=== PATIENT | female | born 1950 | race Caucasian/White ===

== ENCOUNTER 2018-07-06 11:01 | Inpatient (IN) | payer OTHER, BC ==
[2018-07-06] MEDS ORDERED: SODIUM CHLORIDE 1,000 ML IV ONE (11:15)
[2018-07-06] MEDS ORDERED: SODIUM CHLORIDE 0.9% 500 ML INFUS.BAG IV ONE (11:19)
[2018-07-06] MEDS ORDERED: PANTOPRAZOLE SODIUM 40 MG VIAL IVPUSH ONE (11:19)
[2018-07-06] MEDS ORDERED: ACETAMINOPHEN 1000 MG/100 ML VIAL (NON FORMULARY) IVPB ONE (11:19)
[2018-07-06 11:48] LABS: BASO % 0.2 % (0-2.0); HEMATOCRIT 38.2 % (32.4-45.2); HEMOGLOBIN 13.9 GM/dL (10.7-15.3); MCH 32.4 pg (25.7-33.7); MCHC 36.3 g/dl (32.0-36.0); MEAN CELL VOLUME 89.4 fl (80-96); MEAN PLT VOLUME 7.5 fl (7.5-11.1); NEUT % 80.8 % (42.8-82.8); PLATELET COUNT 199 K/MM3 (134-434); RBC 4.28 M/mm3 (3.60-5.2); RDW 12.1 % (11.6-15.6); WHITE BLOOD COUNT 6.9 K/mm3 (4.0-10.0)
--- NOTE | 2018-07-06 11:52 | PDOC ---
History of Present Illness - General Stated Complaint: UNRESPONSIVE Time Seen by Provider: 07/06/18 11:14 History Source: EMS, Family Exam Limitations: Clinical Condition - History of Present Illness Initial Comments: 07/06/18 11:42 Ander 67 YOF with h/o severe depression, with recent admission to [facility] for psychiatric hospitalization BIB EMS with AMS, found unresponsive in bed this morning, +fever and respiratory distress with copious mucoid secretions when she was found. Last normal last night approx 8am. history limited due to medical condition History provided by EMS and son at bedside, limited by patient due to clinical condition and AMS. received 1 mg narcan IV w/o improvement and IVF son has found bag of her antidepressants and suicide note stating she is sorry and loves her family. most recent prescriptions that were recently filled as of 07/03/18 include olanzapine 15mg tabs, desipramine 150mg tab, duloxetine 60mg tab ; empty bottle is Olanzapine noted of note, recently admitted and dc'd on 07/03/18 for 2 week hospitalization from [facility] for depression and DBT. no prior suicide attempts Medications: desipramine 150mg daily QHS, zyprexa 15 mg QHS, Propranolol 80mg QAM, Duloxetine/Cymbalta 60mg QAM, Klonopin 1mg daily PRN; venlafaxine ER 75mg, aripiprazole 2mg daily PSH: appendectomy No known smoking/tobacco or drug/etoh use. 07/06/18 13:21 Past History - Past Medical History Allergies/Adverse Reactions: Allergies Allergy/AdvReac Type Severity Reaction Status Date / Time No Known Allergies Allergy Verified 07/06/18 11:40 Home Medications: Ambulatory Orders Unobtainable 07/06/18 COPD: No Psychiatric Problems: Yes (depression) - Surgical History Appendectomy: Yes - Suicide/Smoking/Psychosocial Hx Smoking History: Never smoked Have you smoked in the past 12 months: No Hx Alcohol Use: No Drug/Substance Use Hx: No Review of Systems - Review of Systems Able to Perform ROS?: No (clinical condition, AMS) *Physical Exam - Vital Signs Last Vital Signs Temp Pulse Resp BP Pulse Ox 102 F H 132 H 32 H 153/78 91 L 07/06/18 11:35 07/06/18 11:35 07/06/18 11:35 07/06/18 11:35 07/06/18 11:35 - Physical Exam Comments: 07/06/18 11:43 General: obtunded, unresponsive to voice or commands HEENT: NCAT, sluggish pupils 3-4mm, clear conjunctiva, anicteric, dry membranes, copious yellow mucus from nares and oropharynx, snoring Neck: neck supple Resp: severe respiratory distress, +bilateral rhonchi, copious oral and nasal secretions. CVS: tachycardic, 2+ peripheral pulses throughout, no peripheral edema Abdomen: soft, nondistended Back: normal inspection MSK: no edema,No clubbing or cyanosis. normal bulk and tone. Neuro: obtuneded, unresponsive Skin: dry and cool to touch, cap refill <2 sec, normal color 07/06/18 19:41 Procedures - Central Line Central Line Lumen: triple Central Line Position: internal jugular (R) Complications: none Post Central Line Insertion: sutured, good blood return, position confirmed w/ CXR Progress: 07/06/18 19:42 with ultrasound guidance, placed at 15cm to the skin. - Intubation Time of Intubation: 11:30 Intubation Method: orotracheal Blade used: Mac Tube Size (Fr): 7.0 Medications: Etomidate, Rocuronium Tube position @ lip (cm): 21 Tube position confirmed by: Direct visualization, CO2 detector, Chest x-ray, Breath sounds Breath Sounds after Intubation: equal Intubation Complications: no complications, oralbleed Post Intubation Xray: Yes Heart Score/ECG Review - ECG Impressions Normal ECG: No Comment:: 07/06/18 14:36 EKG sinus tachycardia, no interval abnormalities, narrow QRS and QTC, ST and T wave segments and morphology normal. Nonspecific T wave abnormalities ED Treatment Course - LABORATORY CBC & Chemistry Diagram: 07/06/18 11:42 07/06/18 11:42 - RADIOLOGY Radiology Studies Ordered: Category Date Time Status HEAD CT WITHOUT CONTRAST [CT] Stat CT Scan 07/06/18 11:16 Ordered CHEST X-RAY PORTABLE* [RAD] Stat Radiology 07/06/18 11:15 Ordered Medical Decision Making - Critical Care Time Total Critical Care Time (minutes): 120 (acute respiratory failure, sepsis, AMS) Critical Care Statement: The care of this patient involved high complexity decision making to prevent further life threatening deterioration of the patient 's condition and/or to evaluate & treat vital organ system(s) failure or risk of failure. - Medical Decision Making 07/06/18 12:37 DDx overdose, SI. antipsychotic OD, TCA OD, Serotonin syndrome, malignant hyperthermia. NMS. infection, UTI, pneumonia. tylenol/salicylate OD, toxic alcohol ingestant. Vital signs reviewed, hypertensive, tachycardic, tachypneic, obtunded, hypoxic. placed on NRB immediately, IVF running. Prior notes reviewed, including admissions, from OSH. laboratory results and imaging reviewed, basic labs and lytes wnl, normal coags. ABG wnl, hyperoxia noted. UA_neg for infection. Utox with benzos, which is expected CXR_no acute pathology, on my read, ETT in place above lauren. called radiologist to make comment to confirm tube. Cardiac panel_neg trop EKG sinus tachycardia, no interval abnormalities, narrow QRS and QTC, ST and T wave segments and morphology normal. Nonspecific T wave abnormalities ED course: emergently intubated for acute respiratory failure and AMS, airway protection as unresponsive. see procedure note. propofol for sedation, vented with SpO2 100%. ABG normal, hyperoxia noted, but no acidosis. suicide note found, suggestive of acute OD of unclear meds (med review as documented, considering antipsychotic OD vs TCA OD given extensive med rec performed, and noted to have completely empty bottle of Olanzapine) [facility] center consulted, had spoken with Dr. Iverson who recommends to uptitrate propofol, continue with supportive measures. NAC ok x 24 hours for likely subacute/chronic tylenol ingestant. activated charcoal via NGt. RIJ central line for access due to critical condition and access, family consented, risks and indications discussed and agreeable.. CXR confirmed line, ETT (advanced 2cm above lauren) and NGT. ICU cs for higher level of care. accepted. NSG consult with Dr. Zimmer, for small extraaxial head bleed noted on CT head, will follow, no acute intervention for now. neuro and ID cs to follow. Dispo: Admit to ICU for AMS,acute respiratory failure, suspected antipsychotic vs TCA overdose vs chronic tylenol ingestant, sepsis, aspiration pneumonitis... Discussed results and management plan with pt and family member at bedside, agree with impression and plan 07/06/18 19:43 *DC/Admit/Observation/Transfer Diagnosis at time of Disposition: Acute respiratory failure, Overdose, Overdose on Tylenol, Altered mental status , Sepsis, Suicide and self-inflicted injury - Discharge Dispostion Condition at time of disposition: Critical Decision to Admit order: Yes Decision to Admit order Date/Time: 07/06/18 14:33 Decision to Admit Order Category Date Time Status Decision to Admit to Hospital Routine Admission 07/06/18 13:19 Active - Referrals - Patient Instructions - Post Discharge Activity
[2018-07-06 12:01] LABS: INR 1.03 (0.83-1.09); PROTHROMBIN TIME (PATIENT) 12.2 SEC (9.7-13.0)
[2018-07-06 12:04] LABS: ACTIVATED PTT 26.9 SECONDS (25.2-36.5)
[2018-07-06 12:18] LABS: ALBUMIN 3.6 g/dl (3.4-5.0); ALK PHOS 74 U/L (45-117); ANION GAP 9 MMOL/L (8-16); BILIRUBIN,TOTAL 0.7 mg/dL (0.2-1); BLOOD UREA NITROGEN 22 mg/dL (7-18); CALCIUM 8.1 mg/dL (8.5-10.1); CHLORIDE 97 mmol/L (98-107); CO2 28 mmol/L (21-32); CREATININE 0.7 mg/dL (0.55-1.3); GLUCOSE,RANDOM 158 mg/dL (74-106); POTASSIUM 3.7 mmol/L (3.5-5.1); SGOT/AST 11 U/L (15-37); SGPT/ALT 17 U/L (13-61); SODIUM 134 mmol/L (136-145); TOT PROT 6.1 g/dl (6.4-8.2)
[2018-07-06] MEDS: PROPOFOL 1,000,000 MCG/100 ML VIAL IVPB SCH ×2 (12:55→13:00)
[2018-07-06 12:57] LABS: ARTERIAL BLOOD GAS PCO2 39.1 mmHg (35-45); ARTERIAL BLOOD GAS pH 7.38 (7.35-7.45)
[2018-07-06 12:58] LABS: ALLENS TEST POSITIVE; ARTERIAL BLD GAS O2 SATURATION 99.9 % (90-98.9); ARTERIAL BLOOD GAS BASE EXCESS -1.6 meq/l (-2-2); CARBOXYHEMOGLOBIN 0.5 gm% (0.5-2.0)
[2018-07-06] MEDS ORDERED: VANCOMYCIN 1,000 MG in DEXTROSE 5%-WATER - 250 ML IVPB ONE (13:15)
[2018-07-06] MEDS ORDERED: PIPERACILLIN/TAZOB 4.5 GM 4.5 GM in DEXTROSE 5%-WATER 100 ML IVPB ONE (13:17)
[2018-07-06 13:18] LABS: URINE APPEARANCE SLCLOUDY; URINE BILIRUBIN NEGATIVE (<2.0 mg/dL); URINE COLOR DKYELLOW; URINE GLUCOSE (UA) NEGATIVE (NEGATIVE); URINE KETONE TRACE (NEGATIVE); URINE LEUK ESTERASE NEGATIVE (NEGATIVE); URINE NITRITE NEGATIVE (NEGATIVE); URINE PROTEIN 1+ (NEGATIVE)
[2018-07-06 13:21] LABS: EPI CELLS RARE /HPF (FEW); URINE HYALINE CAST 6 /lpf; URINE MUCUS MANY
[2018-07-06] MEDS ORDERED: DEXTROSE IV SCH ×2 (13:30→13:33)
[2018-07-06] MEDS ORDERED: SODIUM BICARBONATE IV SCH ×2 (13:30→13:33)
[2018-07-06] MEDS ORDERED: NORMAL SALINE IV SCH ×2 (13:30→13:33)
[2018-07-06] MEDS ORDERED: THIAMINE HCL 200 MG/2 ML VIAL IVPB ONE ×2 (13:35→13:38)
[2018-07-06] MEDS ORDERED: DEXTROSE IV ONE (13:36)
[2018-07-06] MEDS ORDERED: SODIUM BICARBONATE IV ONE (13:36)
[2018-07-06] MEDS ORDERED: NORMAL SALINE IV ONE (13:36)
[2018-07-06 13:37] LABS: COCAINE, UR NEGATIVE ng/ml (CUTOFF=300); METHADONE, UR NEGATIVE ng/ml (CUTOFF=300); OPIATES, URI NEGATIVE ng/ml (CUTOFF=300); PHENCYCLIDINE,URINE NEGATIVE ng/ml (CUTOFF=25); URINE AMPHETAMINES NEGATIVE ng/ml (CUTOFF=500); URINE BARBITURATES NEGATIVE ng/ml (CUTOFF=200)
[2018-07-06] MEDS ORDERED: ACTIVATED CHARCOAL 260 MG CAPSULE PO ONE (13:45)
[2018-07-06 13:46] LABS: URINE BENZODIAZEPINES POSITIVE ng/ml (CUTOFF=200)
[2018-07-06] MEDS ORDERED: ETOMIDATE 40 MG/20 ML VIAL IVPUSH ONE (14:27)
[2018-07-06] MEDS ORDERED: ROCURONIUM BROMIDE 50 MG/5 ML VIAL IVPUSH ONE (14:28)
[2018-07-06] MEDS ORDERED: ACETYLCYSTEINE 20% 200MG/ML 30ML VIAL *FOR INJECTION USE ONLY IVPB ONE ×6 (14:29→14:45)
--- NOTE | 2018-07-06 14:34 | HP ---
CHIEF COMPLAINT: found unresponsive PCP: unknown HISTORY OF PRESENT ILLNESS: Patient is intubated, sedated on exam. No prior hospitalizations here. Family not present on exam. History obtained from ED signout and review of chart. Patient is a 67 year old female with a reported past medical history of severe depression with prior admission to [facility]. Patient brought in to the ED today via ambulance after she was found unresponsive in her bed this morning. She was noted to be in respiratory distress with secretions. Apparently she was seen normal last night. On arrival to the ED patient was intubated for respiratory distress. In the ED patient was given: received 1 mg narcan IV hydration NGT placed activated charcoal started on Tylenol OD protocol Olanzapine bottle was reported to be empty and thought to be the source of the ingestion. A suicide note was reportedly found. ER course was notable for: (1) trop negative x 1 (2) unresponsive, intubated on presentation (3) head ct mild volume loss, small focal hyperdensity within the anterior falx on axial image 16 measuring 5x3 mm and 50 hounsfield units suspicious for extra axial acute hemorrhage - neurosurgery notified. (4) will treat for possible severe sepsis: given vanco and zosyn in the Ed. ID consulted. (5) EKG sinus tachycardia, no interval abnormalities, narrow QRS and QTC, ST segments. Nonspecific T wave abnormalities (6) Poison control center called by ED provider who recommended uptitration of propofol and supportive measures. A central line to be placed. Her home medications include: olanzapine 15mg tabs desipramine 150mg tab duloxetine 60mg tab PAST MEDICAL HISTORY: severe depression. PAST SURGICAL HISTORY: appendectomy Social History: Smoking: unknown Alcohol:unknown Drugs: unknown Family History: Allergies No Known Allergies Allergy (Verified 07/06/18 11:40) HOME MEDICATIONS: PHYSICAL EXAMINATION Vital Signs - 24 hr 07/06/18 07/06/18 07/06/18 11:25 11:30 11:35 Temperature 102 F H Pulse Rate 130 H 132 H Pulse Rate [ 127 H 125 H Apical] Respiratory 27 H 16 32 H Rate Blood Pressure 153/78 Blood Pressure 144/79 169/102 H [Left Arm] O2 Sat by Pulse 100 100 91 L Oximetry (%) 07/06/18 07/06/18 07/06/18 11:51 12:18 12:26 Temperature Pulse Rate 126 H Pulse Rate [ 130 H 115 H Apical] Respiratory 15 16 Rate Blood Pressure Blood Pressure 164/90 160/96 [Left Arm] O2 Sat by Pulse 100 100 100 Oximetry (%) 07/06/18 07/06/18 07/06/18 12:55 13:00 13:20 Temperature Pulse Rate Pulse Rate [ 116 H 118 H 114 H Apical] Respiratory 15 17 16 Rate Blood Pressure Blood Pressure 140/83 140/84 147/84 [Left Arm] O2 Sat by Pulse 100 100 100 Oximetry (%) GENERAL: sedated, intubated HEAD: Normal with no signs of trauma, head ct noted EYES: Pupils equal, round and minimally reactive to date. EARS, NOSE, THROAT: Ears normal, nares patent, oropharynx clear without exudates. Moist mucous membranes. NECK: Normal range of motion, supple without lymphadenopathy, JVD, or masses. LUNGS: Breath sounds anteriorly clear on exam HEART: sinus tachycardia on cardiac 114. ABDOMEN: Soft, not distended. NGT placed with purulent brown drainage MUSCULOSKELETAL: Normal range of motion at all joints. No bony deformities or tenderness. No CVA tenderness. UPPER EXTREMITIES: No peripheral edema. LOWER EXTREMITIES: No peripheral edema. NEUROLOGICAL: sedated, intubated PSYCHIATRIC: sedated SKIN: intact Laboratory Results - last 24 hr 07/06/18 07/06/18 07/06/18 11:30 11:30 11:42 WBC 6.9 RBC 4.28 Hgb 13.9 Hct 38.2 MCV 89.4 MCH 32.4 MCHC 36.3 H RDW 12.1 Plt Count 199 MPV 7.5 Absolute Neuts (auto) 5.6 Neutrophils % 80.8 Lymphocytes % 5.0 L Monocytes % 14.0 H Eosinophils % 0.0 Basophils % 0.2 Nucleated RBC % 0 PT with INR INR PTT (Actin FS) Anticoagulation Therapy Puncture Site Patient Temperature ABG pH ABG pCO2 at Pt Temp ABG pO2 at Pt Temp ABG HCO3 ABG O2 Sat (Measured) ABG O2 Content ABG Base Excess Chaz Test Carboxyhemoglobin Methemoglobin O2 Delivery Device Oxygen Flow Rate Vent Mode Vent Rate Mechanical Rate PEEP Pressure Support Vent Sodium Potassium Chloride Carbon Dioxide Anion Gap BUN Creatinine Creat Clearance w eGFR Random Glucose Lactic Acid 1.8 Calcium Total Bilirubin AST ALT Alkaline Phosphatase Ammonia 18.11 Creatine Kinase Troponin I Total Protein Albumin Urine Color Urine Appearance Urine pH Ur Specific [place] Urine Protein Urine Glucose (UA) Urine Ketones Urine Blood Urine Nitrite Urine Bilirubin Urine Urobilinogen Ur Leukocyte Esterase Urine WBC (Auto) Urine RBC (Auto) Ur Epithelial Cells Hyaline Casts Urine Mucus Salicylates Opiates Screen Methadone Screen Acetaminophen Barbiturate Screen Phencyclidine Screen Ur Amphetamines Screen MDMA (Ecstasy) Screen Benzodiazepines Screen Cocaine Screen U Marijuana (THC) Screen Alcohol, Quantitative 07/06/18 07/06/18 07/06/18 11:42 11:42 11:42 WBC RBC Hgb Hct MCV MCH MCHC RDW Plt Count MPV Absolute Neuts (auto) Neutrophils % Lymphocytes % Monocytes % Eosinophils % Basophils % Nucleated RBC % PT with INR 12.20 INR 1.03 PTT (Actin FS) 26.9 Anticoagulation Therapy Puncture Site Patient Temperature ABG pH ABG pCO2 at Pt Temp ABG pO2 at Pt Temp ABG HCO3 ABG O2 Sat (Measured) ABG O2 Content ABG Base Excess Chaz Test Carboxyhemoglobin Methemoglobin O2 Delivery Device Oxygen Flow Rate Vent Mode Vent Rate Mechanical Rate PEEP Pressure Support Vent Sodium 134 L Potassium 3.7 Chloride 97 L Carbon Dioxide 28 Anion Gap 9 BUN 22 H Creatinine 0.7 Creat Clearance w eGFR > 60 Random Glucose 158 H Lactic Acid Calcium 8.1 L Total Bilirubin 0.7 AST 11 L ALT 17 Alkaline Phosphatase 74 Ammonia Creatine Kinase 25 L Troponin I < 0.02 Total Protein 6.1 L Albumin 3.6 Urine Color Urine Appearance Urine pH Ur Specific [place] Urine Protein Urine Glucose (UA) Urine Ketones Urine Blood Urine Nitrite Urine Bilirubin Urine Urobilinogen Ur Leukocyte Esterase Urine WBC (Auto) Urine RBC (Auto) Ur Epithelial Cells Hyaline Casts Urine Mucus Salicylates Opiates Screen Methadone Screen Acetaminophen 38.6 H Barbiturate Screen Phencyclidine Screen Ur Amphetamines Screen MDMA (Ecstasy) Screen Benzodiazepines Screen Cocaine Screen U Marijuana (THC) Screen Alcohol, Quantitative 07/06/18 07/06/18 07/06/18 11:42 11:55 13:05 WBC RBC Hgb Hct MCV MCH MCHC RDW Plt Count MPV Absolute Neuts (auto) Neutrophils % Lymphocytes % Monocytes % Eosinophils % Basophils % Nucleated RBC % PT with INR INR PTT (Actin FS) Anticoagulation Therapy Booking Supervisor Puncture Site Right radial Patient Temperature Booking Supervisor ABG pH 7.38 ABG pCO2 at Pt Temp 39.1 ABG pO2 at Pt Temp 343.0 H* ABG HCO3 22.7 ABG O2 Sat (Measured) 99.9 H* ABG O2 Content 16.9 ABG Base Excess -1.6 Chaz Test Positive Carboxyhemoglobin 0.5 Methemoglobin 0.3 L O2 Delivery Device Booking Supervisor Oxygen Flow Rate Yes Vent Mode Booking Supervisor Vent Rate Booking Supervisor Mechanical Rate Booking Supervisor PEEP Booking Supervisor Pressure Support Vent Booking Supervisor Sodium Potassium Chloride Carbon Dioxide Anion Gap BUN Creatinine Creat Clearance w eGFR Random Glucose Lactic Acid Calcium Total Bilirubin AST ALT Alkaline Phosphatase Ammonia Creatine Kinase Troponin I Total Protein Albumin Urine Color Dkyellow Urine Appearance Slcloudy Urine pH 5.0 Ur Specific [place] 1.019 Urine Protein 1+ H Urine Glucose (UA) Negative Urine Ketones Trace H Urine Blood Negative Urine Nitrite Negative Urine Bilirubin Negative Urine Urobilinogen 2.0 H Ur Leukocyte Esterase Negative Urine WBC (Auto) 6 Urine RBC (Auto) <1 Ur Epithelial Cells Rare Hyaline Casts 6 Urine Mucus Many Salicylates < 1.7 L Opiates Screen Methadone Screen Acetaminophen Barbiturate Screen Phencyclidine Screen Ur Amphetamines Screen MDMA (Ecstasy) Screen Benzodiazepines Screen Cocaine Screen U Marijuana (THC) Screen Alcohol, Quantitative < 3.0 07/06/18 13:05 WBC RBC Hgb Hct MCV MCH MCHC RDW Plt Count MPV Absolute Neuts (auto) Neutrophils % Lymphocytes % Monocytes % Eosinophils % Basophils % Nucleated RBC % PT with INR INR PTT (Actin FS) Anticoagulation Therapy Puncture Site Patient Temperature ABG pH ABG pCO2 at Pt Temp ABG pO2 at Pt Temp ABG HCO3 ABG O2 Sat (Measured) ABG O2 Content ABG Base Excess Chaz Test Carboxyhemoglobin Methemoglobin O2 Delivery Device Oxygen Flow Rate Vent Mode Vent Rate Mechanical Rate PEEP Pressure Support Vent Sodium Potassium Chloride Carbon Dioxide Anion Gap BUN Creatinine Creat Clearance w eGFR Random Glucose Lactic Acid Calcium Total Bilirubin AST ALT Alkaline Phosphatase Ammonia Creatine Kinase Troponin I Total Protein Albumin Urine Color Urine Appearance Urine pH Ur Specific [place] Urine Protein Urine Glucose (UA) Urine Ketones Urine Blood Urine Nitrite Urine Bilirubin Urine Urobilinogen Ur Leukocyte Esterase Urine WBC (Auto) Urine RBC (Auto) Ur Epithelial Cells Hyaline Casts Urine Mucus Salicylates Opiates Screen Negative Methadone Screen Negative Acetaminophen Barbiturate Screen Negative Phencyclidine Screen Negative Ur Amphetamines Screen Negative MDMA (Ecstasy) Screen Negative Benzodiazepines Screen Positive A* Cocaine Screen Negative U Marijuana (THC) Screen Negative Alcohol, Quantitative ASSESSMENT/PLAN: Patient is intubated, sedated on exam. No prior hospitalizations here. Family not present on exam. History obtained from ED signout and review of chart. Patient is a 67 year old female with a reported past medical history of severe depression with prior admission to [facility]. Patient brought in to the ED today via ambulance after she was found unresponsive in her bed this morning. She was noted to be in respiratory distress with secretions. Apparently she was seen normal last night. On arrival to the ED patient was intubated for respiratory distress. Acute metabolic encephalopathy Severe sepsis Acute toxic metabolic encephalopathy Seratonin overdose Possible suicide attempt Severe depression Rule out stroke Neuro: Acute metabolic encephalopathy Acute toxic metabolic encephalopathy toxicology + benzos, salicylates <1.7. started on acetiminophen OD protocol. Liver enzymes wnl. Given narcan and activated charcoal via NGT. intubated and sedated to protect airway. Sedated on propofol, intubated for ICU admission Neuro checks Started on bicarb drip BGMs q4 while npo Rule out stroke vs head trauma Head ct mild volume loss, small focal hyperdensity within the anterior falx on axial image 16 measuring 5x3 mm and 50 hounsfield units suspicious for extra axial acute hemorrhage. neurosurgery notified by ED provider. ID: Severe sepsis: Presents with tachycardia, fevers, AMS. Pancultured in the ED. Vanco and Zosyn ordered. on IVF. Blood and urine culture pending. lactic acid wnl. Chest xray with course lung changes and pleural thickening. ID consult for further antibiotic recommendations Psyche Possible suicide attempt Benzo overdose per toxicology report obtain [facility] medical records. fen intubated, on IVF hydration monitor electrolytes npo proph SCDs, no a/c 2/2 to head bleed protonix BID full code Visit type - Emergency Visit Emergency Visit: Yes ED Registration Date: 07/06/18 Care time: The patient presented to the Emergency Department on the above date and was hospitalized for further evaluation of their emergent condition. - New Patient This patient is new to me today: Yes Date on this admission: 07/06/18 - Critical Care Critical Care patient: Yes Total Critical Care Time (in minutes): 60 Critical Care Statement: The care of this patient involved high complexity decision making to prevent further life threatening deterioration of the patient 's condition and/or to evaluate & treat vital organ system(s) failure or risk of failure.
[2018-07-06] MEDS ORDERED: CHARCOAL/WATER SOLUTION 25 GM/120 ML TUBE ONE (14:37)
[2018-07-06] MEDS ORDERED: SODIUM CHLORIDE 1,000 ML IV STA (14:41)
[2018-07-06] MEDS ORDERED: WATER IVPB ONE ×3 (14:45→20:00)
[2018-07-06] MEDS ORDERED: DEXTROSE 5% IVPB ONE ×3 (14:45→20:00)
[2018-07-06] MEDS ORDERED: ACETYLCYSTEINE IVPB ONE ×3 (14:45→20:00)
--- NOTE | 2018-07-06 17:10 | CON.ID ---
Consult Consult Specialty:: infectious diseases Reason for Consultation:: sepsis,resp failure - History of Present Illness History of Present Illness: 67 year old female with a reported past medical history of severe depression with prior admission to [facility]. Patient brought in to the ED today via ambulance after she was found unresponsive in her bed this morning. She was noted to be in respiratory distress with secretions. Apparently she was seen normal last night. On arrival to the ED patient was intubated for respiratory distress and txed to the icu currently intubated and sedated - History Source History Provided By: Family Member, Medical Record Limitations to Obtaining History: Clinical Condition - Alcohol/Substance Use Hx Alcohol Use: No - Smoking History Smoking history: Never smoked Have you smoked in the past 12 months: No Home Medications - Allergies Allergies/Adverse Reactions: Allergies Allergy/AdvReac Type Severity Reaction Status Date / Time No Known Allergies Allergy Verified 07/06/18 11:40 - Home Medications Home Medications: Ambulatory Orders Clonazepam 0.5 mg PO BID PRN 07/12/18 Desipramine HCl [Norpramin -] 150 mg PO BID 07/12/18 Duloxetine HCl 60 mg PO DAILY 07/12/18 Olanzapine 15 mg PO HS 07/12/18 Propranolol HCl [Propranolol HCl ER] 80 mg PO DAILY 07/12/18 Review of Systems Unable to obtain ROS, reason: unable to obtain Physical Exam Vital Signs: Vital Signs Temperature 98.9 F 07/06/18 14:45 Pulse Rate 110 H 07/06/18 16:41 Respiratory Rate 18 07/06/18 15:15 Blood Pressure 135/82 07/06/18 16:41 O2 Sat by Pulse Oximetry (%) 100 07/06/18 16:41 Constitutional: Yes: Other Cardiovascular: Yes: Regular Rate and Rhythm Respiratory: Yes: Intubated, Mechanically Ventilated Gastrointestinal: Yes: Normal Bowel Sounds, Soft Musculoskeletal: Yes: WNL Extremities: Yes: WNL Neurological: Yes: Other Psychiatric: Yes: Other Labs: CBC, BMP 07/06/18 11:42 07/06/18 11:42 Imaging - Results Chest X-ray: Report Reviewed, Image Reviewed Cat Scan: Report Reviewed, Image Reviewed Assessment/Plan Acute metabolic encephalopathy Severe sepsis Acute toxic metabolic encephalopathy Seratonin overdose Possible suicide attempt Severe depression pneumonia uti plan continue current mgmt will start abx empirically close watch supportive measures resp support monitor labs rest as per icu spoke to the family in detail cc 45 min
--- NOTE | 2018-07-06 17:58 | CON.NEURO ---
Consult - Alcohol/Substance Use Hx Alcohol Use: No - Smoking History Smoking history: Never smoked Have you smoked in the past 12 months: No Home Medications - Allergies Allergies/Adverse Reactions: Allergies Allergy/AdvReac Type Severity Reaction Status Date / Time No Known Allergies Allergy Verified 07/06/18 11:40 Physical Exam-Neuro Vital Signs: Vital Signs Temperature 98.9 F 07/06/18 14:45 Pulse Rate 110 H 07/06/18 16:41 Respiratory Rate 16 07/06/18 17:43 Blood Pressure 135/82 07/06/18 16:41 O2 Sat by Pulse Oximetry (%) 100 07/06/18 16:41 Labs: CBC, BMP 07/06/18 11:42 07/06/18 11:42 INR, PTT INR 1.03 (0.83-1.09) 07/06/18 11:42 Assessment/Plan cc AMS HPI 67 year old female history of severe depression and found responsive at home. It is not clear , how long she was out. Patient was given narcan and was intuabted for airway protection. Patient has ct head and it was unremarkable. She wastakign cymbalta, inderal, zyprexa, desipiprine, klonipin , effexor and abilify. she recently filled olanzapine on july 03 and her bottle was found empty and she also left a suicidal note. She is intuabted and sedated and not responding to pain or verbal stimuli PMH Depression and multiple medication Medications: desipramine 150mg daily QHS, zyprexa 15 mg QHS, Propranolol 80mg QAM, Duloxetine/Cymbalta 60mg QAM, Klonopin 1mg daily PRN; venlafaxine ER 75mg, aripiprazole 2mg daily PSH: appendectomy NKDA Neurological Examination Comatose and intubated and sedated on propafol she is not responding to pain or verbal stimuli She is on bicarb drip , and having spontaneous breathing, bp is maintained pupils is mid size and responding, and corneal reflex is present gag reflex is absent rest of exam is noraml ct head showed there is small area of hemorrhage 6x3 mm, spoke to neurosurgery , and no acute intervention needed Assessment: 67 year old female history of severe depression, several admission recently for acute depression , she has suicial attempt and took whole bottle of zyprexa. She is intubated and sedative and no corical sign present. Brain stem sign are present. Over all prognosis is guarded and it was discussed in great length with family and spent 30 minute doing critical care Plan: supportive care and repeat ct head - overall prognosis and range of possibility were discussed with patient Thanking you so much Jeffry Aquino MD
[2018-07-06] MEDS ORDERED: DEXTROSE 5%-WATER - 1,000 ML with SODIUM BICARBONATE 8.4% - 100 MEQ IV SCH (18:00)
[2018-07-06] MEDS ORDERED: PIPERACILLIN/TAZOB 3.375 GM 3.375 GM/50 ML BAG IVPB ONE (18:02)
--- NOTE | 2018-07-06 18:02 | PDOC ---
*Physical Exam - Vital Signs Last Vital Signs Temp Pulse Resp BP Pulse Ox 98.9 F 110 H 16 135/82 100 07/06/18 14:45 07/06/18 16:41 07/06/18 17:43 07/06/18 16:41 07/06/18 16:41 ED Treatment Course - LABORATORY CBC & Chemistry Diagram: 07/06/18 11:42 07/06/18 11:42 - ADDITIONAL ORDERS Additional order review: Laboratory Results 07/06/18 07/06/18 07/06/18 13:05 13:05 11:55 PT with INR INR PTT (Actin FS) Anticoagulation Therapy Animal Husbandry Technician Puncture Site Right radial Patient Temperature Animal Husbandry Technician ABG pH 7.38 ABG pCO2 at Pt Temp 39.1 ABG pO2 at Pt Temp 343.0 H* ABG HCO3 22.7 ABG O2 Sat (Measured) 99.9 H* ABG O2 Content 16.9 ABG Base Excess -1.6 Chaz Test Positive Carboxyhemoglobin 0.5 Methemoglobin 0.3 L O2 Delivery Device Animal Husbandry Technician Oxygen Flow Rate Yes Vent Mode Animal Husbandry Technician Vent Rate Animal Husbandry Technician Mechanical Rate Animal Husbandry Technician PEEP Animal Husbandry Technician Pressure Support Vent Animal Husbandry Technician Sodium Potassium Chloride Carbon Dioxide Anion Gap BUN Creatinine Creat Clearance w eGFR Random Glucose Lactic Acid Calcium Total Bilirubin AST ALT Alkaline Phosphatase Ammonia Creatine Kinase Troponin I Total Protein Albumin Urine Color Dkyellow Urine Appearance Slcloudy Urine pH 5.0 Ur Specific Pringle 1.019 Urine Protein 1+ H Urine Glucose (UA) Negative Urine Ketones Trace H Urine Blood Negative Urine Nitrite Negative Urine Bilirubin Negative Urine Urobilinogen 2.0 H Ur Leukocyte Esterase Negative Urine WBC (Auto) 6 Urine RBC (Auto) <1 Ur Epithelial Cells Rare Hyaline Casts 6 Urine Mucus Many Salicylates Opiates Screen Negative Methadone Screen Negative Acetaminophen Barbiturate Screen Negative Phencyclidine Screen Negative Ur Amphetamines Screen Negative MDMA (Ecstasy) Screen Negative Benzodiazepines Screen Positive A* Cocaine Screen Negative U Marijuana (THC) Screen Negative Alcohol, Quantitative 07/06/18 07/06/18 07/06/18 11:42 11:42 11:42 PT with INR INR PTT (Actin FS) Anticoagulation Therapy Puncture Site Patient Temperature ABG pH ABG pCO2 at Pt Temp ABG pO2 at Pt Temp ABG HCO3 ABG O2 Sat (Measured) ABG O2 Content ABG Base Excess Chaz Test Carboxyhemoglobin Methemoglobin O2 Delivery Device Oxygen Flow Rate Vent Mode Vent Rate Mechanical Rate PEEP Pressure Support Vent Sodium 134 L Potassium 3.7 Chloride 97 L Carbon Dioxide 28 Anion Gap 9 BUN 22 H Creatinine 0.7 Creat Clearance w eGFR > 60 Random Glucose 158 H Lactic Acid Calcium 8.1 L Total Bilirubin 0.7 AST 11 L ALT 17 Alkaline Phosphatase 74 Ammonia Creatine Kinase 25 L Troponin I < 0.02 Total Protein 6.1 L Albumin 3.6 Urine Color Urine Appearance Urine pH Ur Specific [place] Urine Protein Urine Glucose (UA) Urine Ketones Urine Blood Urine Nitrite Urine Bilirubin Urine Urobilinogen Ur Leukocyte Esterase Urine WBC (Auto) Urine RBC (Auto) Ur Epithelial Cells Hyaline Casts Urine Mucus Salicylates < 1.7 L Opiates Screen Methadone Screen Acetaminophen 38.6 H Barbiturate Screen Phencyclidine Screen Ur Amphetamines Screen MDMA (Ecstasy) Screen Benzodiazepines Screen Cocaine Screen U Marijuana (THC) Screen Alcohol, Quantitative < 3.0 07/06/18 07/06/18 07/06/18 11:42 11:30 11:30 PT with INR 12.20 INR 1.03 PTT (Actin FS) 26.9 Anticoagulation Therapy Puncture Site Patient Temperature ABG pH ABG pCO2 at Pt Temp ABG pO2 at Pt Temp ABG HCO3 ABG O2 Sat (Measured) ABG O2 Content ABG Base Excess Chaz Test Carboxyhemoglobin Methemoglobin O2 Delivery Device Oxygen Flow Rate Vent Mode Vent Rate Mechanical Rate PEEP Pressure Support Vent Sodium Potassium Chloride Carbon Dioxide Anion Gap BUN Creatinine Creat Clearance w eGFR Random Glucose Lactic Acid 1.8 Calcium Total Bilirubin AST ALT Alkaline Phosphatase Ammonia 18.11 Creatine Kinase Troponin I Total Protein Albumin Urine Color Urine Appearance Urine pH Ur Specific [place] Urine Protein Urine Glucose (UA) Urine Ketones Urine Blood Urine Nitrite Urine Bilirubin Urine Urobilinogen Ur Leukocyte Esterase Urine WBC (Auto) Urine RBC (Auto) Ur Epithelial Cells Hyaline Casts Urine Mucus Salicylates Opiates Screen Methadone Screen Acetaminophen Barbiturate Screen Phencyclidine Screen Ur Amphetamines Screen MDMA (Ecstasy) Screen Benzodiazepines Screen Cocaine Screen U Marijuana (THC) Screen Alcohol, Quantitative 07/06/18 11:42 RBC 4.28 MCV 89.4 MCHC 36.3 H RDW 12.1 MPV 7.5 Neutrophils % 80.8 Lymphocytes % 5.0 L Monocytes % 14.0 H Eosinophils % 0.0 Basophils % 0.2 - Medications Given in the ED: ED Medications Discontinued Medications Generic Name Dose Route Start Last Admin Trade Name Coco PRN Reason Stop Dose Admin Acetaminophen 1,000 mg 07/06/18 11:19 07/06/18 11:25 Ofirmev Injection - IVPB 07/06/18 11:20 1,000 mg ONCE ONE Administration Acetylcysteine 7,100 mg 07/06/18 14:29 07/06/18 15:47 Acetadote 20 Injection Use Only* - 150 mg/kg (7100 mg) 07/06/18 14:30 7, 100 mg IVPB Administration ONCE ONE Charcoal 50 mg 07/06/18 13:45 07/06/18 15:18 Charcoal Activated - PO 07/06/18 13:46 50 mg NOW ONE Administration Etomidate 20 mg 07/06/18 14:27 07/06/18 11:20 Amidate - IVPUSH 07/06/18 14:28 20 mg NOW ONE Administration Sodium Chloride 1,000 mls @ 1,000 mls/hr 07/06/18 11:15 07/06/18 11:39 Normal Saline - IV 07/06/18 12:14 1,000 mls/hr .Q1H ONE Administration Vancomycin HCl 1,000 mg/ 250 mls @ 166.667 mls/hr 07/06/18 13:15 07/06/18 14: 06 Dextrose IVPB 07/06/18 14:44 166.667 mls/hr ONCE ONE Administration Protocol Piperacillin Sod/Tazobactam 100 mls @ 200 mls/hr 07/06/18 13:17 07/06/18 13: 36 Sod 4.5 gm/ Dextrose IVPB 07/06/18 13:46 200 mls/hr ONCE ONE Administration Protocol Sodium Chloride 1,000 mls @ 1,000 mls/hr 07/06/18 14:41 07/06/18 15:47 Normal Saline - IV 07/06/18 15:40 1,000 mls/hr ASDIR STA Administration Pantoprazole Sodium 40 mg 07/06/18 11:19 07/06/18 11:56 Protonix Iv IVPUSH 07/06/18 11:20 40 mg ONCE ONE Administration Rocuronium [place] 50 mg 07/06/18 14:28 07/06/18 11:20 Zemuron - IVPUSH 07/06/18 14:29 50 mg ONCE ONE Administration Sodium Chloride 1,000 ml 07/06/18 11:19 07/06/18 11:39 Normal Saline - IV 07/06/18 11:20 1,000 ml ONCE ONE Administration Thiamine HCl 300 mg 07/06/18 13:35 07/06/18 14:06 Vitamin B1 Injection - IVPB 07/06/18 13:36 300 mg TID ONE Administration Thiamine HCl 200 mg 07/06/18 13:38 07/06/18 14:27 Vitamin B1 Injection - IVPB 07/06/18 13:39 Not Given ONCE ONE Medical Decision Making - Medical Decision Making 07/06/18 17:54 67 yo female pmh of depression, recent psychiatric hospitalization and SI was found unresponsive in bed by son this am. Last known well 8pm last night. Received Narcan without improvement by EMT. Spoke with tox (Dr. Paz) regarding pt. Recommendations as follows: CPK increase propofol drip to 30-40 mcg/kg/min give another L of NS give NAC give activated charcoal give Thiamine give broad spec antibiotics decrease FIO2 Use Ice to cool pts body below 100 degrees Neurosurg consulted for possible bleed on head CT, states its unlikely causing pts current medical state and does not require surgical intervention at this point. Neurology consulted who states pt currently has brainstem reflexes but it is too early to predict Central Line R IJ completed *DC/Admit/Observation/Transfer Diagnosis at time of Disposition: Acute respiratory failure, Overdose, Overdose on Tylenol, Altered mental status , Sepsis, Suicide and self-inflicted injury - Discharge Dispostion Condition at time of disposition: Critical - Referrals - Patient Instructions - Post Discharge Activity Central Line Insertion Indication: Other (prophylactic ) Risks and Benefits Explained: Yes Consent on Chart: Yes Central Line: Triple Lumen Catheter Anesthesia: other (pt sedated on propofol) Sterile Technique: Yes Ultrasound Guided Assistance: Yes Position: Right Internal Jugular Post Insertion: Yes: Bilateral Breath Sounds Sterile Dressing Applied: Yes
[2018-07-06] MEDS: PIPERACILLIN/TAZOB 3.375 GM 3.375 GM in DEXTROSE 5%-WATER - 50 ML IVPB SCH (18:30)
[2018-07-06] MEDS: DEXTROSE 5%-WATER - 1,000 ML with SODIUM BICARBONATE 8.4% - 100 MEQ IV SCH (20:16)
[2018-07-06] MEDS ORDERED: DEXTROSE 5%-WATER - 50 ML IVPB ONE (20:35)
[2018-07-06] MEDS ORDERED: PIPERACILLIN/TAZOBACTAM 3.375 GM VIAL IVPB ONE (20:35)
[2018-07-06] MEDS: CHLORHEXIDINE GLUCONATE 4% CLEANSER FOR DECOLONIZATION TP SCH (21:35)
[2018-07-06] MEDS: PANTOPRAZOLE SODIUM 40 MG VIAL IVPUSH SCH (21:35)
--- NOTE | 2018-07-06 22:47 | CONSULT ---
Consultation: REQUESTING PROVIDER: Montrell Napoles CONSULT REQUEST: We have been asked to medically evaluate this patient for suicide attempt, found unresponsive with empty pill bottles. HISTORY OF PRESENT ILLNESS: Unable to obtain information from patient due to medical condition. Most information obtained from medical chart and family members Patient is a 67 year old female with a PMHx of Depression and suicidal ideations with recent admission to [facility] for [facility] Hospital[facility] ( 06/19/18-07/03/18) who was BIBEMS after being found by her son unresponsive, warm to touch with thick mucous coming out of her mouth and "barely breathing" at around 1030 this morning. Patient reports last time he spoke to her and saw his mother was yesterday at 1600. She was given 1mg Narcan IV by EMS with no improvement. On the field, EMS and son found a suicide note and an empty bottle of Olanzapine 15mg tabs that was last filled 07/02/18. Patient's daughter at bedside reports her Clonazepam 0.5mg tabs was also empty and it was last refilled on 06/05/18 with 60 pills. However, she was hospitalized 06/19/18 -07/03/18 and did not take any of those medications. Possibility of 26 pills ingested. In the ED patient was found to be tachycardic, hypertensive, tachypneic, unresponsive, Utox positive for benzos. Patient was emergently intubated for airway protection due to unresponsiveness. [facility] consulted who recommended supportive care, activated charcoal through NG tube, NAC for possible Tylenol ingestion. RIJ central line placed for access and CT head was done which showed a small extra axial head bleed. Patient then admitted to ICU for suspected antipsychotic overdose. PMHx: Severe Depression with suicidal ideations PSHx: Appendectomy Social: Smoking-Unknown Alcohol- Unknow Drugs- Unknown Home Medications: Desipramine 150mg daily QHS Zyprexa 15 mg QHS Propranolol 80mg QAM Duloxetine/Cymbalta 60mg QAM Klonopin 0.5mg BID PRN Venlafaxine ER 75mg Aripiprazole 2mg daily Allergies: NKDA REVIEW OF SYSTEMS: Unable to obtain PHYSICAL EXAMINATION Vital Signs - 24 hr 07/06/18 07/06/18 07/06/18 11:06 11:25 11:30 Temperature Pulse Rate 130 H Pulse Rate [ 133 H 127 H 125 H Apical] Respiratory 12 27 H 16 Rate Blood Pressure Blood Pressure 158/73 144/79 169/102 H [Left Arm] O2 Sat by Pulse 88 L 100 100 Oximetry (%) 07/06/18 07/06/18 07/06/18 11:35 11:37 11:51 Temperature 102 F H Pulse Rate 132 H 126 H Pulse Rate [ 130 H Apical] Respiratory 32 H 18 15 Rate Blood Pressure 153/78 Blood Pressure 177/104 H [Left Arm] O2 Sat by Pulse 91 L 100 100 Oximetry (%) 07/06/18 07/06/18 07/06/18 12:17 12:18 12:26 Temperature Pulse Rate Pulse Rate [ 125 H 130 H 115 H Apical] Respiratory 15 16 Rate Blood Pressure Blood Pressure 161/90 164/90 160/96 [Left Arm] O2 Sat by Pulse 100 100 100 Oximetry (%) 07/06/18 07/06/18 07/06/18 12:40 12:50 12:55 Temperature Pulse Rate Pulse Rate [ 130 H 127 H 115 H Apical] Respiratory 17 16 15 Rate Blood Pressure Blood Pressure 159/82 151/88 140/83 [Left Arm] O2 Sat by Pulse 100 100 100 Oximetry (%) 07/06/18 07/06/18 07/06/18 13:00 13:05 13:15 Temperature Pulse Rate Pulse Rate [ 118 H 117 H 117 H Apical] Respiratory 17 15 16 Rate Blood Pressure Blood Pressure 140/84 144/84 161/98 [Left Arm] O2 Sat by Pulse 100 100 100 Oximetry (%) 07/06/18 07/06/18 07/06/18 13:20 13:25 13:30 Temperature Pulse Rate Pulse Rate [ 114 H 119 H 119 H Apical] Respiratory 16 18 16 Rate Blood Pressure Blood Pressure 147/84 140/93 147/86 [Left Arm] O2 Sat by Pulse 100 100 100 Oximetry (%) 07/06/18 07/06/18 07/06/18 13:40 13:45 14:00 Temperature Pulse Rate Pulse Rate [ 118 H 117 H 116 H Apical] Respiratory 16 15 16 Rate Blood Pressure Blood Pressure 122/77 141/85 149/88 [Left Arm] O2 Sat by Pulse 100 100 100 Oximetry (%) 07/06/18 07/06/18 07/06/18 14:15 14:30 14:45 Temperature 98.9 F Pulse Rate Pulse Rate [ 114 H 113 H 112 H Apical] Respiratory 16 16 17 Rate Blood Pressure Blood Pressure 139/91 144/87 144/84 [Left Arm] O2 Sat by Pulse 100 100 100 Oximetry (%) 07/06/18 07/06/18 07/06/18 15:00 15:08 15:15 Temperature Pulse Rate Pulse Rate [ 112 H 112 H Apical] Respiratory 16 18 18 Rate Blood Pressure Blood Pressure 141/89 139/88 [Left Arm] O2 Sat by Pulse 100 100 Oximetry (%) 07/06/18 07/06/18 07/06/18 15:30 15:45 16:00 Temperature Pulse Rate Pulse Rate [ 112 H 111 H 111 H Apical] Respiratory 18 21 H 19 Rate Blood Pressure Blood Pressure 133/84 137/82 141/86 [Left Arm] O2 Sat by Pulse 100 100 100 Oximetry (%) 07/06/18 07/06/18 07/06/18 16:41 17:00 17:15 Temperature Pulse Rate Pulse Rate [ 110 H 109 H 110 H Apical] Respiratory 18 19 Rate Blood Pressure Blood Pressure 135/82 111/71 98/63 [Left Arm] O2 Sat by Pulse 100 100 100 Oximetry (%) 07/06/18 07/06/18 07/06/18 17:43 17:45 18:00 Temperature Pulse Rate Pulse Rate [ 107 H 108 H Apical] Respiratory 16 22 H 22 H Rate Blood Pressure Blood Pressure 115/62 117/73 [Left Arm] O2 Sat by Pulse 100 100 Oximetry (%) 07/06/18 07/06/18 07/06/18 18:15 20:01 20:33 Temperature 99.8 F H Pulse Rate 114 H Pulse Rate [ 109 H Apical] Respiratory 26 H 26 H 24 H Rate Blood Pressure 146/74 Blood Pressure 133/67 [Left Arm] O2 Sat by Pulse 100 100 Oximetry (%) GENERAL: intubated and sedated HEAD: Normal with no signs of trauma. EYES: PERRL ENT: ET tube in place NECK: (-) lymphadenopathy, JVD, or masses. LUNGS: ET tube in place. Breath sounds equal, clear to auscultation bilaterally and anteriorally. HEART: Regular rate and rhythm, normal S1 and S2 without murmur, rub or gallop. ABDOMEN: Soft, nontender, not distended, normoactive bowel sounds UPPER EXTREMITIES: No peripheral edema. LOWER EXTREMITIES: No peripheral edema. NEUROLOGICAL: Unable to fully assess. SKIN: Warm, dry, normal turgor, no rashes or lesions noted. Laboratory Results - last 24 hr WBC 6.9 K/mm3 (4.0-10.0) 07/06/18 11:42 RBC 4.28 M/mm3 (3.60-5.2) 07/06/18 11:42 Hgb 13.9 GM/dL (10.7-15.3) 07/06/18 11:42 Hct 38.2 % (32.4-45.2) 07/06/18 11:42 MCV 89.4 fl (80-96) 07/06/18 11:42 MCH 32.4 pg (25.7-33.7) 07/06/18 11:42 MCHC 36.3 g/dl (32.0-36.0) H 07/06/18 11:42 RDW 12.1 % (11.6-15.6) 07/06/18 11:42 Plt Count 199 K/MM3 (134-434) 07/06/18 11:42 MPV 7.5 fl (7.5-11.1) 07/06/18 11:42 Absolute Neuts (auto) 5.6 K/mm3 (1.5-8.0) 07/06/18 11:42 Neutrophils % 80.8 % (42.8-82.8) 07/06/18 11:42 Lymphocytes % 5.0 % (8-40) L 07/06/18 11:42 Monocytes % 14.0 % (3.8-10.2) H 07/06/18 11:42 Eosinophils % 0.0 % (0-4.5) 07/06/18 11:42 Basophils % 0.2 % (0-2.0) 07/06/18 11:42 Nucleated RBC % 0 % (0-0) 07/06/18 11:42 Sodium 134 mmol/L (136-145) L 07/06/18 11:42 Potassium 3.7 mmol/L (3.5-5.1) 07/06/18 11:42 Chloride 97 mmol/L (98-107) L 07/06/18 11:42 Carbon Dioxide 28 mmol/L (21-32) 07/06/18 11:42 Anion Gap 9 MMOL/L (8-16) 07/06/18 11:42 BUN 22 mg/dL (7-18) H 07/06/18 11:42 Creatinine 0.7 mg/dL (0.55-1.3) 07/06/18 11:42 Creat Clearance w eGFR > 60 (>60) 07/06/18 11:42 POC Glucometer 192.47533 UNITS (80-120) 07/06/18 21:03 Random Glucose 158 mg/dL (74-106) H 07/06/18 11:42 Lactic Acid 1.8 mmol/L (0.4-2.0) 07/06/18 11:30 Calcium 8.1 mg/dL (8.5-10.1) L 07/06/18 11:42 Total Bilirubin 0.7 mg/dL (0.2-1) 07/06/18 11:42 AST 11 U/L (15-37) L 07/06/18 11:42 ALT 17 U/L (13-61) 07/06/18 11:42 Alkaline Phosphatase 74 U/L (45-117) 07/06/18 11:42 Ammonia 18.11 umol/L (11-32) 07/06/18 11:30 Creatine Kinase 25 IU/L (26-192) L 07/06/18 11:42 Troponin I 0.02 ng/ml (0.00-0.05) 07/06/18 17:32 Total Protein 6.1 g/dl (6.4-8.2) L 07/06/18 11:42 Albumin 3.6 g/dl (3.4-5.0) 07/06/18 11:42 Salicylates <1.7 Acetaminophen 38.6 Benzodiazepines Screen Positive A* Active Medications Generic Name Dose Route Start Last Admin Trade Name Freq PRN Reason Stop Dose Admin Chlorhexidine Gluconate 1 applic 07/06/18 22:00 07/06/18 21:35 Hibiclens For Decolonization - TP 1 applic HS RUBENS Administration Propofol 1,000,000 mcg in 100 mls @ 1.429 mls/hr 07/06/18 12:45 07/06/18 17: 20 Diprivan - IVPB 25 mcg/kg/min TITR RUBENS 7.144 mls/hr Titration Protocol 5 MCG/KG/MIN Acetylcysteine 4,800 mg/ 1,024 mls @ 64 mls/hr 07/06/18 20:00 07/06/18 20:00 Dextrose IVPB 07/07/18 11:59 Not Given ONCE ONE Piperacillin Sod/Tazobactam 50 mls @ 100 mls/hr 07/06/18 18:00 07/06/18 18:30 Sod 3.375 gm/ Dextrose IVPB 100 mls/hr Q8H-IV RUBENS Administration Protocol Sodium Bicarbonate 100 meq/ 1,100 mls @ 200 mls/hr 07/06/18 18:00 07/06/18 20 :16 Dextrose IV Not Given ASDIR RUBENS Mupirocin 1 applic 07/07/18 10:00 Bactroban Ointment (For Decolonization) - NS 07/12/18 09:59 BID RUBENS Pantoprazole Sodium 40 mg 07/06/18 22:00 07/06/18 21:35 Protonix Iv IVPUSH 40 mg BID RUBENS Administration ASSESSMENT/PLAN: Patient is a 67 year old female who was BIBEMS after her son found her unresponsive with a suicide note and empty bottles of Olanzapine and Clonazepam. Patient admitted to ICU for further monitoring and management. NEURO #Acute Toxic Metabolic Encephalopathy -Likely secondary to Polysubstance overdose from Olanzapine and Clonazepam -Patient was found hyperthermic, tachypneic, hypertensive, tachycardic and unresponsive -Given narcan and activated charcoal via NGT. intubated and sedated to protect airway. -Currently intubated and sedated for airway protection -Continue Neurochecks -Continue supportive care and close monitoring of vitals -Neurology consult appreciated and recommended repeat head CT #Extraaxial acute hemorrhage -CT revealed focal hyperdensity within the anterior falx on axial image, suspicious for acute hemorrhage -Avoid AC or any blood thinners -Neuro recommended repeat CT. Will repeat in the morning -Neurosurgery consulted by ED and reports no acute intervention for now but will follow -Continue Neuro checks PULMONARY #Acute Respiratory Failure likely due to Aspiration PNA -Intubated and Sedated -Chest X-Ray revealed course lung changes and pleural thickening -Continue Propofol and will need Versed -Continue IV Abx with ID to follow -Cultures sent and pending -Aspiration precaution -HOB PSYCH #Severe Depression with Suicide Attempt -Will hold off on anti-psychotics due to toxicity -Continue to monitor and will need 1:1 after possible extubation, as well as a possible transfer to inpatient psych -Psych consult INFECTIOUS DISEASE -Patient met SIRS criteria likely secondary to drug toxicity with anti- depressants as it may cause tachycardia, hyperthermia and tachypnea. -Patient pancultured in the ED. Urine and blood cultures pending -Zosyn and Vancomycin given in ED with ID continuing Zosyn 3.375mg IVPB Q8H -Chest X-Ray revealed course lung changes and pleural thickening. Possible aspiration -Patient currently has stable vitals signs -ID consult appreciated F/E/N -On no IV fluids -Electrolytes wnl -NPO PROPHYLAXIS -SCD's. No AC due to extra-axial hemorrhage -Protonix 40mg IVP BID Disposition -Full code -Intubated and sedated. Continue ICU monitoring Dispo: We will continue to follow the patient. Thank you for this consultative opportunity. Citlalli Spear [id number] Visit type - Emergency Visit Emergency Visit: Yes ED Registration Date: 07/06/18 Care time: The patient presented to the Emergency Department on the above date and was hospitalized for further evaluation of their emergent condition. - New Patient This patient is new to me today: Yes Date on this admission: 07/06/18 - Critical Care Critical Care patient: Yes Total Critical Care Time (in minutes): 45 Critical Care Statement: The care of this patient involved high complexity decision making to prevent further life threatening deterioration of the patient 's condition and/or to evaluate & treat vital organ system(s) failure or risk of failure.
[2018-07-07] MEDS: PIPERACILLIN/TAZOB 3.375 GM 3.375 GM in DEXTROSE 5%-WATER - 50 ML IVPB SCH ×3 (02:00→18:21)
[2018-07-07] MEDS ORDERED: PIPERACILLIN/TAZOBACTAM 3.375 GM VIAL IVPB ONE ×4 (03:08→21:01)
[2018-07-07] MEDS ORDERED: DEXTROSE 5%-WATER - 50 ML IVPB ONE ×4 (03:08→21:01)
[2018-07-07 06:09] LABS: EOS % 0.1 % (0-4.5); HEMATOCRIT 30.4 % (32.4-45.2); HEMOGLOBIN 11.2 GM/dL (10.7-15.3); LYMPH % 11.5 % (8-40); MCH 32.6 pg (25.7-33.7); MEAN PLT VOLUME 7.4 fl (7.5-11.1); NEUT % 76.4 % (42.8-82.8); PLATELET COUNT 176 K/MM3 (134-434); RBC 3.46 M/mm3 (3.60-5.2); RDW 12.4 % (11.6-15.6); WHITE BLOOD COUNT 5.5 K/mm3 (4.0-10.0)
[2018-07-07 06:34] LABS: ARTERIAL BLD GAS O2 SATURATION 99.2 % (90-98.9); ARTERIAL BLOOD GAS BASE EXCESS 9.5 meq/l (-2-2); ARTERIAL BLOOD GAS PCO2 37.7 mmHg (35-45); ARTERIAL BLOOD GAS pH 7.55 (7.35-7.45)
[2018-07-07 06:38] LABS: ALBUMIN 2.3 g/dl (3.4-5.0); ALK PHOS 54 U/L (45-117); ANION GAP 7 MMOL/L (8-16); BILIRUBIN,TOTAL 0.4 mg/dL (0.2-1); BLOOD UREA NITROGEN 7 mg/dL (7-18); CALCIUM 7.2 mg/dL (8.5-10.1); CHLORIDE 99 mmol/L (98-107); CO2 33 mmol/L (21-32); CREATININE 0.5 mg/dL (0.55-1.3); GLUCOSE,RANDOM 180 mg/dL (74-106); MAGNESIUM 1.5 mg/dL (1.8-2.4); PHOSPHOROUS 1.2 mg/dL (2.5-4.9); SGOT/AST 10 U/L (15-37); SGPT/ALT 12 U/L (13-61); SODIUM 139 mmol/L (136-145); TOT PROT 4.2 g/dl (6.4-8.2)
[2018-07-07 06:51] LABS: POTASSIUM 2.6 mmol/L (3.5-5.1)
[2018-07-07 06:55] LABS: ALLENS TEST POSITIVE
[2018-07-07] MEDS ORDERED: KCL 10 MEQ IVPB 10 MEQ/100 ML INFUS.BAG IVPB SCH ×2 (07:45→15:45)
[2018-07-07] MEDS ORDERED: MAGNESIUM SULF 50% (8.12 MEQ/2 ML-1 GM VIAL) IVPB ONE (07:46)
[2018-07-07] MEDS: KCL 10 MEQ IVPB 10 MEQ/100 ML INFUS.BAG IVPB SCH ×2 (08:04→10:02)
--- NOTE | 2018-07-07 08:50 | PN ---
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 intubated/sedated repeat head ct ordered replenishing K (2.6) sedation off since 10am spoke to patient's who signed consent to obtain records from recent hospitalization at [facility], form faxed to [facility] Medical records and awaiting receipt on our fax [phone] patient on 1:1 since off sedation, will need psych consult once mental status improves palliative care consulted Vital Signs Period Temp Pulse Resp BP Sys/Smith Pulse Ox Last 24 Hr 98.9 F-102 F 107-133 12-32 98-177/57-104 88-100 GENERAL: intubated HEAD: Normal with no signs of trauma, head ct noted EYES: Pupils equal, round and minimally reactive to date. EARS, NOSE, THROAT: Ears normal, nares patent, oropharynx clear without exudates. Moist mucous membranes. NECK: Normal range of motion, supple without lymphadenopathy, JVD, or masses. LUNGS: Breath sounds anteriorly clear on exam HEART: sinus tachycardia on cardiac 114. ABDOMEN: Soft, not distended. NGT placed and now clamped MUSCULOSKELETAL: Normal range of motion at all joints. No bony deformities or tenderness. No CVA tenderness. UPPER EXTREMITIES: No peripheral edema. LOWER EXTREMITIES: No peripheral edema. NEUROLOGICAL: intubated SKIN: intact Laboratory Results - last 24 hr 07/06/18 07/06/18 07/06/18 11:30 11:30 11:42 WBC 6.9 RBC 4.28 Hgb 13.9 Hct 38.2 MCV 89.4 MCH 32.4 MCHC 36.3 H RDW 12.1 Plt Count 199 MPV 7.5 Absolute Neuts (auto) 5.6 Neutrophils % 80.8 Lymphocytes % 5.0 L Monocytes % 14.0 H Eosinophils % 0.0 Basophils % 0.2 Nucleated RBC % 0 PT with INR INR PTT (Actin FS) Anticoagulation Therapy Puncture Site Patient Temperature ABG pH ABG pCO2 at Pt Temp ABG pO2 at Pt Temp ABG HCO3 ABG O2 Sat (Measured) ABG O2 Content ABG Base Excess Chaz Test Carboxyhemoglobin Methemoglobin O2 Delivery Device Oxygen Flow Rate Vent Mode Vent Rate Mechanical Rate PEEP Pressure Support Vent Sodium Potassium Chloride Carbon Dioxide Anion Gap BUN Creatinine Creat Clearance w eGFR POC Glucometer Random Glucose Lactic Acid 1.8 Calcium Phosphorus Magnesium Total Bilirubin AST ALT Alkaline Phosphatase Ammonia 18.11 Creatine Kinase Troponin I Total Protein Albumin Urine Color Urine Appearance Urine pH Ur Specific [place] Urine Protein Urine Glucose (UA) Urine Ketones Urine Blood Urine Nitrite Urine Bilirubin Urine Urobilinogen Ur Leukocyte Esterase Urine WBC (Auto) Urine RBC (Auto) Ur Epithelial Cells Hyaline Casts Urine Mucus Salicylates Opiates Screen Methadone Screen Acetaminophen Barbiturate Screen Phencyclidine Screen Ur Amphetamines Screen MDMA (Ecstasy) Screen Benzodiazepines Screen Cocaine Screen U Marijuana (THC) Screen Alcohol, Quantitative 07/06/18 07/06/18 07/06/18 11:42 11:42 11:42 WBC RBC Hgb Hct MCV MCH MCHC RDW Plt Count MPV Absolute Neuts (auto) Neutrophils % Lymphocytes % Monocytes % Eosinophils % Basophils % Nucleated RBC % PT with INR 12.20 INR 1.03 PTT (Actin FS) 26.9 Anticoagulation Therapy Puncture Site Patient Temperature ABG pH ABG pCO2 at Pt Temp ABG pO2 at Pt Temp ABG HCO3 ABG O2 Sat (Measured) ABG O2 Content ABG Base Excess Chaz Test Carboxyhemoglobin Methemoglobin O2 Delivery Device Oxygen Flow Rate Vent Mode Vent Rate Mechanical Rate PEEP Pressure Support Vent Sodium 134 L Potassium 3.7 Chloride 97 L Carbon Dioxide 28 Anion Gap 9 BUN 22 H Creatinine 0.7 Creat Clearance w eGFR > 60 POC Glucometer Random Glucose 158 H Lactic Acid Calcium 8.1 L Phosphorus Magnesium Total Bilirubin 0.7 AST 11 L ALT 17 Alkaline Phosphatase 74 Ammonia Creatine Kinase 25 L Troponin I < 0.02 Total Protein 6.1 L Albumin 3.6 Urine Color Urine Appearance Urine pH Ur Specific [place] Urine Protein Urine Glucose (UA) Urine Ketones Urine Blood Urine Nitrite Urine Bilirubin Urine Urobilinogen Ur Leukocyte Esterase Urine WBC (Auto) Urine RBC (Auto) Ur Epithelial Cells Hyaline Casts Urine Mucus Salicylates Opiates Screen Methadone Screen Acetaminophen 38.6 H Barbiturate Screen Phencyclidine Screen Ur Amphetamines Screen MDMA (Ecstasy) Screen Benzodiazepines Screen Cocaine Screen U Marijuana (THC) Screen Alcohol, Quantitative 07/06/18 07/06/18 07/06/18 11:42 11:55 13:05 WBC RBC Hgb Hct MCV MCH MCHC RDW Plt Count MPV Absolute Neuts (auto) Neutrophils % Lymphocytes % Monocytes % Eosinophils % Basophils % Nucleated RBC % PT with INR INR PTT (Actin FS) Anticoagulation Therapy Director Hair Puncture Site Right radial Patient Temperature Director Hair ABG pH 7.38 ABG pCO2 at Pt Temp 39.1 ABG pO2 at Pt Temp 343.0 H* ABG HCO3 22.7 ABG O2 Sat (Measured) 99.9 H* ABG O2 Content 16.9 ABG Base Excess -1.6 Chaz Test Positive Carboxyhemoglobin 0.5 Methemoglobin 0.3 L O2 Delivery Device Director Hair Oxygen Flow Rate Yes Vent Mode Director Hair Vent Rate Director Hair Mechanical Rate Director Hair PEEP Director Hair Pressure Support Vent Director Hair Sodium Potassium Chloride Carbon Dioxide Anion Gap BUN Creatinine Creat Clearance w eGFR POC Glucometer Random Glucose Lactic Acid Calcium Phosphorus Magnesium Total Bilirubin AST ALT Alkaline Phosphatase Ammonia Creatine Kinase Troponin I Total Protein Albumin Urine Color Dkyellow Urine Appearance Slcloudy Urine pH 5.0 Ur Specific [place] 1.019 Urine Protein 1+ H Urine Glucose (UA) Negative Urine Ketones Trace H Urine Blood Negative Urine Nitrite Negative Urine Bilirubin Negative Urine Urobilinogen 2.0 H Ur Leukocyte Esterase Negative Urine WBC (Auto) 6 Urine RBC (Auto) <1 Ur Epithelial Cells Rare Hyaline Casts 6 Urine Mucus Many Salicylates < 1.7 L Opiates Screen Methadone Screen Acetaminophen Barbiturate Screen Phencyclidine Screen Ur Amphetamines Screen MDMA (Ecstasy) Screen Benzodiazepines Screen Cocaine Screen U Marijuana (THC) Screen Alcohol, Quantitative < 3.0 07/06/18 07/06/18 07/06/18 13:05 17:32 21:03 WBC RBC Hgb Hct MCV MCH MCHC RDW Plt Count MPV Absolute Neuts (auto) Neutrophils % Lymphocytes % Monocytes % Eosinophils % Basophils % Nucleated RBC % PT with INR INR PTT (Actin FS) Anticoagulation Therapy Puncture Site Patient Temperature ABG pH ABG pCO2 at Pt Temp ABG pO2 at Pt Temp ABG HCO3 ABG O2 Sat (Measured) ABG O2 Content ABG Base Excess Chaz Test Carboxyhemoglobin Methemoglobin O2 Delivery Device Oxygen Flow Rate Vent Mode Vent Rate Mechanical Rate PEEP Pressure Support Vent Sodium Potassium Chloride Carbon Dioxide Anion Gap BUN Creatinine Creat Clearance w eGFR POC Glucometer [phone] Random Glucose Lactic Acid Calcium Phosphorus Magnesium Total Bilirubin AST ALT Alkaline Phosphatase Ammonia Creatine Kinase Troponin I 0.02 Total Protein Albumin Urine Color Urine Appearance Urine pH Ur Specific [place] Urine Protein Urine Glucose (UA) Urine Ketones Urine Blood Urine Nitrite Urine Bilirubin Urine Urobilinogen Ur Leukocyte Esterase Urine WBC (Auto) Urine RBC (Auto) Ur Epithelial Cells Hyaline Casts Urine Mucus Salicylates Opiates Screen Negative Methadone Screen Negative Acetaminophen Barbiturate Screen Negative Phencyclidine Screen Negative Ur Amphetamines Screen Negative MDMA (Ecstasy) Screen Negative Benzodiazepines Screen Positive A* Cocaine Screen Negative U Marijuana (THC) Screen Negative Alcohol, Quantitative 07/07/18 07/07/18 07/07/18 00:05 05:30 05:30 WBC 5.5 RBC 3.46 L Hgb 11.2 Hct 30.4 L D MCV 88.0 MCH 32.6 MCHC 37.0 H RDW 12.4 Plt Count 176 MPV 7.4 L Absolute Neuts (auto) 4.2 Neutrophils % 76.4 Lymphocytes % 11.5 D Monocytes % 12.0 H Eosinophils % 0.1 D Basophils % 0.0 Nucleated RBC % 0 PT with INR INR PTT (Actin FS) 30.4 Anticoagulation Therapy Puncture Site Patient Temperature ABG pH ABG pCO2 at Pt Temp ABG pO2 at Pt Temp ABG HCO3 ABG O2 Sat (Measured) ABG O2 Content ABG Base Excess Chaz Test Carboxyhemoglobin Methemoglobin O2 Delivery Device Oxygen Flow Rate Vent Mode Vent Rate Mechanical Rate PEEP Pressure Support Vent Sodium Potassium Chloride Carbon Dioxide Anion Gap BUN Creatinine Creat Clearance w eGFR POC Glucometer [phone] Random Glucose Lactic Acid Calcium Phosphorus Magnesium Total Bilirubin AST ALT Alkaline Phosphatase Ammonia Creatine Kinase Troponin I Total Protein Albumin Urine Color Urine Appearance Urine pH Ur Specific [place] Urine Protein Urine Glucose (UA) Urine Ketones Urine Blood Urine Nitrite Urine Bilirubin Urine Urobilinogen Ur Leukocyte Esterase Urine WBC (Auto) Urine RBC (Auto) Ur Epithelial Cells Hyaline Casts Urine Mucus Salicylates Opiates Screen Methadone Screen Acetaminophen Barbiturate Screen Phencyclidine Screen Ur Amphetamines Screen MDMA (Ecstasy) Screen Benzodiazepines Screen Cocaine Screen U Marijuana (THC) Screen Alcohol, Quantitative 07/07/18 07/07/18 07/07/18 05:30 05:30 05:44 WBC RBC Hgb Hct MCV MCH MCHC RDW Plt Count MPV Absolute Neuts (auto) Neutrophils % Lymphocytes % Monocytes % Eosinophils % Basophils % Nucleated RBC % PT with INR INR PTT (Actin FS) Anticoagulation Therapy Puncture Site Patient Temperature ABG pH ABG pCO2 at Pt Temp ABG pO2 at Pt Temp ABG HCO3 ABG O2 Sat (Measured) ABG O2 Content ABG Base Excess Chaz Test Carboxyhemoglobin Methemoglobin O2 Delivery Device Oxygen Flow Rate Vent Mode Vent Rate Mechanical Rate PEEP Pressure Support Vent Sodium 139 Potassium 2.6 L* Chloride 99 Carbon Dioxide 33 H Anion Gap 7 L BUN 7 Creatinine 0.5 L Creat Clearance w eGFR > 60 POC Glucometer [phone] Random Glucose 180 H Lactic Acid 2.3 H* Calcium 7.2 L Phosphorus 1.2 L Magnesium 1.5 L Total Bilirubin 0.4 AST 10 L ALT 12 L Alkaline Phosphatase 54 Ammonia Creatine Kinase Troponin I Total Protein 4.2 L Albumin 2.3 L Urine Color Urine Appearance Urine pH Ur Specific [place] Urine Protein Urine Glucose (UA) Urine Ketones Urine Blood Urine Nitrite Urine Bilirubin Urine Urobilinogen Ur Leukocyte Esterase Urine WBC (Auto) Urine RBC (Auto) Ur Epithelial Cells Hyaline Casts Urine Mucus Salicylates Opiates Screen Methadone Screen Acetaminophen Barbiturate Screen Phencyclidine Screen Ur Amphetamines Screen MDMA (Ecstasy) Screen Benzodiazepines Screen Cocaine Screen U Marijuana (THC) Screen Alcohol, Quantitative 07/07/18 06:30 WBC RBC Hgb Hct MCV MCH MCHC RDW Plt Count MPV Absolute Neuts (auto) Neutrophils % Lymphocytes % Monocytes % Eosinophils % Basophils % Nucleated RBC % PT with INR INR PTT (Actin FS) Anticoagulation Therapy Puncture Site Right radial Patient Temperature ABG pH 7.55 H D ABG pCO2 at Pt Temp 37.7 ABG pO2 at Pt Temp 121.0 H D ABG HCO3 32.6 H ABG O2 Sat (Measured) 99.2 H ABG O2 Content 14.6 L ABG Base Excess 9.5 H Chaz Test Positive Carboxyhemoglobin Methemoglobin O2 Delivery Device Vent Oxygen Flow Rate 40% Vent Mode A/c Vent Rate 14 Mechanical Rate Yes PEEP 5.0 Pressure Support Vent 400 Sodium Potassium Chloride Carbon Dioxide Anion Gap BUN Creatinine Creat Clearance w eGFR POC Glucometer Random Glucose Lactic Acid Calcium Phosphorus Magnesium Total Bilirubin AST ALT Alkaline Phosphatase Ammonia Creatine Kinase Troponin I Total Protein Albumin Urine Color Urine Appearance Urine pH Ur Specific [place] Urine Protein Urine Glucose (UA) Urine Ketones Urine Blood Urine Nitrite Urine Bilirubin Urine Urobilinogen Ur Leukocyte Esterase Urine WBC (Auto) Urine RBC (Auto) Ur Epithelial Cells Hyaline Casts Urine Mucus Salicylates Opiates Screen Methadone Screen Acetaminophen Barbiturate Screen Phencyclidine Screen Ur Amphetamines Screen MDMA (Ecstasy) Screen Benzodiazepines Screen Cocaine Screen U Marijuana (THC) Screen Alcohol, Quantitative Active Medications Generic Name Dose Route Start Last Admin Trade Name Coco PRN Reason Stop Dose Admin Chlorhexidine Gluconate 1 applic 07/06/18 22:00 07/06/18 21:35 Hibiclens For Decolonization - TP 1 applic HS RUBENS Administration Propofol 1,000,000 mcg in 100 mls @ 1.429 mls/hr 07/06/18 12:45 07/06/18 17: 20 Diprivan - IVPB 25 mcg/kg/min TITR RUBENS 7.144 mls/hr Titration Protocol 5 MCG/KG/MIN Acetylcysteine 4,800 mg/ 1,024 mls @ 64 mls/hr 07/06/18 20:00 07/06/18 20:00 Dextrose IVPB 07/07/18 11:59 Not Given ONCE ONE Piperacillin Sod/Tazobactam 50 mls @ 100 mls/hr 07/06/18 18:00 07/07/18 02:00 Sod 3.375 gm/ Dextrose IVPB 100 mls/hr Q8H-IV RUBENS Administration Protocol Sodium Bicarbonate 100 meq/ 1,100 mls @ 200 mls/hr 07/06/18 18:00 07/06/18 20 :16 Dextrose IV Not Given ASDIR RUBENS Potassium Chloride 10 meq in 100 mls @ 100 mls/hr 07/07/18 07:30 07/07/18 08: 04 Potassium Chloride 10 Meq Premix Ivpb - IVPB 07/07/18 09:29 100 mls/hr Q60M RUBENS Administration Potassium Phosphate 15 mm/ 255 mls @ 63.75 mls/hr 07/07/18 09:00 Sodium Chloride IVPB 07/07/18 12:59 ONCE ONE 15 MM/4 HR Mupirocin 1 applic 07/07/18 10:00 Bactroban Ointment (For Decolonization) - NS 07/12/18 09:59 BID RUBENS Pantoprazole Sodium 40 mg 07/06/18 22:00 07/06/18 21:35 Protonix Iv IVPUSH 40 mg BID RUBENS Administration ASSESSMENT/PLAN: Patient is intubated, off sedation since 10am to assess mental status. No prior hospitalizations here, obtaining records from recent hospitalization at [facility]. Spoke to patient's who consented and signed for release of medical records. Patient is a 67 year old female with a reported past medical history of severe depression with prior admission to [facility]. Patient brought in to the ED 07/06/2018 via ambulance after she was found unresponsive in her bed. Her son lives downstairs and last saw her at her baseline around 4pm on 07/05/18. He went to see her in the morning at 10:30a.m. and found her to be unresponsive, in bed. Acute metabolic encephalopathy Severe sepsis Acute toxic metabolic encephalopathy Seratonin overdose Possible suicide attempt Severe depression Rule out stroke Neuro: Acute metabolic encephalopathy Acute toxic metabolic encephalopathy toxicology + benzos, salicylates <1.7. acetaminophen OD protocol in the ED Monitor liver enzymes Given narcan and activated charcoal via NGT. intubated and sedated to protect airway. Sedated on propofol, intubated for ICU admission Neuro checks Started on bicarb drip BGMs q4 while npo Rule out stroke vs head trauma Head ct 07/06/2018: mild volume loss, small focal hyperdensity within the anterior falx on axial image 16 measuring 5x3 mm and 50 hounsfield units suspicious for extra axial acute hemorrhage. Repeat head ct 07/07/2018 with subdural hematoma vs partially calcified dural plaque. ID: Severe sepsis: meets sepsis criteria on admission. Presents with tachycardia, fevers, AMS. Pancultured in the ED. Still running low grade temps with tachycardia. on Vanco and Zosyn. on IVF. ID following Blood and urine culture pending. lactic acid wnl. Chest xray with course lung changes and pleural thickening. Psyche Possible suicide attempt Benzo overdose per toxicology report obtain [facility] medical records (request has been sent via fax) on a 1:1 since off sedation Psyche consult once mental status improves, likely will need to be 2 PCds. fen intubated, on IVF hydration monitor electrolytes npo proph SCDs, no a/c 2/2 to head bleed protonix BID full code Visit type - Emergency Visit Emergency Visit: Yes ED Registration Date: 07/06/18 Care time: The patient presented to the Emergency Department on the above date and was hospitalized for further evaluation of their emergent condition. - New Patient This patient is new to me today: No - Critical Care Critical Care patient: Yes Total Critical Care Time (in minutes): 60 Critical Care Statement: The care of this patient involved high complexity decision making to prevent further life threatening deterioration of the patient 's condition and/or to evaluate & treat vital organ system(s) failure or risk of failure.
[2018-07-07] MEDS ORDERED: POTASSIUM PHOSPHATE 15 MM in SODIUM CHLORIDE 250 ML IVPB ONE (09:00)
--- NOTE | 2018-07-07 09:20 | PN ---
Progress Note (short form) - Note Progress Note: 67 year old female history of severe depression and found responsive at home. It is not clear , how long she was out. Patient was given narcan and was intuabted for airway protection. Patient has ct head and it was unremarkable. She was takign cymbalta, inderal, zyprexa, desipiprine, klonipin , effexor and abilify. she recently filled olanzapine on july 03 and her bottle was found empty and she also left a suicidal note. She is intuabted and sedated and not responding to pain or verbal stimuli. There is no witnessed seizure and vitals has been stable Neurological Examination Comatose and intubated and sedated on propafol she is not responding to pain or verbal stimuli breathing above vent and bp is maintained pupils is mid size and responding, and corneal reflex is present Rest of exam is not possible ct head showed there is small area of hemorrhage 6x3 mm, spoke to neurosurgery , and no acute intervention needed repeat ct head today am Assessment: 67 year old female history of severe depression, several admission recently for acute depression , she has suicial attempt and took whole bottle of zyprexa and klonipin She is intubated and sedative and no corical sign present. Brain stem sign are present. Plan: supportive care and repeat ct head Thanking you so much Jeffry Aquino MD
[2018-07-07] MEDS: PANTOPRAZOLE SODIUM 40 MG VIAL IVPUSH SCH ×2 (10:01→21:07)
[2018-07-07] MEDS: PROPOFOL 1,000,000 MCG/100 ML VIAL IVPB SCH ×2 (10:17→13:47)
--- NOTE | 2018-07-07 10:24 | EKG ---
Test Reason : Blood Pressure : / mmHG Vent. Rate : 111 BPM Atrial Rate : 111 BPM P-R Int : 142 ms QRS Dur : 086 ms QT Int : 318 ms P-R-T Axes : 070 071 -72 degrees QTc Int : 432 ms SINUS TACHYCARDIA NONSPECIFIC T WAVE ABNORMALITY ABNORMAL ECG WHEN COMPARED WITH ECG OF 06-JUL-2018 11:18, PREMATURE VENTRICULAR COMPLEXES ARE NO LONGER PRESENT T WAVE INVERSION MORE EVIDENT IN INFERIOR LEADS T WAVE INVERSION NOW EVIDENT IN ANTERIOR LEADS Confirmed by CHASE COELHO MD ([id number]) on 07/07/2018 10:24:24 AM Referred By: AVINASH RAMSEY DR Confirmed By:CHASE COELHO MD
--- NOTE | 2018-07-07 10:35 | EKG ---
Test Reason : Blood Pressure : / mmHG Vent. Rate : 129 BPM Atrial Rate : 129 BPM P-R Int : 146 ms QRS Dur : 074 ms QT Int : 300 ms P-R-T Axes : 070 084 065 degrees QTc Int : 439 ms SINUS TACHYCARDIA JUNCTIONAL ST DEPRESSION, PROBABLY NORMAL BORDERLINE ECG WHEN COMPARED WITH ECG OF 02-OCT-2005 13:30, NONSPECIFIC ST ABNORMALITY NOW SEEN Confirmed by CHASE COELHO MD ([id number]) on 07/07/2018 10:35:11 AM Referred By: Confirmed By:CHASE COELHO MD
[2018-07-07] MEDS: MUPIROCIN 2% TOPICAL OINTMENT FOR DECOLONIZATION NS SCH ×2 (11:12→21:06)
--- NOTE | 2018-07-07 11:23 | ECHO ---
Name: COLLIN CASTANO Exam:Adult Echocardiogram Study Date: 07/07/2018 09:48 AM Age: 67 yrs Reason For Study: UNRESPOONSIVE Height: 63 in Weight: 105 lb BSA: 1.5 m2 BP: 123/60 mmHg MMode/2D Measurements & Calculations LVIDd: 3.0 cm EDV(Teich): 34.9 ml LVIDs: 2.0 cm ESV(Teich): 12.9 ml Doppler Measurements & Calculations MV E max jeanmarie: 71.3 cm/sec Lat Peak E' Jeanmarie: 15.1 cm/sec MV A max jeanmarie: 98.5 cm/sec Lat E/e': 4.7 MV E/A: 0.72 Procedure A complete two-dimensional transthoracic echocardiogram was performed (2D, M-mode, Doppler and color flow Doppler). Technically limited study. Left Ventricle The left ventricle is normal in size. Left ventricular systolic function is normal. Ejection Fraction = >70%. No regional wall motion abnormalities noted. Right Ventricle The right ventricle is not well visualized. Atria The left atrial size is normal. Right atrium not well visualized. Mitral Valve The mitral valve is normal in structure and function. There is no mitral regurgitation noted. Tricuspid Valve The tricuspid valve is normal in structure and function. No tricuspid regurgitation. Aortic Valve The aortic valve is normal in structure and function. No aortic regurgitation is present. Pulmonic Valve The pulmonic valve is not well visualized. Great Vessels The aortic root is normal size. Pericardium/Pleura There is no pericardial effusion. Interpretation Summary Technically limited study The left ventricle is normal in size. Left ventricular systolic function is normal. No regional wall motion abnormalities noted. Ejection Fraction = >70%. The right ventricle is not well visualized. The left atrial size is normal. Right atrium not well visualized. No significant valvular regurgitations are seen There is no pericardial effusion. Gerardo Ruiz MD 07/07/2018 11:23 AM
[2018-07-07] MEDS ORDERED: ACETAMINOPHEN 1000 MG/100 ML VIAL (NON FORMULARY) IVPB ONE ×3 (12:02→15:43)
[2018-07-07] MEDS ORDERED: ACETYLCYSTEINE 20% 200MG/ML 30ML VIAL *FOR INJECTION USE ONLY IVPB ONE (12:06)
[2018-07-07] MEDS ORDERED: ACETYLCYSTEINE IVPB ONE (13:30)
[2018-07-07] MEDS ORDERED: WATER IVPB ONE (13:30)
[2018-07-07] MEDS ORDERED: DEXTROSE 5% IVPB ONE (13:30)
[2018-07-07] MEDS ORDERED: PT OWN MED DRAWER 7, Y5N ONE ×2 (13:31→13:40)
[2018-07-07] MEDS: THIAMINE HCL 200 MG/2 ML VIAL IVPB SCH ×2 (13:49→21:07)
--- NOTE | 2018-07-07 13:53 | PN ---
Progress Note, Physician History of Present Illness: patient events noted had a vomiting episode repeat ct scan done running low grade fever tachy - Current Medication List Current Medications: Active Medications Chlorhexidine Gluconate (Hibiclens For Decolonization -) 1 applic TP HS RUBENS Last Admin: 07/06/18 21:35 Dose: 1 applic Propofol (Diprivan -) 1,000,000 mcg in 100 mls @ 1.429 mls/hr IVPB TITR RUBENS; Protocol Last Admin: 07/07/18 13:47 Dose: Not Given Piperacillin Sod/Tazobactam (Sod 3.375 gm/ Dextrose) 50 mls @ 100 mls/hr IVPB Q8H-IV RUBENS; Protocol Last Admin: 07/07/18 10:19 Dose: 100 mls/hr Sodium Bicarbonate 100 meq/ (Dextrose) 1,100 mls @ 200 mls/hr IV ASDIR RUBENS Last Admin: 07/06/18 20:16 Dose: Not Given Acetylcysteine 4,800 mg/ (Dextrose) 1,024 mls @ 64 mls/hr IVPB ONCE ONE Stop: 07/08/18 05:29 Last Admin: 07/07/18 13:48 Dose: 64 mls/hr Mupirocin (Bactroban Ointment (For Decolonization) -) 1 applic NS BID [facility] Stop: 07/12/18 09:59 Pantoprazole Sodium (Protonix Iv) 40 mg IVPUSH BID [facility] Last Admin: 07/07/18 10:01 Dose: 40 mg Thiamine HCl (Vitamin B1 Injection -) 300 mg IVPB TID [facility] - Objective Vital Signs: Vital Signs Temperature 100.4 F H 07/07/18 11:00 Pulse Rate 122 H 07/07/18 12:00 Respiratory Rate 19 07/07/18 12:00 Blood Pressure 149/69 07/07/18 11:00 O2 Sat by Pulse Oximetry (%) 100 07/07/18 12:00 Constitutional: Yes: Other Cardiovascular: Yes: Regular Rate and Rhythm, Tachycardia Respiratory: Yes: Intubated, Mechanically Ventilated Gastrointestinal: Yes: Soft, Hypoactive Bowel Sounds, Other (ng tube in place) Musculoskeletal: Yes: WNL Extremities: Yes: WNL Neurological: Yes: Other Labs: CBC, BMP 07/07/18 05:30 07/07/18 05:30 INR, PTT INR 1.03 (0.83-1.09) 07/06/18 11:42 Assessment/Plan Acute metabolic encephalopathy Severe sepsis Acute toxic metabolic encephalopathy Seratonin overdose Possible suicide attempt Severe depression r/o bleed patient being followed by neurosurgery repeat scan done plan hydration continue iv abx neurology consider stopping charcoal poison control rest as per icu cc 40 min
--- NOTE | 2018-07-07 14:28 | PN ---
Physical Exam: SUBJECTIVE: Patient seen and examined at bedside. She is intubated and sedated. OBJECTIVE: Vital Signs Period Temp Pulse Resp BP Sys/Smith Pulse Ox Last 24 Hr 98.9 F-100.8 F 107-122 16-26 98-150/57-91 100-100 GENERAL: The patient is awake, alert, and fully oriented, in no acute distress. HEAD: Normal with no signs of trauma. EYES: OCULAR CLONUS BILATERALLY. PERRL, extraocular movements intact, sclera anicteric, conjunctiva clear. No ptosis. ENT: Ears normal, nares patent, oropharynx clear without exudates, moist mucous membranes. NECK: Trachea midline, full range of motion, supple. LUNGS: Breath sounds equal, clear to auscultation bilaterally, no wheezes, no crackles, no accessory muscle use. HEART: Regular rate and rhythm, S1, S2 without murmur, rub or gallop. ABDOMEN: Soft, nontender, nondistended, normoactive bowel sounds, no guarding, no rebound, no hepatosplenomegaly, no masses. EXTREMITIES: HYPER-REFLEXIC PATELLAR REFLEXES. 2+ pulses, warm, well-perfused, no edema. NEUROLOGICAL: Cranial nerves II through XII grossly intact. Normal speech, gait not observed. PSYCH: Normal mood, normal affect. SKIN: Warm, dry, normal turgor, no rashes or lesions noted Laboratory Results - last 24 hr 07/06/18 07/06/18 07/07/18 17:32 21:03 00:05 WBC RBC Hgb Hct MCV MCH MCHC RDW Plt Count MPV Absolute Neuts (auto) Neutrophils % Lymphocytes % Monocytes % Eosinophils % Basophils % Nucleated RBC % PTT (Actin FS) Puncture Site ABG pH ABG pCO2 at Pt Temp ABG pO2 at Pt Temp ABG HCO3 ABG O2 Sat (Measured) ABG O2 Content ABG Base Excess Chaz Test O2 Delivery Device Oxygen Flow Rate Vent Mode Vent Rate Mechanical Rate PEEP Pressure Support Vent Sodium Potassium Chloride Carbon Dioxide Anion Gap BUN Creatinine Creat Clearance w eGFR POC Glucometer [phone] Random Glucose Lactic Acid Calcium Phosphorus Magnesium Total Bilirubin AST ALT Alkaline Phosphatase Troponin I 0.02 Total Protein Albumin 07/07/18 07/07/18 07/07/18 05:30 05:30 05:30 WBC 5.5 RBC 3.46 L Hgb 11.2 Hct 30.4 L D MCV 88.0 MCH 32.6 MCHC 37.0 H RDW 12.4 Plt Count 176 MPV 7.4 L Absolute Neuts (auto) 4.2 Neutrophils % 76.4 Lymphocytes % 11.5 D Monocytes % 12.0 H Eosinophils % 0.1 D Basophils % 0.0 Nucleated RBC % 0 PTT (Actin FS) 30.4 Puncture Site ABG pH ABG pCO2 at Pt Temp ABG pO2 at Pt Temp ABG HCO3 ABG O2 Sat (Measured) ABG O2 Content ABG Base Excess Chaz Test O2 Delivery Device Oxygen Flow Rate Vent Mode Vent Rate Mechanical Rate PEEP Pressure Support Vent Sodium 139 Potassium 2.6 L* Chloride 99 Carbon Dioxide 33 H Anion Gap 7 L BUN 7 Creatinine 0.5 L Creat Clearance w eGFR > 60 POC Glucometer Random Glucose 180 H Lactic Acid Calcium 7.2 L Phosphorus 1.2 L Magnesium 1.5 L Total Bilirubin 0.4 AST 10 L ALT 12 L Alkaline Phosphatase 54 Troponin I Total Protein 4.2 L Albumin 2.3 L 07/07/18 07/07/18 07/07/18 05:30 05:44 06:30 WBC RBC Hgb Hct MCV MCH MCHC RDW Plt Count MPV Absolute Neuts (auto) Neutrophils % Lymphocytes % Monocytes % Eosinophils % Basophils % Nucleated RBC % PTT (Actin FS) Puncture Site Right radial ABG pH 7.55 H D ABG pCO2 at Pt Temp 37.7 ABG pO2 at Pt Temp 121.0 H D ABG HCO3 32.6 H ABG O2 Sat (Measured) 99.2 H ABG O2 Content 14.6 L ABG Base Excess 9.5 H Chaz Test Positive O2 Delivery Device Vent Oxygen Flow Rate 40% Vent Mode A/c Vent Rate 14 Mechanical Rate Yes PEEP 5.0 Pressure Support Vent 400 Sodium Potassium Chloride Carbon Dioxide Anion Gap BUN Creatinine Creat Clearance w eGFR POC Glucometer 201.09693 Random Glucose Lactic Acid 2.3 H* Calcium Phosphorus Magnesium Total Bilirubin AST ALT Alkaline Phosphatase Troponin I Total Protein Albumin Active Medications Generic Name Dose Route Start Last Admin Trade Name Freq PRN Reason Stop Dose Admin Chlorhexidine Gluconate 1 applic 07/06/18 22:00 07/06/18 21:35 Hibiclens For Decolonization - TP 1 applic HS RUBENS Administration Propofol 1,000,000 mcg in 100 mls @ 1.429 mls/hr 07/06/18 12:45 07/07/18 13: 47 Diprivan - IVPB Not Given TITR RUBENS Protocol 5 MCG/KG/MIN Piperacillin Sod/Tazobactam 50 mls @ 100 mls/hr 07/06/18 18:00 07/07/18 10:19 Sod 3.375 gm/ Dextrose IVPB 100 mls/hr Q8H-IV RUBENS Administration Protocol Sodium Bicarbonate 100 meq/ 1,100 mls @ 200 mls/hr 07/06/18 18:00 07/06/18 20 :16 Dextrose IV Not Given ASDIR RUBENS Acetylcysteine 4,800 mg/ 1,024 mls @ 64 mls/hr 07/07/18 13:30 07/07/18 13:48 Dextrose IVPB 07/08/18 05:29 64 mls/hr ONCE ONE Administration Mupirocin 1 applic 07/07/18 10:00 Bactroban Ointment (For Decolonization) - NS 07/12/18 09:59 BID RUBENS Pantoprazole Sodium 40 mg 07/06/18 22:00 07/07/18 10:01 Protonix Iv IVPUSH 40 mg BID RUBENS Administration Thiamine HCl 300 mg 07/07/18 14:00 07/07/18 13:49 Vitamin B1 Injection - IVPB 300 mg TID RUBENS Administration ASSESSMENT/PLAN: [facility] Poison control knows about patient and is following: Call [phone] Escalante or Dr. Paz. Assessment: 67 year old female with a PMHx of Depression and suicidal ideations with recent admission to [facility] (06/19/18-) was BIBEMS after being found by her son unresponsive, warm to touch with thick mucous coming out of her mouth and "barely breathing" at around 1030 yesterday morning. There was a suicide note and empty bottles of Olanzapine and Clonazepam. Patient admitted to ICU for further monitoring and management. DD includes but not limited to: Olanzapine toxicity vs clonazepam vs desipramine vs acetaminophen vs other drug toxicity. We stopped sedation this morning o assess mental status. I spoke with [facility] poison control who recommended to stop the activated charcoal, start IV thiamine , keep propofol sedation, repeat head CT, and continue NAC. as per ID: Keep her on strict aspiration precaution risk secondary to charcoal. Plan: Cooling blanket for hyperthermia, midazolam drip, supportive measures. If patient deteriorates we can consider cyproheptadine. NEURO #Acute Toxic Metabolic Encephalopathy/ likely serotonin syndrome - Patient has ocular clonus, hyper-reflexia, is flushing, has tachycardia, is febrile, had an empty bottle of olanzapine near bedside. - Will start cooling patient with cooling blanket - Midazolam drip -Likely secondary to Anti-depressant overdose from either Olanzapine and/or Clonazepam vs other med -Patient was found hyperthermic, tachypneic, hypertensive, tachycardic and unresponsive -Given narcan and activated charcoal via NGT. intubated and sedated to protect airway. -Currently intubated and sedated for airway protection #Extraaxial acute hemorrhage -CT revealed focal hyperdensity within the anterior falx on axial image, suspicious for acute hemorrhage. - Repeat Head CT did not appear to show consistent brain bleed. Likely calcification. PSYCH #Severe Depression with Attempted Suicide -Will hold off on anti-psychotics due to toxicity -Continue to monitor and will need 1:1 after possible extubation, as well as a possible transfer to inpatient psych -Patient should receive a psyche consult if she gets extubated. INFECTIOUS DISEASE - ID consulted and recommended strict aspiration precautions secondary to activated charcoal. -Zosyn and Vancomycin given in ED with ID continuing Zosyn 3.375mg IVPB Q8H -Chest X-Ray revealed course lung changes and pleural thickening. Possible aspiration F/E/N -On no IV fluids - Potassium decreased to 2.6 => repleted - Mag and Phos low: Will replete - Will obtain another CMP to assess what still needs more repletion. - Will continue to replete lytes PRN. - NPO PROPHYLAXIS -SCD's. No AC for now due to possible extra-axial hemorrhage -Protonix 40mg IVP BID Disposition -Full code -Intubated and sedated. Continue ICU monitoring Visit type - Emergency Visit Emergency Visit: Yes ED Registration Date: 07/06/18 Care time: The patient presented to the Emergency Department on the above date and was hospitalized for further evaluation of their emergent condition. - New Patient This patient is new to me today: Yes Date on this admission: 07/07/18 - Critical Care Critical Care patient: Yes Total Critical Care Time (in minutes): 36 Critical Care Statement: The care of this patient involved high complexity decision making to prevent further life threatening deterioration of the patient 's condition and/or to evaluate & treat vital organ system(s) failure or risk of failure.
--- NOTE | 2018-07-07 14:39 | EKG ---
Test Reason : Blood Pressure : / mmHG Vent. Rate : 121 BPM Atrial Rate : 121 BPM P-R Int : 144 ms QRS Dur : 074 ms QT Int : 298 ms P-R-T Axes : 069 072 014 degrees QTc Int : 423 ms SINUS TACHYCARDIA NONSPECIFIC T WAVE ABNORMALITY ABNORMAL ECG WHEN COMPARED WITH ECG OF 07-JUL-2018 10:05, NO SIGNIFICANT CHANGE WAS FOUND Confirmed by JENNY FRAZIER MD ([id number]) on 07/07/2018 2:38:53 PM Referred By: TIA HUITRON Confirmed By:JENNY FRAZIER MD
[2018-07-07 15:03] LABS: INR 1.32 (0.83-1.09); PROTHROMBIN TIME (PATIENT) 15.6 SEC (9.7-13.0)
[2018-07-07 15:06] LABS: ACTIVATED PTT 30.2 SECONDS (25.2-36.5)
[2018-07-07 15:09] LABS: ALBUMIN 2.4 g/dl (3.4-5.0); ALK PHOS 64 U/L (45-117); ANION GAP 8 MMOL/L (8-16); BILIRUBIN,TOTAL 0.5 mg/dL (0.2-1); BLOOD UREA NITROGEN 5 mg/dL (7-18); CALCIUM 7.3 mg/dL (8.5-10.1); CHLORIDE 100 mmol/L (98-107); CO2 31 mmol/L (21-32); CREATININE 0.5 mg/dL (0.55-1.3); GLUCOSE,RANDOM 113 mg/dL (74-106); POTASSIUM 3.1 mmol/L (3.5-5.1); SGOT/AST 12 U/L (15-37); SGPT/ALT 14 U/L (13-61); SODIUM 139 mmol/L (136-145); TOT PROT 4.8 g/dl (6.4-8.2)
--- NOTE | 2018-07-07 17:18 | PN ---
Teaching Attending Note Name of Resident: Bernard Elizondo ATTENDING PHYSICIAN STATEMENT I saw and evaluated the patient. I reviewed the resident's note and discussed the case with the resident. I agree with the resident's findings and plan as documented. SUBJECTIVE: Patient seen and examined in the ICU. Remains intubated and sedated on propofol. Case was further discussed with poison control this AM and recommendations were followed. No pressors. OBJECTIVE: Intake & Output 07/05/18 07/06/18 07/06/18 07/07/18 00:59 00:59 23:59 23:59 Intake Total 3352 Output Total 1000 Balance 2352 Weight Last Vital Signs Temp Pulse Resp BP Pulse Ox 100.6 F H 119 H 17 149/69 100 07/07/18 13:00 07/07/18 13:00 07/07/18 15:10 07/07/18 11:00 07/07/18 12:00 Active Medications Chlorhexidine Gluconate (Hibiclens For Decolonization -) 1 applic TP HS [facility] Last Admin: 07/06/18 21:35 Dose: 1 applic Propofol (Diprivan -) 1,000,000 mcg in 100 mls @ 1.429 mls/hr IVPB TITR RUBENS; Protocol Last Admin: 07/07/18 13:47 Dose: Not Given Piperacillin Sod/Tazobactam (Sod 3.375 gm/ Dextrose) 50 mls @ 100 mls/hr IVPB Q8H-IV RUBENS; Protocol Last Admin: 07/07/18 10:19 Dose: 100 mls/hr Sodium Bicarbonate 100 meq/ (Dextrose) 1,100 mls @ 200 mls/hr IV ASDIR RUBENS Last Admin: 07/06/18 20:16 Dose: Not Given Acetylcysteine 4,800 mg/ (Dextrose) 1,024 mls @ 64 mls/hr IVPB ONCE ONE Stop: 07/08/18 05:29 Last Admin: 07/07/18 13:48 Dose: 64 mls/hr Mupirocin (Bactroban Ointment (For Decolonization) -) 1 applic NS BID [facility] Stop: 07/12/18 09:59 Last Admin: 07/07/18 11:12 Dose: 1 applic Pantoprazole Sodium (Protonix Iv) 40 mg IVPUSH BID [facility] Last Admin: 07/07/18 10:01 Dose: 40 mg Thiamine HCl (Vitamin B1 Injection -) 300 mg IVPB TID RUBENS Last Admin: 07/07/18 13:49 Dose: 300 mg GENERAL: Intubated and sedated HEAD: Normal with no signs of trauma. EYES: PERRL, sclera anicteric, conjunctiva clear. ENT: Ears normal, nares patent, oropharynx clear without exudates, moist mucous membranes. NECK: Trachea midline, supple LUNGS: Clear to auscultation bilaterally, no wheezes, no crackles HEART: Regular rate and rhythm, S1, S2 without murmur, rub or gallop. ABDOMEN: Soft, nontender, nondistended, normoactive bowel sounds, no guarding, no rebound, no hepatosplenomegaly, no masses. EXTREMITIES: 2+ pulses, warm, well-perfused, no edema. NEUROLOGICAL: sedated SKIN: Warm, dry, normal turgor, no rashes or lesions noted Laboratory Results - last 24 hr 07/06/18 07/06/18 07/07/18 17:32 21:03 00:05 WBC RBC Hgb Hct MCV MCH MCHC RDW Plt Count MPV Absolute Neuts (auto) Neutrophils % Lymphocytes % Monocytes % Eosinophils % Basophils % Nucleated RBC % PTT (Actin FS) Puncture Site ABG pH ABG pCO2 at Pt Temp ABG pO2 at Pt Temp ABG HCO3 ABG O2 Sat (Measured) ABG O2 Content ABG Base Excess Chaz Test O2 Delivery Device Oxygen Flow Rate Vent Mode Vent Rate Mechanical Rate PEEP Pressure Support Vent Sodium Potassium Chloride Carbon Dioxide Anion Gap BUN Creatinine Creat Clearance w eGFR POC Glucometer 192.08829 228.41878 Random Glucose Lactic Acid Calcium Phosphorus Magnesium Total Bilirubin AST ALT Alkaline Phosphatase Troponin I 0.02 Total Protein Albumin 07/07/18 07/07/18 07/07/18 05:30 05:30 05:30 WBC 5.5 RBC 3.46 L Hgb 11.2 Hct 30.4 L D MCV 88.0 MCH 32.6 MCHC 37.0 H RDW 12.4 Plt Count 176 MPV 7.4 L Absolute Neuts (auto) 4.2 Neutrophils % 76.4 Lymphocytes % 11.5 D Monocytes % 12.0 H Eosinophils % 0.1 D Basophils % 0.0 Nucleated RBC % 0 PTT (Actin FS) 30.4 Puncture Site ABG pH ABG pCO2 at Pt Temp ABG pO2 at Pt Temp ABG HCO3 ABG O2 Sat (Measured) ABG O2 Content ABG Base Excess Chaz Test O2 Delivery Device Oxygen Flow Rate Vent Mode Vent Rate Mechanical Rate PEEP Pressure Support Vent Sodium 139 Potassium 2.6 L* Chloride 99 Carbon Dioxide 33 H Anion Gap 7 L BUN 7 Creatinine 0.5 L Creat Clearance w eGFR > 60 POC Glucometer Random Glucose 180 H Lactic Acid Calcium 7.2 L Phosphorus 1.2 L Magnesium 1.5 L Total Bilirubin 0.4 AST 10 L ALT 12 L Alkaline Phosphatase 54 Troponin I Total Protein 4.2 L Albumin 2.3 L 07/07/18 07/07/18 07/07/18 05:30 05:44 06:30 WBC RBC Hgb Hct MCV MCH MCHC RDW Plt Count MPV Absolute Neuts (auto) Neutrophils % Lymphocytes % Monocytes % Eosinophils % Basophils % Nucleated RBC % PTT (Actin FS) Puncture Site Right radial ABG pH 7.55 H D ABG pCO2 at Pt Temp 37.7 ABG pO2 at Pt Temp 121.0 H D ABG HCO3 32.6 H ABG O2 Sat (Measured) 99.2 H ABG O2 Content 14.6 L ABG Base Excess 9.5 H Chaz Test Positive O2 Delivery Device Vent Oxygen Flow Rate 40% Vent Mode A/c Vent Rate 14 Mechanical Rate Yes PEEP 5.0 Pressure Support Vent 400 Sodium Potassium Chloride Carbon Dioxide Anion Gap BUN Creatinine Creat Clearance w eGFR POC Glucometer 201.03643 Random Glucose Lactic Acid 2.3 H* Calcium Phosphorus Magnesium Total Bilirubin AST ALT Alkaline Phosphatase Troponin I Total Protein Albumin ASSESSMENT/PLAN: Acute Respiratory Failure due to Aspiration Pneumonitis and AMS Depression Suicidal attempt Polysubstance OD R/O Toxic Metabolic Encephalopathy D/C Propofol to assess mental status AC mode of vent D/C activated charcoal per Poison control Repeat CT head D/W poison control: recommend to complete NAC Mechanical VTE prophylaxis ICU monitoring Dr Pruett Critical care time spent in reviewing chart, evaluating patient and formulating plan - 36 minutes.
[2018-07-07] MEDS ORDERED: MIDAZOLAM 100 MG/100 ML MG IVPB ONE (18:20)
[2018-07-07] MEDS: DEXTROSE 5%-WATER - 1,000 ML with SODIUM BICARBONATE 8.4% - 100 MEQ IV SCH (18:21)
[2018-07-07] MEDS: MIDAZOLAM 100 MG in SODIUM CHLORIDE 100 ML IVPB SCH (18:21)
[2018-07-07] MEDS: CHLORHEXIDINE GLUCONATE 4% CLEANSER FOR DECOLONIZATION TP SCH (21:06)
[2018-07-07] MEDS ORDERED: CYPROHEPTADINE HCL 4 MG TABLET GT ONE (22:33)
--- NOTE | 2018-07-07 22:57 | PN ---
Progress Note (short form) - Note Progress Note: Patients family informed me that they found another two bottles of Klonopin empty at home that belonged to patients . Patient's daughter reports the bottle with 0.5mg had 180 pills and the 1mg bottle had 30 pills. reports the bottles were more than alf full prior to the incident but unsure how many pills were inside the bottle. Patient continues to be tachycardic in the 140's to 150's with BP around 130's/ 115. Increased Propofol with some improvement of heart rate, now in the 120's. Called Poison control and discussed case with Dr. Kayce Moscoso and recommended to continue Propofol drip, versed drip, and to start Cyproheptadine 12mg once then 2mg Q2H. Continue to monitor vitals.
[2018-07-08] MEDS: CYPROHEPTADINE HYDROCHLORIDE 2 MG/5 ML SOLUTION PO SCH ×12 (02:25→23:00)
[2018-07-08] MEDS: PIPERACILLIN/TAZOB 3.375 GM 3.375 GM in DEXTROSE 5%-WATER - 50 ML IVPB SCH ×3 (02:26→18:45)
[2018-07-08] MEDS ORDERED: DEXTROSE 5%-WATER - 50 ML IVPB ONE ×4 (04:13→21:16)
[2018-07-08] MEDS ORDERED: PIPERACILLIN/TAZOBACTAM 3.375 GM VIAL IVPB ONE ×4 (04:13→21:16)
[2018-07-08] MEDS: THIAMINE HCL 200 MG/2 ML VIAL IVPB SCH ×3 (05:12→21:36)
[2018-07-08 06:17] LABS: HEMATOCRIT 33.1 % (32.4-45.2); HEMOGLOBIN 12.3 GM/dL (10.7-15.3); LYMPH % 7.8 % (8-40); MCH 32.8 pg (25.7-33.7); MCHC 37.3 g/dl (32.0-36.0); MEAN CELL VOLUME 88.1 fl (80-96); MEAN PLT VOLUME 7.5 fl (7.5-11.1); MONO % 11.7 % (3.8-10.2); NEUT % 80.5 % (42.8-82.8); PLATELET COUNT 203 K/MM3 (134-434); RBC 3.76 M/mm3 (3.60-5.2); RDW 12.8 % (11.6-15.6)
[2018-07-08] MEDS: SODIUM BICARBONATE 8.4% - 100 MEQ in DEXTROSE 5%-WATER - 1,000 ML IV SCH ×4 (07:08→22:40)
[2018-07-08 07:11] LABS: ARTERIAL BLD GAS O2 SATURATION 99.2 % (90-98.9); ARTERIAL BLOOD GAS BASE EXCESS 9.3 meq/l (-2-2); ARTERIAL BLOOD GAS PCO2 38.7 mmHg (35-45); ARTERIAL BLOOD GAS pH 7.53 (7.35-7.45)
[2018-07-08 07:52] LABS: ALLENS TEST POSITIVE
[2018-07-08 08:09] LABS: ALBUMIN 2.2 g/dl (3.4-5.0); ALK PHOS 78 U/L (45-117); ANION GAP 8 MMOL/L (8-16); BILIRUBIN,TOTAL 0.5 mg/dL (0.2-1); BLOOD UREA NITROGEN 4 mg/dL (7-18); CALCIUM 7.7 mg/dL (8.5-10.1); CHLORIDE 97 mmol/L (98-107); CO2 34 mmol/L (21-32); CREATININE 0.5 mg/dL (0.55-1.3); GLUCOSE,RANDOM 149 mg/dL (74-106); MAGNESIUM 1.9 mg/dL (1.8-2.4); PHOSPHOROUS 2.2 mg/dL (2.5-4.9); SGOT/AST 10 U/L (15-37); SGPT/ALT 13 U/L (13-61); SODIUM 139 mmol/L (136-145); TOT PROT 4.6 g/dl (6.4-8.2)
[2018-07-08 08:18] LABS: POTASSIUM 2.6 mmol/L (3.5-5.1)
--- NOTE | 2018-07-08 08:41 | PN ---
Physical Exam: SUBJECTIVE: Patient seen and examined in the ICU; she remained on the propofol infusion for sedation. Overnight events noted with the knowledge of additional clonazepam ingestion. Being treated for serotonin syndrome with Cyproheptadine (12 then 2q2 now). On minimal vent settings at 400/40%/5/14. Pulling slightly smaller TV than vent. Not agitated. HR slightly improved. EKG done overnight shows no changes from prior and reveals sinus tachycardia. Temps have been ranging from 99-100F. ICU team, neuro, poison control, etc. continues to follow and all input from consulting services appreciated. Off charcoal. Couldnt obtain 10 sys ROS due to clinical status OBJECTIVE: Vital Signs Period Temp Pulse Resp BP Sys/Smith Pulse Ox Last 24 Hr 99 F-101.0 F 110-134 15-30 116-160/60-107 100-100 GENERAL: Sedated on vent, appears euvolemic with no hoa agitation. HEAD: Normal with no signs of trauma. EYES: Reactive to light, white conjunct. ENT: Ears normal, nares patent, NECK: Trachea midline, CVC inserted with clean dressing over RIJ LUNGS: Breath sounds equal with vent associated breath sounds, no wheezes, no crackles HEART: Tachycardic with sinus tach observed on monitor, S1, S2 without murmur, rub or gallop. ABDOMEN: Soft, nontender, nondistended, normoactive bowel sounds, no guarding, no rebound, no hepatosplenomegaly, no masses. EXTREMITIES: 2+ pulses, warm, well-perfused, no edema. NEUROLOGICAL: Cranial nerves II through XII grossly intact. Sedation limits neuro exam. Sym reflexes. Tone practically normal. SKIN: Warm, dry, normal turgor, no rashes or lesions noted Laboratory Results - last 24 hr 07/07/18 07/07/18 07/07/18 12:35 12:35 14:14 WBC RBC Hgb Hct MCV MCH MCHC RDW Plt Count MPV Absolute Neuts (auto) Neutrophils % Lymphocytes % Monocytes % Eosinophils % Basophils % Nucleated RBC % PT with INR 15.60 H INR 1.32 H PTT (Actin FS) 30.2 Anticoagulation Therapy Puncture Site ABG pH ABG pCO2 at Pt Temp ABG pO2 at Pt Temp ABG HCO3 ABG O2 Sat (Measured) ABG O2 Content ABG Base Excess Chaz Test O2 Delivery Device Oxygen Flow Rate Vent Mode Vent Rate Mechanical Rate PEEP Pressure Support Vent Sodium 139 Potassium 3.1 L Chloride 100 Carbon Dioxide 31 Anion Gap 8 BUN 5 L Creatinine 0.5 L Creat Clearance w eGFR > 60 POC Glucometer 148.40171 Random Glucose 113 H Lactic Acid Calcium 7.3 L Phosphorus Magnesium Total Bilirubin 0.5 AST 12 L ALT 14 Alkaline Phosphatase 64 Troponin I Total Protein 4.8 L Albumin 2.4 L 07/07/18 07/07/18 07/07/18 17:00 17:00 18:32 WBC RBC Hgb Hct MCV MCH MCHC RDW Plt Count MPV Absolute Neuts (auto) Neutrophils % Lymphocytes % Monocytes % Eosinophils % Basophils % Nucleated RBC % PT with INR INR PTT (Actin FS) Anticoagulation Therapy Puncture Site ABG pH ABG pCO2 at Pt Temp ABG pO2 at Pt Temp ABG HCO3 ABG O2 Sat (Measured) ABG O2 Content ABG Base Excess Chaz Test O2 Delivery Device Oxygen Flow Rate Vent Mode Vent Rate Mechanical Rate PEEP Pressure Support Vent Sodium Potassium Chloride Carbon Dioxide Anion Gap BUN Creatinine Creat Clearance w eGFR POC Glucometer 137.83612 Random Glucose Lactic Acid 1.5 Calcium Phosphorus Magnesium Total Bilirubin AST ALT Alkaline Phosphatase Troponin I < 0.02 Total Protein Albumin 07/07/18 07/08/18 07/08/18 21:26 05:30 05:30 WBC 8.0 RBC 3.76 Hgb 12.3 Hct 33.1 MCV 88.1 MCH 32.8 MCHC 37.3 H RDW 12.8 Plt Count 203 MPV 7.5 Absolute Neuts (auto) 6.5 Neutrophils % 80.5 Lymphocytes % 7.8 L D Monocytes % 11.7 H Eosinophils % 0.0 D Basophils % 0.0 Nucleated RBC % 0 PT with INR INR PTT (Actin FS) Anticoagulation Therapy Puncture Site ABG pH ABG pCO2 at Pt Temp ABG pO2 at Pt Temp ABG HCO3 ABG O2 Sat (Measured) ABG O2 Content ABG Base Excess Chaz Test O2 Delivery Device Oxygen Flow Rate Vent Mode Vent Rate Mechanical Rate PEEP Pressure Support Vent Sodium 139 Potassium 2.6 L* Chloride 97 L Carbon Dioxide 34 H Anion Gap 8 BUN 4 L Creatinine 0.5 L Creat Clearance w eGFR > 60 POC Glucometer 142.12988 Random Glucose 149 H Lactic Acid Calcium 7.7 L Phosphorus 2.2 L Magnesium 1.9 Total Bilirubin 0.5 AST 10 L ALT 13 Alkaline Phosphatase 78 Troponin I Total Protein 4.6 L Albumin 2.2 L 07/08/18 07/08/18 05:53 06:55 WBC RBC Hgb Hct MCV MCH MCHC RDW Plt Count MPV Absolute Neuts (auto) Neutrophils % Lymphocytes % Monocytes % Eosinophils % Basophils % Nucleated RBC % PT with INR INR PTT (Actin FS) Anticoagulation Therapy No Result Required. Puncture Site Right radial ABG pH 7.53 H ABG pCO2 at Pt Temp 38.7 ABG pO2 at Pt Temp 120.0 H ABG HCO3 32.5 H ABG O2 Sat (Measured) 99.2 H ABG O2 Content 16.5 ABG Base Excess 9.3 H Chaz Test Positive O2 Delivery Device A/c 400 Oxygen Flow Rate 40 Vent Mode No Result Required. Vent Rate No Result Required. Mechanical Rate No Result Required. PEEP 5.0 Pressure Support Vent No Result Required. Sodium Potassium Chloride Carbon Dioxide Anion Gap BUN Creatinine Creat Clearance w eGFR POC Glucometer 173.78334 Random Glucose Lactic Acid Calcium Phosphorus Magnesium Total Bilirubin AST ALT Alkaline Phosphatase Troponin I Total Protein Albumin Active Medications Generic Name Dose Route Start Last Admin Trade Name Freq PRN Reason Stop Dose Admin Chlorhexidine Gluconate 1 applic 07/06/18 22:00 07/07/18 21:06 Hibiclens For Decolonization - TP 1 applic HS RUBENS Administration Cyproheptadine HCl 2 mg 07/08/18 00:00 07/08/18 08:29 Periactin Solution - PO 2 mg Q2H RUBENS Administration Propofol 1,000,000 mcg in 100 mls @ 1.429 mls/hr 07/06/18 12:45 07/07/18 13: 47 Diprivan - IVPB Not Given TITR RUBENS Protocol 5 MCG/KG/MIN Piperacillin Sod/Tazobactam 50 mls @ 100 mls/hr 07/06/18 18:00 07/08/18 02:26 Sod 3.375 gm/ Dextrose IVPB 100 mls/hr Q8H-IV RUBENS Administration Protocol Midazolam HCl 100 mg/ Sodium 100 mls @ 1 mls/hr 07/07/18 17:45 07/07/18 18:21 Chloride IVPB 1 mg/hr TITR RUBENS 1 mls/hr Administration Protocol 1 MG/HR Sodium Bicarbonate 100 meq/ 1,100 mls @ 200 mls/hr 07/08/18 06:45 11/06/18 07 :08 Dextrose IV Not Given Q5H [facility] Potassium Phosphate 15 mm/ 255 mls @ 62.5 mls/hr 07/08/18 09:30 Sodium Chloride IVPB 07/08/18 13:34 ONCE ONE Mupirocin 1 applic 07/07/18 10:00 07/07/18 21:06 Bactroban Ointment (For Decolonization) - NS 07/12/18 09:59 1 applic BID RUBENS Administration Pantoprazole Sodium 40 mg 07/06/18 22:00 07/07/18 21:07 Protonix Iv IVPUSH 40 mg BID RUBENS Administration Thiamine HCl 300 mg 07/07/18 14:00 07/08/18 05:12 Vitamin B1 Injection - IVPB 300 mg TID RUBENS Administration ASSESSMENT/PLAN: Mrs. Worthington is a 67 y/o HF who presents with polysubstance overdose due to suicidal ideation; remains intubated and sedated in ICU. Treating empirically for serotonin syndrome. 1) Acute Respiratory Failure 2/2 Overdose -No changes; minimal vent settings. Managed by pulm/crit. -Wean from vent as tolerated with acknowledgement to sedation, etc. -Treat serotonin syndrome, allow for her to wake up, follow with neurology 2) AMS due to polysubstance overdose -Sedation holidays per specialty services, followup with neuro. She was on sedation to day which made it difficult to do a full neuro exam. -Repeat head CT negative; suspect toxic metabolic encephalopathy. 3) Suspected Serotonin Syndrome -Continue her on the cyproheptadine; followup with poison control. -Monitor VS, HR. Manage supportively. Continue IVF. 4) Suicidal Ideation -Once extubated, etc. needs psychiatric clearance. Continue 1:1 5) Hypoalbuminemia -Feeds per ICU team when intubated, recommend nutrition consult 6) Suspected Sepsis -No white count but tachy with fever; abx deferred to ID. The serotonin syndrome could also implicate this. Check ESR/CRP to help elucidate if underlying inflammatory process. 7) Suspected extracranial hemorrhage -Found on repeat CT to be 2/2 calcifications; no new issues today -Consider starting lovenox for DVT px FENA -Continue with IV hydration at current rate -Replace phosphate; will discuss with ICU resident -Per ICU; consider starting TFs -Bedrest Code status unchanged from prior visit 35 minutes of critical care time was spent in the management of this patient today. Visit type - Emergency Visit Emergency Visit: No - New Patient This patient is new to me today: Yes Date on this admission: 07/08/18 - Critical Care Critical Care patient: Yes Total Critical Care Time (in minutes): 35 Critical Care Statement: The care of this patient involved high complexity decision making to prevent further life threatening deterioration of the patient 's condition and/or to evaluate & treat vital organ system(s) failure or risk of failure.
[2018-07-08] MEDS: KCL 10 MEQ IVPB 10 MEQ/100 ML INFUS.BAG IVPB SCH ×3 (09:06→12:10)
[2018-07-08] MEDS: PANTOPRAZOLE SODIUM 40 MG VIAL IVPUSH SCH ×2 (09:12→21:35)
[2018-07-08] MEDS ORDERED: MAGNESIUM SULF 50% (8.12 MEQ/2 ML-1 GM VIAL) IVPB ONE (09:30)
[2018-07-08] MEDS ORDERED: POTASSIUM PHOSPHATE 15 MM in SODIUM CHLORIDE 250 ML IVPB ONE (09:30)
[2018-07-08] MEDS: MUPIROCIN 2% TOPICAL OINTMENT FOR DECOLONIZATION NS SCH ×2 (10:19→21:31)
[2018-07-08] MEDS ORDERED: POTASSIUM CHLORIDE ORAL LIQUID 20 MEQ/15 ML PO ONE ×2 (12:30→19:14)
[2018-07-08] MEDS ORDERED: POTASSIUM CHLORIDE TABS 20 MEQ TABLET.ER (FP) PO ONE (12:30)
[2018-07-08 12:58] LABS: ALBUMIN 2.2 g/dl (3.4-5.0); ALK PHOS 85 U/L (45-117); ANION GAP 7 MMOL/L (8-16); BILIRUBIN,TOTAL 0.6 mg/dL (0.2-1); BLOOD UREA NITROGEN 4 mg/dL (7-18); CALCIUM 7.5 mg/dL (8.5-10.1); CHLORIDE 99 mmol/L (98-107); CO2 32 mmol/L (21-32); CREATININE 0.4 mg/dL (0.55-1.3); GLUCOSE,RANDOM 116 mg/dL (74-106); POTASSIUM 3.4 mmol/L (3.5-5.1); SGOT/AST 12 U/L (15-37); SGPT/ALT 13 U/L (13-61); SODIUM 138 mmol/L (136-145); TOT PROT 4.7 g/dl (6.4-8.2)
--- NOTE | 2018-07-08 13:24 | PN ---
Progress Note, Physician History of Present Illness: continues to be sedated and intubated otherwise stable - Current Medication List Current Medications: Active Medications Chlorhexidine Gluconate (Hibiclens For Decolonization -) 1 applic TP HS [facility] Last Admin: 07/07/18 21:06 Dose: 1 applic Cyproheptadine HCl (Periactin Solution -) 2 mg PO Q2H [facility] Last Admin: 07/08/18 12:14 Dose: 2 mg Propofol (Diprivan -) 1,000,000 mcg in 100 mls @ 1.429 mls/hr IVPB TITR [facility]; Protocol Last Titration: 07/08/18 11:30 Dose: 12.5 mcg/kg/min, 3.572 mls/hr Piperacillin Sod/Tazobactam (Sod 3.375 gm/ Dextrose) 50 mls @ 100 mls/hr IVPB Q8H-IV [facility]; Protocol Last Admin: 07/08/18 09:55 Dose: 100 mls/hr Midazolam HCl 100 mg/ Sodium (Chloride) 100 mls @ 1 mls/hr IVPB TITR [facility]; Protocol Last Titration: 07/08/18 07:00 Dose: 2 mg/hr, 2 mls/hr Sodium Bicarbonate 100 meq/ (Dextrose) 1,100 mls @ 200 mls/hr IV Q5H [facility] Last Admin: 07/08/18 13:01 Dose: 200 mls/hr Potassium Phosphate 15 mm/ (Sodium Chloride) 255 mls @ 62.5 mls/hr IVPB ONCE ONE Stop: 07/08/18 13:34 Last Admin: 07/08/18 09:38 Dose: 62.5 mls/hr Mupirocin (Bactroban Ointment (For Decolonization) -) 1 applic NS BID [facility] Stop: 07/12/18 09:59 Last Admin: 07/08/18 10:19 Dose: 1 applic Pantoprazole Sodium (Protonix Iv) 40 mg IVPUSH BID [facility] Last Admin: 07/08/18 09:12 Dose: 40 mg Thiamine HCl (Vitamin B1 Injection -) 300 mg IVPB TID [facility] Last Admin: 07/08/18 05:12 Dose: 300 mg - Objective Vital Signs: Vital Signs Temperature 100.1 F H 07/08/18 11:00 Pulse Rate 124 H 07/08/18 12:28 Respiratory Rate 20 07/08/18 12:28 Blood Pressure 150/72 07/08/18 12:28 O2 Sat by Pulse Oximetry (%) 100 07/07/18 20:00 Constitutional: Yes: Other Cardiovascular: Yes: Regular Rate and Rhythm Respiratory: Yes: Intubated, Mechanically Ventilated, Other (sedated) Gastrointestinal: Yes: Normal Bowel Sounds, Soft Musculoskeletal: Yes: WNL Extremities: Yes: WNL Neurological: Yes: Other Labs: CBC, BMP 07/08/18 05:30 07/08/18 12:15 INR, PTT INR 1.32 (0.83-1.09) H 07/07/18 12:35 - ....Imaging Chest X-ray: Report Reviewed, Image Reviewed Assessment/Plan Acute metabolic encephalopathy Severe sepsis Acute toxic metabolic encephalopathy Seratonin overdose Possible suicide attempt Severe depression pneumonia uti plan continue mgmt as per icu neuro on case continue iv fluids abx monitor fever monitor secretions rest as per the team and icu family in room,discussed in detail with the family cc 40 min
--- NOTE | 2018-07-08 13:27 | PN ---
Progress Note (short form) - Note Progress Note: 67 year old female history of severe depression and found responsive at home. It is not clear , how long she was out. Patient was given narcan and was intuabted for airway protection. Patient has ct head and it was unremarkable. She was takign cymbalta, inderal, zyprexa, desipiprine, klonipin , effexor and abilify. she recently filled olanzapine on july 03 and her bottle was found empty and she also left a suicidal note. she is still intubated and sedated. She has not been opening her eye or resisting . Neurological Examination Comatose and intubated and sedated on propafol she is not responding to pain or verbal stimuli breathing above vent and bp is maintained pupils is mid size and responding, and corneal reflex is present Repeat ct head on july 07 was unchanged Assessment: 67 year old female history of severe depression, several admission recently for acute depression , she has Suicidal attempt and took whole bottle of zyprexa and klonipin Plan: Supportive care, Prognosis is guarded, would re-examine once off sedation Thanking you so much Jeffry Aquino MD
--- NOTE | 2018-07-08 14:27 | PN ---
Teaching Attending Note Name of Resident: Bernard Elizondo ATTENDING PHYSICIAN STATEMENT I saw and evaluated the patient. I reviewed the resident's note and discussed the case with the resident. I agree with the resident's findings and plan as documented. SUBJECTIVE: Patient seen and examined in the ICU. Remains intubated and sedated on propofol and versed per recommendation of poison control due to suspicion of serotonin syndrome. AC Mode of vent, 40% FiO2. No pressors. OBJECTIVE: Intake & Output 07/06/18 07/06/18 07/07/18 07/08/18 00:59 23:59 23:59 23:59 Intake Total 7088 4276 Output Total 3560 3400 Balance 3528 876 Weight 105 lb Last Vital Signs Temp Pulse Resp BP Pulse Ox 100 F H 124 H 20 165/78 100 07/08/18 13:41 07/08/18 13:41 07/08/18 13:41 07/08/18 13:41 07/07/18 20:00 Active Medications Chlorhexidine Gluconate (Hibiclens For Decolonization -) 1 applic TP HS [facility] Last Admin: 07/07/18 21:06 Dose: 1 applic Cyproheptadine HCl (Periactin Solution -) 2 mg PO Q2H [facility] Last Admin: 07/08/18 14:04 Dose: 2 mg Propofol (Diprivan -) 1,000,000 mcg in 100 mls @ 1.429 mls/hr IVPB TITR [facility]; Protocol Last Titration: 07/08/18 13:00 Dose: 25 mcg/kg/min, 7.144 mls/hr Piperacillin Sod/Tazobactam (Sod 3.375 gm/ Dextrose) 50 mls @ 100 mls/hr IVPB Q8H-IV [facility]; Protocol Last Admin: 07/08/18 09:55 Dose: 100 mls/hr Midazolam HCl 100 mg/ Sodium (Chloride) 100 mls @ 1 mls/hr IVPB TITR [facility]; Protocol Last Titration: 07/08/18 07:00 Dose: 2 mg/hr, 2 mls/hr Sodium Bicarbonate 100 meq/ (Dextrose) 1,100 mls @ 200 mls/hr IV Q5H [facility] Last Admin: 07/08/18 13:01 Dose: 200 mls/hr Mupirocin (Bactroban Ointment (For Decolonization) -) 1 applic NS BID [facility] Stop: 07/12/18 09:59 Last Admin: 07/08/18 10:19 Dose: 1 applic Pantoprazole Sodium (Protonix Iv) 40 mg IVPUSH BID [facility] Last Admin: 07/08/18 09:12 Dose: 40 mg Thiamine HCl (Vitamin B1 Injection -) 300 mg IVPB TID [facility] Last Admin: 07/08/18 14:05 Dose: 300 mg GENERAL: Intubated and sedated HEAD: Normal with no signs of trauma. EYES: PERRL, sclera anicteric, conjunctiva clear. ENT: Ears normal, nares patent, oropharynx clear without exudates, moist mucous membranes. NECK: Trachea midline, supple LUNGS: Vented, few basilar rhonchi, no wheezes, no crackles HEART: Regular rate and rhythm, S1, S2 without murmur, rub or gallop. ABDOMEN: Soft, nontender, nondistended, normoactive bowel sounds, no guarding, no rebound, no hepatosplenomegaly, no masses. EXTREMITIES: 2+ pulses, warm, well-perfused, no edema. NEUROLOGICAL: sedated SKIN: Warm, dry, normal turgor, no rashes or lesions noted Laboratory Results - last 24 hr 07/07/18 07/07/18 07/07/18 12:35 12:35 14:14 WBC RBC Hgb Hct MCV MCH MCHC RDW Plt Count MPV Absolute Neuts (auto) Neutrophils % Lymphocytes % Monocytes % Eosinophils % Basophils % Nucleated RBC % ESR PT with INR 15.60 H INR 1.32 H PTT (Actin FS) 30.2 Anticoagulation Therapy Puncture Site ABG pH ABG pCO2 at Pt Temp ABG pO2 at Pt Temp ABG HCO3 ABG O2 Sat (Measured) ABG O2 Content ABG Base Excess Chaz Test O2 Delivery Device Oxygen Flow Rate Vent Mode Vent Rate Mechanical Rate PEEP Pressure Support Vent Sodium 139 Potassium 3.1 L Chloride 100 Carbon Dioxide 31 Anion Gap 8 BUN 5 L Creatinine 0.5 L Creat Clearance w eGFR > 60 POC Glucometer 148.84448 Random Glucose 113 H Lactic Acid Calcium 7.3 L Phosphorus Magnesium Total Bilirubin 0.5 AST 12 L ALT 14 Alkaline Phosphatase 64 Troponin I C-Reactive Protein Total Protein 4.8 L Albumin 2.4 L 07/07/18 07/07/18 07/07/18 17:00 17:00 18:32 WBC RBC Hgb Hct MCV MCH MCHC RDW Plt Count MPV Absolute Neuts (auto) Neutrophils % Lymphocytes % Monocytes % Eosinophils % Basophils % Nucleated RBC % ESR PT with INR INR PTT (Actin FS) Anticoagulation Therapy Puncture Site ABG pH ABG pCO2 at Pt Temp ABG pO2 at Pt Temp ABG HCO3 ABG O2 Sat (Measured) ABG O2 Content ABG Base Excess Chaz Test O2 Delivery Device Oxygen Flow Rate Vent Mode Vent Rate Mechanical Rate PEEP Pressure Support Vent Sodium Potassium Chloride Carbon Dioxide Anion Gap BUN Creatinine Creat Clearance w eGFR POC Glucometer 137.41904 Random Glucose Lactic Acid 1.5 Calcium Phosphorus Magnesium Total Bilirubin AST ALT Alkaline Phosphatase Troponin I < 0.02 C-Reactive Protein Total Protein Albumin 07/07/18 07/08/18 07/08/18 21:26 05:30 05:30 WBC 8.0 RBC 3.76 Hgb 12.3 Hct 33.1 MCV 88.1 MCH 32.8 MCHC 37.3 H RDW 12.8 Plt Count 203 MPV 7.5 Absolute Neuts (auto) 6.5 Neutrophils % 80.5 Lymphocytes % 7.8 L D Monocytes % 11.7 H Eosinophils % 0.0 D Basophils % 0.0 Nucleated RBC % 0 ESR PT with INR INR PTT (Actin FS) Anticoagulation Therapy Puncture Site ABG pH ABG pCO2 at Pt Temp ABG pO2 at Pt Temp ABG HCO3 ABG O2 Sat (Measured) ABG O2 Content ABG Base Excess Chaz Test O2 Delivery Device Oxygen Flow Rate Vent Mode Vent Rate Mechanical Rate PEEP Pressure Support Vent Sodium 139 Potassium 2.6 L* Chloride 97 L Carbon Dioxide 34 H Anion Gap 8 BUN 4 L Creatinine 0.5 L Creat Clearance w eGFR > 60 POC Glucometer 142.48275 Random Glucose 149 H Lactic Acid Calcium 7.7 L Phosphorus 2.2 L Magnesium 1.9 Total Bilirubin 0.5 AST 10 L ALT 13 Alkaline Phosphatase 78 Troponin I C-Reactive Protein 24.4 H Total Protein 4.6 L Albumin 2.2 L 07/08/18 07/08/18 07/08/18 05:30 05:53 06:55 WBC RBC Hgb Hct MCV MCH MCHC RDW Plt Count MPV Absolute Neuts (auto) Neutrophils % Lymphocytes % Monocytes % Eosinophils % Basophils % Nucleated RBC % ESR 42 H PT with INR INR PTT (Actin FS) Anticoagulation Therapy No Result Required. Puncture Site Right radial ABG pH 7.53 H ABG pCO2 at Pt Temp 38.7 ABG pO2 at Pt Temp 120.0 H ABG HCO3 32.5 H ABG O2 Sat (Measured) 99.2 H ABG O2 Content 16.5 ABG Base Excess 9.3 H Chaz Test Positive O2 Delivery Device A/c 400 Oxygen Flow Rate 40 Vent Mode No Result Required. Vent Rate No Result Required. Mechanical Rate No Result Required. PEEP 5.0 Pressure Support Vent No Result Required. Sodium Potassium Chloride Carbon Dioxide Anion Gap BUN Creatinine Creat Clearance w eGFR POC Glucometer 173.42002 Random Glucose Lactic Acid Calcium Phosphorus Magnesium Total Bilirubin AST ALT Alkaline Phosphatase Troponin I C-Reactive Protein Total Protein Albumin 07/08/18 07/08/18 11:44 12:15 WBC RBC Hgb Hct MCV MCH MCHC RDW Plt Count MPV Absolute Neuts (auto) Neutrophils % Lymphocytes % Monocytes % Eosinophils % Basophils % Nucleated RBC % ESR PT with INR INR PTT (Actin FS) Anticoagulation Therapy Puncture Site ABG pH ABG pCO2 at Pt Temp ABG pO2 at Pt Temp ABG HCO3 ABG O2 Sat (Measured) ABG O2 Content ABG Base Excess Chaz Test O2 Delivery Device Oxygen Flow Rate Vent Mode Vent Rate Mechanical Rate PEEP Pressure Support Vent Sodium 138 Potassium 3.4 L Chloride 99 Carbon Dioxide 32 Anion Gap 7 L BUN 4 L Creatinine 0.4 L Creat Clearance w eGFR > 60 POC Glucometer 125.22435 Random Glucose 116 H Lactic Acid Calcium 7.5 L Phosphorus Magnesium Total Bilirubin 0.6 AST 12 L ALT 13 Alkaline Phosphatase 85 Troponin I C-Reactive Protein Total Protein 4.7 L Albumin 2.2 L ASSESSMENT/PLAN: Acute Respiratory Failure due to Aspiration Pneumonitis and AMS Suspected Serotonin Syndrome Depression Suicidal attempt Polysubstance OD R/O Toxic Metabolic Encephalopathy SDH versus area of calcification on Head CT Sedate with Propofol and Versed AC mode of vent Cyproheptadine per protocol Mechanical VTE prophylaxis ABX per ID Start Enteral feeds PPI ICU monitoring Dr Pruett Critical care time spent in reviewing chart, evaluating patient and formulating plan - 36 minutes.
--- NOTE | 2018-07-08 14:49 | PN ---
Physical Exam: SUBJECTIVE: Patient seen and examined at bedside. She is intubated and sedated. Her VS worsened overnight and the [facility] poison control recommended starting cyproheptadine. She was doing well on the cyproheptadine with more normal vitals until she took a sedation vacation from propofol today at which point her VS shot through the roof. It was found by the family that the patient actually took an extra half a bottle of clonazepam. OBJECTIVE: Vital Signs Period Temp Pulse Resp BP Sys/Smith Pulse Ox Last 24 Hr 99 F-101.0 F 115-134 15-30 116-165/66-107 100-100 GENERAL: The patient is intubated and sedated. HEAD: Flushed EYES: PERRL, No ocular clonus today ENT: Ears normal, nares patent, oropharynx clear without exudates, dry mucous membranes. NECK: Trachea midline. LUNGS: Breath sounds equal, clear to auscultation bilaterally, no wheezes, no crackles, no accessory muscle use. HEART: tachcardic rate and regular rhythm, S1, S2 without murmur, rub or gallop. ABDOMEN: Soft, mildly distended. Hyperactive BS. EXTREMITIES: 2+ pulses, warm, well-perfused, no edema. NEUROLOGICAL: Patient has hyperactive patellar reflexes b/l. No rigidity. Gait not observed. PSYCH: Patient has a hx of suicidal ideation. SKIN: Warm, dry, normal turgor, no rashes or lesions noted Laboratory Results - last 24 hr 07/07/18 07/07/18 07/07/18 12:35 12:35 17:00 WBC RBC Hgb Hct MCV MCH MCHC RDW Plt Count MPV Absolute Neuts (auto) Neutrophils % Lymphocytes % Monocytes % Eosinophils % Basophils % Nucleated RBC % ESR PT with INR 15.60 H INR 1.32 H PTT (Actin FS) 30.2 Anticoagulation Therapy Puncture Site ABG pH ABG pCO2 at Pt Temp ABG pO2 at Pt Temp ABG HCO3 ABG O2 Sat (Measured) ABG O2 Content ABG Base Excess Chaz Test O2 Delivery Device Oxygen Flow Rate Vent Mode Vent Rate Mechanical Rate PEEP Pressure Support Vent Sodium 139 Potassium 3.1 L Chloride 100 Carbon Dioxide 31 Anion Gap 8 BUN 5 L Creatinine 0.5 L Creat Clearance w eGFR > 60 POC Glucometer Random Glucose 113 H Lactic Acid 1.5 Calcium 7.3 L Phosphorus Magnesium Total Bilirubin 0.5 AST 12 L ALT 14 Alkaline Phosphatase 64 Troponin I C-Reactive Protein Total Protein 4.8 L Albumin 2.4 L 07/07/18 07/07/18 07/07/18 17:00 18:32 21:26 WBC RBC Hgb Hct MCV MCH MCHC RDW Plt Count MPV Absolute Neuts (auto) Neutrophils % Lymphocytes % Monocytes % Eosinophils % Basophils % Nucleated RBC % ESR PT with INR INR PTT (Actin FS) Anticoagulation Therapy Puncture Site ABG pH ABG pCO2 at Pt Temp ABG pO2 at Pt Temp ABG HCO3 ABG O2 Sat (Measured) ABG O2 Content ABG Base Excess Chaz Test O2 Delivery Device Oxygen Flow Rate Vent Mode Vent Rate Mechanical Rate PEEP Pressure Support Vent Sodium Potassium Chloride Carbon Dioxide Anion Gap BUN Creatinine Creat Clearance w eGFR POC Glucometer 137.55086 142.70085 Random Glucose Lactic Acid Calcium Phosphorus Magnesium Total Bilirubin AST ALT Alkaline Phosphatase Troponin I < 0.02 C-Reactive Protein Total Protein Albumin 07/08/18 07/08/18 07/08/18 05:30 05:30 05:30 WBC 8.0 RBC 3.76 Hgb 12.3 Hct 33.1 MCV 88.1 MCH 32.8 MCHC 37.3 H RDW 12.8 Plt Count 203 MPV 7.5 Absolute Neuts (auto) 6.5 Neutrophils % 80.5 Lymphocytes % 7.8 L D Monocytes % 11.7 H Eosinophils % 0.0 D Basophils % 0.0 Nucleated RBC % 0 ESR 42 H PT with INR INR PTT (Actin FS) Anticoagulation Therapy Puncture Site ABG pH ABG pCO2 at Pt Temp ABG pO2 at Pt Temp ABG HCO3 ABG O2 Sat (Measured) ABG O2 Content ABG Base Excess Chaz Test O2 Delivery Device Oxygen Flow Rate Vent Mode Vent Rate Mechanical Rate PEEP Pressure Support Vent Sodium 139 Potassium 2.6 L* Chloride 97 L Carbon Dioxide 34 H Anion Gap 8 BUN 4 L Creatinine 0.5 L Creat Clearance w eGFR > 60 POC Glucometer Random Glucose 149 H Lactic Acid Calcium 7.7 L Phosphorus 2.2 L Magnesium 1.9 Total Bilirubin 0.5 AST 10 L ALT 13 Alkaline Phosphatase 78 Troponin I C-Reactive Protein 24.4 H Total Protein 4.6 L Albumin 2.2 L 07/08/18 07/08/18 07/08/18 05:53 06:55 11:44 WBC RBC Hgb Hct MCV MCH MCHC RDW Plt Count MPV Absolute Neuts (auto) Neutrophils % Lymphocytes % Monocytes % Eosinophils % Basophils % Nucleated RBC % ESR PT with INR INR PTT (Actin FS) Anticoagulation Therapy No Result Required. Puncture Site Right radial ABG pH 7.53 H ABG pCO2 at Pt Temp 38.7 ABG pO2 at Pt Temp 120.0 H ABG HCO3 32.5 H ABG O2 Sat (Measured) 99.2 H ABG O2 Content 16.5 ABG Base Excess 9.3 H Chaz Test Positive O2 Delivery Device A/c 400 Oxygen Flow Rate 40 Vent Mode No Result Required. Vent Rate No Result Required. Mechanical Rate No Result Required. PEEP 5.0 Pressure Support Vent No Result Required. Sodium Potassium Chloride Carbon Dioxide Anion Gap BUN Creatinine Creat Clearance w eGFR POC Glucometer 173.32175 125.92911 Random Glucose Lactic Acid Calcium Phosphorus Magnesium Total Bilirubin AST ALT Alkaline Phosphatase Troponin I C-Reactive Protein Total Protein Albumin 07/08/18 12:15 WBC RBC Hgb Hct MCV MCH MCHC RDW Plt Count MPV Absolute Neuts (auto) Neutrophils % Lymphocytes % Monocytes % Eosinophils % Basophils % Nucleated RBC % ESR PT with INR INR PTT (Actin FS) Anticoagulation Therapy Puncture Site ABG pH ABG pCO2 at Pt Temp ABG pO2 at Pt Temp ABG HCO3 ABG O2 Sat (Measured) ABG O2 Content ABG Base Excess Chaz Test O2 Delivery Device Oxygen Flow Rate Vent Mode Vent Rate Mechanical Rate PEEP Pressure Support Vent Sodium 138 Potassium 3.4 L Chloride 99 Carbon Dioxide 32 Anion Gap 7 L BUN 4 L Creatinine 0.4 L Creat Clearance w eGFR > 60 POC Glucometer Random Glucose 116 H Lactic Acid Calcium 7.5 L Phosphorus Magnesium Total Bilirubin 0.6 AST 12 L ALT 13 Alkaline Phosphatase 85 Troponin I C-Reactive Protein Total Protein 4.7 L Albumin 2.2 L Active Medications Generic Name Dose Route Start Last Admin Trade Name Freq PRN Reason Stop Dose Admin Chlorhexidine Gluconate 1 applic 07/06/18 22:00 07/07/18 21:06 Hibiclens For Decolonization - TP 1 applic HS [facility] Administration Cyproheptadine HCl 2 mg 07/08/18 00:00 07/08/18 14:04 Periactin Solution - PO 2 mg Q2H [facility] Administration Propofol 1,000,000 mcg in 100 mls @ 1.429 mls/hr 07/06/18 12:45 07/08/18 13: 00 Diprivan - IVPB 25 mcg/kg/min TITR [facility] 7.144 mls/hr Titration Protocol 5 MCG/KG/MIN Piperacillin Sod/Tazobactam 50 mls @ 100 mls/hr 07/06/18 18:00 07/08/18 09:55 Sod 3.375 gm/ Dextrose IVPB 100 mls/hr Q8H-IV [facility] Administration Protocol Midazolam HCl 100 mg/ Sodium 100 mls @ 1 mls/hr 07/07/18 17:45 07/08/18 07:00 Chloride IVPB 2 mg/hr TITR [facility] 2 mls/hr Titration Protocol 1 MG/HR Sodium Bicarbonate 100 meq/ 1,100 mls @ 200 mls/hr 07/08/18 06:45 07/08/18 13 :01 Dextrose IV 200 mls/hr Q5H [facility] Administration Mupirocin 1 applic 07/07/18 10:00 07/08/18 10:19 Bactroban Ointment (For Decolonization) - NS 07/12/18 09:59 1 applic BID [facility] Administration Pantoprazole Sodium 40 mg 07/06/18 22:00 07/08/18 09:12 Protonix Iv IVPUSH 40 mg BID [facility] Administration Thiamine HCl 300 mg 07/07/18 14:00 07/08/18 14:05 Vitamin B1 Injection - IVPB 300 mg TID [facility] Administration ASSESSMENT/PLAN: [facility] Poison control knows about patient and is following: Call [phone] Escalante or Dr. Paz. Assessment: 67 year old female with a PMHx of Depression and suicidal ideations with recent admission to [facility] for Psychiatric Hospital[facility] (06/19/18-) was BIBEMS after being found by her son unresponsive, warm to touch with thick mucous coming out of her mouth and "barely breathing" at around 1030 yesterday morning. There was a suicide note and empty bottles of Olanzapine and Clonazepam. Patient admitted to ICU for further monitoring and management. DD includes but not limited to: Olanzapine toxicity vs clonazepam vs desipramine vs acetaminophen vs other drug toxicity. (suicide attempt) We stopped sedation this morning o assess mental status and her VS elevated all around. She became tachy to 170, BP labile, RR elevated to 30. Will wait two days before another sedation vacation. [facility] poison control recommended starting cyproheptadine. as per ID: Keep her on strict aspiration precaution risk secondary to charcoal. Plan: Cooling blanket for hyperthermia, midazolam drip, cyproheptadine, +/- esmolol, supportive measures. NEURO #Acute Toxic Metabolic Encephalopathy/ likely serotonin syndrome + Benzo OD. - Patient has ocular clonus, hyper-reflexia, is flushing, has tachycardia, is febrile, had an empty bottle of olanzapine and clonazepam near bedside. - cooling blanket by bedside for hyperthermia - Midazolam drip -Currently intubated and sedated for airway protection - Repeat Head CT did not appear to show consistent brain bleed. Likely calcification. CARDIO #Tachycardia - Likely secondary to drug toxicity. Messaged Poison Control and they agree starting lopressor 25 mg prn for HR above 110 is a good supportive measure. PSYCH #Severe Depression with Attempted Suicide -Will hold off on anti-psychotics due to toxicity -Continue to monitor and will need 1:1 after possible extubation, as well as a possible transfer to inpatient psych -Patient should receive a psyche consult if she gets extubated. [facility] was spoken to about the patient. Dr. Deo Li will accept the patient as an inpatient if she leaves the ICU. Number: [phone] INFECTIOUS DISEASE - ID consulted and recommended strict aspiration precautions secondary to activated charcoal. -Zosyn and Vancomycin given in ED with ID continuing Zosyn 3.375mg IVPB Q8H -Chest X-Ray revealed course lung changes and pleural thickening. Possible aspiration F/E/N - Patient is receiving Sodium Bicarb drip. Will DC if no QRS changes and switch to LR. - Potassium decreased to 2.6 => repleting - Will obtain another CMP to assess what still needs more repletion. - Tube feeds - Osmalite. PROPHYLAXIS -SCD's. No AC for now due to possible extra-axial hemorrhage -Protonix 40mg IVP BID Disposition -Full code -Intubated and sedated. Continue ICU monitoring Visit type - Emergency Visit Emergency Visit: Yes ED Registration Date: 07/06/18 Care time: The patient presented to the Emergency Department on the above date and was hospitalized for further evaluation of their emergent condition. - New Patient This patient is new to me today: No - Critical Care Critical Care patient: Yes Total Critical Care Time (in minutes): 36 Critical Care Statement: The care of this patient involved high complexity decision making to prevent further life threatening deterioration of the patient 's condition and/or to evaluate & treat vital organ system(s) failure or risk of failure.
[2018-07-08 16:55] LABS: ALBUMIN 2.2 g/dl (3.4-5.0); ALK PHOS 87 U/L (45-117); ANION GAP 8 MMOL/L (8-16); BILIRUBIN,TOTAL 0.5 mg/dL (0.2-1); BLOOD UREA NITROGEN 4 mg/dL (7-18); CALCIUM 7.8 mg/dL (8.5-10.1); CHLORIDE 101 mmol/L (98-107); CO2 30 mmol/L (21-32); CREATININE 0.5 mg/dL (0.55-1.3); GLUCOSE,RANDOM 129 mg/dL (74-106); MAGNESIUM 2.1 mg/dL (1.8-2.4); PHOSPHOROUS 2.7 mg/dL (2.5-4.9); POTASSIUM 3.7 mmol/L (3.5-5.1); SGOT/AST 11 U/L (15-37); SGPT/ALT 11 U/L (13-61); SODIUM 138 mmol/L (136-145); TOT PROT 4.7 g/dl (6.4-8.2)
[2018-07-08] MEDS: PROPOFOL 1,000,000 MCG/100 ML VIAL IVPB SCH (21:01)
--- NOTE | 2018-07-08 21:09 | CONSULT ---
Consult - text type - Consultation Consultation Note: May Worthington is a 67 year old female with a history of depression and apparent suicide attempt with overdose of medication with a suicide note. Patient is intubated for airway protection. CT with interhemispheric hyperdensity adjacent to the falx anteriorly. Lesion stable on 2 CT scans and not consistent with typical traumatic pattern. Blood versus meningioma versus falcine calcification. MRI may assist with characterization when patient is stable. Limited neurological exam. Patient currently intubated and sedated with symmetric (pinpoint) pupils.
[2018-07-08] MEDS: MIDAZOLAM 100 MG in SODIUM CHLORIDE 100 ML IVPB SCH (21:30)
[2018-07-08] MEDS: CHLORHEXIDINE GLUCONATE 4% CLEANSER FOR DECOLONIZATION TP SCH (21:35)
[2018-07-09] MEDS: CHLORHEXIDINE GLUCONATE 4% CLEANSER FOR DECOLONIZATION TP SCH (00:01)
[2018-07-09] MEDS: CYPROHEPTADINE HYDROCHLORIDE 2 MG/5 ML SOLUTION PO SCH ×4 (00:25→19:08)
[2018-07-09] MEDS: PIPERACILLIN/TAZOB 3.375 GM 3.375 GM in DEXTROSE 5%-WATER - 50 ML IVPB SCH ×3 (02:03→19:15)
[2018-07-09] MEDS: SODIUM BICARBONATE 8.4% - 100 MEQ in DEXTROSE 5%-WATER - 1,000 ML IV SCH ×2 (02:40→08:33)
[2018-07-09] MEDS: THIAMINE HCL 200 MG/2 ML VIAL IVPB SCH ×3 (06:06→21:45)
[2018-07-09 06:21] LABS: BASO % 0.1 % (0-2.0); EOS % 0.1 % (0-4.5); HEMATOCRIT 32.3 % (32.4-45.2); HEMOGLOBIN 11.2 GM/dL (10.7-15.3); LYMPH % 14.2 % (8-40); MCH 30.9 pg (25.7-33.7); MCHC 34.8 g/dl (32.0-36.0); MEAN CELL VOLUME 88.7 fl (80-96); MEAN PLT VOLUME 7.4 fl (7.5-11.1); NEUT % 72.6 % (42.8-82.8); PLATELET COUNT 186 K/MM3 (134-434); RBC 3.64 M/mm3 (3.60-5.2); RDW 12.4 % (11.6-15.6); WHITE BLOOD COUNT 7.1 K/mm3 (4.0-10.0)
[2018-07-09 07:04] LABS: ARTERIAL BLD GAS O2 SATURATION 99.6 % (90-98.9); ARTERIAL BLOOD GAS BASE EXCESS 6.7 meq/l (-2-2); ARTERIAL BLOOD GAS pH 7.53 (7.35-7.45)
[2018-07-09 07:13] LABS: ALK PHOS 87 U/L (45-117); ANION GAP 7 MMOL/L (8-16); BILIRUBIN,TOTAL 0.4 mg/dL (0.2-1); BLOOD UREA NITROGEN 6 mg/dL (7-18); CALCIUM 7.7 mg/dL (8.5-10.1); CHLORIDE 103 mmol/L (98-107); CO2 30 mmol/L (21-32); CREATININE 0.5 mg/dL (0.55-1.3); GLUCOSE,RANDOM 117 mg/dL (74-106); MAGNESIUM 2.2 mg/dL (1.8-2.4); PHOSPHOROUS 2.7 mg/dL (2.5-4.9); POTASSIUM 3.6 mmol/L (3.5-5.1); SGOT/AST 13 U/L (15-37); SGPT/ALT 12 U/L (13-61); SODIUM 140 mmol/L (136-145); TOT PROT 4.6 g/dl (6.4-8.2)
--- NOTE | 2018-07-09 07:54 | PN ---
Progress Note (short form) - Note Progress Note: 67 year old female history of severe depression and found responsive at home. It is not clear , how long she was unconsious. Patient was given narcan and was intuabted for airway protection. Patient has ct head and it was unremarkable. She was takign cymbalta, inderal, zyprexa, desipiprine, klonipin , effexor and abilify. she recently filled olanzapine on july 03 and her bottle was found empty and she also left a suicidal note. She remain intubated, overnight her bp was dropped and she was given iv fluid and sedation was reduced. Neurological Examination Comatose and intubated and sedated on propafol she is not responding to pain or verbal stimuli breathing above vent and bp is maintained pupils is mid size and responding, and corneal reflex is present Repeat ct head on july 07 was unchanged Assessment: 67 year old female history of severe depression, several admission recently for acute depression , she has Suicidal attempt and took whole bottle of zyprexa and klonipin . She has no cortical function and brain stem function are maintained. Given that her condition has not improved, prognosis remains grave at this time, discussed with son at bed side. Plan: Supportive care, would like to re examine once off sedation Thanking you so much Jeffry Aquino MD
[2018-07-09] MEDS ORDERED: PIPERACILLIN/TAZOBACTAM 3.375 GM VIAL IVPB ONE ×2 (09:35→19:13)
[2018-07-09] MEDS ORDERED: DEXTROSE 5%-WATER - 50 ML IVPB ONE ×2 (09:35→19:14)
[2018-07-09] MEDS: PANTOPRAZOLE SODIUM 40 MG VIAL IVPUSH SCH ×2 (09:37→13:44)
[2018-07-09] MEDS: METOPROLOL TARTRATE 25 MG TABLET (FP) PO PRN (09:37)
[2018-07-09] MEDS: MUPIROCIN 2% TOPICAL OINTMENT FOR DECOLONIZATION NS SCH ×2 (09:38→21:44)
--- NOTE | 2018-07-09 13:37 | PN ---
Progress Note, Physician History of Present Illness: low grade temp continues to be sedated and intubated - Current Medication List Current Medications: Active Medications Chlorhexidine Gluconate (Hibiclens For Decolonization -) 1 applic TP HS RUBENS Last Admin: 07/08/18 21:35 Dose: 1 applic Cyproheptadine HCl (Periactin Solution -) 4 mg PO Q6HPO RUBENS Last Admin: 07/09/18 12:08 Dose: 4 mg Propofol (Diprivan -) 1,000,000 mcg in 100 mls @ 1.429 mls/hr IVPB TITR RUBENS; Protocol Last Titration: 07/09/18 07:00 Dose: 20 mcg/kg/min, 5.715 mls/hr Piperacillin Sod/Tazobactam (Sod 3.375 gm/ Dextrose) 50 mls @ 100 mls/hr IVPB Q8H-IV RUBENS; Protocol Last Admin: 07/09/18 09:37 Dose: 100 mls/hr Midazolam HCl 100 mg/ Sodium (Chloride) 100 mls @ 1 mls/hr IVPB TITR RUBENS; Protocol Last Titration: 07/09/18 07:00 Dose: 1 mg/hr, 1 mls/hr Sodium Chloride (Normal Saline -) 1,000 mls @ 75 mls/hr IV ASDIR RUBENS Metoprolol Tartrate (Lopressor -) 25 mg PO Q8H PRN PRN Reason: TACHYCARDIA Last Admin: 07/09/18 09:37 Dose: 25 mg Mupirocin (Bactroban Ointment (For Decolonization) -) 1 applic NS BID [facility] Stop: 07/12/18 09:59 Last Admin: 07/09/18 09:38 Dose: 1 applic Pantoprazole Sodium (Protonix Iv) 40 mg IVPUSH DAILY [facility] Thiamine HCl (Vitamin B1 Injection -) 300 mg IVPB TID RUBENS Last Admin: 07/09/18 06:06 Dose: 300 mg - Objective Vital Signs: Vital Signs Temperature 98.9 F 07/09/18 08:00 Pulse Rate 114 H 07/09/18 12:00 Respiratory Rate 18 07/09/18 12:00 Blood Pressure 146/85 07/09/18 12:00 O2 Sat by Pulse Oximetry (%) 94 L 07/08/18 22:00 Constitutional: Yes: Other Cardiovascular: Yes: Regular Rate and Rhythm Respiratory: Yes: Intubated, Mechanically Ventilated Gastrointestinal: Yes: Normal Bowel Sounds, Soft Musculoskeletal: Yes: WNL Extremities: Yes: WNL Neurological: Yes: Other Psychiatric: Yes: Other Labs: CBC, BMP 07/09/18 05:30 07/09/18 05:30 INR, PTT INR 1.32 (0.83-1.09) H 07/07/18 12:35 Assessment/Plan Acute metabolic encephalopathy Severe sepsis Acute toxic metabolic encephalopathy Seratonin overdose Possible suicide attempt Severe depression pneumonia uti plan continue mgmt as per icu neuro on case continue iv fluids abx monitor fever monitor secretions rest as per the team and icu cc 40 min
[2018-07-09] MEDS: SODIUM CHLORIDE 1,000 ML IV SCH (13:43)
[2018-07-09] MEDS ORDERED: HEPARIN NA (PORCINE) 5,000 UNITS/ML 1ML VIAL SQ SCH (14:00)
--- NOTE | 2018-07-09 14:28 | PN ---
Teaching Attending Note Name of Resident: Bernard Elizondo ATTENDING PHYSICIAN STATEMENT I saw and evaluated the patient. I reviewed the resident's note and discussed the case with the resident. I agree with the resident's findings and plan as documented. SUBJECTIVE: Pt seen and examined in the ICU. Remains intubated, sedated. Low grade temp. OBJECTIVE: Vital Signs Period Temp Pulse Resp BP Sys/Smith Pulse Ox Last 24 Hr 98.3 F-100.0 F 114-132 16-25 93-157/52-95 94-100 Intake & Output 07/06/18 07/07/18 07/08/18 07/09/18 23:59 23:59 23:59 23:59 Intake Total 7088 7154 3098 Output Total 3560 6700 3400 Balance 3528 454 -302 Weight 47.627 kg Gen: intubated, sedated Heart: tachycardic, regular Lung: decreased breath sounds at the bases Abd: soft, nontender Ext: no edema CBC, BMP 07/09/18 05:30 07/09/18 05:30 Active Medications Chlorhexidine Gluconate (Hibiclens For Decolonization -) 1 applic TP HS RUBENS Last Admin: 07/08/18 21:35 Dose: 1 applic Cyproheptadine HCl (Periactin Solution -) 4 mg PO Q6HPO RUBENS Last Admin: 07/09/18 12:08 Dose: 4 mg Propofol (Diprivan -) 1,000,000 mcg in 100 mls @ 1.429 mls/hr IVPB TITR RUBENS; Protocol Last Titration: 07/09/18 07:00 Dose: 20 mcg/kg/min, 5.715 mls/hr Piperacillin Sod/Tazobactam (Sod 3.375 gm/ Dextrose) 50 mls @ 100 mls/hr IVPB Q8H-IV RUBENS; Protocol Last Admin: 07/09/18 09:37 Dose: 100 mls/hr Midazolam HCl 100 mg/ Sodium (Chloride) 100 mls @ 1 mls/hr IVPB TITR RUBENS; Protocol Last Titration: 07/09/18 07:00 Dose: 1 mg/hr, 1 mls/hr Sodium Chloride (Normal Saline -) 1,000 mls @ 75 mls/hr IV ASDIR RBUENS Last Admin: 07/09/18 13:43 Dose: 75 mls/hr Metoprolol Tartrate (Lopressor -) 25 mg PO Q8H PRN PRN Reason: TACHYCARDIA Last Admin: 07/09/18 09:37 Dose: 25 mg Mupirocin (Bactroban Ointment (For Decolonization) -) 1 applic NS BID [facility] Stop: 07/12/18 09:59 Last Admin: 07/09/18 09:38 Dose: 1 applic Pantoprazole Sodium (Protonix Iv) 40 mg IVPUSH DAILY [facility] Last Admin: 07/09/18 13:44 Dose: Not Given Thiamine HCl (Vitamin B1 Injection -) 300 mg IVPB TID [facility] Last Admin: 07/09/18 14:18 Dose: 300 mg ASSESSMENT AND PLAN: Acute Respiratory Failure Drug Overdose Suicide Attempt r/o Serotonin Syndrome Depression - contiue IVF - monitor urine output, creatinine - continue cyproheptadine - f/u with poison control - continue propofol, versed - continue volume assist control - not a candidate for weaning at this time - when ok with poison control, hold sedation to assess mental status - enteral feeds - DVT/GI prophylaxis - continue ICU monitoring critical care time spent in reviewing chart, evaluating patient and formulating plan 35 min
--- NOTE | 2018-07-09 14:42 | PN ---
Physical Exam: SUBJECTIVE: Patient seen and examined at bedside. She remains intubated and sedated. She had a hypotensive episode overnight and was given fluids and had the propofol decreased. OBJECTIVE: Vital Signs Period Temp Pulse Resp BP Sys/Smith Pulse Ox Last 24 Hr 98.3 F-100.0 F 114-132 16-25 93-157/52-95 94-100 GENERAL: intubated and sedated HEAD: Flushed diffusely EYES: Ocular clonus appreciated today. PERRL, sclera anicteric, conjunctiva clear. ENT: Ears normal, nares patent, oropharynx clear without exudates, moist mucous membranes. NECK: Trachea midline, supple. LUNGS: Breath sounds equal, clear to auscultation bilaterally, no wheezes, no crackles, no accessory muscle use. HEART: tachycardic rate and regulr rhythm, S1, S2 without murmur, rub or gallop. ABDOMEN: Hyperactive bowel sounds. Soft, nontender, nondistended. EXTREMITIES: 2+ pulses, warm, well-perfused, no edema. NEUROLOGICAL: Cannot assess due to clinical condition. Gag reflex and corneal reflexes intact. PERLL PSYCH: Suicidal ideation SKIN: Warm, dry, normal turgor, no rashes or lesions noted Laboratory Results - last 24 hr 07/08/18 07/09/18 07/09/18 15:45 05:30 05:30 WBC 7.1 RBC 3.64 Hgb 11.2 Hct 32.3 L MCV 88.7 MCH 30.9 MCHC 34.8 RDW 12.4 Plt Count 186 MPV 7.4 L Absolute Neuts (auto) 5.1 Neutrophils % 72.6 Lymphocytes % 14.2 D Monocytes % 13.0 H Eosinophils % 0.1 D Basophils % 0.1 D Nucleated RBC % 0 Puncture Site ABG pH ABG pCO2 at Pt Temp ABG pO2 at Pt Temp ABG HCO3 ABG O2 Sat (Measured) ABG O2 Content ABG Base Excess Chaz Test Oxygen Flow Rate Vent Rate PEEP Sodium 138 140 Potassium 3.7 3.6 Chloride 101 103 Carbon Dioxide 30 30 Anion Gap 8 7 L BUN 4 L 6 L Creatinine 0.5 L 0.5 L Creat Clearance w eGFR > 60 > 60 Random Glucose 129 H 117 H Calcium 7.8 L 7.7 L Phosphorus 2.7 2.7 Magnesium 2.1 2.2 Total Bilirubin 0.5 0.4 AST 11 L 13 L ALT 11 L 12 L Alkaline Phosphatase 87 87 Total Protein 4.7 L 4.6 L Albumin 2.2 L 2.0 L 07/09/18 06:30 WBC RBC Hgb Hct MCV MCH MCHC RDW Plt Count MPV Absolute Neuts (auto) Neutrophils % Lymphocytes % Monocytes % Eosinophils % Basophils % Nucleated RBC % Puncture Site Right radial ABG pH 7.53 H ABG pCO2 at Pt Temp 36.0 ABG pO2 at Pt Temp 171.0 H* ABG HCO3 29.6 H ABG O2 Sat (Measured) 99.6 H* ABG O2 Content 14.0 L ABG Base Excess 6.7 H Chaz Test No Result Required. Oxygen Flow Rate 40 Vent Rate 14 PEEP 5.0 Sodium Potassium Chloride Carbon Dioxide Anion Gap BUN Creatinine Creat Clearance w eGFR Random Glucose Calcium Phosphorus Magnesium Total Bilirubin AST ALT Alkaline Phosphatase Total Protein Albumin Active Medications Generic Name Dose Route Start Last Admin Trade Name Freq PRN Reason Stop Dose Admin Chlorhexidine Gluconate 1 applic 07/06/18 22:00 07/08/18 21:35 Hibiclens For Decolonization - TP 1 applic HS RUBENS Administration Cyproheptadine HCl 4 mg 07/09/18 00:00 07/09/18 12:08 Periactin Solution - PO 4 mg Q6HPO RUBENS Administration Propofol 1,000,000 mcg in 100 mls @ 1.429 mls/hr 07/06/18 12:45 07/09/18 07: 00 Diprivan - IVPB 20 mcg/kg/min TITR RUBENS 5.715 mls/hr Titration Protocol 5 MCG/KG/MIN Piperacillin Sod/Tazobactam 50 mls @ 100 mls/hr 07/06/18 18:00 07/09/18 09:37 Sod 3.375 gm/ Dextrose IVPB 100 mls/hr Q8H-IV RUBENS Administration Protocol Midazolam HCl 100 mg/ Sodium 100 mls @ 1 mls/hr 07/07/18 17:45 07/09/18 07:00 Chloride IVPB 1 mg/hr TITR RUBENS 1 mls/hr Titration Protocol 1 MG/HR Sodium Chloride 1,000 mls @ 75 mls/hr 07/09/18 12:00 07/09/18 13:43 Normal Saline - IV 75 mls/hr ASDIR RUBENS Administration Metoprolol Tartrate 25 mg 07/08/18 15:31 07/09/18 09:37 Lopressor - PO 25 mg Q8H PRN Administration TACHYCARDIA Mupirocin 1 applic 07/07/18 10:00 07/09/18 09:38 Bactroban Ointment (For Decolonization) - NS 07/12/18 09:59 1 applic BID RUBENS Administration Pantoprazole Sodium 40 mg 07/09/18 12:00 07/09/18 13:44 Protonix Iv IVPUSH Not Given DAILY RUBENS Thiamine HCl 300 mg 07/07/18 14:00 07/09/18 14:18 Vitamin B1 Injection - IVPB 300 mg TID RUBENS Administration ASSESSMENT/PLAN: [facility] Poison control knows about patient and is following: Call [phone] for either Dr. Escalante or Dr. Paz. Assessment: 67 year old female with a PMHx of Depression and suicidal ideations with recent admission to [facility] for [facility] (06/19/18-) was BIBEMS after being found by her son unresponsive, warm to touch with thick mucous coming out of her mouth and "barely breathing" at around 1030 yesterday morning. There was a suicide note and empty bottles of Olanzapine and Clonazepam. Patient admitted to ICU for further monitoring and management. DD includes but not limited to: Olanzapine toxicity vs clonazepam vs desipramine vs acetaminophen vs other drug toxicity. (suicide attempt) We stopped sedation this morning o assess mental status and her VS elevated all around. She became tachy to 170, BP labile, RR elevated to 30. Will wait two days before another sedation vacation. [facility] poison control recommended starting cyproheptadine. as per ID: Keep her on strict aspiration precaution risk secondary to charcoal. Plan: Cooling blanket for hyperthermia, midazolam drip, cyproheptadine, +/- esmolol, supportive measures. NEURO #Acute Toxic Metabolic Encephalopathy/ likely serotonin syndrome + Benzo OD. - Patient has ocular clonus, hyper-reflexia, is flushing, has tachycardia, is febrile, had an empty bottle of olanzapine and clonazepam near bedside. - cooling blanket by bedside for hyperthermia - Midazolam drip - Propofol drip - Currently intubated and sedated for airway protection - Repeat Head CT did not appear to show consistent brain bleed. Likely calcification. CARDIO #Tachycardia - Likely secondary to drug toxicity. - Holding BB for time being PSYCH #Severe Depression with Attempted Suicide -Will hold off on anti-psychotics due to toxicity -Continue to monitor and will need 1:1 after possible extubation, as well as a possible transfer to inpatient psych -Patient should receive a psyche consult if she gets extubated. [facility] Psychiatry was spoken to about the patient. Dr. Deo Li will accept the patient as an inpatient if she leaves the ICU. Number: [phone] INFECTIOUS DISEASE - ID consulted and recommended strict aspiration precautions secondary to activated charcoal. -Zosyn and Vancomycin given in ED with ID continuing Zosyn 3.375mg IVPB Q8H -Chest X-Ray revealed course lung changes and pleural thickening. Possible aspiration F/E/N - Sodium Bicarb drip stopped - Patient is receiving NS at 75 mls/hr - Continue to replete lites PRN - Tube feeds - Osmalite. PROPHYLAXIS -SCD's. No AC for now due to possible extra-axial hemorrhage -Protonix 40mg IVP BID Disposition -Full code -Intubated and sedated. Continue ICU monitoring Visit type - Emergency Visit Emergency Visit: Yes ED Registration Date: 07/06/18 Care time: The patient presented to the Emergency Department on the above date and was hospitalized for further evaluation of their emergent condition. - New Patient This patient is new to me today: No - Critical Care Critical Care patient: Yes Total Critical Care Time (in minutes): 26
--- NOTE | 2018-07-09 17:14 | PN ---
Physical Exam: SUBJECTIVE: Patient seen and examined in the ICU; she remains on the Propofol infusion for sedation. Being treated for serotonin syndrome with Cyproheptadine (2q2 then, 4q6 now). She had a hypotensive episode overnight and was given IV fluids and Propofol dose was decreased. HR in the 110s, getting PRN metoprolol. Central line came out yesterday. No cooling blanked for over 24 hrs, patient with low grade temp at 14:00 of 100.0. On minimal vent settings at 400/40%/5/ 14. Not agitated. ICU team, neuro, poison control, etc. continues to follow and all input from consulting services appreciated. OBJECTIVE: Vital Signs Period Temp Pulse Resp BP Sys/Smith Pulse Ox Last 24 Hr 98.3 F-100.0 F 114-125 16-25 93-156/52-87 94-100 GENERAL: Sedated, on ventilator HEAD: Normal with no signs of trauma. EYES: PERRLA, +corneal light reflex, sclera anicteric, conjunctiva clear. ENT:nares patent NECK: Trachea midline, full range of motion, supple. LUNGS: Breath sounds equal, clear to auscultation bilaterally, no wheezes, no crackles, no accessory muscle use. HEART: Rapid rate and rhythm, S1, S2 without murmur, rub or gallop. ABDOMEN: Soft, nontender, nondistended, normoactive bowel sounds, no guarding, no rebound, no hepatosplenomegaly, no masses. EXTREMITIES: 2+ pulses, warm, well-perfused, no edema. NEUROLOGICAL: Exam limited by sedation, nursing staff reports gag reflex intact when suctioning. SKIN: Warm, dry, normal turgor, no rashes or lesions noted Laboratory Results - last 24 hr 07/09/18 07/09/18 07/09/18 05:30 05:30 06:30 WBC 7.1 RBC 3.64 Hgb 11.2 Hct 32.3 L MCV 88.7 MCH 30.9 MCHC 34.8 RDW 12.4 Plt Count 186 MPV 7.4 L Absolute Neuts (auto) 5.1 Neutrophils % 72.6 Lymphocytes % 14.2 D Monocytes % 13.0 H Eosinophils % 0.1 D Basophils % 0.1 D Nucleated RBC % 0 Puncture Site Right radial ABG pH 7.53 H ABG pCO2 at Pt Temp 36.0 ABG pO2 at Pt Temp 171.0 H* ABG HCO3 29.6 H ABG O2 Sat (Measured) 99.6 H* ABG O2 Content 14.0 L ABG Base Excess 6.7 H Chaz Test No Result Required. Oxygen Flow Rate 40 Vent Rate 14 PEEP 5.0 Sodium 140 Potassium 3.6 Chloride 103 Carbon Dioxide 30 Anion Gap 7 L BUN 6 L Creatinine 0.5 L Creat Clearance w eGFR > 60 Random Glucose 117 H Calcium 7.7 L Phosphorus 2.7 Magnesium 2.2 Total Bilirubin 0.4 AST 13 L ALT 12 L Alkaline Phosphatase 87 Total Protein 4.6 L Albumin 2.0 L Active Medications Generic Name Dose Route Start Last Admin Trade Name Freq PRN Reason Stop Dose Admin Chlorhexidine Gluconate 1 applic 07/06/18 22:00 07/08/18 21:35 Hibiclens For Decolonization - TP 1 applic HS RUBENS Administration Cyproheptadine HCl 4 mg 07/09/18 00:00 07/09/18 12:08 Periactin Solution - PO 4 mg Q6HPO RUBENS Administration Propofol 1,000,000 mcg in 100 mls @ 1.429 mls/hr 07/06/18 12:45 07/09/18 07: 00 Diprivan - IVPB 20 mcg/kg/min TITR RUBENS 5.715 mls/hr Titration Protocol 5 MCG/KG/MIN Piperacillin Sod/Tazobactam 50 mls @ 100 mls/hr 07/06/18 18:00 07/09/18 09:37 Sod 3.375 gm/ Dextrose IVPB 100 mls/hr Q8H-IV RUBENS Administration Protocol Midazolam HCl 100 mg/ Sodium 100 mls @ 1 mls/hr 07/07/18 17:45 07/09/18 07:00 Chloride IVPB 1 mg/hr TITR RUBENS 1 mls/hr Titration Protocol 1 MG/HR Sodium Chloride 1,000 mls @ 75 mls/hr 07/09/18 12:00 07/09/18 13:43 Normal Saline - IV 75 mls/hr ASDIR RUBENS Administration Metoprolol Tartrate 25 mg 07/08/18 15:31 07/09/18 09:37 Lopressor - PO 25 mg Q8H PRN Administration TACHYCARDIA Mupirocin 1 applic 07/07/18 10:00 07/09/18 09:38 Bactroban Ointment (For Decolonization) - NS 07/12/18 09:59 1 applic BID RUBENS Administration Pantoprazole Sodium 40 mg 07/09/18 12:00 07/09/18 13:44 Protonix Iv IVPUSH Not Given DAILY [facility] Thiamine HCl 300 mg 07/07/18 14:00 07/09/18 14:18 Vitamin B1 Injection - IVPB 300 mg TID RUBENS Administration ASSESSMENT/PLAN: 67 year old female who presents with polysubstance overdose due to suicidal ideation; remains intubated and sedated in ICU. Treating empirically for serotonin syndrome. Acute Respiratory Failure 2/2 Overdose -CXR from today showed coarse lung changes and pleural thickening; possible aspiration -Aspiration precautions; given activated charcoal -On Zosyn 3.375 mg q8h -Followed by ID Dr. Solis -Minimal vent settings; managed by pulm/crit. -Wean from vent as tolerated with acknowledgement to sedation, etc. AMS due to polysubstance overdose -Repeat head CT negative; suspect toxic metabolic encephalopathy -CT scheduled for Saturday -Currently intubated and sedated -Propofol Drip -Versed -Sedation holidays per specialty services, next one scheduled for Saturday. -Followed by neurologist Dr. Aquino Suspected Serotonin Syndrome -Continue Cyproheptadine; follow up with poison control. -Metoprolol 25 mg PRN for tachycardia -Monitor VS, HR. Manage supportively -IVF Suicidal Ideation -Will require psychiatric clearance as condition improves -Psychiatrist Dr. Deo Li ([phone]) will accept her inpatient if she leaves the ICU. -Consider d/c 1:1 while sedated Hypoalbuminemia -Worsening 2.2 -> 2.0 today -On Osmalite feeds -Nutrition consult Suspected extracranial hemorrhage -Seen on repeat CT to be 2/2 calcifications -Repeat CT on Saturday -Consider starting lovenox for DVT px FEN -NS at 75 mls/hr -Continue to replete lites PRN -Tube feeds Osmalite. Prophylaxis -SCD's -No AC for now due to possible extra-axial hemorrhage -Protonix 40mg IVP BID Disposition -Full code -Intubated and sedated. Continue ICU monitoring Code status unchanged from prior visit Visit type - Emergency Visit Emergency Visit: No - New Patient This patient is new to me today: Yes Date on this admission: 07/09/18 - Critical Care Critical Care patient: Yes Total Critical Care Time (in minutes): 30 Critical Care Statement: The care of this patient involved high complexity decision making to prevent further life threatening deterioration of the patient 's condition and/or to evaluate & treat vital organ system(s) failure or risk of failure.
[2018-07-10] MEDS: CYPROHEPTADINE HYDROCHLORIDE 2 MG/5 ML SOLUTION PO SCH ×4 (01:00→17:11)
[2018-07-10] MEDS: PIPERACILLIN/TAZOB 3.375 GM 3.375 GM in DEXTROSE 5%-WATER - 50 ML IVPB SCH ×3 (03:00→17:11)
[2018-07-10] MEDS ORDERED: MIDAZOLAM 100 MG/100 ML MG IVPB ONE (03:19)
[2018-07-10] MEDS: MIDAZOLAM 100 MG in SODIUM CHLORIDE 100 ML IVPB SCH (03:21)
[2018-07-10] MEDS: THIAMINE HCL 200 MG/2 ML VIAL IVPB SCH ×3 (05:27→22:00)
[2018-07-10] MEDS: SODIUM CHLORIDE 1,000 ML IV SCH ×2 (05:29→14:25)
[2018-07-10 05:57] LABS: BASO % 0.1 % (0-2.0); EOS % 0.1 % (0-4.5); HEMOGLOBIN 10.1 GM/dL (10.7-15.3); LYMPH % 20.3 % (8-40); MCH 31.3 pg (25.7-33.7); MCHC 34.9 g/dl (32.0-36.0); MEAN CELL VOLUME 89.8 fl (80-96); MEAN PLT VOLUME 7.3 fl (7.5-11.1); MONO % 13.9 % (3.8-10.2); NEUT % 65.6 % (42.8-82.8); PLATELET COUNT 207 K/MM3 (134-434); RBC 3.22 M/mm3 (3.60-5.2); RDW 12.8 % (11.6-15.6); WHITE BLOOD COUNT 4.7 K/mm3 (4.0-10.0)
[2018-07-10 06:26] LABS: ALK PHOS 78 U/L (45-117); ANION GAP 8 MMOL/L (8-16); BILIRUBIN,TOTAL 0.3 mg/dL (0.2-1); BLOOD UREA NITROGEN 10 mg/dL (7-18); CALCIUM 7.8 mg/dL (8.5-10.1); CHLORIDE 108 mmol/L (98-107); CO2 27 mmol/L (21-32); CREATININE 0.5 mg/dL (0.55-1.3); GLUCOSE,RANDOM 110 mg/dL (74-106); PHOSPHOROUS 3.6 mg/dL (2.5-4.9); POTASSIUM 3.5 mmol/L (3.5-5.1); SGOT/AST 10 U/L (15-37); SGPT/ALT 11 U/L (13-61); SODIUM 144 mmol/L (136-145); TOT PROT 4.6 g/dl (6.4-8.2)
[2018-07-10 06:55] LABS: ARTERIAL BLD GAS O2 SATURATION 99.1 % (90-98.9); ARTERIAL BLOOD GAS BASE EXCESS 1.9 meq/l (-2-2); ARTERIAL BLOOD GAS PCO2 38.4 mmHg (35-45); ARTERIAL BLOOD GAS pH 7.44 (7.35-7.45)
[2018-07-10 07:22] LABS: ALLENS TEST POSITIVE
[2018-07-10] MEDS ORDERED: PIPERACILLIN/TAZOBACTAM 3.375 GM VIAL IVPB ONE ×2 (09:32→13:14)
[2018-07-10] MEDS ORDERED: DEXTROSE 5%-WATER - 50 ML IVPB ONE ×2 (09:33→13:14)
[2018-07-10] MEDS: PANTOPRAZOLE SODIUM 40 MG VIAL IVPUSH SCH (09:43)
--- NOTE | 2018-07-10 10:57 | PN ---
Progress Note (short form) - Note Progress Note: 67 year old female history of severe depression and found responsive at home. It is not clear , how long she was unconsious. Patient was given narcan and was intuabted for airway protection. Patient has ct head and it was unremarkable. She was takign cymbalta, inderal, zyprexa, desipiprine, klonipin , effexor and abilify. she recently filled olanzapine on july 03 and her bottle was found empty and she also left a suicidal note. spent 15 minute doing critical care . July 09, I spoke to her daughter at length to discuss her prognosis. She remain intubated, patient is still ons sedation. She is not fighting vent and no spointaneous response Neurological Examination Comatose and intubated and sedated on propafol she is not responding to pain or verbal stimuli breathing above vent and bp is maintained pupils is mid size and responding, and corneal reflex is present Repeat ct head on july 07 was unchanged Assessment: 67 year old female history of severe depression, several admission recently for acute depression , she has Suicidal attempt and took whole bottle of zyprexa and klonipin . She has no cortical function and brain stem function are maintained. G She was seen with son at bedside, and her prognosis was discusse with her. spoke to house staff, continue current level of care and reassess once off sedation. eeg for subclinical status Plan: Supportive care, would like to re examine once off sedation Thanking you so much Jeffry Aquino MD
[2018-07-10] MEDS: MUPIROCIN 2% TOPICAL OINTMENT FOR DECOLONIZATION NS SCH ×2 (11:44→22:00)
[2018-07-10] MEDS: METOPROLOL TARTRATE 25 MG TABLET (FP) PO PRN (12:21)
--- NOTE | 2018-07-10 13:29 | PN ---
Teaching Attending Note Name of Resident: Bernard Elizondo ATTENDING PHYSICIAN STATEMENT I saw and evaluated the patient. I reviewed the resident's note and discussed the case with the resident. I agree with the resident's findings and plan as documented. SUBJECTIVE: Patient seen and examined in the ICU. Remains intubated and sedated on propofol and versed. AC Mode of vent, 40% FiO2. No pressors. OBJECTIVE: Intake & Output 07/07/18 07/08/18 07/09/18 07/10/18 23:59 23:59 23:59 23:59 Intake Total 7088 7154 5583 653 Output Total 3560 6700 4475 1200 Balance 3528 454 1108 -547 Weight 105 lb Last Vital Signs Temp Pulse Resp BP Pulse Ox 98.9 F 120 H 18 154/91 100 07/10/18 10:00 07/10/18 13:15 07/10/18 13:15 07/10/18 13:15 07/10/18 10:43 Active Medications Chlorhexidine Gluconate (Hibiclens For Decolonization -) 1 applic TP HS RUBENS Last Admin: 07/09/18 00:01 Dose: 1 applic Cyproheptadine HCl (Periactin Solution -) 4 mg PO Q6HPO RUBENS Last Admin: 07/10/18 12:18 Dose: 4 mg Propofol (Diprivan -) 1,000,000 mcg in 100 mls @ 1.429 mls/hr IVPB TITR RUBENS; Protocol Last Titration: 07/10/18 12:05 Dose: 0 mcg/kg/min, 0 mls/hr Piperacillin Sod/Tazobactam (Sod 3.375 gm/ Dextrose) 50 mls @ 100 mls/hr IVPB Q8H-IV RUBENS; Protocol Last Admin: 07/10/18 09:43 Dose: 100 mls/hr Midazolam HCl 100 mg/ Sodium (Chloride) 100 mls @ 1 mls/hr IVPB TITR RUBENS; Protocol Last Titration: 07/10/18 12:05 Dose: 0 mg/hr, 0 mls/hr Sodium Chloride (Normal Saline -) 1,000 mls @ 75 mls/hr IV ASDIR RUBENS Last Admin: 07/10/18 05:29 Dose: 75 mls/hr Metoprolol Tartrate (Lopressor -) 25 mg PO Q8H PRN PRN Reason: TACHYCARDIA Last Admin: 07/10/18 12:21 Dose: 25 mg Mupirocin (Bactroban Ointment (For Decolonization) -) 1 applic NS BID [facility] Stop: 07/12/18 09:59 Last Admin: 07/10/18 11:44 Dose: 1 applic Pantoprazole Sodium (Protonix Iv) 40 mg IVPUSH DAILY [facility] Last Admin: 07/10/18 09:43 Dose: 40 mg Thiamine HCl (Vitamin B1 Injection -) 300 mg IVPB TID [facility] Last Admin: 07/10/18 05:27 Dose: 300 mg GENERAL: Intubated and sedated HEAD: Normal with no signs of trauma. EYES: PERRL, sclera anicteric, conjunctiva clear. ENT: Ears normal, nares patent, oropharynx clear without exudates, moist mucous membranes. NECK: Trachea midline, supple LUNGS: Vented, few basilar rhonchi, no wheezes, no crackles HEART: Regular rate and rhythm, S1, S2 without murmur, rub or gallop. ABDOMEN: Soft, nontender, nondistended, normoactive bowel sounds, no guarding, no rebound, no hepatosplenomegaly, no masses. EXTREMITIES: 2+ pulses, warm, well-perfused, no edema. NEUROLOGICAL: sedated SKIN: Warm, dry, normal turgor, no rashes or lesions noted Laboratory Results - last 24 hr 07/10/18 07/10/18 07/10/18 05:30 05:30 06:15 WBC 4.7 RBC 3.22 L Hgb 10.1 L Hct 29.0 L MCV 89.8 MCH 31.3 MCHC 34.9 RDW 12.8 Plt Count 207 MPV 7.3 L Absolute Neuts (auto) 3.1 Neutrophils % 65.6 Lymphocytes % 20.3 D Monocytes % 13.9 H Eosinophils % 0.1 Basophils % 0.1 Nucleated RBC % 0 Anticoagulation Therapy No Result Required. Puncture Site Right radial ABG pH 7.44 ABG pCO2 at Pt Temp 38.4 ABG pO2 at Pt Temp 139.0 H D ABG HCO3 25.6 ABG O2 Sat (Measured) 99.1 H ABG O2 Content 13.9 L ABG Base Excess 1.9 Chaz Test Positive O2 Delivery Device No Result Required. Oxygen Flow Rate Yes Vent Mode No Result Required. Vent Rate No Result Required. Mechanical Rate No Result Required. PEEP Pressure Support Vent No Result Required. Sodium 144 Potassium 3.5 Chloride 108 H Carbon Dioxide 27 Anion Gap 8 BUN 10 Creatinine 0.5 L Creat Clearance w eGFR > 60 Random Glucose 110 H Calcium 7.8 L Phosphorus 3.6 Magnesium 2.0 Total Bilirubin 0.3 AST 10 L ALT 11 L Alkaline Phosphatase 78 Total Protein 4.6 L Albumin 2.0 L ASSESSMENT/PLAN: Acute Respiratory Failure due to Aspiration Pneumonitis and AMS Suspected Serotonin Syndrome Depression Suicidal attempt Polysubstance OD R/O Toxic Metabolic Encephalopathy SDH versus area of calcification on Head CT Slowly taper sedation to assess mental status. For any sign of hyperactivity increase sedation AC mode of vent Cyproheptadine per protocol Mechanical VTE prophylaxis ABX per ID Start Enteral feeds PPI ICU monitoring Dr Pruett Critical care time spent in reviewing chart, evaluating patient and formulating plan - 36 minutes.
[2018-07-10] MEDS: PROPOFOL 1,000,000 MCG/100 ML VIAL IVPB SCH (14:25)
--- NOTE | 2018-07-10 14:49 | PN ---
Physical Exam: SUBJECTIVE: Patient seen and examined at bedside. No acute events overnight. She awoke this morning despite being on 20 of propofol sedation. We turned off the sedation to assess the patients mental status. She was able to squeeze my fingers with both hands and shake her head no when asked certain questions. OBJECTIVE: Vital Signs Period Temp Pulse Resp BP Sys/Smith Pulse Ox Last 24 Hr 98.9 F-99.7 F 101-126 15-29 133-160/74-97 100-100 GENERAL: The patient is awake. She is not alert or oriented. HEAD: Normal with no signs of trauma. EYES: PERRL, sclera anicteric, conjunctiva clear. ENT: Ears normal, nares patent, dry mucous membranes. NECK: Trachea midline. LUNGS: Breath sounds equal, clear to auscultation bilaterally, no wheezes, no crackles, no accessory muscle use. HEART: Tachycardic rate and regular rhythm, S1, S2 without murmur, rub or gallop. ABDOMEN: Soft, nontender, nondistended, normoactive bowel sounds, no guarding, no rebound, no hepatosplenomegaly, no masses. EXTREMITIES: 2+ pulses, warm, well-perfused, no edema. NEUROLOGICAL: Cannot assess due to clinical condition. PSYCH: Suicidal ideation SKIN: Warm, dry, normal turgor, no rashes or lesions noted Laboratory Results - last 24 hr 07/10/18 07/10/18 07/10/18 05:30 05:30 06:15 WBC 4.7 RBC 3.22 L Hgb 10.1 L Hct 29.0 L MCV 89.8 MCH 31.3 MCHC 34.9 RDW 12.8 Plt Count 207 MPV 7.3 L Absolute Neuts (auto) 3.1 Neutrophils % 65.6 Lymphocytes % 20.3 D Monocytes % 13.9 H Eosinophils % 0.1 Basophils % 0.1 Nucleated RBC % 0 Anticoagulation Therapy No Result Required. Puncture Site Right radial ABG pH 7.44 ABG pCO2 at Pt Temp 38.4 ABG pO2 at Pt Temp 139.0 H D ABG HCO3 25.6 ABG O2 Sat (Measured) 99.1 H ABG O2 Content 13.9 L ABG Base Excess 1.9 Chaz Test Positive O2 Delivery Device No Result Required. Oxygen Flow Rate Yes Vent Mode No Result Required. Vent Rate No Result Required. Mechanical Rate No Result Required. PEEP Pressure Support Vent No Result Required. Sodium 144 Potassium 3.5 Chloride 108 H Carbon Dioxide 27 Anion Gap 8 BUN 10 Creatinine 0.5 L Creat Clearance w eGFR > 60 Random Glucose 110 H Calcium 7.8 L Phosphorus 3.6 Magnesium 2.0 Total Bilirubin 0.3 AST 10 L ALT 11 L Alkaline Phosphatase 78 Total Protein 4.6 L Albumin 2.0 L Active Medications Generic Name Dose Route Start Last Admin Trade Name Freq PRN Reason Stop Dose Admin Chlorhexidine Gluconate 1 applic 07/06/18 22:00 07/09/18 00:01 Hibiclens For Decolonization - TP 1 applic HS RUBENS Administration Cyproheptadine HCl 4 mg 07/09/18 00:00 07/10/18 12:18 Periactin Solution - PO 4 mg Q6HPO RUBENS Administration Heparin Sodium (Porcine) 5,000 unit 07/10/18 14:00 Heparin - SQ TID RUBENS Propofol 1,000,000 mcg in 100 mls @ 1.429 mls/hr 07/06/18 12:45 07/10/18 14: 25 Diprivan - IVPB 10 mcg/kg/min TITR RUBENS 2.858 mls/hr Administration Protocol 5 MCG/KG/MIN Piperacillin Sod/Tazobactam 50 mls @ 100 mls/hr 07/06/18 18:00 07/10/18 09:43 Sod 3.375 gm/ Dextrose IVPB 100 mls/hr Q8H-IV RUBENS Administration Protocol Midazolam HCl 100 mg/ Sodium 100 mls @ 1 mls/hr 07/07/18 17:45 07/10/18 12:05 Chloride IVPB 0 mg/hr TITR RUBENS 0 mls/hr Titration Protocol 1 MG/HR Sodium Chloride 1,000 mls @ 75 mls/hr 07/09/18 12:00 07/10/18 14:25 Normal Saline - IV 75 mls/hr ASDIR RUBENS Administration Metoprolol Tartrate 25 mg 07/08/18 15:31 07/10/18 12:21 Lopressor - PO 25 mg Q8H PRN Administration TACHYCARDIA Mupirocin 1 applic 07/07/18 10:00 07/10/18 11:44 Bactroban Ointment (For Decolonization) - NS 07/12/18 09:59 1 applic BID RUBENS Administration Pantoprazole Sodium 40 mg 07/09/18 12:00 07/10/18 09:43 Protonix Iv IVPUSH 40 mg DAILY [facility] Administration Thiamine HCl 300 mg 07/07/18 14:00 07/10/18 14:26 Vitamin B1 Injection - IVPB 300 mg TID [facility] Administration ASSESSMENT/PLAN: [facility] Poison control knows about patient and is following: Call [phone] Dr. Escalante or Dr. Paz. - Spoke with Dr. Paz today who believes she is continuously having elevated BP and HR bc of possible benzo withdrawal. - We will re-sedate the person with 50 of propofol and 2 mg of versed per hour. Assessment: 67 year old female with a PMHx of Depression and suicidal ideations with recent admission to [facility] (06/19/18-) was BIBEMS after being found by her son unresponsive, warm to touch with thick mucous coming out of her mouth and "barely breathing" at around 1030 yesterday morning. There was a suicide note and empty bottles of Olanzapine and Clonazepam. Patient admitted to ICU for further monitoring and management. We believe it will take minimum 7-10 days for the medications she took to be eliminated from her system. DD includes but not limited to: Olanzapine toxicity vs clonazepam vs desipramine vs acetaminophen vs other drug toxicity. (suicide attempt) [facility] poison control recommended starting cyproheptadine. Plan: Cooling blanket for hyperthermia, midazolam drip, cyproheptadine, +/- esmolol, supportive measures. NEURO #Acute Toxic Metabolic Encephalopathy/ likely serotonin syndrome + Benzo OD. - She woke up today despite propofol sedation. Will assess mental status. - Patient has ocular clonus, hyper-reflexia, is flushing, has tachycardia, is febrile, had an empty bottle of olanzapine and clonazepam near bedside. - cooling blanket by bedside for hyperthermia - Midazolam drip - Propofol drip - Currently intubated and sedated for airway protection - Repeat Head CT did not appear to show consistent brain bleed. Likely calcification. CARDIO #Tachycardia - Likely secondary to drug/serotonin toxicity. - Holding BB for time being PULM: - Intubated. Will keep intubated and sedated for now. PSYCH #Severe Depression with Attempted Suicide -Will hold off on anti-psychotics due to toxicity -Continue to monitor and will need 1:1 after possible extubation, as well as a possible transfer to inpatient psych -Patient should receive a psyche consult if she gets extubated. [facility] Psychiatry was spoken to about the patient. Dr. Deo Li will accept the patient as an inpatient if she leaves the ICU. Number: [phone] INFECTIOUS DISEASE - ID consulted and recommended strict aspiration precautions secondary to activated charcoal. - Zosyn and Vancomycin given in ED with ID continuing Zosyn 3.375mg IVPB Q8H - Chest X-Ray revealed course lung changes and pleural thickening. Possible aspiration F/E/N - Sodium Bicarb drip stopped - Patient is receiving NS at 75 mls/hr - Continue to replete lites PRN - Tube feeds - Osmalite. PROPHYLAXIS -SCD's. Starting Heparin today. -Protonix 40mg IVP BID Disposition -Full code -Intubated and sedated. Continue ICU monitoring Visit type - Emergency Visit Emergency Visit: Yes ED Registration Date: 07/06/18 Care time: The patient presented to the Emergency Department on the above date and was hospitalized for further evaluation of their emergent condition. - New Patient This patient is new to me today: No - Critical Care Critical Care patient: Yes Total Critical Care Time (in minutes): 36 Critical Care Statement: The care of this patient involved high complexity decision making to prevent further life threatening deterioration of the patient 's condition and/or to evaluate & treat vital organ system(s) failure or risk of failure.
--- NOTE | 2018-07-10 15:02 | PN ---
Progress Note, Physician History of Present Illness: patient continues to be intubated and now sedated patient had sedation holiday patient was awake and responding family present - Current Medication List Current Medications: Active Medications Chlorhexidine Gluconate (Hibiclens For Decolonization -) 1 applic TP HS [facility]UBENS Last Admin: 07/09/18 00:01 Dose: 1 applic Cyproheptadine HCl (Periactin Solution -) 4 mg PO Q6HPO RUBENS Last Admin: 07/10/18 12:18 Dose: 4 mg Heparin Sodium (Porcine) (Heparin -) 5,000 unit SQ TID RUBENS Propofol (Diprivan -) 1,000,000 mcg in 100 mls @ 1.429 mls/hr IVPB TITR RUB[facility]; Protocol Last Admin: 07/10/18 14:25 Dose: 10 mcg/kg/min, 2.858 mls/hr Piperacillin Sod/Tazobactam (Sod 3.375 gm/ Dextrose) 50 mls @ 100 mls/hr IVPB Q8H-IV RUBENS; Protocol Last Admin: 07/10/18 09:43 Dose: 100 mls/hr Midazolam HCl 100 mg/ Sodium (Chloride) 100 mls @ 1 mls/hr IVPB TITR RUBENS; Protocol Last Titration: 07/10/18 12:05 Dose: 0 mg/hr, 0 mls/hr Sodium Chloride (Normal Saline -) 1,000 mls @ 75 mls/hr IV ASDIR RUBENS Last Admin: 07/10/18 14:25 Dose: 75 mls/hr Mupirocin (Bactroban Ointment (For Decolonization) -) 1 applic NS BID [facility] Stop: 07/12/18 09:59 Last Admin: 07/10/18 11:44 Dose: 1 applic Pantoprazole Sodium (Protonix Iv) 40 mg IVPUSH DAILY [facility] Last Admin: 07/10/18 09:43 Dose: 40 mg Thiamine HCl (Vitamin B1 Injection -) 300 mg IVPB TID RUB[facility] Last Admin: 07/10/18 14:26 Dose: 300 mg - Objective Vital Signs: Vital Signs Temperature 98.9 F 07/10/18 10:00 Pulse Rate 120 H 07/10/18 13:15 Respiratory Rate 18 07/10/18 14:50 Blood Pressure 154/91 07/10/18 13:15 O2 Sat by Pulse Oximetry (%) 100 07/10/18 10:43 Constitutional: Yes: Calm HENT: Yes: Atraumatic Neck: Yes: Supple, Trachea Midline Cardiovascular: Yes: Regular Rate and Rhythm Respiratory: Yes: Intubated, Mechanically Ventilated Gastrointestinal: Yes: Normal Bowel Sounds, Soft, Other (ng in place) Musculoskeletal: Yes: WNL Extremities: Yes: WNL Neurological: Yes: Other Psychiatric: Yes: Other Labs: CBC, BMP 07/10/18 05:30 07/10/18 05:30 INR, PTT INR 1.32 (0.83-1.09) H 07/07/18 12:35 Assessment/Plan Acute metabolic encephalopathy Severe sepsis Acute toxic metabolic encephalopathy Seratonin overdose Possible suicide attempt Severe depression r/o bleed patient being followed by neurosurgery repeat scan done plan hydration continue empiric iv abx neurology hydration rest as per icu cc 40 min
--- NOTE | 2018-07-10 15:39 | PN ---
Progress Note (short form) - Note Progress Note: Patient sedated on examination this morning. Now sedation being held for evaluation. Pupils reactive and symmetric. Case discussed with son. All questions answered. Will follow her clinical course.
[2018-07-10] MEDS: HEPARIN NA (PORCINE) 5,000 UNITS/ML 1ML VIAL SQ SCH ×2 (15:52→23:00)
--- NOTE | 2018-07-10 20:42 | PN ---
Physical Exam: SUBJECTIVE: Patient seen and examined in the ICU; she had several instances of opening here eyes and able to squeeze fingers in response to her name even on Propofol infusion. Sedation was discontinued. Being treated for serotonin syndrome with Cyproheptadine (2q2 then, 4q6 now). HR in 120s today, temp 98-99, rr23 vent setting at 14. ICU team, neuro, poison control, etc. continues to follow and all input from consulting services appreciated. OBJECTIVE: Vital Signs Period Temp Pulse Resp BP Sys/Smith Pulse Ox Last 24 Hr 98.9 F-100.7 F 101-126 15-29 133-160/73-97 100-100 GENERAL: Sedated, on ventilator HEAD: Normal with no signs of trauma. EYES: PERRLA, +corneal light reflex, sclera anicteric, conjunctiva clear. ENT:nares patent NECK: Trachea midline, full range of motion, supple. LUNGS: Breath sounds equal, clear to auscultation bilaterally, no wheezes, no crackles, no accessory muscle use. HEART: Rapid rate and rhythm, S1, S2 without murmur, rub or gallop. ABDOMEN: Soft, nontender, nondistended, normoactive bowel sounds, no guarding, no rebound, no hepatosplenomegaly, no masses. EXTREMITIES: 2+ pulses, warm, well-perfused, no edema. NEUROLOGICAL: Opened eyes once for this copywriter in response to her name, nursing staff reports gag reflex intact when suctioning. SKIN: Warm, dry, normal turgor, no rashes or lesions noted Laboratory Results - last 24 hr 07/10/18 07/10/18 07/10/18 05:30 05:30 06:15 WBC 4.7 RBC 3.22 L Hgb 10.1 L Hct 29.0 L MCV 89.8 MCH 31.3 MCHC 34.9 RDW 12.8 Plt Count 207 MPV 7.3 L Absolute Neuts (auto) 3.1 Neutrophils % 65.6 Lymphocytes % 20.3 D Monocytes % 13.9 H Eosinophils % 0.1 Basophils % 0.1 Nucleated RBC % 0 Anticoagulation Therapy No Result Required. Puncture Site Right radial ABG pH 7.44 ABG pCO2 at Pt Temp 38.4 ABG pO2 at Pt Temp 139.0 H D ABG HCO3 25.6 ABG O2 Sat (Measured) 99.1 H ABG O2 Content 13.9 L ABG Base Excess 1.9 Chaz Test Positive O2 Delivery Device No Result Required. Oxygen Flow Rate Yes Vent Mode No Result Required. Vent Rate No Result Required. Mechanical Rate No Result Required. PEEP Pressure Support Vent No Result Required. Sodium 144 Potassium 3.5 Chloride 108 H Carbon Dioxide 27 Anion Gap 8 BUN 10 Creatinine 0.5 L Creat Clearance w eGFR > 60 Random Glucose 110 H Calcium 7.8 L Phosphorus 3.6 Magnesium 2.0 Total Bilirubin 0.3 AST 10 L ALT 11 L Alkaline Phosphatase 78 Total Protein 4.6 L Albumin 2.0 L Active Medications Generic Name Dose Route Start Last Admin Trade Name Freq PRN Reason Stop Dose Admin Chlorhexidine Gluconate 1 applic 07/06/18 22:00 07/09/18 00:01 Hibiclens For Decolonization - TP 1 applic HS RUBENS Administration Cyproheptadine HCl 4 mg 07/09/18 00:00 07/10/18 17:11 Periactin Solution - PO 4 mg Q6HPO RUBENS Administration Heparin Sodium (Porcine) 5,000 unit 07/10/18 14:00 07/10/18 15:52 Heparin - SQ 5,000 unit TID RUBENS Administration Propofol 1,000,000 mcg in 100 mls @ 1.429 mls/hr 07/06/18 12:45 07/10/18 15: 00 Diprivan - IVPB 50 mcg/kg/min TITR RUBENS 14.288 mls/hr Titration Protocol 5 MCG/KG/MIN Piperacillin Sod/Tazobactam 50 mls @ 100 mls/hr 07/06/18 18:00 07/10/18 17:11 Sod 3.375 gm/ Dextrose IVPB 100 mls/hr Q8H-IV RUBENS Administration Protocol Midazolam HCl 100 mg/ Sodium 100 mls @ 1 mls/hr 07/07/18 17:45 07/10/18 15:00 Chloride IVPB 2 mg/hr TITR RUBENS 2 mls/hr Titration Protocol 1 MG/HR Sodium Chloride 1,000 mls @ 75 mls/hr 07/09/18 12:00 07/10/18 14:25 Normal Saline - IV 75 mls/hr ASDIR RUBENS Administration Mupirocin 1 applic 07/07/18 10:00 07/10/18 11:44 Bactroban Ointment (For Decolonization) - NS 07/12/18 09:59 1 applic BID RUBENS Administration Pantoprazole Sodium 40 mg 07/09/18 12:00 07/10/18 09:43 Protonix Iv IVPUSH 40 mg DAILY RUBENS Administration Thiamine HCl 300 mg 07/07/18 14:00 07/10/18 14:26 Vitamin B1 Injection - IVPB 300 mg TID RUBENS Administration ASSESSMENT/PLAN: 67 year old female who presents with polysubstance overdose due to suicidal ideation; remains intubated and sedated in ICU. Treating empirically for serotonin syndrome. Acute Respiratory Failure 2/2 Overdose -CXR show clear lungs -Aspiration precautions; given activated charcoal -ABG improved today -Followed by ID Dr. Solis -Continue on Zosyn 3.375 mg q8h -On minimal vent settings at 400/40%/5/14.managed by pulm/crit. -Vent setting at 14, rr rate of 23 so over breathing -Wean from vent as tolerated with acknowledgement to sedation, etc. AMS due to polysubstance overdose -Repeat head CT negative; suspect toxic metabolic encephalopathy -CT scheduled for Saturday -Showed some responsiveness today -Propofol and Versed d/ravi -Soft restraints placed to prevent extubation -EEG performed today -Followed by neurologist Dr. Aquino Suspected Serotonin Syndrome -Continue Cyproheptadine; follow up with poison control. -Metoprolol 25 mg PRN for tachycardia -Monitor VS, HR. Manage supportively -IVF Suicidal Ideation -Will require psychiatric clearance as condition improves -Psychiatrist Dr. Deo Li ([phone]) will accept her inpatient if she leaves the ICU. -Consider d/c 1:1 while sedated Hypoalbuminemia -Worsening 2.2 -> 2.0 today -On Osmalite feeds -Nutrition consult Suspected extracranial hemorrhage -Seen on repeat CT to be 2/2 calcifications -Repeat CT on Saturday -Consider starting Lovenox for DVT px FEN -NS at 75 mls/hr -Continue to replete lites PRN -Tube feeds Osmalite. Prophylaxis -SCD's -No AC for now due to possible extra-axial hemorrhage -Protonix 40mg IVP BID Disposition -Full code -Intubated and sedated. Continue ICU monitoring Code status unchanged from prior visit Visit type - Emergency Visit Emergency Visit: No - New Patient This patient is new to me today: No - Critical Care Critical Care patient: Yes Total Critical Care Time (in minutes): 30 Critical Care Statement: The care of this patient involved high complexity decision making to prevent further life threatening deterioration of the patient 's condition and/or to evaluate & treat vital organ system(s) failure or risk of failure.
[2018-07-10] MEDS: CHLORHEXIDINE GLUCONATE 4% CLEANSER FOR DECOLONIZATION TP SCH (23:00)
[2018-07-11] MEDS: PIPERACILLIN/TAZOB 3.375 GM 3.375 GM in DEXTROSE 5%-WATER - 50 ML IVPB SCH ×3 (03:00→17:45)
[2018-07-11 06:03] LABS: BASO % 0.1 % (0-2.0); EOS % 0.1 % (0-4.5); HEMOGLOBIN 9.9 GM/dL (10.7-15.3); LYMPH % 28.1 % (8-40); MCH 31.3 pg (25.7-33.7); MCHC 34.3 g/dl (32.0-36.0); MEAN CELL VOLUME 91.2 fl (80-96); MEAN PLT VOLUME 7.2 fl (7.5-11.1); MONO % 18.2 % (3.8-10.2); NEUT % 53.5 % (42.8-82.8); PLATELET COUNT 209 K/MM3 (134-434); RBC 3.18 M/mm3 (3.60-5.2); RDW 12.7 % (11.6-15.6); WHITE BLOOD COUNT 3.8 K/mm3 (4.0-10.0)
[2018-07-11 06:35] LABS: ALK PHOS 77 U/L (45-117); ANION GAP 6 MMOL/L (8-16); BILIRUBIN,TOTAL 0.2 mg/dL (0.2-1); BLOOD UREA NITROGEN 16 mg/dL (7-18); CALCIUM 7.8 mg/dL (8.5-10.1); CHLORIDE 109 mmol/L (98-107); CO2 28 mmol/L (21-32); CREATININE 0.6 mg/dL (0.55-1.3); GLUCOSE,RANDOM 124 mg/dL (74-106); MAGNESIUM 2.1 mg/dL (1.8-2.4); PHOSPHOROUS 4.4 mg/dL (2.5-4.9); POTASSIUM 3.6 mmol/L (3.5-5.1); SGOT/AST 18 U/L (15-37); SGPT/ALT 17 U/L (13-61); SODIUM 144 mmol/L (136-145); TOT PROT 4.7 g/dl (6.4-8.2)
[2018-07-11] MEDS: HEPARIN NA (PORCINE) 5,000 UNITS/ML 1ML VIAL SQ SCH ×3 (06:50→22:00)
[2018-07-11] MEDS: CYPROHEPTADINE HYDROCHLORIDE 2 MG/5 ML SOLUTION PO SCH ×5 (06:50→17:44)
[2018-07-11] MEDS: THIAMINE HCL 200 MG/2 ML VIAL IVPB SCH ×3 (06:51→22:00)
[2018-07-11 06:58] LABS: ALLENS TEST POSITIVE; ARTERIAL BLD GAS O2 SATURATION 99.1 % (90-98.9); ARTERIAL BLOOD GAS BASE EXCESS 2.6 meq/l (-2-2); ARTERIAL BLOOD GAS PCO2 40.2 mmHg (35-45); ARTERIAL BLOOD GAS pH 7.43 (7.35-7.45)
[2018-07-11] MEDS ORDERED: PIPERACILLIN/TAZOBACTAM 3.375 GM VIAL IVPB ONE ×2 (07:15→17:26)
[2018-07-11] MEDS ORDERED: DEXTROSE 5%-WATER - 50 ML IVPB ONE ×2 (07:15→17:26)
[2018-07-11] MEDS: PROPOFOL 1,000,000 MCG/100 ML VIAL IVPB SCH ×3 (07:54→18:06)
[2018-07-11] MEDS ORDERED: MIDAZOLAM 100 MG/100 ML MG IVPB ONE (08:56)
[2018-07-11] MEDS: SODIUM CHLORIDE 1,000 ML IV SCH ×2 (09:59→14:23)
[2018-07-11] MEDS: PANTOPRAZOLE SODIUM 40 MG VIAL IVPUSH SCH (09:59)
[2018-07-11] MEDS: MUPIROCIN 2% TOPICAL OINTMENT FOR DECOLONIZATION NS SCH ×2 (10:24→22:00)
--- NOTE | 2018-07-11 11:54 | PN ---
Progress Note, Physician History of Present Illness: patient stable sedated and intubated according to staff responds when sedation is off - Current Medication List Current Medications: Active Medications Chlorhexidine Gluconate (Hibiclens For Decolonization -) 1 applic TP HS [facility] Last Admin: 07/10/18 23:00 Dose: 1 applic Cyproheptadine HCl (Periactin Solution -) 4 mg PO Q6HPO RUBNES Last Admin: 07/11/18 06:50 Dose: 4 mg Heparin Sodium (Porcine) (Heparin -) 5,000 unit SQ TID RUBENS Last Admin: 07/11/18 06:50 Dose: 5,000 unit Propofol (Diprivan -) 1,000,000 mcg in 100 mls @ 1.429 mls/hr IVPB TITR RUBENS; Protocol Last Admin: 07/11/18 07:54 Dose: 50 mcg/kg/min, 14.288 mls/hr Piperacillin Sod/Tazobactam (Sod 3.375 gm/ Dextrose) 50 mls @ 100 mls/hr IVPB Q8H-IV RUBENS; Protocol Last Admin: 07/11/18 09:55 Dose: 100 mls/hr Midazolam HCl 100 mg/ Sodium (Chloride) 100 mls @ 1 mls/hr IVPB TITR RUBENS; Protocol Last Titration: 07/10/18 15:00 Dose: 2 mg/hr, 2 mls/hr Sodium Chloride (Normal Saline -) 1,000 mls @ 75 mls/hr IV ASDIR RUBENS Last Admin: 07/11/18 09:59 Dose: 75 mls/hr Mupirocin (Bactroban Ointment (For Decolonization) -) 1 applic NS BID [facility] Stop: 07/12/18 09:59 Last Admin: 07/10/18 22:00 Dose: 1 applic Pantoprazole Sodium (Protonix Iv) 40 mg IVPUSH DAILY [facility] Last Admin: 07/11/18 09:59 Dose: 40 mg Thiamine HCl (Vitamin B1 Injection -) 300 mg IVPB TID [facility] Last Admin: 07/11/18 06:51 Dose: 300 mg - Objective Vital Signs: Vital Signs Temperature 98.9 F 07/11/18 07:47 Pulse Rate 115 H 07/11/18 09:00 Respiratory Rate 18 07/11/18 11:23 Blood Pressure 144/81 07/11/18 09:00 O2 Sat by Pulse Oximetry (%) 100 07/11/18 07:47 Constitutional: Yes: Other Cardiovascular: Yes: Regular Rate and Rhythm, Tachycardia Respiratory: Yes: Intubated, Mechanically Ventilated Gastrointestinal: Yes: Normal Bowel Sounds, Soft Musculoskeletal: Yes: WNL Extremities: Yes: WNL Neurological: Yes: Other (sedated) Labs: CBC, BMP 07/11/18 05:30 07/11/18 05:30 INR, PTT INR 1.32 (0.83-1.09) H 07/07/18 12:35 - ....Imaging Chest X-ray: Report Reviewed, Image Reviewed Assessment/Plan Acute metabolic encephalopathy Severe sepsis Acute toxic metabolic encephalopathy Seratonin overdose Possible suicide attempt Severe depression r/o bleed patient being followed by neurosurgery repeat scan done plan hydration continue empiric iv abx neurology hydration rest as per icu once patient remains afebrile for 24 hrs will deescalate abx cc 40 min
[2018-07-11] MEDS ORDERED: PT OWN MED DRAWER 7, Y5N ONE ×2 (12:38→17:26)
--- NOTE | 2018-07-11 12:49 | PN ---
Teaching Attending Note Name of Resident: Bernard Elizondo ATTENDING PHYSICIAN STATEMENT I saw and evaluated the patient. I reviewed the resident's note and discussed the case with the resident. I agree with the resident's findings and plan as documented. SUBJECTIVE: Patient seen and examined in the ICU. Remains intubated and sedated on propofol and versed. AC Mode of vent, 40% FiO2. No pressors. CXR: No gross change OBJECTIVE: Intake & Output 07/08/18 07/09/18 07/10/18 07/11/18 23:59 23:59 23:59 23:59 Intake Total 7154 5583 2952 525 Output Total 6700 4475 3800 800 Balance 454 1108 -848 -275 Weight 105 lb Last Vital Signs Temp Pulse Resp BP Pulse Ox 98.9 F 115 H 18 144/81 100 07/11/18 07:47 07/11/18 09:00 07/11/18 11:23 07/11/18 09:00 07/11/18 07:47 Active Medications Chlorhexidine Gluconate (Hibiclens For Decolonization -) 1 applic TP HS RUBENS Last Admin: 07/10/18 23:00 Dose: 1 applic Cyproheptadine HCl (Periactin Solution -) 4 mg PO Q6HPO RUBENS Last Admin: 07/11/18 06:50 Dose: 4 mg Heparin Sodium (Porcine) (Heparin -) 5,000 unit SQ TID RUBENS Last Admin: 07/11/18 06:50 Dose: 5,000 unit Propofol (Diprivan -) 1,000,000 mcg in 100 mls @ 1.429 mls/hr IVPB TITR RUBENS; Protocol Last Admin: 07/11/18 07:54 Dose: 50 mcg/kg/min, 14.288 mls/hr Piperacillin Sod/Tazobactam (Sod 3.375 gm/ Dextrose) 50 mls @ 100 mls/hr IVPB Q8H-IV RUBENS; Protocol Last Admin: 07/11/18 09:55 Dose: 100 mls/hr Midazolam HCl 100 mg/ Sodium (Chloride) 100 mls @ 1 mls/hr IVPB TITR RUBENS; Protocol Last Titration: 07/10/18 15:00 Dose: 2 mg/hr, 2 mls/hr Sodium Chloride (Normal Saline -) 1,000 mls @ 75 mls/hr IV ASDIR RUBENS Last Admin: 07/11/18 09:59 Dose: 75 mls/hr Mupirocin (Bactroban Ointment (For Decolonization) -) 1 applic NS BID [facility] Stop: 07/12/18 09:59 Last Admin: 07/10/18 22:00 Dose: 1 applic Pantoprazole Sodium (Protonix Iv) 40 mg IVPUSH DAILY [facility] Last Admin: 07/11/18 09:59 Dose: 40 mg Thiamine HCl (Vitamin B1 Injection -) 300 mg IVPB TID [facility] Last Admin: 07/11/18 06:51 Dose: 300 mg GENERAL: Intubated and sedated HEAD: Normal with no signs of trauma. EYES: PERRL, sclera anicteric, conjunctiva clear. ENT: Ears normal, nares patent, oropharynx clear without exudates, moist mucous membranes. NECK: Trachea midline, supple LUNGS: Vented, few basilar rhonchi, no wheezes, no crackles HEART: Regular rate and rhythm, S1, S2 without murmur, rub or gallop. ABDOMEN: Soft, nontender, nondistended, normoactive bowel sounds, no guarding, no rebound, no hepatosplenomegaly, no masses. EXTREMITIES: 2+ pulses, warm, well-perfused, no edema. NEUROLOGICAL: sedated SKIN: Warm, dry, normal turgor, no rashes or lesions noted Laboratory Results - last 24 hr 07/11/18 07/11/18 07/11/18 05:30 05:30 06:00 WBC 3.8 L RBC 3.18 L Hgb 9.9 L Hct 29.0 L MCV 91.2 MCH 31.3 MCHC 34.3 RDW 12.7 Plt Count 209 MPV 7.2 L Absolute Neuts (auto) 2.0 Neutrophils % 53.5 Lymphocytes % 28.1 D Monocytes % 18.2 H Eosinophils % 0.1 Basophils % 0.1 Nucleated RBC % 0 Puncture Site Right brachial ABG pH 7.43 ABG pCO2 at Pt Temp 40.2 ABG pO2 at Pt Temp 140.0 H ABG HCO3 26.5 H ABG O2 Sat (Measured) 99.1 H ABG O2 Content 12.6 L ABG Base Excess 2.6 H Chaz Test Positive O2 Delivery Device Vent Oxygen Flow Rate 35 Vent Rate 14 PEEP 5.0 Pressure Support Vent 400 Sodium 144 Potassium 3.6 Chloride 109 H Carbon Dioxide 28 Anion Gap 6 L BUN 16 Creatinine 0.6 Creat Clearance w eGFR > 60 Random Glucose 124 H Calcium 7.8 L Phosphorus 4.4 Magnesium 2.1 Total Bilirubin 0.2 AST 18 ALT 17 Alkaline Phosphatase 77 Total Protein 4.7 L Albumin 2.0 L ASSESSMENT/PLAN: Acute Respiratory Failure due to Aspiration Pneumonitis and AMS Suspected Serotonin Syndrome Depression Suicidal attempt Polysubstance OD R/O Toxic Metabolic Encephalopathy SDH versus area of calcification on Head CT Slowly taper sedation to assess mental status. For any sign of hyperactivity increase sedation AC mode of vent Cyproheptadine per protocol Mechanical VTE prophylaxis ABX per ID Enteral feeds PPI SBTs as tolerated ICU monitoring Dr Pruett Critical care time spent in reviewing chart, evaluating patient and formulating plan - 36 minutes.
[2018-07-11] MEDS ORDERED: POLYETHYLENE GLYCOL 3350 119 GM BTL PO ONE (13:38)
--- NOTE | 2018-07-11 14:17 | PN ---
Physical Exam: SUBJECTIVE: Patient seen and examined at bedside. She remains intubated and sedated. No acute events overnight. Family is still at bedside hoping for a full recovery. Patient had a sedation vacation yesterday and was able to squeeze both of her hands and move her feet. We spoke with poison control today who recommends starting to wean the versed to ultimately try and extubate the patient. We stopped the versed and will monitor vital signs very closely. OBJECTIVE: Vital Signs Period Temp Pulse Resp BP Sys/Smith Pulse Ox Last 24 Hr 98.1 F-100.7 F 80-120 16-20 135-146/63-81 99-100 GENERAL: The patient is intubated and sedated. HEAD: Normal with no signs of trauma. EYES: PERRL, sclera anicteric, conjunctiva clear. ENT: Ears normal, nares patent, moist mucous membranes. NECK: Trachea midline. LUNGS: Breath sounds equal, clear to auscultation bilaterally, no wheezes, no crackles. HEART: tachycardic rate and regular rhythm, S1, S2 without murmur, rub or gallop. ABDOMEN: Soft, and mildly distended, decreased bowel sounds. EXTREMITIES: 2+ pulses, warm, well-perfused, no edema. NEUROLOGICAL: Pupils equal and reactive. Hyper-reflexic patellar reflexes. No clonus. PSYCH: Suicidal ideation SKIN: Warm, dry, normal turgor, no rashes or lesions noted Laboratory Results - last 24 hr 07/11/18 07/11/18 07/11/18 05:30 05:30 06:00 WBC 3.8 L RBC 3.18 L Hgb 9.9 L Hct 29.0 L MCV 91.2 MCH 31.3 MCHC 34.3 RDW 12.7 Plt Count 209 MPV 7.2 L Absolute Neuts (auto) 2.0 Neutrophils % 53.5 Lymphocytes % 28.1 D Monocytes % 18.2 H Eosinophils % 0.1 Basophils % 0.1 Nucleated RBC % 0 Puncture Site Right brachial ABG pH 7.43 ABG pCO2 at Pt Temp 40.2 ABG pO2 at Pt Temp 140.0 H ABG HCO3 26.5 H ABG O2 Sat (Measured) 99.1 H ABG O2 Content 12.6 L ABG Base Excess 2.6 H Chaz Test Positive O2 Delivery Device Vent Oxygen Flow Rate 35 Vent Rate 14 PEEP 5.0 Pressure Support Vent 400 Sodium 144 Potassium 3.6 Chloride 109 H Carbon Dioxide 28 Anion Gap 6 L BUN 16 Creatinine 0.6 Creat Clearance w eGFR > 60 Random Glucose 124 H Calcium 7.8 L Phosphorus 4.4 Magnesium 2.1 Total Bilirubin 0.2 AST 18 ALT 17 Alkaline Phosphatase 77 Total Protein 4.7 L Albumin 2.0 L Active Medications Generic Name Dose Route Start Last Admin Trade Name Freq PRN Reason Stop Dose Admin Chlorhexidine Gluconate 1 applic 07/06/18 22:00 07/10/18 23:00 Hibiclens For Decolonization - TP 1 applic HS RUBENS Administration Cyproheptadine HCl 4 mg 07/09/18 00:00 07/11/18 13:59 Periactin Solution - PO 4 mg Q6HPO RUBENS Administration Heparin Sodium (Porcine) 5,000 unit 07/10/18 14:00 07/11/18 14:02 Heparin - SQ 5,000 unit TID RUBENS Administration Propofol 1,000,000 mcg in 100 mls @ 1.429 mls/hr 07/06/18 12:45 07/11/18 13: 58 Diprivan - IVPB 50 mcg/kg/min TITR RUBENS 14.288 mls/hr Administration Protocol 5 MCG/KG/MIN Piperacillin Sod/Tazobactam 50 mls @ 100 mls/hr 07/06/18 18:00 07/11/18 09:55 Sod 3.375 gm/ Dextrose IVPB 100 mls/hr Q8H-IV RUBENS Administration Protocol Midazolam HCl 100 mg/ Sodium 100 mls @ 1 mls/hr 07/07/18 17:45 07/10/18 15:00 Chloride IVPB 2 mg/hr TITR RUBENS 2 mls/hr Titration Protocol 1 MG/HR Sodium Chloride 1,000 mls @ 75 mls/hr 07/09/18 12:00 07/11/18 09:59 Normal Saline - IV 75 mls/hr ASDIR RUBENS Administration Mupirocin 1 applic 07/07/18 10:00 07/10/18 22:00 Bactroban Ointment (For Decolonization) - NS 07/12/18 09:59 1 applic BID RUBENS Administration Pantoprazole Sodium 40 mg 07/09/18 12:00 07/11/18 09:59 Protonix Iv IVPUSH 40 mg DAILY RUBENS Administration Polyethylene Glycol 17 gm 07/12/18 10:00 Miralax (For Daily Use) - PO DAILY RUBENS Polyethylene Glycol 17 gm 07/11/18 13:38 07/11/18 14:02 Miralax (For Daily Use) - PO 07/11/18 13:39 17 gm ONCE ONE Administration Thiamine HCl 300 mg 07/07/18 14:00 07/11/18 14:02 Vitamin B1 Injection - IVPB 300 mg TID RUBESN Administration ASSESSMENT/PLAN: [facility] Poison control knows about patient and is following: Call [phone] Escalante or Dr. Paz. Dr. Paz said we can reach him on his cell phone at: [phone] - Spoke with Dr. Paz today who suggested to wean her off the versed and see if her vital signs remain calm. Today he HR has decreased to ~115 and her BP has somewhat normalized to 120/70. - We are stopping the versed drip today and keeping her on 50 of propofol. The goal is to wean her off versed entirely and then try to wean her off propofol to attempt weaning and extubation. Assessment: 67 year old female with a PMHx of Depression and suicidal ideations with recent admission to [facility] (06/19/18-) was BIBEMS after being found by her son unresponsive, warm to touch with thick mucous coming out of her mouth and "barely breathing" at around 1030 yesterday morning. There was a suicide note and empty bottles of Olanzapine and Clonazepam. Patient admitted to ICU for further monitoring and management. We believe it will take minimum 7-10 days for the medications she took to be eliminated from her system. DD includes but not limited to: Olanzapine toxicity vs clonazepam vs desipramine vs acetaminophen vs other drug toxicity. (suicide attempt) [facility] poison control recommended starting cyproheptadine. We are giving as per protocol. Patient has not had a bowel movement in a few days. We are giving miralax for support. Plan: Cooling blanket for hyperthermia, propofol, cyproheptadine, supportive measures. NEURO #Acute Toxic Metabolic Encephalopathy/ likely serotonin syndrome + Benzo OD. - Patient has ocular clonus, hyper-reflexia, is flushing, has tachycardia, is febrile, had an empty bottle of olanzapine and clonazepam near bedside. - cooling blanket by bedside for hyperthermia - Propofol drip - Currently intubated and sedated for airway protection - Repeat Head CT did not appear to show consistent brain bleed. Likely calcification. CARDIO #Tachycardia - Likely secondary to drug/serotonin toxicity. - Holding BB for time being PULM: - Intubated. Will keep intubated and sedated for now. PSYCH #Severe Depression with Attempted Suicide -Will hold off on anti-psychotics due to toxicity -Continue to monitor and will need 1:1 after possible extubation, as well as a possible transfer to inpatient psych -Patient should receive a psyche consult if she gets extubated. - [facility] was spoken to about the patient. - Dr. Deo Li will accept the patient as an inpatient if she leaves the ICU. Number: [phone] INFECTIOUS DISEASE - ID consulted and recommended strict aspiration precautions secondary to activated charcoal. - Zosyn and Vancomycin given in ED with ID continuing Zosyn 3.375mg IVPB Q8H - Chest X-Ray revealed course lung changes and pleural thickening. Possible aspiration F/E/N - Sodium Bicarb drip stopped - Patient is receiving NS at 75 mls/hr - Continue to replete lites PRN - Tube feeds - Osmalite. PROPHYLAXIS -SCD's + Heparin -Protonix 40mg IVP BID Disposition -Full code -Intubated and sedated. Continue ICU monitoring Visit type - Emergency Visit Emergency Visit: Yes ED Registration Date: 07/06/18 Care time: The patient presented to the Emergency Department on the above date and was hospitalized for further evaluation of their emergent condition. - New Patient This patient is new to me today: No - Critical Care Critical Care patient: Yes Total Critical Care Time (in minutes): 36 Critical Care Statement: The care of this patient involved high complexity decision making to prevent further life threatening deterioration of the patient 's condition and/or to evaluate & treat vital organ system(s) failure or risk of failure.
--- NOTE | 2018-07-11 17:02 | PN ---
Progress Note (short form) - Note Progress Note: 67 year old female history of severe depression and found responsive at home. It is not clear , how long she was out Patient was given narcan and was intuabted for airway protection. Patient has ct head and it was unremarkable. She was takign cymbalta, inderal, zyprexa, desipiprine, klonipin , effexor and abilify. she recently filled olanzapine on july 03 and her bottle was found empty and she also left a suicidal note. spent 15 minute doing critical care . Yesterday , her sedation was stopped for few hours, and she woke up and she was able squeeze hand nod her head. Neurological Examination Comatose and intubated and sedated on propafol she is not responding to pain or verbal stimuli breathing above vent and bp is maintained pupils is mid size and responding, and corneal reflex is present Repeat ct head on july 07 was unchanged Assessment: Acute severe metabolic encephalopathy secondary to drug overdose, yesterday she was awake off sedation. Now she is on sedation once again as her bp was going up, and as per toxicology she need to be sedated for 5-7 days. She was seen with son at bedside, and her prognosis was discusse with him Continue supportive care. Dr Mock group would be covering over the weekend. Thanking you so much Jeffry Aquino MD
[2018-07-11] MEDS ORDERED: MIDAZOLAM HCL 2 MG/2 ML SINGLE DOSE VIAL IVPUSH ONE (19:19)
--- NOTE | 2018-07-11 21:23 | PN ---
Physical Exam: SUBJECTIVE: Patient seen and examined in the ICU; yesterday she had several instances of opening here eyes and able to squeeze fingers in response to her name even on Propofol infusion. Sedation was discontinued. Then HR increased and BP labile, propofol and versed restarted. Being treated for serotonin syndrome with Cyproheptadine. ICU team, neuro, poison control, etc. continues to follow and all input from consulting services appreciated. OBJECTIVE: Vital Signs Period Temp Pulse Resp BP Sys/Smith Pulse Ox Last 24 Hr 98.6 F-100.1 F 80-121 16-20 117-151/56-84 99-100 GENERAL: Sedated, on ventilator HEAD: Normal with no signs of trauma. EYES: PERRLA, +corneal light reflex, sclera anicteric, conjunctiva clear. ENT:nares patent NECK: Trachea midline, full range of motion, supple. LUNGS: Breath sounds equal, clear to auscultation bilaterally, no wheezes, no crackles, no accessory muscle use. HEART: Rapid rate and rhythm, S1, S2 without murmur, rub or gallop. ABDOMEN: Soft, nontender, nondistended, normoactive bowel sounds, no guarding, no rebound, no hepatosplenomegaly, no masses. EXTREMITIES: 2+ pulses, warm, well-perfused, no edema. NEUROLOGICAL: Sedated, nursing staff reports gag reflex intact when suctioning. SKIN: Warm, dry, normal turgor, no rashes or lesions noted Laboratory Results - last 24 hr 07/11/18 07/11/18 07/11/18 05:30 05:30 06:00 WBC 3.8 L RBC 3.18 L Hgb 9.9 L Hct 29.0 L MCV 91.2 MCH 31.3 MCHC 34.3 RDW 12.7 Plt Count 209 MPV 7.2 L Absolute Neuts (auto) 2.0 Neutrophils % 53.5 Lymphocytes % 28.1 D Monocytes % 18.2 H Eosinophils % 0.1 Basophils % 0.1 Nucleated RBC % 0 Puncture Site Right brachial ABG pH 7.43 ABG pCO2 at Pt Temp 40.2 ABG pO2 at Pt Temp 140.0 H ABG HCO3 26.5 H ABG O2 Sat (Measured) 99.1 H ABG O2 Content 12.6 L ABG Base Excess 2.6 H Chaz Test Positive O2 Delivery Device Vent Oxygen Flow Rate 35 Vent Rate 14 PEEP 5.0 Pressure Support Vent 400 Sodium 144 Potassium 3.6 Chloride 109 H Carbon Dioxide 28 Anion Gap 6 L BUN 16 Creatinine 0.6 Creat Clearance w eGFR > 60 Random Glucose 124 H Calcium 7.8 L Phosphorus 4.4 Magnesium 2.1 Total Bilirubin 0.2 AST 18 ALT 17 Alkaline Phosphatase 77 Total Protein 4.7 L Albumin 2.0 L Active Medications Generic Name Dose Route Start Last Admin Trade Name Coco PRN Reason Stop Dose Admin Chlorhexidine Gluconate 1 applic 07/06/18 22:00 07/10/18 23:00 Hibiclens For Decolonization - TP 1 applic HS RUBENS Administration Cyproheptadine HCl 4 mg 07/09/18 00:00 07/11/18 17:44 Periactin Solution - PO 4 mg Q6HPO RUBENS Administration Heparin Sodium (Porcine) 5,000 unit 07/10/18 14:00 07/11/18 14:02 Heparin - SQ 5,000 unit TID RUBENS Administration Propofol 1,000,000 mcg in 100 mls @ 1.429 mls/hr 07/06/18 12:45 07/11/18 18: 06 Diprivan - IVPB 50 mcg/kg/min TITR RUBENS 14.288 mls/hr Administration Protocol 5 MCG/KG/MIN Piperacillin Sod/Tazobactam 50 mls @ 100 mls/hr 07/06/18 18:00 07/11/18 17:45 Sod 3.375 gm/ Dextrose IVPB 100 mls/hr Q8H-IV RUBENS Administration Protocol Midazolam HCl 100 mg/ Sodium 100 mls @ 1 mls/hr 07/07/18 17:45 07/11/18 19:28 Chloride IVPB 1 mg/hr TITR RUBENS 1 mls/hr Titration Protocol 1 MG/HR Sodium Chloride 1,000 mls @ 75 mls/hr 07/09/18 12:00 07/11/18 14:23 Normal Saline - IV 75 mls/hr ASDIR RUBENS Administration Mupirocin 1 applic 07/07/18 10:00 07/11/18 10:24 Bactroban Ointment (For Decolonization) - NS 07/12/18 09:59 1 applic BID RUBENS Administration Pantoprazole Sodium 40 mg 07/09/18 12:00 07/11/18 09:59 Protonix Iv IVPUSH 40 mg DAILY RUBENS Administration Polyethylene Glycol 17 gm 07/12/18 10:00 Miralax (For Daily Use) - PO DAILY RUBENS Thiamine HCl 300 mg 07/07/18 14:00 07/11/18 14:02 Vitamin B1 Injection - IVPB 300 mg TID RUBENS Administration ASSESSMENT/PLAN: 67 year old female who presents with polysubstance overdose due to suicidal ideation; remains intubated and sedated in ICU. Treating empirically for serotonin syndrome. Acute Respiratory Failure 2/2 Overdose -CXR show clear lungs -Aspiration precautions; given activated charcoal -ABG improved today -Followed by ID Dr. Solis -Continue on Zosyn 3.375 mg q8h -On minimal vent settings at 400/40%/01/13.managed by pulm/crit. -Wean from vent as tolerated with acknowledgement to sedation, etc. AMS due to polysubstance overdose -Repeat head CT negative; suspect toxic metabolic encephalopathy -CT scheduled for Saturday -Propofol and Versed restarted after being d/ravi when HR and BP became volatile -EEG performed pending -Followed by neurologist Dr. Aquino Suspected Serotonin Syndrome -Continue Cyproheptadine; follow up with poison control. -Metoprolol 25 mg PRN for tachycardia -Monitor VS, HR. Manage supportively -IVF Suicidal Ideation -Will require psychiatric clearance as condition improves -Psychiatrist Dr. Deo Li ([phone]) will accept her inpatient if she leaves the ICU. -Consider d/c 1:1 while sedated Hypoalbuminemia -Worsening 2.2 -> 2.0 -On Osmalite feeds -Nutrition consult Suspected extracranial hemorrhage -Seen on repeat CT to be 2/2 calcifications -Repeat CT on Saturday -Consider starting Lovenox for DVT px FEN -NS at 75 mls/hr -Continue to replete lites PRN -Tube feeds Osmalite. Prophylaxis -SCD's -No AC for now due to possible extra-axial hemorrhage -Protonix 40mg IVP BID Disposition -Full code -Intubated and sedated. Continue ICU monitoring Code status unchanged from prior visit Visit type - Emergency Visit Emergency Visit: No - New Patient This patient is new to me today: No - Critical Care Critical Care patient: Yes Total Critical Care Time (in minutes): 25
[2018-07-11] MEDS: CHLORHEXIDINE GLUCONATE 4% CLEANSER FOR DECOLONIZATION TP SCH (22:00)
[2018-07-12] MEDS ORDERED: PIPERACILLIN/TAZOBACTAM 3.375 GM VIAL IVPB ONE ×3 (02:05→17:00)
[2018-07-12] MEDS ORDERED: DEXTROSE 5%-WATER - 50 ML IVPB ONE ×2 (02:05→09:56)
[2018-07-12] MEDS: PIPERACILLIN/TAZOB 3.375 GM 3.375 GM in DEXTROSE 5%-WATER - 50 ML IVPB SCH ×3 (03:00→17:10)
[2018-07-12] MEDS: HEPARIN NA (PORCINE) 5,000 UNITS/ML 1ML VIAL SQ SCH ×3 (06:01→22:31)
[2018-07-12] MEDS: THIAMINE HCL 200 MG/2 ML VIAL IVPB SCH ×3 (06:02→22:33)
[2018-07-12] MEDS: CYPROHEPTADINE HYDROCHLORIDE 2 MG/5 ML SOLUTION PO SCH ×4 (06:05→17:10)
[2018-07-12 06:17] LABS: EOS % 0.1 % (0-4.5); HEMATOCRIT 27.3 % (32.4-45.2); HEMOGLOBIN 9.3 GM/dL (10.7-15.3); LYMPH % 24.1 % (8-40); MCH 30.7 pg (25.7-33.7); MEAN CELL VOLUME 90.3 fl (80-96); MONO % 18.1 % (3.8-10.2); NEUT % 57.7 % (42.8-82.8); PLATELET COUNT 242 K/MM3 (134-434); RBC 3.02 M/mm3 (3.60-5.2); RDW 12.5 % (11.6-15.6); WHITE BLOOD COUNT 4.4 K/mm3 (4.0-10.0)
[2018-07-12 06:36] LABS: ALBUMIN 1.9 g/dl (3.4-5.0); ALK PHOS 87 U/L (45-117); ANION GAP 8 MMOL/L (8-16); BILIRUBIN,TOTAL 0.2 mg/dL (0.2-1); BLOOD UREA NITROGEN 17 mg/dL (7-18); CALCIUM 7.7 mg/dL (8.5-10.1); CHLORIDE 109 mmol/L (98-107); CO2 27 mmol/L (22-28); CREATININE 0.4 mg/dL (0.55-1.3); GLUCOSE,RANDOM 93 mg/dL (74-106); MAGNESIUM 1.9 mg/dL (1.8-2.4); SGOT/AST 15 U/L (15-37); SGPT/ALT 24 U/L (13-61); SODIUM 144 mmol/L (136-145); TOT PROT 4.6 g/dl (6.4-8.2)
[2018-07-12 06:38] LABS: ARTERIAL BLD GAS O2 SATURATION 98.5 % (90-98.9); ARTERIAL BLOOD GAS BASE EXCESS 3.7 meq/l (-2-2); ARTERIAL BLOOD GAS PCO2 38.8 mmHg (35-45); ARTERIAL BLOOD GAS pH 7.46 (7.35-7.45)
[2018-07-12 07:12] LABS: ALLENS TEST POSITIVE
[2018-07-12] MEDS: PROPOFOL 1,000,000 MCG/100 ML VIAL IVPB SCH ×3 (08:00→14:20)
[2018-07-12] MEDS ORDERED: PT OWN MED DRAWER 7, Y5N ONE ×3 (09:58→20:16)
[2018-07-12] MEDS: PANTOPRAZOLE SODIUM 40 MG VIAL IVPUSH SCH (10:01)
[2018-07-12] MEDS: POLYETHYLENE GLYCOL 3350 119 GM BTL PO SCH (10:02)
--- NOTE | 2018-07-12 11:04 | PN ---
Teaching Attending Note Name of Resident: Bernard Elizondo ATTENDING PHYSICIAN STATEMENT I saw and evaluated the patient. I reviewed the resident's note and discussed the case with the resident. I agree with the resident's findings and plan as documented. SUBJECTIVE: Patient seen and examined in the ICU. Remains intubated and sedated on propofol and versed. AC Mode of vent, 30% FiO2. No pressors. CXR: basilar infiltrate / ETT slightly high OBJECTIVE: Intake & Output 07/09/18 07/10/18 07/11/18 07/12/18 23:59 23:59 23:59 23:59 Intake Total 5583 2952 2815.2 637 Output Total 4475 3800 3050 700 Balance 1108 -848 -234.8 -63 Last Vital Signs Temp Pulse Resp BP Pulse Ox 99.6 F 116 H 17 136/85 100 07/12/18 09:41 07/12/18 09:41 07/12/18 09:41 07/12/18 09:00 07/12/18 09:00 Active Medications Chlorhexidine Gluconate (Hibiclens For Decolonization -) 1 applic TP HS RUBENS Last Admin: 07/11/18 22:00 Dose: 1 applic Cyproheptadine HCl (Periactin Solution -) 4 mg PO Q6HPO RUBENS Last Admin: 07/12/18 06:05 Dose: 4 mg Heparin Sodium (Porcine) (Heparin -) 5,000 unit SQ TID RUBENS Last Admin: 07/12/18 06:01 Dose: 5,000 unit Propofol (Diprivan -) 1,000,000 mcg in 100 mls @ 1.429 mls/hr IVPB TITR RUBENS; Protocol Last Admin: 07/12/18 08:45 Dose: Not Given Piperacillin Sod/Tazobactam (Sod 3.375 gm/ Dextrose) 50 mls @ 100 mls/hr IVPB Q8H-IV RUBENS; Protocol Last Admin: 07/12/18 10:01 Dose: 100 mls/hr Midazolam HCl 100 mg/ Sodium (Chloride) 100 mls @ 1 mls/hr IVPB TITR RUBENS; Protocol Last Titration: 07/11/18 19:28 Dose: 1 mg/hr, 1 mls/hr Sodium Chloride (Normal Saline -) 1,000 mls @ 75 mls/hr IV ASDIR RUBENS Last Admin: 07/11/18 14:23 Dose: 75 mls/hr Pantoprazole Sodium (Protonix Iv) 40 mg IVPUSH DAILY [facility] Last Admin: 07/12/18 10:01 Dose: 40 mg Polyethylene Glycol (Miralax (For Daily Use) -) 17 gm PO DAILY [facility] Last Admin: 07/12/18 10:02 Dose: 17 gm Thiamine HCl (Vitamin B1 Injection -) 300 mg IVPB TID [facility] Last Admin: 07/12/18 06:02 Dose: 300 mg GENERAL: Intubated and sedated HEAD: Normal with no signs of trauma. EYES: PERRL, sclera anicteric, conjunctiva clear. ENT: Ears normal, nares patent, oropharynx clear without exudates, moist mucous membranes. NECK: Trachea midline, supple LUNGS: Vented, few basilar rhonchi, no wheezes, no crackles HEART: Regular rate and rhythm, S1, S2 without murmur, rub or gallop. ABDOMEN: Soft, nontender, nondistended, normoactive bowel sounds, no guarding, no rebound, no hepatosplenomegaly, no masses. EXTREMITIES: 2+ pulses, warm, well-perfused, no edema. NEUROLOGICAL: sedated SKIN: Warm, dry, normal turgor, no rashes or lesions noted Laboratory Results - last 24 hr 07/12/18 07/12/18 07/12/18 05:30 05:30 05:30 WBC 4.4 RBC 3.02 L Hgb 9.3 L Hct 27.3 L MCV 90.3 MCH 30.7 MCHC 34.0 RDW 12.5 Plt Count 242 MPV 7.0 L Absolute Neuts (auto) 2.5 Neutrophils % 57.7 Lymphocytes % 24.1 Monocytes % 18.1 H Eosinophils % 0.1 Basophils % 0.0 Nucleated RBC % 0 Puncture Site ABG pH ABG pCO2 at Pt Temp ABG pO2 at Pt Temp ABG HCO3 ABG O2 Sat (Measured) ABG O2 Content ABG Base Excess Chaz Test Oxygen Flow Rate Vent Rate Mechanical Rate PEEP Pressure Support Vent Sodium 144 Potassium 4.0 Chloride 109 H Carbon Dioxide 27 Anion Gap 8 BUN 17 Creatinine 0.4 L Creat Clearance w eGFR > 60 Random Glucose 93 Lactic Acid 0.6 Calcium 7.7 L Phosphorus 4.0 Magnesium 1.9 Total Bilirubin 0.2 AST 15 ALT 24 Alkaline Phosphatase 87 Creatine Kinase 24 L Total Protein 4.6 L Albumin 1.9 L 07/12/18 05:55 WBC RBC Hgb Hct MCV MCH MCHC RDW Plt Count MPV Absolute Neuts (auto) Neutrophils % Lymphocytes % Monocytes % Eosinophils % Basophils % Nucleated RBC % Puncture Site Right radial ABG pH 7.46 H ABG pCO2 at Pt Temp 38.8 ABG pO2 at Pt Temp 109.0 H D ABG HCO3 27.3 H ABG O2 Sat (Measured) 98.5 ABG O2 Content 12.5 L ABG Base Excess 3.7 H Chaz Test Positive Oxygen Flow Rate 30% Vent Rate 14 Mechanical Rate Yes PEEP 5.0 Pressure Support Vent 400 Sodium Potassium Chloride Carbon Dioxide Anion Gap BUN Creatinine Creat Clearance w eGFR Random Glucose Lactic Acid Calcium Phosphorus Magnesium Total Bilirubin AST ALT Alkaline Phosphatase Creatine Kinase Total Protein Albumin ASSESSMENT/PLAN: Acute Respiratory Failure due to Aspiration Pneumonitis and AMS Suspected Serotonin Syndrome Depression Suicidal attempt Polysubstance OD R/O Toxic Metabolic Encephalopathy SDH versus area of calcification on Head CT Can trial sedation vacation today. For any sign of hyperactivity increase sedation AC mode of vent Cyproheptadine per protocol Mechanical VTE prophylaxis ABX per ID Enteral feeds PPI SBTs if adequate mental status ICU monitoring Dr Pruett Critical care time spent in reviewing chart, evaluating patient and formulating plan - 36 minutes.
[2018-07-12] MEDS: SODIUM CHLORIDE 1,000 ML IV SCH ×2 (11:21→17:20)
--- NOTE | 2018-07-12 12:04 | PN ---
Physical Exam: SUBJECTIVE: Patient seen and examined at bedside. This morning we stopped the propofol and versed. She is intubated but no longer sedated. She is able to squeeze both hands on command as well as move both legs on command. I called up her [facility] pharmacy on [address] and updated her home meds. OBJECTIVE: Vital Signs Period Temp Pulse Resp BP Sys/Smith Pulse Ox Last 24 Hr 98.2 F-99.7 F 99-127 14-24 120-162/61-87 98-100 GENERAL: The patient is intubated, not sedated, and awake. HEAD: Normal with no signs of trauma. EYES: PERRL, sclera anicteric. ENT: Ears normal, nares patent, moist mucous membranes. NECK: Trachea midline, full range of motion. LUNGS: Breath sounds equal, clear to auscultation bilaterally, no wheezes, no crackles, no accessory muscle use. HEART: Tachycardic rate and regular rhythm, S1, S2 without murmur, rub or gallop. ABDOMEN: Soft, mildly distended, normoactive bowel sounds, no masses. EXTREMITIES: 2+ pulses, warm, well-perfused, no edema. NEUROLOGICAL: Cannot assess due to mental status. PSYCH: Suicidal ideation. SKIN: Warm, dry, normal turgor, no rashes or lesions noted Laboratory Results - last 24 hr 07/12/18 07/12/18 07/12/18 05:30 05:30 05:30 WBC 4.4 RBC 3.02 L Hgb 9.3 L Hct 27.3 L MCV 90.3 MCH 30.7 MCHC 34.0 RDW 12.5 Plt Count 242 MPV 7.0 L Absolute Neuts (auto) 2.5 Neutrophils % 57.7 Lymphocytes % 24.1 Monocytes % 18.1 H Eosinophils % 0.1 Basophils % 0.0 Nucleated RBC % 0 Puncture Site ABG pH ABG pCO2 at Pt Temp ABG pO2 at Pt Temp ABG HCO3 ABG O2 Sat (Measured) ABG O2 Content ABG Base Excess Chaz Test Oxygen Flow Rate Vent Rate Mechanical Rate PEEP Pressure Support Vent Sodium 144 Potassium 4.0 Chloride 109 H Carbon Dioxide 27 Anion Gap 8 BUN 17 Creatinine 0.4 L Creat Clearance w eGFR > 60 Random Glucose 93 Lactic Acid 0.6 Calcium 7.7 L Phosphorus 4.0 Magnesium 1.9 Total Bilirubin 0.2 AST 15 ALT 24 Alkaline Phosphatase 87 Creatine Kinase 24 L Total Protein 4.6 L Albumin 1.9 L 07/12/18 05:55 WBC RBC Hgb Hct MCV MCH MCHC RDW Plt Count MPV Absolute Neuts (auto) Neutrophils % Lymphocytes % Monocytes % Eosinophils % Basophils % Nucleated RBC % Puncture Site Right radial ABG pH 7.46 H ABG pCO2 at Pt Temp 38.8 ABG pO2 at Pt Temp 109.0 H D ABG HCO3 27.3 H ABG O2 Sat (Measured) 98.5 ABG O2 Content 12.5 L ABG Base Excess 3.7 H Chaz Test Positive Oxygen Flow Rate 30% Vent Rate 14 Mechanical Rate Yes PEEP 5.0 Pressure Support Vent 400 Sodium Potassium Chloride Carbon Dioxide Anion Gap BUN Creatinine Creat Clearance w eGFR Random Glucose Lactic Acid Calcium Phosphorus Magnesium Total Bilirubin AST ALT Alkaline Phosphatase Creatine Kinase Total Protein Albumin Active Medications Generic Name Dose Route Start Last Admin Trade Name Freq PRN Reason Stop Dose Admin Chlorhexidine Gluconate 1 applic 07/06/18 22:00 07/11/18 22:00 Hibiclens For Decolonization - TP 1 applic HS RUBENS Administration Chlorhexidine Gluconate 15 ml 07/12/18 22:00 Peridex - MM BID RUBENS Cyproheptadine HCl 4 mg 07/09/18 00:00 07/12/18 11:20 Periactin Solution - PO 4 mg Q6HPO RUBENS Administration Heparin Sodium (Porcine) 5,000 unit 07/10/18 14:00 07/12/18 06:01 Heparin - SQ 5,000 unit TID RUBENS Administration Propofol 1,000,000 mcg in 100 mls @ 1.429 mls/hr 07/06/18 12:45 07/12/18 11: 00 Diprivan - IVPB 0 mcg/kg/min TITR RUBENS 0 mls/hr Titration Protocol 5 MCG/KG/MIN Piperacillin Sod/Tazobactam 50 mls @ 100 mls/hr 07/06/18 18:00 07/12/18 10:01 Sod 3.375 gm/ Dextrose IVPB 100 mls/hr Q8H-IV RUBENS Administration Protocol Midazolam HCl 100 mg/ Sodium 100 mls @ 1 mls/hr 07/07/18 17:45 07/11/18 19:28 Chloride IVPB 1 mg/hr TITR RUBENS 1 mls/hr Titration Protocol 1 MG/HR Sodium Chloride 1,000 mls @ 75 mls/hr 07/09/18 12:00 07/12/18 11:21 Normal Saline - IV Not Given ASDIR RUBENS Pantoprazole Sodium 40 mg 07/09/18 12:00 07/12/18 10:01 Protonix Iv IVPUSH 40 mg DAILY RUBENS Administration Polyethylene Glycol 17 gm 07/12/18 10:00 07/12/18 10:02 Miralax (For Daily Use) - PO 17 gm DAILY RUBENS Administration Propranolol HCl 80 mg 07/12/18 11:51 Inderal - PO 07/12/18 11:52 ONCE ONE Thiamine HCl 300 mg 07/07/18 14:00 07/12/18 06:02 Vitamin B1 Injection - IVPB 300 mg TID RUBENS Administration ASSESSMENT/PLAN: [facility] Poison control knows about patient and is following: Call [phone] either Dr[address] Escalante or Dr. Paz. Dr. Paz said we can reach him on his cell phone at: [phone] - Spoke with Dr. Paz today who suggested to wean her off the versed and see if her vital signs remain calm. Today he HR has decreased to ~115 and her BP has somewhat normalized to 120/70. - We are starting her on her home BP meds - Propranolol 80 mg PO. - today we will do a sedation vacation and try to assess her mental status. Assessment: 67 year old female with a PMHx of Depression and suicidal ideations with recent admission to [facility] (06/19/18-) was BIBEMS after being found by her son unresponsive, warm to touch with thick mucous coming out of her mouth and "barely breathing" at around 1030 yesterday morning. There was a suicide note and empty bottles of Olanzapine and Clonazepam. Patient admitted to ICU for further monitoring and management. Patient has not had a bowel movement in a few days. We are giving miralax for support. NEURO #Acute Toxic Metabolic Encephalopathy/ likely serotonin syndrome + Benzo OD. - Patient has ocular clonus, hyper-reflexia, is flushing, has tachycardia, is febrile, had an empty bottle of olanzapine and clonazepam near bedside. - cooling blanket by bedside for hyperthermia - Propofol drip - Currently intubated and sedated for airway protection - Repeat Head CT did not appear to show consistent brain bleed. Likely calcification. - Will get another head CT when patient is more stable. CARDIO #Tachycardia - Likely secondary to drug/serotonin toxicity. - starting her home propranolol today. PULM: - Intubated. - Will attempt extubation tomorrow. PSYCH #Severe Depression with Attempted Suicide -Will hold off on anti-psychotics due to toxicity -Continue to monitor and will need 1:1 after possible extubation, as well as a possible transfer to inpatient psych -Patient should receive a psyche consult if she gets extubated. - [facility] was spoken to about the patient. - Dr. Deo Li will accept the patient as an inpatient if she leaves the ICU. Number: [phone] INFECTIOUS DISEASE - ID consulted and recommended strict aspiration precautions secondary to activated charcoal. - Zosyn and Vancomycin given in ED with ID continuing Zosyn 3.375mg IVPB Q8H - Chest X-Ray revealed course lung changes and pleural thickening. Possible aspiration F/E/N - Patient is receiving NS at 75 mls/hr - Continue to replete lites PRN - Tube feeds - Osmalite. PROPHYLAXIS -SCD's + Heparin -Protonix 40mg IVP BID Disposition -Full code -Continue ICU monitoring Visit type - Emergency Visit Emergency Visit: Yes ED Registration Date: 07/06/18 Care time: The patient presented to the Emergency Department on the above date and was hospitalized for further evaluation of their emergent condition. - New Patient This patient is new to me today: No - Critical Care Critical Care patient: Yes Total Critical Care Time (in minutes): 36 Critical Care Statement: The care of this patient involved high complexity decision making to prevent further life threatening deterioration of the patient 's condition and/or to evaluate & treat vital organ system(s) failure or risk of failure.
--- NOTE | 2018-07-12 14:04 | PN ---
Physical Exam: SUBJECTIVE: Patient seen and examined in the ICU. Sedation discontinued, still minimally responsive but with eyes half open today. OBJECTIVE: Vital Signs Period Temp Pulse Resp BP Sys/Smith Pulse Ox Last 24 Hr 98.2 F-99.7 F 104-127 14-24 123-186/68-98 95-100 GENERAL: Eyes paritally open today, on ventilator HEAD: Normal with no signs of trauma. EYES: PERRLA, +corneal light reflex, sclera anicteric, conjunctiva clear. ENT:nares patent NECK: Trachea midline, full range of motion, supple. LUNGS: Breath sounds equal, clear to auscultation bilaterally, no wheezes, no crackles, no accessory muscle use. HEART: Rapid rate and rhythm, S1, S2 without murmur, rub or gallop. ABDOMEN: Soft, nontender, nondistended, normoactive bowel sounds, no guarding, no rebound, no hepatosplenomegaly, no masses. EXTREMITIES: 2+ pulses, warm, well-perfused, no edema. NEUROLOGICAL: Able to lightly sueding machine tender fingers and slighlty raise legs on command SKIN: Warm, dry, normal turgor, no rashes or lesions noted Laboratory Results - last 24 hr 07/12/18 07/12/18 07/12/18 05:30 05:30 05:30 WBC 4.4 RBC 3.02 L Hgb 9.3 L Hct 27.3 L MCV 90.3 MCH 30.7 MCHC 34.0 RDW 12.5 Plt Count 242 MPV 7.0 L Absolute Neuts (auto) 2.5 Neutrophils % 57.7 Lymphocytes % 24.1 Monocytes % 18.1 H Eosinophils % 0.1 Basophils % 0.0 Nucleated RBC % 0 Puncture Site ABG pH ABG pCO2 at Pt Temp ABG pO2 at Pt Temp ABG HCO3 ABG O2 Sat (Measured) ABG O2 Content ABG Base Excess Chaz Test Oxygen Flow Rate Vent Rate Mechanical Rate PEEP Pressure Support Vent Sodium 144 Potassium 4.0 Chloride 109 H Carbon Dioxide 27 Anion Gap 8 BUN 17 Creatinine 0.4 L Creat Clearance w eGFR > 60 Random Glucose 93 Lactic Acid 0.6 Calcium 7.7 L Phosphorus 4.0 Magnesium 1.9 Total Bilirubin 0.2 AST 15 ALT 24 Alkaline Phosphatase 87 Creatine Kinase 24 L Total Protein 4.6 L Albumin 1.9 L 07/12/18 05:55 WBC RBC Hgb Hct MCV MCH MCHC RDW Plt Count MPV Absolute Neuts (auto) Neutrophils % Lymphocytes % Monocytes % Eosinophils % Basophils % Nucleated RBC % Puncture Site Right radial ABG pH 7.46 H ABG pCO2 at Pt Temp 38.8 ABG pO2 at Pt Temp 109.0 H D ABG HCO3 27.3 H ABG O2 Sat (Measured) 98.5 ABG O2 Content 12.5 L ABG Base Excess 3.7 H Chaz Test Positive Oxygen Flow Rate 30% Vent Rate 14 Mechanical Rate Yes PEEP 5.0 Pressure Support Vent 400 Sodium Potassium Chloride Carbon Dioxide Anion Gap BUN Creatinine Creat Clearance w eGFR Random Glucose Lactic Acid Calcium Phosphorus Magnesium Total Bilirubin AST ALT Alkaline Phosphatase Creatine Kinase Total Protein Albumin Active Medications Generic Name Dose Route Start Last Admin Trade Name Freq PRN Reason Stop Dose Admin Chlorhexidine Gluconate 1 applic 07/06/18 22:00 07/11/18 22:00 Hibiclens For Decolonization - TP 1 applic HS RUBENS Administration Chlorhexidine Gluconate 15 ml 07/12/18 22:00 Peridex - MM BID RUBENS Cyproheptadine HCl 4 mg 07/09/18 00:00 07/12/18 11:20 Periactin Solution - PO 4 mg Q6HPO RUBENS Administration Heparin Sodium (Porcine) 5,000 unit 07/10/18 14:00 07/12/18 06:01 Heparin - SQ 5,000 unit TID RUBENS Administration Propofol 1,000,000 mcg in 100 mls @ 1.429 mls/hr 07/06/18 12:45 07/12/18 13: 12 Diprivan - IVPB 25 mcg/kg/min TITR RUBENS 7.144 mls/hr Titration Protocol 5 MCG/KG/MIN Piperacillin Sod/Tazobactam 50 mls @ 100 mls/hr 07/06/18 18:00 07/12/18 10:01 Sod 3.375 gm/ Dextrose IVPB 100 mls/hr Q8H-IV RUBENS Administration Protocol Midazolam HCl 100 mg/ Sodium 100 mls @ 1 mls/hr 07/07/18 17:45 07/11/18 19:28 Chloride IVPB 1 mg/hr TITR RUBENS 1 mls/hr Titration Protocol 1 MG/HR Sodium Chloride 1,000 mls @ 75 mls/hr 07/09/18 12:00 07/12/18 11:21 Normal Saline - IV Not Given ASDIR RUBENS Pantoprazole Sodium 40 mg 07/09/18 12:00 07/12/18 10:01 Protonix Iv IVPUSH 40 mg DAILY RUBENS Administration Polyethylene Glycol 17 gm 07/12/18 10:00 07/12/18 10:02 Miralax (For Daily Use) - PO 17 gm DAILY RUBENS Administration Thiamine HCl 300 mg 07/07/18 14:00 07/12/18 06:02 Vitamin B1 Injection - IVPB 300 mg TID RUBENS Administration ASSESSMENT/PLAN: 67 year old female who presents with polysubstance overdose due to suicidal ideation; remains intubated and sedated in ICU. Treating empirically for serotonin syndrome. Acute Respiratory Failure 2/2 Overdose -CXR from today show increased density at left base since yesterday which could represent some fluid with some atelectasis -Aspiration precautions; given activated charcoal -Followed by ID Dr. Solis -Continue on Zosyn 3.375 mg q8h -AC Mode of vent, 30% FiO2, managed by pulm/crit. -Wean from vent as tolerated with acknowledgement to sedation, etc. AMS due to polysubstance overdose -Repeat head CT negative; suspect toxic metabolic encephalopathy -Propofol and Versed discontinued again -If BP and HR become elevated, will restart home HTN medications which have been held since admission -EEG pending -Followed by neurologist Dr. Aquino Suspected Serotonin Syndrome -Continue Cyproheptadine; follow up with poison control. -Metoprolol 25 mg PRN for tachycardia -Monitor VS, HR. Manage supportively -IVF Suicidal Ideation -Will require psychiatric clearance as condition improves -Psychiatrist Dr. Deo Li ([phone]) will accept her inpatient if she leaves the ICU. -Consider d/c 1:1 while sedated Hypoalbuminemia -Worsening 2.2 -> 2.0 -> 1.9 -On Osmalite feeds -Nutrition consult Suspected extracranial hemorrhage -Seen on repeat CT to be 2/2 calcifications -Repeat CT on Saturday -Consider starting Lovenox for DVT px FEN -NS at 75 mls/hr -Continue to replete lites PRN -Tube feeds Osmalite. Prophylaxis -SCD's -No AC for now due to possible extra-axial hemorrhage -Protonix 40mg IVP BID Disposition -Full code -Intubated and sedated. Continue ICU monitoring Code status unchanged from prior visit Visit type - Emergency Visit Emergency Visit: No - New Patient This patient is new to me today: No - Critical Care Critical Care patient: No Total Critical Care Time (in minutes): 25
--- NOTE | 2018-07-12 16:05 | PN ---
Progress Note, Physician History of Present Illness: stable was alert off of sedation now again sedated and intubated - Current Medication List Current Medications: Active Medications Chlorhexidine Gluconate (Hibiclens For Decolonization -) 1 applic TP HS [facility] Last Admin: 07/11/18 22:00 Dose: 1 applic Chlorhexidine Gluconate (Peridex -) 15 ml MM BID RUBENS Cyproheptadine HCl (Periactin Solution -) 4 mg PO Q6HPO RUBENS Last Admin: 07/12/18 11:20 Dose: 4 mg Heparin Sodium (Porcine) (Heparin -) 5,000 unit SQ TID RUBENS Last Admin: 07/12/18 14:19 Dose: 5,000 unit Propofol (Diprivan -) 1,000,000 mcg in 100 mls @ 1.429 mls/hr IVPB TITR RUBENS; Protocol Last Admin: 07/12/18 14:20 Dose: Not Given Piperacillin Sod/Tazobactam (Sod 3.375 gm/ Dextrose) 50 mls @ 100 mls/hr IVPB Q8H-IV RUBENS; Protocol Last Admin: 07/12/18 10:01 Dose: 100 mls/hr Midazolam HCl 100 mg/ Sodium (Chloride) 100 mls @ 1 mls/hr IVPB TITR RUBENS; Protocol Last Titration: 07/11/18 19:28 Dose: 1 mg/hr, 1 mls/hr Sodium Chloride (Normal Saline -) 1,000 mls @ 75 mls/hr IV ASDIR RUBENS Last Admin: 07/12/18 11:21 Dose: Not Given Pantoprazole Sodium (Protonix Iv) 40 mg IVPUSH DAILY [facility] Last Admin: 07/12/18 10:01 Dose: 40 mg Polyethylene Glycol (Miralax (For Daily Use) -) 17 gm PO DAILY RUBENS Last Admin: 07/12/18 10:02 Dose: 17 gm Thiamine HCl (Vitamin B1 Injection -) 300 mg IVPB TID [facility] Last Admin: 07/12/18 14:19 Dose: 300 mg - Objective Vital Signs: Vital Signs Temperature 99.7 F H 07/12/18 14:00 Pulse Rate 104 H 07/12/18 14:00 Respiratory Rate 18 07/12/18 14:00 Blood Pressure 148/78 07/12/18 14:00 O2 Sat by Pulse Oximetry (%) 95 07/12/18 12:00 Constitutional: Yes: No Distress, Calm Cardiovascular: Yes: Regular Rate and Rhythm Respiratory: Yes: Intubated, Mechanically Ventilated Gastrointestinal: Yes: Normal Bowel Sounds, Soft Musculoskeletal: Yes: WNL Extremities: Yes: WNL Neurological: Yes: Other (sedated ,) Psychiatric: Yes: Alert Labs: CBC, BMP 07/12/18 05:30 07/12/18 05:30 INR, PTT INR 1.32 (0.83-1.09) H 07/07/18 12:35 Assessment/Plan Acute metabolic encephalopathy Severe sepsis Acute toxic metabolic encephalopathy Seratonin overdose Possible suicide attempt Severe depression r/o bleed patient being followed by neurosurgery repeat scan done plan hydration continue empiric iv abx will probably deescalte abx tomorrow neurology hydration rest as per icu once patient remains afebrile for 24 hrs will deescalate abx cc 40 min
[2018-07-12] MEDS ORDERED: DEXTROSE 5%-WATER - 100 ML IVPB ONE (17:00)
[2018-07-12] MEDS: CHLORHEXIDINE GLUCONATE 4% CLEANSER FOR DECOLONIZATION TP SCH (22:32)
[2018-07-12] MEDS: CHLORHEXIDINE GLUCONATE 0.12% 15ML CUP MM SCH (22:33)
[2018-07-13] MEDS: CYPROHEPTADINE HYDROCHLORIDE 2 MG/5 ML SOLUTION PO SCH ×4 (01:00→18:00)
[2018-07-13] MEDS: PIPERACILLIN/TAZOB 3.375 GM 3.375 GM in DEXTROSE 5%-WATER - 50 ML IVPB SCH ×2 (02:19→09:48)
[2018-07-13] MEDS: HEPARIN NA (PORCINE) 5,000 UNITS/ML 1ML VIAL SQ SCH ×3 (06:01→21:25)
[2018-07-13] MEDS: THIAMINE HCL 200 MG/2 ML VIAL IVPB SCH ×3 (06:03→21:29)
[2018-07-13 06:05] LABS: ARTERIAL BLD GAS O2 SATURATION 99.5 % (90-98.9); ARTERIAL BLOOD GAS BASE EXCESS 4.2 meq/l (-2-2); ARTERIAL BLOOD GAS PCO2 34.1 mmHg (35-45); ARTERIAL BLOOD GAS pH 7.51 (7.35-7.45)
[2018-07-13] MEDS ORDERED: PT OWN MED DRAWER 7, Y5N ONE ×2 (06:08→09:26)
[2018-07-13 06:46] LABS: BASO % 0.1 % (0-2.0); EOS % 0.1 % (0-4.5); HEMATOCRIT 30.7 % (32.4-45.2); HEMOGLOBIN 10.6 GM/dL (10.7-15.3); LYMPH % 23.8 % (8-40); MCH 31.3 pg (25.7-33.7); MCHC 34.5 g/dl (32.0-36.0); MEAN CELL VOLUME 90.7 fl (80-96); MEAN PLT VOLUME 7.2 fl (7.5-11.1); MONO % 17.4 % (3.8-10.2); NEUT % 58.6 % (42.8-82.8); PLATELET COUNT 286 K/MM3 (134-434); RBC 3.39 M/mm3 (3.60-5.2); RDW 12.7 % (11.6-15.6); WHITE BLOOD COUNT 4.7 K/mm3 (4.0-10.0)
[2018-07-13 06:50] LABS: ALLENS TEST POSITIVE
[2018-07-13 07:11] LABS: ALBUMIN 2.1 g/dl (3.4-5.0); ALK PHOS 103 U/L (45-117); ANION GAP 4 MMOL/L (8-16); BILIRUBIN,TOTAL 0.3 mg/dL (0.2-1); BLOOD UREA NITROGEN 15 mg/dL (7-18); CALCIUM 7.8 mg/dL (8.5-10.1); CHLORIDE 108 mmol/L (98-107); CO2 30 mmol/L (21-32); CREATININE 0.5 mg/dL (0.55-1.3); GLUCOSE,RANDOM 146 mg/dL (74-106); PHOSPHOROUS 3.3 mg/dL (2.5-4.9); SGOT/AST 25 U/L (15-37); SGPT/ALT 33 U/L (13-61); SODIUM 142 mmol/L (136-145)
[2018-07-13] MEDS: SODIUM CHLORIDE 1,000 ML IV SCH ×2 (09:00→13:02)
[2018-07-13] MEDS ORDERED: DEXTROSE 5%-WATER - 50 ML IVPB ONE (09:27)
[2018-07-13] MEDS ORDERED: PIPERACILLIN/TAZOBACTAM 3.375 GM VIAL IVPB ONE (09:27)
[2018-07-13] MEDS: POLYETHYLENE GLYCOL 3350 119 GM BTL PO SCH (09:48)
[2018-07-13] MEDS: CHLORHEXIDINE GLUCONATE 0.12% 15ML CUP MM SCH ×2 (09:49→21:33)
[2018-07-13] MEDS: PANTOPRAZOLE SODIUM 40 MG VIAL IVPUSH SCH (09:50)
[2018-07-13] MEDS ORDERED: METOPROLOL TARTRATE 25 MG TABLET (FP) PO ONE (09:57)
[2018-07-13 11:03] LABS: ANISOCYTOSIS 1+; MACROCYTOSIS 1+; PLATELET ESTIMATE NORMAL
--- NOTE | 2018-07-13 11:05 | PN ---
Teaching Attending Note Name of Resident: Marcos Loredo ATTENDING PHYSICIAN STATEMENT I saw and evaluated the patient. I reviewed the resident's note and discussed the case with the resident. I agree with the resident's findings and plan as documented. SUBJECTIVE: Patient seen and examined in the ICU. Remains intubated. Sedation is off and she is arousable. AC Mode of vent, 30% FiO2. No pressors. CXR: no gross change OBJECTIVE: Intake & Output 07/09/18 07/10/18 07/11/18 07/12/18 23:59 23:59 23:59 23:59 Intake Total 5583 2952 2815.2 637 Output Total 4475 3800 3050 700 Balance 1108 -848 -234.8 -63 Last Vital Signs Temp Pulse Resp BP Pulse Ox 99.6 F 116 H 17 136/85 100 07/12/18 09:41 07/12/18 09:41 07/12/18 09:41 07/12/18 09:00 07/12/18 09:00 Active Medications Chlorhexidine Gluconate (Hibiclens For Decolonization -) 1 applic TP HS RUBENS Last Admin: 07/11/18 22:00 Dose: 1 applic Cyproheptadine HCl (Periactin Solution -) 4 mg PO Q6HPO RUBENS Last Admin: 07/12/18 06:05 Dose: 4 mg Heparin Sodium (Porcine) (Heparin -) 5,000 unit SQ TID RUBENS Last Admin: 07/12/18 06:01 Dose: 5,000 unit Propofol (Diprivan -) 1,000,000 mcg in 100 mls @ 1.429 mls/hr IVPB TITR RUBENS; Protocol Last Admin: 07/12/18 08:45 Dose: Not Given Piperacillin Sod/Tazobactam (Sod 3.375 gm/ Dextrose) 50 mls @ 100 mls/hr IVPB Q8H-IV RUBENS; Protocol Last Admin: 07/12/18 10:01 Dose: 100 mls/hr Midazolam HCl 100 mg/ Sodium (Chloride) 100 mls @ 1 mls/hr IVPB TITR RUBENS; Protocol Last Titration: 07/11/18 19:28 Dose: 1 mg/hr, 1 mls/hr Sodium Chloride (Normal Saline -) 1,000 mls @ 75 mls/hr IV ASDIR RUBENS Last Admin: 07/11/18 14:23 Dose: 75 mls/hr Pantoprazole Sodium (Protonix Iv) 40 mg IVPUSH DAILY [facility] Last Admin: 07/12/18 10:01 Dose: 40 mg Polyethylene Glycol (Miralax (For Daily Use) -) 17 gm PO DAILY [facility] Last Admin: 07/12/18 10:02 Dose: 17 gm Thiamine HCl (Vitamin B1 Injection -) 300 mg IVPB TID [facility] Last Admin: 07/12/18 06:02 Dose: 300 mg GENERAL: Intubated and sedated HEAD: Normal with no signs of trauma. EYES: PERRL, sclera anicteric, conjunctiva clear. ENT: Ears normal, nares patent, oropharynx clear without exudates, moist mucous membranes. NECK: Trachea midline, supple LUNGS: Vented, few basilar rhonchi, no wheezes, no crackles HEART: Regular rate and rhythm, S1, S2 without murmur, rub or gallop. ABDOMEN: Soft, nontender, nondistended, normoactive bowel sounds, no guarding, no rebound, no hepatosplenomegaly, no masses. EXTREMITIES: 2+ pulses, warm, well-perfused, no edema. NEUROLOGICAL: sedated SKIN: Warm, dry, normal turgor, no rashes or lesions noted Laboratory Results - last 24 hr 07/13/18 07/13/18 07/13/18 05:30 05:30 05:30 WBC 4.7 RBC 3.39 L Hgb 10.6 L Hct 30.7 L MCV 90.7 MCH 31.3 MCHC 34.5 RDW 12.7 Plt Count 286 MPV 7.2 L Absolute Neuts (auto) 2.7 Neutrophils % 58.6 Lymphocytes % 23.8 Monocytes % 17.4 H Eosinophils % 0.1 Basophils % 0.1 D Nucleated RBC % 0 Anticoagulation Therapy Puncture Site ABG pH ABG pCO2 at Pt Temp ABG pO2 at Pt Temp ABG HCO3 ABG O2 Sat (Measured) ABG O2 Content ABG Base Excess Chaz Test O2 Delivery Device Oxygen Flow Rate Vent Mode Vent Rate Mechanical Rate PEEP Pressure Support Vent Sodium 142 Potassium 4.0 Chloride 108 H Carbon Dioxide 30 Anion Gap 4 L BUN 15 Creatinine 0.5 L Creat Clearance w eGFR > 60 Random Glucose 146 H Lactic Acid 0.8 Calcium 7.8 L Phosphorus 3.3 Magnesium 2.0 Total Bilirubin 0.3 AST 25 ALT 33 Alkaline Phosphatase 103 Creatine Kinase 60 Total Protein 5.0 L Albumin 2.1 L 07/13/18 05:35 WBC RBC Hgb Hct MCV MCH MCHC RDW Plt Count MPV Absolute Neuts (auto) Neutrophils % Lymphocytes % Monocytes % Eosinophils % Basophils % Nucleated RBC % Anticoagulation Therapy No Result Required. Puncture Site Left radial ABG pH 7.51 H ABG pCO2 at Pt Temp 34.1 L ABG pO2 at Pt Temp 121.0 H ABG HCO3 27.3 H ABG O2 Sat (Measured) 99.5 H ABG O2 Content 6.9 L* ABG Base Excess 4.2 H Chaz Test Positive O2 Delivery Device Mech vent Oxygen Flow Rate 30% Vent Mode A/c Vent Rate 14 Mechanical Rate Yes PEEP 5.0 Pressure Support Vent 400 Sodium Potassium Chloride Carbon Dioxide Anion Gap BUN Creatinine Creat Clearance w eGFR Random Glucose Lactic Acid Calcium Phosphorus Magnesium Total Bilirubin AST ALT Alkaline Phosphatase Creatine Kinase Total Protein Albumin ASSESSMENT/PLAN: Acute Respiratory Failure due to Aspiration Pneumonitis and AMS Suspected Serotonin Syndrome Depression Suicidal attempt Polysubstance OD R/O Toxic Metabolic Encephalopathy SDH versus area of calcification on Head CT Sedation vacation today. For any sign of hyperactivity increase sedation AC mode of vent Cyproheptadine per protocol Mechanical VTE prophylaxis ABX per ID Enteral feeds PPI SBTs if adequate mental status ICU monitoring Dr Pruett Critical care time spent in reviewing chart, evaluating patient and formulating plan - 36 minutes.
[2018-07-13] MEDS ORDERED: RACEPINEPHRINE IH SOL 2.25% 11.25 MG/0.5 ML VIAL IH ONE (13:47)
[2018-07-13] MEDS ORDERED: RACEPINEPHRINE IH SOL 2.25% 11.25 MG/0.5 ML VIAL NEB ONE (13:48)
[2018-07-13] MEDS ORDERED: DEXAMETHASONE SOD PHOSPHATE 10 MG/1 ML VIAL ONE (13:48)
[2018-07-13] MEDS ORDERED: hydrALAZINE HCL 20 MG/ML VIAL IVPUSH ONE (14:01)
[2018-07-13] MEDS ORDERED: BUDESONIDE 0.25 MG/2ML INH SUSP VIAL NEB ONE (14:04)
[2018-07-13] MEDS ORDERED: DEXAMETHASONE SOD PHOSPHATE 10 MG/1 ML VIAL IVPUSH ONE (14:15)
[2018-07-13] MEDS ORDERED: RAPID SEQUENCE INTUBATION KIT NR ONE (14:16)
[2018-07-13] MEDS ORDERED: MIDAZOLAM HCL 5 MG/1 ML Single Dose Vial ONE (14:18)
[2018-07-13] MEDS: PROPOFOL 1,000,000 MCG/100 ML VIAL IVPB SCH ×2 (14:45→20:40)
[2018-07-13] MEDS ORDERED: METOPROLOL TARTRATE 5 MG/5 ML VIAL IVPUSH ONE (15:41)
--- NOTE | 2018-07-13 15:42 | PROC ---
Intubation - Intubation Reason for Intubation: Airway Protection Intubation Method: orotracheal Blade used: Glidescope Tube Size (cm): 7.0 Tube position confirmed by: Direct visualization, CO2 detector, Chest x-ray, Breath sounds Breath Sounds after Intubation: equal Post Intubation Xray: Yes
[2018-07-13] MEDS ORDERED: PROPOFOL 200 MG/20 ML VIAL IVPUSH ONE (15:43)
[2018-07-13] MEDS ORDERED: MIDAZOLAM HCL 5 MG/1 ML Single Dose Vial IVPUSH ONE (15:45)
--- NOTE | 2018-07-13 15:48 | PN ---
Physical Exam: SUBJECTIVE: Patient seen and examined patient was off sedation. awake following comands Tolerating CPAP decision taken to extubate. Post extubation pt started having stridor and decadron and recemic epi given--- - no improvement, pt using acessory muscles. Have tachycardia and tachypnia. Decesion taken to reintubate. Edema and eryhtema present around airway plan discussed with patient OBJECTIVE: Vital Signs Period Temp Pulse Resp BP Sys/Smith Pulse Ox Last 24 Hr 99.5 F-99.9 F 89-119 16-22 136-170/69-98 95-95 GENERAL: The patient is awake, alert, EYES: PERRL, sclera anicteric, conjunctiva clear. ENT: moist mucous membranes. stridor present NECK: Trachea midline, full range of motion, supple. LUNGS: Breath sounds equal, clear to auscultation bilaterally, no wheezes, no crackles, no accessory muscle use. HEART: Regular rate and rhythm, S1, S2 without murmur, ABDOMEN: Soft, nontender, nondistended, normoactive bowel sounds, EXTREMITIES: 2+ pulses, warm, well-perfused, no edema. SKIN: Warm, dry, Laboratory Results - last 24 hr 07/13/18 07/13/18 07/13/18 05:30 05:30 05:30 WBC 4.7 RBC 3.39 L Hgb 10.6 L Hct 30.7 L MCV 90.7 MCH 31.3 MCHC 34.5 RDW 12.7 Plt Count 286 MPV 7.2 L Absolute Neuts (auto) 2.7 Neutrophils % 58.6 Neutrophils % (Manual) 54.5 Band Neutrophils % 4.9 Lymphocytes % 23.8 Lymphocytes % (Manual) 19.8 Monocytes % 17.4 H Monocytes % (Manual) 15 H Eosinophils % 0.1 Eosinophils % (Manual) 2.0 Basophils % 0.1 D Basophils % (Manual) 0.0 Myelocytes % (Man) 0 Promyelocytes % (Man) 0 Blast Cells % (Manual) 0 Nucleated RBC % 0 Metamyelocytes 0 Hypochromia 0 Platelet Estimate Normal Polychromasia 1+ Poikilocytosis 0 Anisocytosis 1+ Microcytosis 1+ Macrocytosis 1+ Anticoagulation Therapy Puncture Site ABG pH ABG pCO2 at Pt Temp ABG pO2 at Pt Temp ABG HCO3 ABG O2 Sat (Measured) ABG O2 Content ABG Base Excess Chaz Test O2 Delivery Device Oxygen Flow Rate Vent Mode Vent Rate Mechanical Rate PEEP Pressure Support Vent Sodium 142 Potassium 4.0 Chloride 108 H Carbon Dioxide 30 Anion Gap 4 L BUN 15 Creatinine 0.5 L Creat Clearance w eGFR > 60 Random Glucose 146 H Lactic Acid 0.8 Calcium 7.8 L Phosphorus 3.3 Magnesium 2.0 Total Bilirubin 0.3 AST 25 ALT 33 Alkaline Phosphatase 103 Creatine Kinase 60 Total Protein 5.0 L Albumin 2.1 L 07/13/18 05:35 WBC RBC Hgb Hct MCV MCH MCHC RDW Plt Count MPV Absolute Neuts (auto) Neutrophils % Neutrophils % (Manual) Band Neutrophils % Lymphocytes % Lymphocytes % (Manual) Monocytes % Monocytes % (Manual) Eosinophils % Eosinophils % (Manual) Basophils % Basophils % (Manual) Myelocytes % (Man) Promyelocytes % (Man) Blast Cells % (Manual) Nucleated RBC % Metamyelocytes Hypochromia Platelet Estimate Polychromasia Poikilocytosis Anisocytosis Microcytosis Macrocytosis Anticoagulation Therapy No Result Required. Puncture Site Left radial ABG pH 7.51 H ABG pCO2 at Pt Temp 34.1 L ABG pO2 at Pt Temp 121.0 H ABG HCO3 27.3 H ABG O2 Sat (Measured) 99.5 H ABG O2 Content 6.9 L* ABG Base Excess 4.2 H Chaz Test Positive O2 Delivery Device Mech vent Oxygen Flow Rate 30% Vent Mode A/c Vent Rate 14 Mechanical Rate Yes PEEP 5.0 Pressure Support Vent 400 Sodium Potassium Chloride Carbon Dioxide Anion Gap BUN Creatinine Creat Clearance w eGFR Random Glucose Lactic Acid Calcium Phosphorus Magnesium Total Bilirubin AST ALT Alkaline Phosphatase Creatine Kinase Total Protein Albumin Active Medications Generic Name Dose Route Start Last Admin Trade Name Freq PRN Reason Stop Dose Admin Chlorhexidine Gluconate 1 applic 07/06/18 22:00 07/12/18 22:32 Hibiclens For Decolonization - TP 1 applic HS RUBENS Administration Chlorhexidine Gluconate 15 ml 07/12/18 22:00 07/13/18 09:49 Peridex - MM 15 ml BID RUBENS Administration Cyproheptadine HCl 4 mg 07/09/18 00:00 07/13/18 13:00 Periactin Solution - PO 4 mg Q6HPO RUBENS Administration Dexamethasone Sodium Phosphate 4 mg 07/13/18 15:00 Decadron Injection - IVPUSH Q6H-IV RUBENS Heparin Sodium (Porcine) 5,000 unit 07/10/18 14:00 07/13/18 13:09 Heparin - SQ 5,000 unit TID RUBENS Administration Propofol 1,000,000 mcg in 100 mls @ 1.429 mls/hr 07/06/18 12:45 07/13/18 14: 45 Diprivan - IVPB 20 mcg/kg/min TITR RUBENS 5.715 mls/hr Administration Protocol 5 MCG/KG/MIN Piperacillin Sod/Tazobactam 50 mls @ 100 mls/hr 07/06/18 18:00 07/13/18 09:48 Sod 3.375 gm/ Dextrose IVPB 100 mls/hr Q8H-IV RUBENS Administration Protocol Midazolam HCl 100 mg/ Sodium 100 mls @ 1 mls/hr 07/07/18 17:45 07/11/18 19:28 Chloride IVPB 1 mg/hr TITR RUBENS 1 mls/hr Titration Protocol 1 MG/HR Sodium Chloride 1,000 mls @ 75 mls/hr 07/09/18 12:00 07/13/18 13:02 Normal Saline - IV Not Given ASDIR RUBENS Metoprolol Tartrate 25 mg 07/13/18 22:00 Lopressor - NGT BID RUBENS Metoprolol Tartrate 5 mg 07/13/18 15:41 Lopressor Injection - IVPUSH 07/13/18 15:42 ONCE ONE Pantoprazole Sodium 40 mg 07/09/18 12:00 07/13/18 09:50 Protonix Iv IVPUSH 40 mg DAILY RUBENS Administration Polyethylene Glycol 17 gm 07/12/18 10:00 07/13/18 09:48 Miralax (For Daily Use) - PO 17 gm DAILY RUBENS Administration Thiamine HCl 300 mg 07/07/18 14:00 07/13/18 13:09 Vitamin B1 Injection - IVPB 300 mg TID RUBENS Administration ASSESSMENT/PLAN: Acute Respiratory Failure due to Aspiration Pneumonitis and AMS Suspected Serotonin Syndrome Depression Suicidal attempt Polysubstance OD R/O Toxic Metabolic Encephalopathy SDH versus area of calcification on Head CT Plan extubated today and was re intubated because of trouble breathing-- AC mode of vent started on propofol. If fights with vent consider adding midazolam Monitor vitals Monitor intake output Cardiac monitoring Start metoprolol tartarate through NG tube. Extended release propanolol cannot be given trough NG tube Cyproheptadine per protocol Mechanical VTE prophylaxis on decadron for layrangeal edema. ABX per ID Enteral feeds PPI ICU monitoring Visit type - Emergency Visit Emergency Visit: Yes ED Registration Date: 07/06/18 Care time: The patient presented to the Emergency Department on the above date and was hospitalized for further evaluation of their emergent condition. - New Patient This patient is new to me today: Yes Date on this admission: 07/14/18 - Critical Care Critical Care patient: Yes Total Critical Care Time (in minutes): 45 Critical Care Statement: The care of this patient involved high complexity decision making to prevent further life threatening deterioration of the patient 's condition and/or to evaluate & treat vital organ system(s) failure or risk of failure.
[2018-07-13] MEDS: DEXAMETHASONE SOD PHOSPHATE 4 MG/1 ML VIAL IVPUSH SCH ×2 (15:51→20:44)
--- NOTE | 2018-07-13 17:45 | PN ---
Physical Exam: SUBJECTIVE: Patient seen and examined in the ICU. Sedation discontinued, more responsive today, sitting up with eyes open, tolerating CPAP. Patient was extubated, but was quickly noted with stridor unrelieved by Decadron and racemic epi. She was then re-intubated and restarted on Propofol. OBJECTIVE: Vital Signs Period Temp Pulse Resp BP Sys/Smith Pulse Ox Last 24 Hr 99.5 F-99.9 F 89-128 16-22 136-170/69-98 95-95 GENERAL: Eyes open today, on ventilator turned off but still intubated HEAD: Normal with no signs of trauma. EYES: PERRLA, +corneal light reflex, sclera anicteric, conjunctiva clear. ENT: +swollen lips, nares patent NECK: Trachea midline, full range of motion, supple. LUNGS: Breath sounds equal, clear to auscultation bilaterally, no wheezes, no crackles, no accessory muscle use. HEART: Rapid rate and rhythm, S1, S2 without murmur, rub or gallop. ABDOMEN: Soft, nontender, nondistended, normoactive bowel sounds, no guarding, no rebound, no hepatosplenomegaly, no masses. EXTREMITIES: 2+ pulses, warm, well-perfused, no edema. NEUROLOGICAL: Able to lightly personal injury specialist fingers and slighlty raise legs on command SKIN: Warm, dry, normal turgor, no rashes or lesions noted Laboratory Results - last 24 hr 07/13/18 07/13/18 07/13/18 05:30 05:30 05:30 WBC 4.7 RBC 3.39 L Hgb 10.6 L Hct 30.7 L MCV 90.7 MCH 31.3 MCHC 34.5 RDW 12.7 Plt Count 286 MPV 7.2 L Absolute Neuts (auto) 2.7 Neutrophils % 58.6 Neutrophils % (Manual) 54.5 Band Neutrophils % 4.9 Lymphocytes % 23.8 Lymphocytes % (Manual) 19.8 Monocytes % 17.4 H Monocytes % (Manual) 15 H Eosinophils % 0.1 Eosinophils % (Manual) 2.0 Basophils % 0.1 D Basophils % (Manual) 0.0 Myelocytes % (Man) 0 Promyelocytes % (Man) 0 Blast Cells % (Manual) 0 Nucleated RBC % 0 Metamyelocytes 0 Hypochromia 0 Platelet Estimate Normal Polychromasia 1+ Poikilocytosis 0 Anisocytosis 1+ Microcytosis 1+ Macrocytosis 1+ Anticoagulation Therapy Puncture Site ABG pH ABG pCO2 at Pt Temp ABG pO2 at Pt Temp ABG HCO3 ABG O2 Sat (Measured) ABG O2 Content ABG Base Excess Chaz Test O2 Delivery Device Oxygen Flow Rate Vent Mode Vent Rate Mechanical Rate PEEP Pressure Support Vent Sodium 142 Potassium 4.0 Chloride 108 H Carbon Dioxide 30 Anion Gap 4 L BUN 15 Creatinine 0.5 L Creat Clearance w eGFR > 60 POC Glucometer Random Glucose 146 H Lactic Acid 0.8 Calcium 7.8 L Phosphorus 3.3 Magnesium 2.0 Total Bilirubin 0.3 AST 25 ALT 33 Alkaline Phosphatase 103 Creatine Kinase 60 Total Protein 5.0 L Albumin 2.1 L 07/13/18 07/13/18 05:35 16:18 WBC RBC Hgb Hct MCV MCH MCHC RDW Plt Count MPV Absolute Neuts (auto) Neutrophils % Neutrophils % (Manual) Band Neutrophils % Lymphocytes % Lymphocytes % (Manual) Monocytes % Monocytes % (Manual) Eosinophils % Eosinophils % (Manual) Basophils % Basophils % (Manual) Myelocytes % (Man) Promyelocytes % (Man) Blast Cells % (Manual) Nucleated RBC % Metamyelocytes Hypochromia Platelet Estimate Polychromasia Poikilocytosis Anisocytosis Microcytosis Macrocytosis Anticoagulation Therapy No Result Required. Puncture Site Left radial ABG pH 7.51 H ABG pCO2 at Pt Temp 34.1 L ABG pO2 at Pt Temp 121.0 H ABG HCO3 27.3 H ABG O2 Sat (Measured) 99.5 H ABG O2 Content 6.9 L* ABG Base Excess 4.2 H Chaz Test Positive O2 Delivery Device Mech vent Oxygen Flow Rate 30% Vent Mode A/c Vent Rate 14 Mechanical Rate Yes PEEP 5.0 Pressure Support Vent 400 Sodium Potassium Chloride Carbon Dioxide Anion Gap BUN Creatinine Creat Clearance w eGFR POC Glucometer [id number] Random Glucose Lactic Acid Calcium Phosphorus Magnesium Total Bilirubin AST ALT Alkaline Phosphatase Creatine Kinase Total Protein Albumin Active Medications Generic Name Dose Route Start Last Admin Trade Name Freq PRN Reason Stop Dose Admin Chlorhexidine Gluconate 1 applic 07/06/18 22:00 07/12/18 22:32 Hibiclens For Decolonization - TP 1 applic HS RUBENS Administration Chlorhexidine Gluconate 15 ml 07/12/18 22:00 07/13/18 09:49 Peridex - MM 15 ml BID RUBENS Administration Cyproheptadine HCl 4 mg 07/09/18 00:00 07/13/18 13:00 Periactin Solution - PO 4 mg Q6HPO RUBENS Administration Dexamethasone Sodium Phosphate 4 mg 07/13/18 15:00 07/13/18 15:51 Decadron Injection - IVPUSH 4 mg Q6H-IV RUBENS Administration Heparin Sodium (Porcine) 5,000 unit 07/10/18 14:00 07/13/18 13:09 Heparin - SQ 5,000 unit TID RUBENS Administration Propofol 1,000,000 mcg in 100 mls @ 1.429 mls/hr 07/06/18 12:45 07/13/18 14: 45 Diprivan - IVPB 20 mcg/kg/min TITR RUBENS 5.715 mls/hr Administration Protocol 5 MCG/KG/MIN Piperacillin Sod/Tazobactam 50 mls @ 100 mls/hr 07/06/18 18:00 07/13/18 09:48 Sod 3.375 gm/ Dextrose IVPB 100 mls/hr Q8H-IV RUBENS Administration Protocol Midazolam HCl 100 mg/ Sodium 100 mls @ 1 mls/hr 07/07/18 17:45 07/11/18 19:28 Chloride IVPB 1 mg/hr TITR RUBENS 1 mls/hr Titration Protocol 1 MG/HR Sodium Chloride 1,000 mls @ 75 mls/hr 07/09/18 12:00 07/13/18 13:02 Normal Saline - IV Not Given ASDIR RUBENS Metoprolol Tartrate 25 mg 07/13/18 22:00 Lopressor - NGT BID RUBENS Pantoprazole Sodium 40 mg 07/09/18 12:00 07/13/18 09:50 Protonix Iv IVPUSH 40 mg DAILY RUBENS Administration Polyethylene Glycol 17 gm 07/12/18 10:00 07/13/18 09:48 Miralax (For Daily Use) - PO 17 gm DAILY RUBENS Administration Thiamine HCl 300 mg 07/07/18 14:00 07/13/18 13:09 Vitamin B1 Injection - IVPB 300 mg TID RUBENS Administration ASSESSMENT/PLAN: 67 year old female who presents with polysubstance overdose due to suicidal ideation; remains intubated and sedated in ICU. Treating empirically for serotonin syndrome. Acute Respiratory Failure 2/2 Overdose - CXR from yesterdayday show increased density at left base since yesterday which could represent some fluid with some atelectasis - Aspiration precautions; given activated charcoal - Followed by ID Dr. Solis - Continue on Zosyn 3.375 mg q8h - Taper antibiotics once patient afebrile for 24 hours - AC Mode of vent, 30% FiO2, managed by pulm/crit. -Sedation discontinued, patient extubated then re-intubated when stridor was unrelieved by Decadron and racemic epi, also tachy and tachypneic. She was then re-intubated and restarted on Propofol. AMS due to polysubstance overdose -Repeat head CT negative; suspect toxic metabolic encephalopathy -EEG read pending -Followed by neurologist Dr. Aquino Suspected Serotonin Syndrome -Continue Cyproheptadine; follow up with poison control. -Metoprolol 25 mg PRN for tachycardia -Monitor VS, HR. Manage supportively -IVF Suicidal Ideation -Will require psychiatric clearance as condition improves -Psychiatrist Dr. Deo Li ([phone]) will accept her inpatient if she leaves the ICU. -Consider d/c 1:1 while sedated Hypoalbuminemia -2.2 -> 2.0 -> 1.9 -> 2.1 -On Osmalite feeds -Nutrition consult Suspected extracranial hemorrhage -Seen on repeat CT to be 2/2 calcifications -Consider starting Lovenox for DVT px FEN -NS at 75 mls/hr -Continue to replete lites PRN -Tube feeds Osmalite. Prophylaxis -SCD's -No AC for now due to possible extra-axial hemorrhage -Protonix 40mg IVP BID Disposition -Full code -Intubated and sedated. Continue ICU monitoring Code status unchanged from prior visit Visit type - Emergency Visit Emergency Visit: No - New Patient This patient is new to me today: No - Critical Care Critical Care patient: Yes Total Critical Care Time (in minutes): 25
--- NOTE | 2018-07-13 17:47 | PN ---
Progress Note, Physician History of Present Illness: patient was extubated patient went into stridor had to be reintubated on steroids now - Current Medication List Current Medications: Active Medications Chlorhexidine Gluconate (Hibiclens For Decolonization -) 1 applic TP HS RUBENS Last Admin: 07/12/18 22:32 Dose: 1 applic Chlorhexidine Gluconate (Peridex -) 15 ml MM BID RUBENS Last Admin: 07/13/18 09:49 Dose: 15 ml Cyproheptadine HCl (Periactin Solution -) 4 mg PO Q6HPO RUBENS Last Admin: 07/13/18 13:00 Dose: 4 mg Dexamethasone Sodium Phosphate (Decadron Injection -) 4 mg IVPUSH Q6H-IV RUBENS Last Admin: 07/13/18 15:51 Dose: 4 mg Heparin Sodium (Porcine) (Heparin -) 5,000 unit SQ TID RUBENS Last Admin: 07/13/18 13:09 Dose: 5,000 unit Propofol (Diprivan -) 1,000,000 mcg in 100 mls @ 1.429 mls/hr IVPB TITR RUBENS; Protocol Last Admin: 07/13/18 14:45 Dose: 20 mcg/kg/min, 5.715 mls/hr Piperacillin Sod/Tazobactam (Sod 3.375 gm/ Dextrose) 50 mls @ 100 mls/hr IVPB Q8H-IV RUBENS; Protocol Last Admin: 07/13/18 09:48 Dose: 100 mls/hr Midazolam HCl 100 mg/ Sodium (Chloride) 100 mls @ 1 mls/hr IVPB TITR RUBENS; Protocol Last Titration: 07/11/18 19:28 Dose: 1 mg/hr, 1 mls/hr Sodium Chloride (Normal Saline -) 1,000 mls @ 75 mls/hr IV ASDIR RUBENS Last Admin: 07/13/18 13:02 Dose: Not Given Metoprolol Tartrate (Lopressor -) 25 mg NGT BID [facility] Pantoprazole Sodium (Protonix Iv) 40 mg IVPUSH DAILY [facility] Last Admin: 07/13/18 09:50 Dose: 40 mg Polyethylene Glycol (Miralax (For Daily Use) -) 17 gm PO DAILY [facility] Last Admin: 07/13/18 09:48 Dose: 17 gm Thiamine HCl (Vitamin B1 Injection -) 300 mg IVPB TID [facility] Last Admin: 07/13/18 13:09 Dose: 300 mg - Objective Vital Signs: Vital Signs Temperature 99.5 F 07/13/18 14:00 Pulse Rate 108 H 07/13/18 16:00 Respiratory Rate 21 H 07/13/18 16:00 Blood Pressure 146/76 07/13/18 16:00 O2 Sat by Pulse Oximetry (%) 95 07/13/18 07:30 Constitutional: Yes: Other Cardiovascular: Yes: Regular Rate and Rhythm Respiratory: Yes: Intubated, Mechanically Ventilated Gastrointestinal: Yes: Normal Bowel Sounds, Soft Musculoskeletal: Yes: WNL Extremities: Yes: WNL Neurological: Yes: Other Labs: CBC, BMP 07/13/18 05:30 07/13/18 05:30 INR, PTT INR 1.32 (0.83-1.09) H 07/07/18 12:35 - ....Imaging Chest X-ray: Report Reviewed, Image Reviewed Assessment/Plan Acute metabolic encephalopathy Severe sepsis Acute toxic metabolic encephalopathy Seratonin overdose Possible suicide attempt Severe depression r/o bleed in view of the events we will continue abx plan hydration continue empiric iv abx neurology hydration rest as per icu cc 40 min
[2018-07-13] MEDS ORDERED: BUDESONIDE 0.25 MG/2ML INH SUSP VIAL NEB SCH (20:00)
[2018-07-13] MEDS: METOPROLOL TARTRATE 25 MG TABLET (FP) NGT SCH (21:29)
[2018-07-13] MEDS: CHLORHEXIDINE GLUCONATE 4% CLEANSER FOR DECOLONIZATION TP SCH (21:34)
[2018-07-14] MEDS: CYPROHEPTADINE HYDROCHLORIDE 2 MG/5 ML SOLUTION PO SCH ×3 (00:42→13:00)
[2018-07-14] MEDS: PROPOFOL 1,000,000 MCG/100 ML VIAL IVPB SCH ×4 (02:36→21:51)
[2018-07-14] MEDS: DEXAMETHASONE SOD PHOSPHATE 4 MG/1 ML VIAL IVPUSH SCH ×4 (02:40→21:49)
[2018-07-14] MEDS: THIAMINE HCL 200 MG/2 ML VIAL IVPB SCH ×3 (05:54→21:49)
[2018-07-14] MEDS: HEPARIN NA (PORCINE) 5,000 UNITS/ML 1ML VIAL SQ SCH ×3 (05:54→21:50)
[2018-07-14 05:58] LABS: HEMATOCRIT 32.4 % (32.4-45.2); HEMOGLOBIN 11.1 GM/dL (10.7-15.3); LYMPH % 10.6 % (8-40); MCH 30.6 pg (25.7-33.7); MCHC 34.1 g/dl (32.0-36.0); MEAN CELL VOLUME 89.7 fl (80-96); MEAN PLT VOLUME 6.8 fl (7.5-11.1); MONO % 11.5 % (3.8-10.2); NEUT % 77.9 % (42.8-82.8); PLATELET COUNT 417 K/MM3 (134-434); RBC 3.61 M/mm3 (3.60-5.2); RDW 12.5 % (11.6-15.6); WHITE BLOOD COUNT 7.7 K/mm3 (4.0-10.0)
[2018-07-14 06:22] LABS: ALBUMIN 2.4 g/dl (3.4-5.0); ALK PHOS 118 U/L (45-117); ANION GAP 8 MMOL/L (8-16); BILIRUBIN,TOTAL 0.6 mg/dL (0.2-1); BLOOD UREA NITROGEN 23 mg/dL (7-18); CALCIUM 7.8 mg/dL (8.5-10.1); CHLORIDE 106 mmol/L (98-107); CO2 26 mmol/L (21-32); CREATININE 0.5 mg/dL (0.55-1.3); GLUCOSE,RANDOM 154 mg/dL (74-106); MAGNESIUM 2.2 mg/dL (1.8-2.4); PHOSPHOROUS 3.1 mg/dL (2.5-4.9); POTASSIUM 3.9 mmol/L (3.5-5.1); SGOT/AST 45 U/L (15-37); SGPT/ALT 63 U/L (13-61); SODIUM 140 mmol/L (136-145); TOT PROT 5.6 g/dl (6.4-8.2)
[2018-07-14] MEDS ORDERED: PT OWN MED DRAWER 7, Y5N ONE (09:11)
[2018-07-14] MEDS: PANTOPRAZOLE SODIUM 40 MG VIAL IVPUSH SCH (09:26)
[2018-07-14] MEDS: CHLORHEXIDINE GLUCONATE 0.12% 15ML CUP MM SCH ×2 (09:27→21:51)
[2018-07-14] MEDS: METOPROLOL TARTRATE 25 MG TABLET (FP) NGT SCH ×2 (09:27→21:51)
[2018-07-14] MEDS: POLYETHYLENE GLYCOL 3350 119 GM BTL PO SCH (09:27)
--- NOTE | 2018-07-14 09:41 | PN ---
Progress Note (short form) - Note Progress Note: 67 year old female history of severe depression and found responsive at home. It is not clear , how long she was out Patient was given narcan and was intuabted for airway protection. Patient has ct head and it was unremarkable. She was takign cymbalta, inderal, zyprexa, desipiprine, klonipin , effexor and abilify. she recently filled olanzapine on july 03 and her bottle was found empty and she also left a suicidal note. spent 15 minute doing critical care . She was extubated and she was alert and interacting with family and staff . As she has breathing trouble she was intubated again. Now on sedation and able to open eye and follow command Neurological Examination sedated on propafol , able to open eye and blink breathing above vent and bp is maintained pupils is mid size and responding, and corneal reflex is present Repeat ct head on july 07 was unchanged Assessment: Acute severe metabolic encephalopathy secondary to drug overdose, she was extubated and did very well and was intubated due to breathing trouble. Plan- Neurologically stable, would do more detail exam once she is extubated and stable - consider mri of brain once she is extubated and stable Thanking you so much Jeffry Aquino MD
[2018-07-14 11:47] LABS: ACANTHOCYTES 1+; ANISOCYTOSIS 2+; MACROCYTOSIS 0; OVALOCYTE 1+; PLATELET ESTIMATE NORMAL
--- NOTE | 2018-07-14 12:27 | PN ---
Physical Exam: SUBJECTIVE: Patient seen and examined in the ICU. Sedation re-started. OBJECTIVE: Vital Signs Period Temp Pulse Resp BP Sys/Smith Pulse Ox Last 24 Hr 99.0 F-100.8 F 105-128 17-25 128-163/75-95 95-96 GENERAL: Eyes open today, on ventilator turned off but still intubated HEAD: Normal with no signs of trauma. EYES: PERRLA, +corneal light reflex, sclera anicteric, conjunctiva clear. ENT: lips less swollen today, nares patent NECK: Trachea midline, full range of motion, supple. LUNGS: Breath sounds equal, clear to auscultation bilaterally, no wheezes, no crackles, no accessory muscle use. HEART: Rapid rate and rhythm, S1, S2 without murmur, rub or gallop. ABDOMEN: Soft, nontender, nondistended, normoactive bowel sounds, no guarding, no rebound, no hepatosplenomegaly, no masses. EXTREMITIES: 2+ pulses, warm, well-perfused, edema to b/l hands and trace pedal edema. 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 and slighlty raise legs on command SKIN: Warm, dry, normal turgor, no rashes or lesions noted Laboratory Results - last 24 hr 07/13/18 07/13/18 07/14/18 16:18 21:09 00:50 WBC RBC Hgb Hct MCV MCH MCHC RDW Plt Count MPV Absolute Neuts (auto) Neutrophils % Neutrophils % (Manual) Band Neutrophils % Lymphocytes % Lymphocytes % (Manual) Monocytes % Monocytes % (Manual) Eosinophils % Eosinophils % (Manual) Basophils % Basophils % (Manual) Myelocytes % (Man) Promyelocytes % (Man) Blast Cells % (Manual) Nucleated RBC % Metamyelocytes Hypochromia Platelet Estimate Polychromasia Poikilocytosis Anisocytosis Microcytosis Macrocytosis Ovalocytes Shahid Cells Acanthocytes (Spur) Sodium Potassium Chloride Carbon Dioxide Anion Gap BUN Creatinine Creat Clearance w eGFR POC Glucometer 128.07710 [phone] Random Glucose Calcium Phosphorus Magnesium Total Bilirubin AST ALT Alkaline Phosphatase Total Protein Albumin 07/14/18 07/14/18 07/14/18 03:26 05:30 05:30 WBC 7.7 RBC 3.61 Hgb 11.1 Hct 32.4 MCV 89.7 MCH 30.6 MCHC 34.1 RDW 12.5 Plt Count 417 D MPV 6.8 L Absolute Neuts (auto) 6.0 Neutrophils % 77.9 D Neutrophils % (Manual) 77.0 Band Neutrophils % 5.0 Lymphocytes % 10.6 D Lymphocytes % (Manual) 9.0 D Monocytes % 11.5 H Monocytes % (Manual) 6 Eosinophils % 0.0 D Eosinophils % (Manual) 0.0 D Basophils % 0.0 Basophils % (Manual) 0.0 Myelocytes % (Man) 0 Promyelocytes % (Man) 0 Blast Cells % (Manual) 1 H D Nucleated RBC % 0 Metamyelocytes 1 D Hypochromia 0 Platelet Estimate Normal Polychromasia 2+ Poikilocytosis 0 Anisocytosis 2+ Microcytosis 2+ Macrocytosis 0 Ovalocytes 1+ [place] Cells 1+ Acanthocytes (Spur) 1+ Sodium 140 Potassium 3.9 Chloride 106 Carbon Dioxide 26 Anion Gap 8 BUN 23 H Creatinine 0.5 L Creat Clearance w eGFR > 60 POC Glucometer 142.77492 Random Glucose 154 H Calcium 7.8 L Phosphorus 3.1 Magnesium 2.2 Total Bilirubin 0.6 AST 45 H ALT 63 H Alkaline Phosphatase 118 H Total Protein 5.6 L Albumin 2.4 L 07/14/18 09:24 WBC RBC Hgb Hct MCV MCH MCHC RDW Plt Count MPV Absolute Neuts (auto) Neutrophils % Neutrophils % (Manual) Band Neutrophils % Lymphocytes % Lymphocytes % (Manual) Monocytes % Monocytes % (Manual) Eosinophils % Eosinophils % (Manual) Basophils % Basophils % (Manual) Myelocytes % (Man) Promyelocytes % (Man) Blast Cells % (Manual) Nucleated RBC % Metamyelocytes Hypochromia Platelet Estimate Polychromasia Poikilocytosis Anisocytosis Microcytosis Macrocytosis Ovalocytes Shahid Cells Acanthocytes (Spur) Sodium Potassium Chloride Carbon Dioxide Anion Gap BUN Creatinine Creat Clearance w eGFR POC Glucometer [phone] Random Glucose Calcium Phosphorus Magnesium Total Bilirubin AST ALT Alkaline Phosphatase Total Protein Albumin Active Medications Generic Name Dose Route Start Last Admin Trade Name Freq PRN Reason Stop Dose Admin Chlorhexidine Gluconate 1 applic 07/06/18 22:00 07/13/18 21:34 Hibiclens For Decolonization - TP 1 applic HS RUBENS Administration Chlorhexidine Gluconate 15 ml 07/12/18 22:00 07/14/18 09:27 Peridex - MM 15 ml BID RUBENS Administration Cyproheptadine HCl 4 mg 07/09/18 00:00 07/14/18 05:55 Periactin Solution - PO 4 mg Q6HPO RUBENS Administration Dexamethasone Sodium Phosphate 4 mg 07/13/18 15:00 07/14/18 09:26 Decadron Injection - IVPUSH 4 mg Q6H-IV RUBENS Administration Heparin Sodium (Porcine) 5,000 unit 07/10/18 14:00 07/14/18 05:54 Heparin - SQ 5,000 unit TID RUBENS Administration Propofol 1,000,000 mcg in 100 mls @ 1.429 mls/hr 07/06/18 12:45 07/14/18 09: 36 Diprivan - IVPB 50 mcg/kg/min TITR RUBENS 14.288 mls/hr Administration Protocol 5 MCG/KG/MIN Midazolam HCl 100 mg/ Sodium 100 mls @ 1 mls/hr 07/07/18 17:45 07/11/18 19:28 Chloride IVPB 1 mg/hr TITR RUBENS 1 mls/hr Titration Protocol 1 MG/HR Sodium Chloride 1,000 mls @ 75 mls/hr 07/09/18 12:00 07/13/18 13:02 Normal Saline - IV Not Given ASDIR RUBENS Metoprolol Tartrate 25 mg 07/13/18 22:00 07/14/18 09:27 Lopressor - NGT 25 mg BID RUBENS Administration Pantoprazole Sodium 40 mg 07/09/18 12:00 07/14/18 09:26 Protonix Iv IVPUSH 40 mg DAILY RUBENS Administration Polyethylene Glycol 17 gm 07/12/18 10:00 07/14/18 09:27 Miralax (For Daily Use) - PO 17 gm DAILY RUBENS Administration Thiamine HCl 300 mg 07/07/18 14:00 07/14/18 05:54 Vitamin B1 Injection - IVPB 300 mg TID RUBENS Administration ASSESSMENT/PLAN: 67 year old female who presents with polysubstance overdose due to suicidal ideation; remains intubated and sedated in ICU. Treating empirically for serotonin syndrome. Acute Respiratory Failure 2/2 Overdose - CXR today improved; better aeration at bases - Aspiration precautions; given activated charcoal - Followed by ID Dr. Solis - Continue on Zosyn 3.375 mg q8h - Taper antibiotics once patient afebrile for 24 hours - Started on Dexamethasone 4 mg IVP q6h - AC Mode of vent, 30% FiO2, managed by pulm/crit. -Sedation discontinued, patient extubated then re-intubated when stridor was unrelieved by Decadron and racemic epi, also tachy and tachypneic. She was then re-intubated and restarted on Propofol. Transaminitis - AST 45, ALT 63 - Monitor CMP AMS due to polysubstance overdose -Repeat head CT 07/07/18 unchanged; suspect toxic metabolic encephalopathy -EEG read pending -MRI once extubated and stable -Followed by neurologist Dr. Aquino Suspected Serotonin Syndrome -Continue Cyproheptadine; follow up with poison control. -Metoprolol 25 mg PRN for tachycardia -Monitor VS, HR. Manage supportively -IVF Suicidal Ideation -Will require psychiatric clearance as condition improves -Psychiatrist Dr. Deo Li ([phone]) will accept her inpatient if she leaves the ICU. -Consider d/c 1:1 while sedated Hypoalbuminemia -2.2 -> 2.0 -> 1.9 -> 2.1 -On Osmalite feeds -Nutrition consult Suspected extracranial hemorrhage -Seen on repeat CT to be 2/2 calcifications -Consider starting Lovenox for DVT px FEN -NS at 75 mls/hr -Continue to replete lites PRN -Tube feeds Osmalite. Prophylaxis -SCD's -No AC for now due to possible extra-axial hemorrhage -Protonix 40mg IVP BID Disposition -Full code -Intubated and sedated. Continue ICU monitoring Code status unchanged from prior visit Visit type - Emergency Visit Emergency Visit: No - New Patient This patient is new to me today: No - Critical Care Critical Care patient: Yes Total Critical Care Time (in minutes): 25
--- NOTE | 2018-07-14 13:25 | PN ---
Teaching Attending Note Name of Resident: Bernard Elizondo ATTENDING PHYSICIAN STATEMENT I saw and evaluated the patient. I reviewed the resident's note and discussed the case with the resident. I agree with the resident's findings and plan as documented. SUBJECTIVE: Pt seen and examined in the ICU. Extubated yesterday but re-intubated after developing stridor and respiratory distress. Currently intubated, sedated on assist control. No cuff leak today. Febrile overnight. OBJECTIVE: Vital Signs Period Temp Pulse Resp BP Sys/Smith Pulse Ox Last 24 Hr 99.0 F-100.8 F 105-128 17-25 128-163/75-95 95-96 Intake & Output 07/11/18 07/12/18 07/13/18 07/14/18 23:59 23:59 23:59 23:59 Intake Total 2815.2 2486.5 2855.6 1255.2 Output Total 3050 4100 3400 600 Balance -234.8 -1613.5 -544.4 655.2 Weight 51.6 kg Gen: intubated, sedated Heart: RRR Lung: scattered rhonchi Abd: soft, nontender Ext: no edema CBC, BMP 07/14/18 05:30 07/14/18 05:30 Active Medications Chlorhexidine Gluconate (Hibiclens For Decolonization -) 1 applic TP HS [facility] Last Admin: 07/13/18 21:34 Dose: 1 applic Chlorhexidine Gluconate (Peridex -) 15 ml MM BID [facility] Last Admin: 07/14/18 09:27 Dose: 15 ml Cyproheptadine HCl (Periactin Solution -) 4 mg PO Q6HPO [facility] Last Admin: 07/14/18 05:55 Dose: 4 mg Dexamethasone Sodium Phosphate (Decadron Injection -) 4 mg IVPUSH Q6H-IV [facility] Last Admin: 07/14/18 09:26 Dose: 4 mg Heparin Sodium (Porcine) (Heparin -) 5,000 unit SQ TID [facility] Last Admin: 07/14/18 05:54 Dose: 5,000 unit Propofol (Diprivan -) 1,000,000 mcg in 100 mls @ 1.429 mls/hr IVPB TITR [facility]; Protocol Last Admin: 07/14/18 09:36 Dose: 50 mcg/kg/min, 14.288 mls/hr Midazolam HCl 100 mg/ Sodium (Chloride) 100 mls @ 1 mls/hr IVPB TITR [facility]; Protocol Last Titration: 07/11/18 19:28 Dose: 1 mg/hr, 1 mls/hr Sodium Chloride (Normal Saline -) 1,000 mls @ 75 mls/hr IV ASDIR [facility] Last Admin: 07/13/18 13:02 Dose: Not Given Metoprolol Tartrate (Lopressor -) 25 mg NGT BID [facility] Last Admin: 07/14/18 09:27 Dose: 25 mg Pantoprazole Sodium (Protonix Iv) 40 mg IVPUSH DAILY [facility] Last Admin: 07/14/18 09:26 Dose: 40 mg Polyethylene Glycol (Miralax (For Daily Use) -) 17 gm PO DAILY [facility] Last Admin: 07/14/18 09:27 Dose: 17 gm Thiamine HCl (Vitamin B1 Injection -) 300 mg IVPB TID [facility] Last Admin: 07/14/18 05:54 Dose: 300 mg ASSESSMENT AND PLAN: Acute Respiratory Failure Drug Overdose Suicide Attempt r/o Serotonin Syndrome Depression Laryngeal Edema - continue decadron, antihistamines - monitor for cuff leak - reculture if febrile - continue IVF - monitor urine output, creatinine - continue cyproheptadine - continue volume assist control - enteral feeds - DVT/GI prophylaxis - continue ICU monitoring critical care time spent in reviewing chart, evaluating patient and formulating plan 35 min
[2018-07-14] MEDS: SODIUM CHLORIDE 1,000 ML IV SCH (14:12)
--- NOTE | 2018-07-14 15:08 | PN ---
Physical Exam: SUBJECTIVE: Patient seen and examined at bedside. She is intubated and sedated. She was extubated yesterday but then re-intubated secondary to laryngeal edema. Today she sporadically awakes despite being sedated on 50 mcg of propofol. I spoke with [facility] poison control today who recommended stopping the cyproheptadine bc she no longer appears to be experiencing serotonin syndrome based on her no longer having clonus, rigidity, or hyperthermia. I told them about her laryngeal edema from yesterday and they said its okay to stop the cyproheptadine but to add benadryl onto her regimen. They also said we can restart her home dose of klonipin to help her with anxiety and agitiation. The family has been patiently waiting at bedside and hoping for a full recovery. OBJECTIVE: Vital Signs Period Temp Pulse Resp BP Sys/Smith Pulse Ox Last 24 Hr 99.0 F-100.8 F 105-128 17-25 128-163/75-95 95-96 GENERAL: The patient is intubated, sedated, but still wakes up. HEAD: Normal with no signs of trauma. EYES: PERRL, sclera anicteric. ENT: Ears normal, nares dry and crusted, dry mucous membranes. NECK: Trachea midline, full range of motion. LUNGS: Breath sounds equal, clear to auscultation bilaterally, no wheezes, no crackles, no accessory muscle use. HEART: Tachycardic rate and regular rhythm, S1, S2 without murmur, rub or gallop. ABDOMEN: Soft, mildly distended, normoactive bowel sounds, no masses. EXTREMITIES: 2+ pulses, warm, well-perfused, no edema. NEUROLOGICAL: Cannot assess due to mental status. PSYCH: Suicidal ideation. SKIN: Warm, dry, normal turgor, no rashes or lesions noted Laboratory Results - last 24 hr 07/13/18 07/13/1818 16:18 21:09 00:50 WBC RBC Hgb Hct MCV MCH MCHC RDW Plt Count MPV Absolute Neuts (auto) Neutrophils % Neutrophils % (Manual) Band Neutrophils % Lymphocytes % Lymphocytes % (Manual) Monocytes % Monocytes % (Manual) Eosinophils % Eosinophils % (Manual) Basophils % Basophils % (Manual) Myelocytes % (Man) Promyelocytes % (Man) Blast Cells % (Manual) Nucleated RBC % Metamyelocytes Hypochromia Platelet Estimate Polychromasia Poikilocytosis Anisocytosis Microcytosis Macrocytosis Ovalocytes Shahid Cells Acanthocytes (Spur) Sodium Potassium Chloride Carbon Dioxide Anion Gap BUN Creatinine Creat Clearance w eGFR POC Glucometer 128.88827 173.73117 175.81381 Random Glucose Calcium Phosphorus Magnesium Total Bilirubin AST ALT Alkaline Phosphatase Total Protein Albumin 07/14/18 07/14/18 07/14/18 03:26 05:30 05:30 WBC 7.7 RBC 3.61 Hgb 11.1 Hct 32.4 MCV 89.7 MCH 30.6 MCHC 34.1 RDW 12.5 Plt Count 417 D MPV 6.8 L Absolute Neuts (auto) 6.0 Neutrophils % 77.9 D Neutrophils % (Manual) 77.0 Band Neutrophils % 5.0 Lymphocytes % 10.6 D Lymphocytes % (Manual) 9.0 D Monocytes % 11.5 H Monocytes % (Manual) 6 Eosinophils % 0.0 D Eosinophils % (Manual) 0.0 D Basophils % 0.0 Basophils % (Manual) 0.0 Myelocytes % (Man) 0 Promyelocytes % (Man) 0 Blast Cells % (Manual) 1 H D Nucleated RBC % 0 Metamyelocytes 1 D Hypochromia 0 Platelet Estimate Normal Polychromasia 2+ Poikilocytosis 0 Anisocytosis 2+ Microcytosis 2+ Macrocytosis 0 Ovalocytes 1+ [place] Cells 1+ Acanthocytes (Spur) 1+ Sodium 140 Potassium 3.9 Chloride 106 Carbon Dioxide 26 Anion Gap 8 BUN 23 H Creatinine 0.5 L Creat Clearance w eGFR > 60 POC Glucometer 142.82529 Random Glucose 154 H Calcium 7.8 L Phosphorus 3.1 Magnesium 2.2 Total Bilirubin 0.6 AST 45 H ALT 63 H Alkaline Phosphatase 118 H Total Protein 5.6 L Albumin 2.4 L 07/14/18 09:24 WBC RBC Hgb Hct MCV MCH MCHC RDW Plt Count MPV Absolute Neuts (auto) Neutrophils % Neutrophils % (Manual) Band Neutrophils % Lymphocytes % Lymphocytes % (Manual) Monocytes % Monocytes % (Manual) Eosinophils % Eosinophils % (Manual) Basophils % Basophils % (Manual) Myelocytes % (Man) Promyelocytes % (Man) Blast Cells % (Manual) Nucleated RBC % Metamyelocytes Hypochromia Platelet Estimate Polychromasia Poikilocytosis Anisocytosis Microcytosis Macrocytosis Ovalocytes [place] Cells Acanthocytes (Spur) Sodium Potassium Chloride Carbon Dioxide Anion Gap BUN Creatinine Creat Clearance w eGFR POC Glucometer 149.09686 Random Glucose Calcium Phosphorus Magnesium Total Bilirubin AST ALT Alkaline Phosphatase Total Protein Albumin Active Medications Generic Name Dose Route Start Last Admin Trade Name Cadeq PRN Reason Stop Dose Admin Chlorhexidine Gluconate 1 applic 07/06/18 22:00 07/13/18 21:34 Hibiclens For Decolonization - TP 1 applic HS RUBENS Administration Chlorhexidine Gluconate 15 ml 07/12/18 22:00 07/14/18 09:27 Peridex - MM 15 ml BID RUBENS Administration Cyproheptadine HCl 4 mg 07/09/18 00:00 07/14/18 13:00 Periactin Solution - PO 4 mg Q6HPO RUBENS Administration Dexamethasone Sodium Phosphate 4 mg 07/13/18 15:00 07/14/18 14:38 Decadron Injection - IVPUSH 4 mg Q6H-IV RUBENS Administration Heparin Sodium (Porcine) 5,000 unit 07/10/18 14:00 07/14/18 14:14 Heparin - SQ 5,000 unit TID RUBENS Administration Propofol 1,000,000 mcg in 100 mls @ 1.429 mls/hr 07/06/18 12:45 07/14/18 14: 14 Diprivan - IVPB 50 mcg/kg/min TITR RUBENS 14.288 mls/hr Administration Protocol 5 MCG/KG/MIN Midazolam HCl 100 mg/ Sodium 100 mls @ 1 mls/hr 07/07/18 17:45 07/11/18 19:28 Chloride IVPB 1 mg/hr TITR RUBENS 1 mls/hr Titration Protocol 1 MG/HR Sodium Chloride 1,000 mls @ 75 mls/hr 07/09/18 12:00 07/14/18 14:12 Normal Saline - IV Not Given ASDIR RUBENS Metoprolol Tartrate 25 mg 07/13/18 22:00 07/14/18 09:27 Lopressor - NGT 25 mg BID RUBENS Administration Pantoprazole Sodium 40 mg 07/09/18 12:00 07/14/18 09:26 Protonix Iv IVPUSH 40 mg DAILY RUBENS Administration Polyethylene Glycol 17 gm 07/12/18 10:00 07/14/18 09:27 Miralax (For Daily Use) - PO 17 gm DAILY RUBENS Administration Thiamine HCl 300 mg 07/07/18 14:00 07/14/18 14:16 Vitamin B1 Injection - IVPB 300 mg TID RUBENS Administration ASSESSMENT/PLAN: [facility] Poison control knows about patient and is following: Call [phone] either Dr. Escalante or Dr. aPz. Dr. Paz said we can reach him on his cell phone at: [phone] - I spoke with [facility] poison control today who recommended stopping the cyproheptadine bc she no longer appears to be experiencing serotonin syndrome based on her no longer having clonus, rigidity, or hyperthermia. I told them about her laryngeal edema from yesterday and they said its okay to stop the cyproheptadine but to add benadryl onto her regimen. They also said we can restart her home dose of klonipin to help her with anxiety and agitiation. - We are starting her on her home klonipin dosage. - Stopping cyproheptadine - Starting benadryl Assessment: 67 year old female with a PMHx of Depression and suicidal ideations with recent admission to [facility] (06/19/18-) was BIBEMS after being found by her son unresponsive, warm to touch with thick mucous coming out of her mouth and "barely breathing" at around 1030 yesterday morning. There was a suicide note and empty bottles of Olanzapine and Clonazepam. Patient admitted to ICU for further monitoring and management. She was extubated yesterday but re-intubated for laryngeal edema. We are giving steroids and benadryl to help with the laryngeal edema and allergic reaction. Placed psychiatry consult in [facility] today. NEURO #Acute Toxic Metabolic Encephalopathy/ likely serotonin syndrome + Benzo OD. - No ocular clonus, rigidity, or hyperthermia - Propofol drip - Starting klonipin today. - Currently intubated and sedated for airway protection - Repeat Head CT did not appear to show consistent brain bleed. Likely calcification. - Will get another head CT when patient is more stable. CARDIO #Tachycardia - Likely secondary to anxiety/benzo withdrawal - She is getting metoprolol in place of her home propranolol PULM: - Intubated. - Laryngeal edema + Stridor yesterday. - Receiving steroids and benadryl. - Will attempt extubation tomorrow if patient has a positive leak test. PSYCH #Severe Depression with Attempted Suicide -Will hold off on anti-psychotics due to toxicity -Continue to monitor and will need 1:1 after possible extubation, as well as a possible transfer to inpatient psych -Psychiatry consulted today. - [facility] was spoken to about the patient. - Dr. Deo Li will accept the patient as an inpatient if she leaves the ICU. Number: [phone] INFECTIOUS DISEASE - ID consulted and recommended strict aspiration precautions secondary to activated charcoal. - Patient finished Abx course. - Chest X-Ray revealed course lung changes and pleural thickening. Possible aspiration F/E/N - Patient is receiving NS at 75 mls/hr - Continue to replete lites PRN - Tube feeds - Osmalite. PROPHYLAXIS -SCD's + Heparin -Protonix 40mg IVP BID Disposition -Full code -Continue ICU monitoring Visit type - Emergency Visit Emergency Visit: Yes ED Registration Date: 07/06/18 Care time: The patient presented to the Emergency Department on the above date and was hospitalized for further evaluation of their emergent condition. - New Patient This patient is new to me today: No - Critical Care Critical Care patient: Yes Total Critical Care Time (in minutes): 36 Critical Care Statement: The care of this patient involved high complexity decision making to prevent further life threatening deterioration of the patient 's condition and/or to evaluate & treat vital organ system(s) failure or risk of failure.
--- NOTE | 2018-07-14 16:00 | PN ---
Progress Note, Physician History of Present Illness: continues to be intubated on steroids - Current Medication List Current Medications: Active Medications Chlorhexidine Gluconate (Hibiclens For Decolonization -) 1 applic TP HS [facility] Last Admin: 07/13/18 21:34 Dose: 1 applic Chlorhexidine Gluconate (Peridex -) 15 ml MM BID [facility] Last Admin: 07/14/18 09:27 Dose: 15 ml Clonazepam (Klonopin -) 0.5 mg PO Q12H PRN PRN Reason: ANXIETY Dexamethasone Sodium Phosphate (Decadron Injection -) 4 mg IVPUSH Q6H-IV [facility] Last Admin: 07/14/18 14:38 Dose: 4 mg Diphenhydramine HCl (Benadryl -) 25 mg PO BID [facility] Heparin Sodium (Porcine) (Heparin -) 5,000 unit SQ TID [facility] Last Admin: 07/14/18 14:14 Dose: 5,000 unit Propofol (Diprivan -) 1,000,000 mcg in 100 mls @ 1.429 mls/hr IVPB TITR [facility]; Protocol Last Admin: 07/14/18 14:14 Dose: 50 mcg/kg/min, 14.288 mls/hr Midazolam HCl 100 mg/ Sodium (Chloride) 100 mls @ 1 mls/hr IVPB TITR [facility]; Protocol Last Titration: 07/11/18 19:28 Dose: 1 mg/hr, 1 mls/hr Sodium Chloride (Normal Saline -) 1,000 mls @ 75 mls/hr IV ASDIR [facility] Last Admin: 07/14/18 14:12 Dose: Not Given Metoprolol Tartrate (Lopressor -) 25 mg NGT BID [facility] Last Admin: 07/14/18 09:27 Dose: 25 mg Pantoprazole Sodium (Protonix Iv) 40 mg IVPUSH DAILY [facility] Last Admin: 07/14/18 09:26 Dose: 40 mg Polyethylene Glycol (Miralax (For Daily Use) -) 17 gm PO DAILY [facility] Last Admin: 07/14/18 09:27 Dose: 17 gm Thiamine HCl (Vitamin B1 Injection -) 300 mg IVPB TID [facility] Last Admin: 07/14/18 14:16 Dose: 300 mg - Objective Vital Signs: Vital Signs Temperature 99.2 F 07/14/18 10:00 Pulse Rate 106 H 07/14/18 14:00 Respiratory Rate 22 H 07/14/18 14:00 Blood Pressure 138/78 07/14/18 14:00 O2 Sat by Pulse Oximetry (%) 96 07/14/18 08:01 Constitutional: Yes: No Distress, Calm Cardiovascular: Yes: Regular Rate and Rhythm Respiratory: Yes: Intubated, Mechanically Ventilated Gastrointestinal: Yes: Normal Bowel Sounds, Soft Musculoskeletal: Yes: WNL Extremities: Yes: WNL Wound/Incision: Yes: Other Neurological: Yes: Other Labs: CBC, BMP 07/14/18 05:30 07/14/18 05:30 INR, PTT INR 1.32 (0.83-1.09) H 07/07/18 12:35 Assessment/Plan Acute metabolic encephalopathy Severe sepsis Acute toxic metabolic encephalopathy Seratonin overdose Possible suicide attempt Severe depression r/o bleed in view of the events we will continue abx plan hydration support rest as per icu steroids resp support cc 40 min
[2018-07-14] MEDS: diphenhydrAMINE HCL 25 MG CAPSULE (FP) PO SCH (21:50)
[2018-07-14] MEDS: CHLORHEXIDINE GLUCONATE 4% CLEANSER FOR DECOLONIZATION TP SCH (21:50)
[2018-07-15] MEDS: DEXAMETHASONE SOD PHOSPHATE 4 MG/1 ML VIAL IVPUSH SCH ×4 (03:41→21:33)
[2018-07-15 05:51] LABS: BASO % 0.1 % (0-2.0); HEMOGLOBIN 10.6 GM/dL (10.7-15.3); LYMPH % 12.3 % (8-40); MCHC 34.2 g/dl (32.0-36.0); MEAN CELL VOLUME 90.6 fl (80-96); MEAN PLT VOLUME 6.8 fl (7.5-11.1); MONO % 11.1 % (3.8-10.2); NEUT % 76.5 % (42.8-82.8); PLATELET COUNT 449 K/MM3 (134-434); RBC 3.42 M/mm3 (3.60-5.2); RDW 12.7 % (11.6-15.6); WHITE BLOOD COUNT 9.2 K/mm3 (4.0-10.0)
[2018-07-15] MEDS: THIAMINE HCL 200 MG/2 ML VIAL IVPB SCH ×3 (06:22→21:34)
[2018-07-15] MEDS: HEPARIN NA (PORCINE) 5,000 UNITS/ML 1ML VIAL SQ SCH ×3 (06:22→21:33)
[2018-07-15 07:38] LABS: ALBUMIN 2.4 g/dl (3.4-5.0); ALK PHOS 117 U/L (45-117); ANION GAP 8 MMOL/L (8-16); BILIRUBIN,TOTAL 0.2 mg/dL (0.2-1); BLOOD UREA NITROGEN 25 mg/dL (7-18); CALCIUM 8.1 mg/dL (8.5-10.1); CHLORIDE 107 mmol/L (98-107); CO2 27 mmol/L (21-32); CREATININE 0.5 mg/dL (0.55-1.3); GLUCOSE,RANDOM 134 mg/dL (74-106); MAGNESIUM 2.2 mg/dL (1.8-2.4); PHOSPHOROUS 3.2 mg/dL (2.5-4.9); POTASSIUM 4.1 mmol/L (3.5-5.1); SGOT/AST 51 U/L (15-37); SGPT/ALT 101 U/L (13-61); SODIUM 142 mmol/L (136-145); TOT PROT 5.5 g/dl (6.4-8.2)
--- NOTE | 2018-07-15 08:47 | PN ---
Physical Exam: SUBJECTIVE: Patient seen and examined in the icu. awake, intubated. on propofol. OBJECTIVE: on a 1:1 Vital Signs Period Temp Pulse Resp BP Sys/Smith Pulse Ox Last 24 Hr 98.7 F-99.2 F 101-131 17-25 127-156/68-96 96-97 GENERAL: Eyes open today, on ventilator, still intubated HEAD: Normal with no signs of trauma. EYES: PERRLA, +corneal light reflex, sclera anicteric, conjunctiva clear. ENT: nares patent NECK: Trachea midline, full range of motion, supple. LUNGS: Breath sounds equal, scattered rhonchi on anterior lobes HEART: Rapid rate and rhythm, tachycardia on docket specialist ABDOMEN: Soft, nontender, nondistended, normoactive bowel sounds, no guarding, no rebound, no hepatosplenomegaly, no masses. EXTREMITIES: edema to b/l hands, r>l NEUROLOGICAL: eyes open, facial symmetry. attempts to talk, still intubated SKIN: Warm, dry, normal turgor, no rashes or lesions noted Laboratory Results - last 24 hr 07/14/18 07/14/18 07/15/18 05:30 09:24 05:30 WBC 9.2 RBC 3.42 L Hgb 10.6 L Hct 31.0 L MCV 90.6 MCH 31.0 MCHC 34.2 RDW 12.7 Plt Count 449 H MPV 6.8 L Absolute Neuts (auto) 7.0 Neutrophils % 76.5 Neutrophils % (Manual) 77.0 Band Neutrophils % 5.0 Lymphocytes % 12.3 Lymphocytes % (Manual) 9.0 D Monocytes % 11.1 H Monocytes % (Manual) 6 Eosinophils % 0.0 Eosinophils % (Manual) 0.0 D Basophils % 0.1 D Basophils % (Manual) 0.0 Myelocytes % (Man) 0 Promyelocytes % (Man) 0 Blast Cells % (Manual) 1 H D Nucleated RBC % 0 Metamyelocytes 1 D Hypochromia 0 Platelet Estimate Normal Polychromasia 2+ Poikilocytosis 0 Anisocytosis 2+ Microcytosis 2+ Macrocytosis 0 Ovalocytes 1+ [place] Cells 1+ Acanthocytes (Spur) 1+ Sodium Potassium Chloride Carbon Dioxide Anion Gap BUN Creatinine Creat Clearance w eGFR POC Glucometer [phone] Random Glucose Calcium Phosphorus Magnesium Total Bilirubin AST ALT Alkaline Phosphatase Total Protein Albumin 07/15/18 05:30 WBC RBC Hgb Hct MCV MCH MCHC RDW Plt Count MPV Absolute Neuts (auto) Neutrophils % Neutrophils % (Manual) Band Neutrophils % Lymphocytes % Lymphocytes % (Manual) Monocytes % Monocytes % (Manual) Eosinophils % Eosinophils % (Manual) Basophils % Basophils % (Manual) Myelocytes % (Man) Promyelocytes % (Man) Blast Cells % (Manual) Nucleated RBC % Metamyelocytes Hypochromia Platelet Estimate Polychromasia Poikilocytosis Anisocytosis Microcytosis Macrocytosis Ovalocytes Shahid Cells Acanthocytes (Spur) Sodium 142 Potassium 4.1 Chloride 107 Carbon Dioxide 27 Anion Gap 8 BUN 25 H Creatinine 0.5 L Creat Clearance w eGFR > 60 POC Glucometer Random Glucose 134 H Calcium 8.1 L Phosphorus 3.2 Magnesium 2.2 Total Bilirubin 0.2 AST 51 H ALT 101 H Alkaline Phosphatase 117 Total Protein 5.5 L Albumin 2.4 L Active Medications Generic Name Dose Route Start Last Admin Trade Name Freq PRN Reason Stop Dose Admin Chlorhexidine Gluconate 1 applic 07/06/18 22:00 07/14/18 21:50 Hibiclens For Decolonization - TP 1 applic HS RUBENS Administration Chlorhexidine Gluconate 15 ml 07/12/18 22:00 07/14/18 21:51 Peridex - MM 15 ml BID RUBENS Administration Clonazepam 0.5 mg 07/14/18 15:24 Klonopin - PO Q12H PRN ANXIETY Dexamethasone Sodium Phosphate 4 mg 07/13/18 15:00 07/15/18 03:41 Decadron Injection - IVPUSH 4 mg Q6H-IV RUBENS Administration Diphenhydramine HCl 25 mg 07/14/18 22:00 07/14/18 21:50 Benadryl - PO 25 mg BID RUBENS Administration Heparin Sodium (Porcine) 5,000 unit 07/10/18 14:00 07/15/18 06:22 Heparin - SQ 5,000 unit TID RUBENS Administration Propofol 1,000,000 mcg in 100 mls @ 1.429 mls/hr 07/06/18 12:45 07/14/18 21: 51 Diprivan - IVPB 50 mcg/kg/min TITR RUBENS 14.288 mls/hr Administration Protocol 5 MCG/KG/MIN Sodium Chloride 1,000 mls @ 75 mls/hr 07/09/18 12:00 07/14/18 14:12 Normal Saline - IV Not Given ASDIR RUBENS Metoprolol Tartrate 25 mg 07/13/18 22:00 07/14/18 21:51 Lopressor - NGT 25 mg BID RUBENS Administration Pantoprazole Sodium 40 mg 07/09/18 12:00 07/14/18 09:26 Protonix Iv IVPUSH 40 mg DAILY RUBENS Administration Polyethylene Glycol 17 gm 07/12/18 10:00 07/14/18 09:27 Miralax (For Daily Use) - PO 17 gm DAILY RUBENS Administration Thiamine HCl 300 mg 07/07/18 14:00 07/15/18 06:22 Vitamin B1 Injection - IVPB 300 mg TID RUBENS Administration ASSESSMENT/PLAN: Patient is a 67 year old female with a reported past medical history of severe depression with prior admission to [facility]. Patient brought in to the ED 07/06/2018 via ambulance after she was found unresponsive in her bed. Her son lives downstairs and last saw her at her baseline around 4pm on 07/05/18. He went to see her in the morning at 10:30a.m. and found her to be unresponsive, in bed. Patient intubated on admission for possible serotonin syndrome. Acute metabolic encephalopathy Severe sepsis Acute toxic metabolic encephalopathy Seratonin overdose Possible suicide attempt Severe depression Rule out stroke Pulm: Acute Respiratory Failure, secondary to drug overdose. On admission, treated with activated charcoal with NGT placement s/p IV antibiotics (Zosyn) for possible aspiration Intubuted since admission, extubated 2 days prior, but had to re-intubated when patient developed stridor and was started on Dexamethasone 4 mg On propofol since this am., but will likely be extubated today Neuro: Suspected extracranial hemorrhage Head ct 07/06/2018: mild volume loss, small focal hyperdensity within the anterior falx on axial image 16 measuring 5x3 mm and 50 hounsfield units suspicious for extra axial acute hemorrhage. Repeat head ct 07/07/2018 with subdural hematoma vs partially calcified dural plaque. neuro following. Acute toxic metabolic encephalopathy due to polysubstance overdose Repeat head Ct on 07/07/2018 unchanged. EEG read pending Neurology following. Psyche Possible suicide attempt Benzo overdose per toxicology report on a 1:1 Psyche consult once mental status improves Psychiatrist Dr. Deo Li ([phone]) will accept her inpatient if she leaves the ICU per previous provider notes. GI: Transaminitis. monitor cmp daily fen intubated, on IVF hydration monitor electrolytes npo proph SCD Protonix 40mg IVP BID Disposition. Intubated. Continue ICU monitoring Visit type - Emergency Visit Emergency Visit: Yes ED Registration Date: 07/06/18 Care time: The patient presented to the Emergency Department on the above date and was hospitalized for further evaluation of their emergent condition. - New Patient This patient is new to me today: No - Critical Care Critical Care patient: Yes Total Critical Care Time (in minutes): 60 Critical Care Statement: The care of this patient involved high complexity decision making to prevent further life threatening deterioration of the patient 's condition and/or to evaluate & treat vital organ system(s) failure or risk of failure.
[2018-07-15] MEDS ORDERED: PT OWN MED DRAWER 7, Y5N ONE (10:09)
[2018-07-15] MEDS: diphenhydrAMINE HCL 25 MG CAPSULE (FP) PO SCH ×2 (10:22→21:34)
[2018-07-15] MEDS: METOPROLOL TARTRATE 25 MG TABLET (FP) NGT SCH ×2 (10:23→21:34)
[2018-07-15] MEDS: PANTOPRAZOLE SODIUM 40 MG VIAL IVPUSH SCH (10:23)
[2018-07-15] MEDS: POLYETHYLENE GLYCOL 3350 119 GM BTL PO SCH (10:23)
[2018-07-15] MEDS: CHLORHEXIDINE GLUCONATE 0.12% 15ML CUP MM SCH (10:23)
[2018-07-15] MEDS ORDERED: RACEPINEPHRINE IH SOL 2.25% 11.25 MG/0.5 ML VIAL NEB ONE (10:58)
--- NOTE | 2018-07-15 12:03 | PN ---
Progress Note, Physician History of Present Illness: continues to be sedated and intubated otherwise stable plan is for extubation - Current Medication List Current Medications: Active Medications Chlorhexidine Gluconate (Hibiclens For Decolonization -) 1 applic TP HS [facility] Last Admin: 07/14/18 21:50 Dose: 1 applic Chlorhexidine Gluconate (Peridex -) 15 ml MM BID [facility] Last Admin: 07/15/18 10:23 Dose: 15 ml Clonazepam (Klonopin -) 0.5 mg PO Q12H PRN PRN Reason: ANXIETY Dexamethasone Sodium Phosphate (Decadron Injection -) 4 mg IVPUSH Q6H-IV RUBENS Last Admin: 07/15/18 10:22 Dose: 4 mg Diphenhydramine HCl (Benadryl -) 25 mg PO BID [facility] Last Admin: 07/15/18 10:22 Dose: 25 mg Epinephrine (S-2) 1 vial IH ONCE ONE Stop: 07/15/18 10:59 Heparin Sodium (Porcine) (Heparin -) 5,000 unit SQ TID [facility] Last Admin: 07/15/18 06:22 Dose: 5,000 unit Propofol (Diprivan -) 1,000,000 mcg in 100 mls @ 1.429 mls/hr IVPB TITR [facility]; Protocol Last Admin: 07/14/18 21:51 Dose: 50 mcg/kg/min, 14.288 mls/hr Sodium Chloride (Normal Saline -) 1,000 mls @ 75 mls/hr IV ASDIR [facility] Last Admin: 07/14/18 14:12 Dose: Not Given Metoprolol Tartrate (Lopressor -) 25 mg NGT BID [facility] Last Admin: 07/15/18 10:23 Dose: 25 mg Pantoprazole Sodium (Protonix Iv) 40 mg IVPUSH DAILY [facility] Last Admin: 07/15/18 10:23 Dose: 40 mg Polyethylene Glycol (Miralax (For Daily Use) -) 17 gm PO DAILY [facility] Last Admin: 07/15/18 10:23 Dose: Not Given Thiamine HCl (Vitamin B1 Injection -) 300 mg IVPB TID [facility] Last Admin: 07/15/18 06:22 Dose: 300 mg - Objective Vital Signs: Vital Signs Temperature 99.4 F 07/15/18 12:00 Pulse Rate 115 H 07/15/18 12:00 Respiratory Rate 21 H 07/15/18 12:00 Blood Pressure 153/95 07/15/18 12:00 O2 Sat by Pulse Oximetry (%) 99 07/15/18 11:30 Cardiovascular: Yes: Regular Rate and Rhythm Respiratory: Yes: Intubated, Mechanically Ventilated Gastrointestinal: Yes: Normal Bowel Sounds, Soft Musculoskeletal: Yes: WNL Extremities: Yes: WNL Neurological: Yes: Other Labs: CBC, BMP 07/15/18 05:30 07/15/18 05:30 INR, PTT INR 1.32 (0.83-1.09) H 07/07/18 12:35 - ....Imaging Chest X-ray: Report Reviewed, Image Reviewed Assessment/Plan Acute metabolic encephalopathy Severe sepsis Acute toxic metabolic encephalopathy Seratonin overdose Possible suicide attempt Severe depression pneumonia uti plan continue mgmt as per icu neuro on case continue iv fluids monitor fever monitor secretions rest as per the team and icu extubation as tolerated cc 40 min
--- NOTE | 2018-07-15 12:11 | PN ---
Teaching Attending Note Name of Resident: Bernard Elizondo ATTENDING PHYSICIAN STATEMENT I saw and evaluated the patient. I reviewed the resident's note and discussed the case with the resident. I agree with the resident's findings and plan as documented. SUBJECTIVE: Pt seen and examined in the ICU. +cuff leak this AM, tolerated CPAP/PS and subsequently extubated during rounds. OBJECTIVE: Vital Signs Period Temp Pulse Resp BP Sys/Smith Pulse Ox Last 24 Hr 98.7 F-99.4 F 101-131 17-25 127-158/68-96 96-99 Intake & Output 07/12/18 07/13/18 07/14/18 07/15/18 23:59 23:59 23:59 23:59 Intake Total 2486.5 2855.6 3097.6 850.2 Output Total 4100 3400 1550 600 Balance -1613.5 -544.4 1547.6 250.2 Weight 51.6 kg 49.8 kg Gen: extubated Neck: no stridor Heart: RRR Lung: decreased breath sounds at the bases Abd: soft, nontender Ext: no edema CBC, BMP 07/15/18 05:30 07/15/18 05:30 Active Medications Chlorhexidine Gluconate (Hibiclens For Decolonization -) 1 applic TP HS RUBENS Last Admin: 07/14/18 21:50 Dose: 1 applic Chlorhexidine Gluconate (Peridex -) 15 ml MM BID RUBENS Last Admin: 07/15/18 10:23 Dose: 15 ml Clonazepam (Klonopin -) 0.5 mg PO Q12H PRN PRN Reason: ANXIETY Dexamethasone Sodium Phosphate (Decadron Injection -) 4 mg IVPUSH Q6H-IV RUBENS Last Admin: 07/15/18 10:22 Dose: 4 mg Diphenhydramine HCl (Benadryl -) 25 mg PO BID RUBENS Last Admin: 07/15/18 10:22 Dose: 25 mg Heparin Sodium (Porcine) (Heparin -) 5,000 unit SQ TID RUBENS Last Admin: 07/15/18 06:22 Dose: 5,000 unit Propofol (Diprivan -) 1,000,000 mcg in 100 mls @ 1.429 mls/hr IVPB TITR RUBENS; Protocol Last Admin: 07/14/18 21:51 Dose: 50 mcg/kg/min, 14.288 mls/hr Sodium Chloride (Normal Saline -) 1,000 mls @ 75 mls/hr IV ASDIR [facility] Last Admin: 07/14/18 14:12 Dose: Not Given Metoprolol Tartrate (Lopressor -) 25 mg NGT BID [facility] Last Admin: 07/15/18 10:23 Dose: 25 mg Pantoprazole Sodium (Protonix Iv) 40 mg IVPUSH DAILY [facility] Last Admin: 07/15/18 10:23 Dose: 40 mg Polyethylene Glycol (Miralax (For Daily Use) -) 17 gm PO DAILY [facility] Last Admin: 07/15/18 10:23 Dose: Not Given Thiamine HCl (Vitamin B1 Injection -) 300 mg IVPB TID [facility] Last Admin: 07/15/18 06:22 Dose: 300 mg ASSESSMENT AND PLAN: Acute Respiratory Failure Drug Overdose Suicide Attempt r/o Serotonin Syndrome Depression Laryngeal Edema - pt extubated - continue decadron, antihistamines - reculture if febrile - continue IVF - monitor urine output, creatinine - aspiration precautions - DVT/GI prophylaxis - continue ICU monitoring for airway monitoring critical care time spent in reviewing chart, evaluating patient and formulating plan 35 min
--- NOTE | 2018-07-15 12:25 | PN ---
Physical Exam: SUBJECTIVE: Patient seen and examined at bedside. She was wide awake despite 50 mcg of sedation with propofol. We did a leak test on her which was positive, then placed her on a CPAP trial. She successfully passed necessary parameters including good TV, low RR, and low RSI. We extubated her with no complications. She is now laying down comfortably on the bed in no acute distress speaking with her son and daughter. She is not able to speak well yet. OBJECTIVE: Vital Signs Period Temp Pulse Resp BP Sys/Smith Pulse Ox Last 24 Hr 98.7 F-99.4 F 101-131 17-25 127-158/68-96 96-99 GENERAL: The patient is awake, alert, and fully oriented, in no acute distress. HEAD: Normal with no signs of trauma. EYES: PERRL, extraocular movements intact, sclera anicteric, conjunctiva clear. No ptosis. ENT: Ears normal, nares patent, oropharynx clear without exudates, moist mucous membranes. NECK: Trachea midline, full range of motion, supple. LUNGS: Breath sounds equal, clear to auscultation bilaterally, no wheezes, no crackles, no accessory muscle use. HEART: Tachycardic rate and irregular rhythm, S1, S2 without murmur, rub or gallop. ABDOMEN: Soft, nontender, nondistended, normoactive bowel sounds, no guarding, no rebound, no hepatosplenomegaly, no masses. EXTREMITIES: 2+ pulses, warm, well-perfused, no edema. NEUROLOGICAL: Cranial nerves II through XII grossly intact. Normal speech, gait not observed. PSYCH: Normal mood, normal affect. She recently attempted suicide. SKIN: Warm, dry, normal turgor, no rashes or lesions noted Laboratory Results - last 24 hr 07/15/18 07/15/18 05:30 05:30 WBC 9.2 RBC 3.42 L Hgb 10.6 L Hct 31.0 L MCV 90.6 MCH 31.0 MCHC 34.2 RDW 12.7 Plt Count 449 H MPV 6.8 L Absolute Neuts (auto) 7.0 Neutrophils % 76.5 Lymphocytes % 12.3 Monocytes % 11.1 H Eosinophils % 0.0 Basophils % 0.1 D Nucleated RBC % 0 Sodium 142 Potassium 4.1 Chloride 107 Carbon Dioxide 27 Anion Gap 8 BUN 25 H Creatinine 0.5 L Creat Clearance w eGFR > 60 Random Glucose 134 H Calcium 8.1 L Phosphorus 3.2 Magnesium 2.2 Total Bilirubin 0.2 AST 51 H ALT 101 H Alkaline Phosphatase 117 Total Protein 5.5 L Albumin 2.4 L Active Medications Generic Name Dose Route Start Last Admin Trade Name Cadeq PRN Reason Stop Dose Admin Chlorhexidine Gluconate 1 applic 07/06/18 22:00 07/14/18 21:50 Hibiclens For Decolonization - TP 1 applic HS RUBENS Administration Chlorhexidine Gluconate 15 ml 07/12/18 22:00 07/15/18 10:23 Peridex - MM 15 ml BID RUBENS Administration Clonazepam 0.5 mg 07/14/18 15:24 Klonopin - PO Q12H PRN ANXIETY Dexamethasone Sodium Phosphate 4 mg 07/13/18 15:00 07/15/18 10:22 Decadron Injection - IVPUSH 4 mg Q6H-IV RUBENS Administration Diphenhydramine HCl 25 mg 07/14/18 22:00 07/15/18 10:22 Benadryl - PO 25 mg BID RUBENS Administration Heparin Sodium (Porcine) 5,000 unit 07/10/18 14:00 07/15/18 06:22 Heparin - SQ 5,000 unit TID RUBENS Administration Propofol 1,000,000 mcg in 100 mls @ 1.429 mls/hr 07/06/18 12:45 07/14/18 21: 51 Diprivan - IVPB 50 mcg/kg/min TITR RUBENS 14.288 mls/hr Administration Protocol 5 MCG/KG/MIN Sodium Chloride 1,000 mls @ 75 mls/hr 07/09/18 12:00 07/14/18 14:12 Normal Saline - IV Not Given ASDIR RUBENS Metoprolol Tartrate 25 mg 07/13/18 22:00 07/15/18 10:23 Lopressor - NGT 25 mg BID RUBENS Administration Pantoprazole Sodium 40 mg 07/09/18 12:00 07/15/18 10:23 Protonix Iv IVPUSH 40 mg DAILY RUBENS Administration Polyethylene Glycol 17 gm 07/12/18 10:00 07/15/18 10:23 Miralax (For Daily Use) - PO Not Given DAILY RUBENS Thiamine HCl 300 mg 07/07/18 14:00 07/15/18 06:22 Vitamin B1 Injection - IVPB 300 mg TID RUBENS Administration ASSESSMENT/PLAN: [facility] Poison control knows about patient and is following: Call [phone] either Dr[address] Escalante or Dr. Paz. Dr. Paz said we can reach him on his cell phone at: [phone] - Serotonin syndrome likely resolved - Cyproheptadine stopped - benadryl started - Klonipin started Assessment: 67 year old female with a PMHx of Depression and suicidal ideations with recent admission to [facility] (06/19/18-) was BIBEMS after being found by her son unresponsive, warm to touch with thick mucous coming out of her mouth and "barely breathing" at around 1030 yesterday morning. There was a suicide note and empty bottles of Olanzapine and Clonazepam. She was extubated today and is doing well on Venti mask. - Will place consult for speech and swallow tomorrow. Continue Tube feeds today. NEURO #Acute Toxic Metabolic Encephalopathy/ likely serotonin syndrome + Benzo OD. - No ocular clonus, rigidity, or hyperthermia - Propofol drip - Starting klonipin today. - Currently extubated - Repeat Head CT did not appear to show consistent brain bleed. Likely calcification. - Will get another head CT when patient is more stable. CARDIO #Tachycardia - Likely secondary to anxiety/benzo withdrawal - She is getting metoprolol in place of her home propranolol PULM: - Extubated, on ventimask - No laryngeal edema or stridor. - Receiving steroids and benadryl. PSYCH #Severe Depression with Attempted Suicide -Will hold off on anti-psychotics until psych consult -Continue to monitor with 1:1 - [facility] Psychiatry was spoken to about the patient. - Dr. Deo Li will accept the patient as an inpatient if she leaves the ICU. Number: [phone] INFECTIOUS DISEASE - ID consulted and recommended strict aspiration precautions secondary to activated charcoal. - Patient finished Abx course. - Chest X-Ray revealed course lung changes and pleural thickening. Possible aspiration F/E/N - Patient is receiving NS at 75 mls/hr - Continue to replete lites PRN - Tube feeds - Osmalite. PROPHYLAXIS -SCD's + Heparin -Protonix 40mg IVP BID Disposition -Full code -Continue ICU monitoring Visit type - Emergency Visit Emergency Visit: Yes ED Registration Date: 07/06/18 Care time: The patient presented to the Emergency Department on the above date and was hospitalized for further evaluation of their emergent condition. - New Patient This patient is new to me today: No - Critical Care Critical Care patient: Yes Total Critical Care Time (in minutes): 36 Critical Care Statement: The care of this patient involved high complexity decision making to prevent further life threatening deterioration of the patient 's condition and/or to evaluate & treat vital organ system(s) failure or risk of failure.
[2018-07-15] MEDS: PROPOFOL 1,000,000 MCG/100 ML VIAL IVPB SCH (13:47)
[2018-07-15] MEDS: SODIUM CHLORIDE 1,000 ML IV SCH ×2 (13:47→18:10)
--- NOTE | 2018-07-15 17:09 | PN ---
Progress Note (short form) - Note Progress Note: Patient extubated then reintubated but awake and interactive. Will likely require additional supportive care for now. will follow
--- NOTE | 2018-07-15 17:13 | PN ---
Progress Note (short form) - Note Progress Note: 67 year old female history of severe depression and found responsive at home. It is not clear , how long she was out Patient was given narcan and was intuabted for airway protection. Patient has ct head and it was unremarkable. She was takign cymbalta, inderal, zyprexa, desipiprine, klonipin , effexor and abilify. she recently filled olanzapine on july 03 and her bottle was found empty and she also left a suicidal note. spent 15 minute doing critical care . Patient is extubated and sitting comfortable and able to recall prior event and her two kids at bed side. She has not had any cognitive difficulty as per family. Neurological Examination Alert oriented x 3, she told year was 2019 and later she corrected eomi, pupils reactive and no face asymmetry Repeat ct head on july 07 was unchanged Assessment: Acute severe metabolic encephalopathy secondary to drug overdose, now she is back to baseline. Plan- continue supportive care no further testing or treatment from neuro point of view. no need for mri, only if there is concern about cognitive difficulty will cr sweeney Thanking you so much Jeffry Aquino MD
[2018-07-15] MEDS ORDERED: LABETALOL HCL 5 MG/1 ML (100MG/20 ML VIAL) IVPUSH ONE (18:00)
[2018-07-15] MEDS: CHLORHEXIDINE GLUCONATE 4% CLEANSER FOR DECOLONIZATION TP SCH (21:34)
[2018-07-15] MEDS: clonazePAM 0.5 MG TABLET PO PRN (23:42)
[2018-07-16] MEDS: DEXAMETHASONE SOD PHOSPHATE 4 MG/1 ML VIAL IVPUSH SCH ×3 (03:26→22:03)
[2018-07-16] MEDS: HEPARIN NA (PORCINE) 5,000 UNITS/ML 1ML VIAL SQ SCH ×3 (05:55→22:03)
[2018-07-16] MEDS: THIAMINE HCL 200 MG/2 ML VIAL IVPB SCH ×3 (05:56→22:03)
[2018-07-16 06:11] LABS: BASO % 0.1 % (0-2.0); HEMATOCRIT 35.4 % (32.4-45.2); HEMOGLOBIN 11.9 GM/dL (10.7-15.3); LYMPH % 8.6 % (8-40); MCH 30.7 pg (25.7-33.7); MCHC 33.7 g/dl (32.0-36.0); MEAN CELL VOLUME 91.2 fl (80-96); MEAN PLT VOLUME 7.2 fl (7.5-11.1); MONO % 9.5 % (3.8-10.2); NEUT % 81.8 % (42.8-82.8); PLATELET COUNT 532 K/MM3 (134-434); RBC 3.88 M/mm3 (3.60-5.2); RDW 12.8 % (11.6-15.6); WHITE BLOOD COUNT 10.2 K/mm3 (4.0-10.0)
[2018-07-16 06:53] LABS: ALBUMIN 2.7 g/dl (3.4-5.0); ALK PHOS 123 U/L (45-117); ANION GAP 7 MMOL/L (8-16); BILIRUBIN,TOTAL 0.3 mg/dL (0.2-1); BLOOD UREA NITROGEN 23 mg/dL (7-18); CALCIUM 8.7 mg/dL (8.5-10.1); CHLORIDE 106 mmol/L (98-107); CO2 28 mmol/L (21-32); CREATININE 0.5 mg/dL (0.55-1.3); GLUCOSE,RANDOM 124 mg/dL (74-106); MAGNESIUM 2.1 mg/dL (1.8-2.4); PHOSPHOROUS 3.7 mg/dL (2.5-4.9); SGOT/AST 38 U/L (15-37); SGPT/ALT 97 U/L (13-61); SODIUM 141 mmol/L (136-145); TOT PROT 6.3 g/dl (6.4-8.2)
--- NOTE | 2018-07-16 09:35 | CONSULT ---
Admitting History and Physical - Smoking History Smoking history: Never smoked Have you smoked in the past 12 months: No - Alcohol/Substance Use Hx Alcohol Use: No History - Admission Reason For Visit: ACUTE RESP FAILURE - Hearing Hearing: Normal Speech Evaluation - Communication Primary Language: BHUTANESE Communication: Yes: Within Normal Limits, Simple Responses Oral Expression Ability: Yes: No Impairment - Speech Production Apraxia: No Able to Make Needs Known: Yes: WNL Intelligibility: Yes: WNL (for single words and phrases) - Speech Characteristics Voice Loudness: Mildly Soft/Quiet Voice Pitch: Yes: Limited Variation Voice Phonatory-based Quality: Yes: Hoarse, Breathy (consistent with extubation) Speech Pattern: Normal Nasal Resonance: Normal Articulation: Yes: Precise Rate of Speech: Intact - Language/Auditory Comprehension Follows: Yes: 1 Stage Simple Commands (WFL), 2 Stage Simple Commands (WFL) Observation: Able to respond to yes/no queries: Yes, Yes/No Confusion: No, Comprehends Conversational Speech: Yes, Benefits from Slow Speech: No, Benefits from Repetiton: No, Benefits from Increased Volume of Speech: No - Language/Verbal Expression Able to Respond to Simple Queries: Yes: WNL Able to Communicate Wants and Needs: Yes: WNL Functional Communication Status: Yes: WNL Aware of Errors: Yes Attempts to Correct Errors: Yes Use of Gestures: No Written Expression: not examined Oral Expression: WFL Reading Comprehension: not examined Calculations: not examined Attention: Yes: Intact - Memory/Perception [facility] Memory: Yes: WNL Short Term Memory: Yes: WNL - Swallow Evaluation/Bedside Assessment Current Nutritional Intake: NPO, NG Tube Oral Secretions: Yes: WFL Tracheostomy Present: No Patient on Ventilator: Yes Dentition: Yes: Adequate Facial Symmetry at Rest: Symmetrical Facial Symmetry on Retraction: Symmetrical Facial Movement: Controlled Sensation: Normal Facial Comment: WF for speech and swallowing purposes. Jaw Position: Open at Rest Against Resistance Opening: Normal Against Resistance Closing: Normal Pucker Lips: Normal Lips, Comment: WF for speech and swallowing purposes. Lingual Movement: Normal Lingual Speed of Movement: Normal Lingual Movement Strgth Against Opposition: Normal Lingual Movement Characteristics: Normal Lingual Comment: [facility] for speech and swallowing purposes. Soft Palate Description: Normal Arch Hard Palate Description: Normal Color, Normal Arch Gag Reflex: Strong Bite Reflex: Present Velopharyngeal Movement: Normal Laryngeal Elevation: WFL Laryngeal Movement: Able to Palpate Needs Assistance: Yes Rate of Intake: WFL Bolus Size: Small Labial Seal: WFL Chewing: WFL Oral Prep Time: WFL A-P Transit: WFL Pocketing: None Timing of Swallow: WFL (multiple swallows observed) Odynophagia: Pharyngeal Coughing/Throat Clear: No Other Findings/Remarks: 67 yo female seen at bedside for swallow eval to r/o dysphagia with son and hospital sitter present. Pt is verbal, A&Ox 3 cooperative. Admitted to [facility] as unresponsive. Dx ARF and Toxic metabolic encephalopathy secondary to drug overdose. Vocal quality is reduced with limited pitch range and reduced intensity possibly secondary to extubation. Airway protection is WFL. Pt given po trials of puree and mech soft solids with total assistance revealed good acceptance, adequate mastication, bolus formation and transport. Pharyngeal swallow appears timely with no cough or changes in voice. Multiple swallows observed with soft solids. Thin liquids trials with total assistance via cup and straw were unremarkable for aspiration at this time. Recommendations - Speech Evaluation, Impression/Plan Impression: Pt is able to tolerate puree and mech soft solids with thin liquids without s/s of aspiration at this time. Speech and language is WFL Watch Inspector Final Movement Goals: Tolerate the least restrictive diet without s/s of aspiration Short Term Goals: Tolerate purees and mechanical soft solids with thin liquids without s/s of aspiration. Recommended Frequency for Therapy: Follow Up PRN - Dysphagia Impressions/Plan Swallowing Skills: Impaired Dysphagia Impressions: Minimal Impairment (secondary to multiple swallows observed with soft solids.) *Silent aspiration: cannot be R/O at bedside Dysphagia Treatment Plan: Small Bites, Chin Tuck/Down, Trial Feedings ( Mechanical soft with thin liquids), Safe Rate, 1/2 tsp. at a time, Elevate HOB during feed, Other (monitor pulmonary status and nutritional intake.) Dysphagia Evaluation Summary: Trial pureed and soft solids with thin liquids. Observed standard aspiration precautions. Keep upright for 30 -60 minutes after meal. Crush meds in purees. Results given verbally to rn discharge and to pcp via chart. VOCATIONAL TECHNICAL EDUCATION DIRECTOR to follow up for diet tolerance and possible upgrade of solids. - Recommendations Diet Consistency: Mechanical Soft Medication Administration: Crushed with applesauce Liquids: Thin Liquids
[2018-07-16] MEDS: diphenhydrAMINE HCL 25 MG CAPSULE (FP) PO SCH (09:37)
[2018-07-16] MEDS: METOPROLOL TARTRATE 25 MG TABLET (FP) NGT SCH (09:37)
[2018-07-16] MEDS: PANTOPRAZOLE SODIUM 40 MG VIAL IVPUSH SCH (09:37)
[2018-07-16] MEDS: POLYETHYLENE GLYCOL 3350 119 GM BTL PO SCH (09:38)
[2018-07-16] MEDS ORDERED: PNEUMOC 13-VAL CONJ-DIP CRM/PF 0.5 ML DISP.SYRIN IM ONE (11:00)
--- NOTE | 2018-07-16 12:57 | PN ---
Teaching Attending Note Name of Resident: Bernard Elizondo ATTENDING PHYSICIAN STATEMENT I saw and evaluated the patient. I reviewed the resident's note and discussed the case with the resident. I agree with the resident's findings and plan as documented. SUBJECTIVE: Pt seen and examined in the ICU. Remains extubated. Denies shortness of breath. Tolerating PO. OBJECTIVE: Vital Signs Period Temp Pulse Resp BP Sys/Smith Pulse Ox Last 24 Hr 98.1 F-99.9 F 85-114 15-23 121-170/75-109 96-99 Intake & Output 07/13/18 07/14/18 07/15/18 07/16/18 23:59 23:59 23:59 23:59 Intake Total 2855.6 3097.6 2183.2 1375 Output Total 3400 1550 4300 930 Balance -544.4 1547.6 -2116.8 445 Weight 51.6 kg 49.8 kg 44.6 kg Gen: NAD at rest Heart: RRR Lung: decreased breath sounds at the bases Abd: soft, nontender Ext: no edema CBC, BMP 07/16/18 05:30 07/16/18 05:30 Active Medications Chlorhexidine Gluconate (Hibiclens For Decolonization -) 1 applic TP HS [facility] Last Admin: 07/15/18 21:34 Dose: 1 applic Clonazepam (Klonopin -) 0.5 mg PO Q12H PRN PRN Reason: ANXIETY Last Admin: 07/15/18 23:42 Dose: 0.5 mg Desipramine HCl (Norpramin -) 150 mg PO BID [facility] Dexamethasone Sodium Phosphate (Decadron Injection -) 4 mg IVPUSH BID [facility] Heparin Sodium (Porcine) (Heparin -) 5,000 unit SQ TID [facility] Last Admin: 07/16/18 05:55 Dose: 5,000 unit Sodium Chloride (Normal Saline -) 1,000 mls @ 50 mls/hr IV ASDIR [facility] Last Admin: 07/15/18 18:10 Dose: 50 mls/hr Olanzapine 5 mg/ Olanzapine 10 (mg) 15 mg PO HS [facility] Pantoprazole Sodium (Protonix Iv) 40 mg IVPUSH DAILY [facility] Last Admin: 07/16/18 09:37 Dose: 40 mg Polyethylene Glycol (Miralax (For Daily Use) -) 17 gm PO DAILY [facility] Last Admin: 07/16/18 09:38 Dose: 17 gm Propranolol HCl (Inderal -) 80 mg PO DAILY ONE Stop: 07/16/18 11:38 Thiamine HCl (Vitamin B1 Injection -) 300 mg IVPB TID [facility] Last Admin: 07/16/18 05:56 Dose: 300 mg ASSESSMENT AND PLAN: Acute Respiratory Failure Drug Overdose Suicide Attempt r/o Serotonin Syndrome Depression Laryngeal Edema - taper off decadron - antihistamines as needed - reculture if febrile - monitor urine output, creatinine - PO as tolerated - aspiration precautions - DVT/GI prophylaxis - can monitor on floor
--- NOTE | 2018-07-16 13:33 | PN ---
Progress Note, Physician History of Present Illness: stable no new issues patient comfortable - Current Medication List Current Medications: Active Medications Chlorhexidine Gluconate (Hibiclens For Decolonization -) 1 applic TP HS [facility] Last Admin: 07/15/18 21:34 Dose: 1 applic Clonazepam (Klonopin -) 0.5 mg PO Q12H PRN PRN Reason: ANXIETY Last Admin: 07/15/18 23:42 Dose: 0.5 mg Desipramine HCl (Norpramin -) 150 mg PO BID [facility] Dexamethasone Sodium Phosphate (Decadron Injection -) 4 mg IVPUSH BID [facility] Heparin Sodium (Porcine) (Heparin -) 5,000 unit SQ TID [facility] Last Admin: 07/16/18 05:55 Dose: 5,000 unit Sodium Chloride (Normal Saline -) 1,000 mls @ 50 mls/hr IV ASDIR [facility] Last Admin: 07/15/18 18:10 Dose: 50 mls/hr Olanzapine 5 mg/ Olanzapine 10 (mg) 15 mg PO HS [facility] Pantoprazole Sodium (Protonix Iv) 40 mg IVPUSH DAILY [facility] Last Admin: 07/16/18 09:37 Dose: 40 mg Polyethylene Glycol (Miralax (For Daily Use) -) 17 gm PO DAILY [facility] Last Admin: 07/16/18 09:38 Dose: 17 gm Propranolol HCl (Inderal -) 80 mg PO DAILY ONE Stop: 07/16/18 11:38 Thiamine HCl (Vitamin B1 Injection -) 300 mg IVPB TID [facility] Last Admin: 07/16/18 05:56 Dose: 300 mg - Objective Vital Signs: Vital Signs Temperature 98.6 F 07/16/18 10:00 Pulse Rate 91 H 07/16/18 12:01 Respiratory Rate 23 H 07/16/18 12:01 Blood Pressure 121/79 07/16/18 12:01 O2 Sat by Pulse Oximetry (%) 96 07/16/18 09:58 Constitutional: Yes: No Distress, Calm Cardiovascular: Yes: Regular Rate and Rhythm Respiratory: Yes: Regular, Poor Air Entry Gastrointestinal: Yes: Normal Bowel Sounds, Soft Musculoskeletal: Yes: WNL Extremities: Yes: WNL Neurological: Yes: Alert, Oriented Psychiatric: Yes: Alert, Oriented Labs: CBC, BMP 07/16/18 05:30 07/16/18 05:30 INR, PTT INR 1.32 (0.83-1.09) H 07/07/18 12:35 Assessment/Plan Acute metabolic encephalopathy Severe sepsis Acute toxic metabolic encephalopathy Seratonin overdose Possible suicide attempt Severe depression r/o bleed plan hydration support rest as per icu steroids resp support off of abx cc 40 min
--- NOTE | 2018-07-16 15:58 | PN ---
Physical Exam: SUBJECTIVE: Patient seen and examined at bedside. She is extubated and out of bed. She was seen by speech and swallow and assessed to be ready to eat pureed food. NG tube was removed. Patient keeps asking why she is in the hospital and how she got here. She is currently stable to leave the ICU and will be transfered to Dr. Li's service at [facility] once she leaves the ICU. Dr. Deo Li office number: [phone] Number to call for transfer center access: [phone] Fax number to send paper work to: [phone] (Write Attention - Dr. Li referral) OBJECTIVE: Vital Signs Period Temp Pulse Resp BP Sys/Smith Pulse Ox Last 24 Hr 98.1 F-99.9 F 85-103 15-23 121-160/75-109 96-99 GENERAL: The patient is awake, lethargic and drowsy, alert, and fully oriented, in no acute distress. HEAD: Normal with no signs of trauma. EYES: PERRL, extraocular movements intact, sclera anicteric, conjunctiva clear. No ptosis. ENT: Ears normal, nares patent, oropharynx clear without exudates, moist mucous membranes. NECK: Trachea midline, full range of motion, supple. LUNGS: Breath sounds equal, clear to auscultation bilaterally, no wheezes, no crackles, no accessory muscle use. HEART: Regular rate and rhythm, S1, S2 without murmur, rub or gallop. ABDOMEN: Soft, nontender, nondistended, normoactive bowel sounds, no guarding, no rebound, no hepatosplenomegaly, no masses. EXTREMITIES: 2+ pulses, warm, well-perfused, no edema. NEUROLOGICAL: Cranial nerves II through XII grossly intact. Normal speech, gait not observed. PSYCH: prior suicidal ideation SKIN: Warm, dry, normal turgor, no rashes or lesions noted Laboratory Results - last 24 hr 07/14/18 07/14/18 07/15/18 14:28 18:35 00:51 WBC RBC Hgb Hct MCV MCH MCHC RDW Plt Count MPV Absolute Neuts (auto) Neutrophils % Lymphocytes % Monocytes % Eosinophils % Basophils % Nucleated RBC % Sodium Potassium Chloride Carbon Dioxide Anion Gap BUN Creatinine Creat Clearance w eGFR POC Glucometer 122.79025 133.29344 144.02299 Random Glucose Hemoglobin A1c % Calcium Phosphorus Magnesium Total Bilirubin AST ALT Alkaline Phosphatase Total Protein Albumin 07/15/18 07/15/18 07/15/18 06:24 12:35 18:17 WBC RBC Hgb Hct MCV MCH MCHC RDW Plt Count MPV Absolute Neuts (auto) Neutrophils % Lymphocytes % Monocytes % Eosinophils % Basophils % Nucleated RBC % Sodium Potassium Chloride Carbon Dioxide Anion Gap BUN Creatinine Creat Clearance w eGFR POC Glucometer 140.08905 115.23503 119.09549 Random Glucose Hemoglobin A1c % Calcium Phosphorus Magnesium Total Bilirubin AST ALT Alkaline Phosphatase Total Protein Albumin 07/16/18 07/16/18 07/16/18 05:30 05:30 08:36 WBC 10.2 H RBC 3.88 Hgb 11.9 Hct 35.4 MCV 91.2 MCH 30.7 MCHC 33.7 RDW 12.8 Plt Count 532 H MPV 7.2 L Absolute Neuts (auto) 8.3 H Neutrophils % 81.8 Lymphocytes % 8.6 D Monocytes % 9.5 Eosinophils % 0.0 Basophils % 0.1 Nucleated RBC % 0 Sodium 141 Potassium 4.0 Chloride 106 Carbon Dioxide 28 Anion Gap 7 L BUN 23 H Creatinine 0.5 L Creat Clearance w eGFR > 60 POC Glucometer Random Glucose 124 H Hemoglobin A1c % 5.2 Calcium 8.7 Phosphorus 3.7 Magnesium 2.1 Total Bilirubin 0.3 AST 38 H ALT 97 H Alkaline Phosphatase 123 H Total Protein 6.3 L Albumin 2.7 L Active Medications Generic Name Dose Route Start Last Admin Trade Name Freq PRN Reason Stop Dose Admin Chlorhexidine Gluconate 1 applic 07/06/18 22:00 07/15/18 21:34 Hibiclens For Decolonization - TP 1 applic HS [facility] Administration Clonazepam 0.5 mg 07/14/18 15:24 07/15/18 23:42 Klonopin - PO 0.5 mg Q12H PRN Administration ANXIETY Desipramine HCl 150 mg 07/16/18 22:00 Norpramin - PO BID [facility] Dexamethasone Sodium Phosphate 4 mg 07/16/18 22:00 Decadron Injection - IVPUSH BID [facility] Heparin Sodium (Porcine) 5,000 unit 07/10/18 14:00 07/16/18 14:08 Heparin - SQ 5,000 unit TID [facility] Administration Sodium Chloride 1,000 mls @ 50 mls/hr 07/15/18 17:56 07/15/18 18:10 Normal Saline - IV 50 mls/hr ASDIR [facility] Administration Olanzapine 5 mg/ Olanzapine 10 15 mg 07/16/18 22:00 mg PO HS [facility] Pantoprazole Sodium 40 mg 07/09/18 12:00 07/16/18 09:37 Protonix Iv IVPUSH 40 mg DAILY [facility] Administration Polyethylene Glycol 17 gm 07/12/18 10:00 07/16/18 09:38 Miralax (For Daily Use) - PO 17 gm DAILY [facility] Administration Propranolol HCl 80 mg 07/16/18 22:00 Inderal La - PO DAILY [facility] Thiamine HCl 300 mg 07/07/18 14:00 07/16/18 14:08 Vitamin B1 Injection - IVPB 300 mg TID [facility] Administration ASSESSMENT/PLAN: [facility] Poison control knows about patient and is following: Call [phone] Dr[address] Escalante or Dr. Paz. Dr. Paz said we can reach him on his cell phone at: [phone] - Serotonin syndrome likely resolved - Cyproheptadine stopped - benadryl started - Klonipin started Assessment: 67 year old female with a PMHx of Depression and suicidal ideations with recent admission to [facility] for Psychiatric Hospitalization (06/19/18-) was BIBEMS after being found by her son unresponsive, warm to touch with thick mucous coming out of her mouth and "barely breathing." There was a suicide note and empty bottles of Olanzapine and Clonazepam. -Patient no longer requires venti mask and had her NG tube removed. She is eating pureed food today and is stable for transfer to Med/Surg. As soon as she leaves the ICu she should be transfered to [facility] to be an inpatient in Dr. Deo Li's psychiatric service. Pertinent numbers: Dr. Deo Li office number: [phone] Number to call for transfer center access: [phone] Fax number to send paper work to: [phone] (Write Attention - Dr. Li referral) NEURO #Acute Toxic Metabolic Encephalopathy/ likely serotonin syndrome + Benzo OD. - Acute syndrome resolved. - No ocular clonus, rigidity, or hyperthermia - Propofol drip - Starting klonipin today. - Currently extubated - Repeat Head CT did not appear to show consistent brain bleed. Likely calcification. - Will get another head CT when patient is more stable. CARDIO #Tachycardia - Tachycardia resolved after administration of home propranolol dosage. PULM: - No acute problems. - Extubated, off ventimask - No laryngeal edema or stridor. - Tapering steroids and still getting benadryl. PSYCH #Severe Depression with Attempted Suicide - Psych consulted - Continue to monitor with 1:1 - [facility] Psychiatry was spoken to about the patient. - Dr. Deo Li will accept the patient as an inpatient if she leaves the ICU. Number: [phone] INFECTIOUS DISEASE - No current issues - Patient finished Abx course. F/E/N - Patient is receiving NS at 75 mls/hr - Continue to replete lites PRN - Pureed diet PROPHYLAXIS -SCD's + Heparin -Protonix 40mg IVP BID Disposition -Full code -Patient is transfered to Med/Surg to ultimately be transfered to [facility] Visit type - Emergency Visit Emergency Visit: Yes ED Registration Date: 07/06/18 Care time: The patient presented to the Emergency Department on the above date and was hospitalized for further evaluation of their emergent condition. - New Patient This patient is new to me today: No - Critical Care Critical Care patient: Yes Total Critical Care Time (in minutes): 36 Critical Care Statement: The care of this patient involved high complexity decision making to prevent further life threatening deterioration of the patient 's condition and/or to evaluate & treat vital organ system(s) failure or risk of failure.
--- NOTE | 2018-07-16 16:38 | PN ---
Progress Note (short form) - Note Progress Note: Patient continues to improve. MRI Brain with and without gado will be potentially helpful when deemed appropriately stable.
--- NOTE | 2018-07-16 17:22 | PN ---
Physical Exam: SUBJECTIVE: Patient seen and examined at the bedside. feels better, extubated yesterday. family at bedside. on nasal cannula. OBJECTIVE: Vital Signs Period Temp Pulse Resp BP Sys/Smith Pulse Ox Last 24 Hr 98.1 F-99.9 F 85-103 15-23 121-167/75-109 96-99 GENERAL: Eyes open today,speaking in a whisper, appears more stable HEAD: Normal with no signs of trauma. EYES: PERRLA, +corneal light reflex, sclera anicteric, conjunctiva clear. ENT: nares patent NECK: Trachea midline, full range of motion, supple. 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 EXTREMITIES: edema to b/l hands, r>l NEUROLOGICAL: eyes open, facial symmetry. attempts to talk, still intubated SKIN: Warm, dry, normal turgor, no rashes or lesions noted Laboratory Results - last 24 hr 07/14/18 07/14/18 07/15/18 14:28 18:35 00:51 WBC RBC Hgb Hct MCV MCH MCHC RDW Plt Count MPV Absolute Neuts (auto) Neutrophils % Lymphocytes % Monocytes % Eosinophils % Basophils % Nucleated RBC % Sodium Potassium Chloride Carbon Dioxide Anion Gap BUN Creatinine Creat Clearance w eGFR POC Glucometer 122.42261 133.94683 144.41585 Random Glucose Hemoglobin A1c % Calcium Phosphorus Magnesium Total Bilirubin AST ALT Alkaline Phosphatase Total Protein Albumin 07/15/18 07/15/18 07/15/18 06:24 12:35 18:17 WBC RBC Hgb Hct MCV MCH MCHC RDW Plt Count MPV Absolute Neuts (auto) Neutrophils % Lymphocytes % Monocytes % Eosinophils % Basophils % Nucleated RBC % Sodium Potassium Chloride Carbon Dioxide Anion Gap BUN Creatinine Creat Clearance w eGFR POC Glucometer 140.28324 115.61495 119.50755 Random Glucose Hemoglobin A1c % Calcium Phosphorus Magnesium Total Bilirubin AST ALT Alkaline Phosphatase Total Protein Albumin 07/16/18 07/16/18 07/16/18 05:30 05:30 08:36 WBC 10.2 H RBC 3.88 Hgb 11.9 Hct 35.4 MCV 91.2 MCH 30.7 MCHC 33.7 RDW 12.8 Plt Count 532 H MPV 7.2 L Absolute Neuts (auto) 8.3 H Neutrophils % 81.8 Lymphocytes % 8.6 D Monocytes % 9.5 Eosinophils % 0.0 Basophils % 0.1 Nucleated RBC % 0 Sodium 141 Potassium 4.0 Chloride 106 Carbon Dioxide 28 Anion Gap 7 L BUN 23 H Creatinine 0.5 L Creat Clearance w eGFR > 60 POC Glucometer Random Glucose 124 H Hemoglobin A1c % 5.2 Calcium 8.7 Phosphorus 3.7 Magnesium 2.1 Total Bilirubin 0.3 AST 38 H ALT 97 H Alkaline Phosphatase 123 H Total Protein 6.3 L Albumin 2.7 L Active Medications Generic Name Dose Route Start Last Admin Trade Name Freq PRN Reason Stop Dose Admin Chlorhexidine Gluconate 1 applic 07/06/18 22:00 07/15/18 21:34 Hibiclens For Decolonization - TP 1 applic HS RUBENS Administration Clonazepam 0.5 mg 07/14/18 15:24 07/15/18 23:42 Klonopin - PO 0.5 mg Q12H PRN Administration ANXIETY Desipramine HCl 150 mg 07/16/18 22:00 Norpramin - PO BID [facility] Dexamethasone Sodium Phosphate 4 mg 07/16/18 22:00 Decadron Injection - IVPUSH BID [facility] Heparin Sodium (Porcine) 5,000 unit 07/10/18 14:00 07/16/18 14:08 Heparin - SQ 5,000 unit TID RUBENS Administration Sodium Chloride 1,000 mls @ 50 mls/hr 07/15/18 17:56 07/15/18 18:10 Normal Saline - IV 50 mls/hr ASDIR RUBENS Administration Olanzapine 5 mg/ Olanzapine 10 15 mg 07/16/18 22:00 mg PO HS [facility] Pantoprazole Sodium 40 mg 07/09/18 12:00 07/16/18 09:37 Protonix Iv IVPUSH 40 mg DAILY RUB[facility] Administration Polyethylene Glycol 17 gm 07/12/18 10:00 07/16/18 09:38 Miralax (For Daily Use) - PO 17 gm DAILY R[facility] Administration Propranolol HCl 80 mg 07/16/18 22:00 Inderal La - PO DAILY [facility] Thiamine HCl 300 mg 07/07/18 14:00 07/16/18 14:08 Vitamin B1 Injection - IVPB 300 mg TID RUB[facility] Administration ASSESSMENT/PLAN: Patient is a 67 year old female with a reported past medical history of severe depression with prior admission to [facility]. Patient brought in to the ED 07/06/2018 via ambulance after she was found unresponsive in her bed. Her son lives downstairs and last saw her at her baseline around 4pm on 07/05/18. He went to see her in the morning at 10:30a.m. and found her to be unresponsive, in bed. Patient intubated on admission for possible serotonin syndrome. Acute metabolic encephalopathy Severe sepsis Acute toxic metabolic encephalopathy Seratonin overdose Possible suicide attempt Severe depression Rule out stroke Pulm: Acute Respiratory Failure, secondary to drug overdose. resolved. extubated on 07/15/2018. Maintain on supplemental oxygen (nasal cannula) to maintain oxygen sats above 90 % Duonebs prn On Dexamethasone 4mg iv push q4. Neuro: Acute toxic metabolic encephalopathy due to polysubstance overdose. resolved. Mentation close to baseline, however, does not recall events that led her to the hospital Neurology to see patient for suicide ideation On a 1:1 Psyche Possible suicide attempt Benzo overdose per toxicology report, treated with activated charcoal on admission, intubated on admission, extubated 07/15/18. Psyche consulted Psychiatrist Dr. Deo Li ([phone]) may accept her inpatient ([facility]) GI: Transaminitis. resolved. monitor cmp daily fen on IVF hydration, started on soft diet. monitor electrolytes soft diet, seen by swallow/speech therapist proph SCD Protonix 40mg IVP BID heparin tid Disposition. full code. Visit type - Emergency Visit Emergency Visit: Yes ED Registration Date: 07/06/18 Care time: The patient presented to the Emergency Department on the above date and was hospitalized for further evaluation of their emergent condition. - New Patient This patient is new to me today: No - Critical Care Critical Care patient: No - Discharge Referral Referred to [facility] Med [facility] No
--- NOTE | 2018-07-16 19:04 | CON.PSY ---
Psychiatry Consult Chief Complaint: 67 Year old female very well known to me, has along history of Major DEpressive Disorder with multiple Psych Hospitalizations. Patient was discharged from [facility] psych Inpatient last . she took massive overdose of multiple psych meds and wrote a sucide note to family. Symptoms: reports: Depressed Mood, Anhedonia - Previous Psychiatric Treatment Outpatient: Less than 6 mos ago Inpatient: 2 or more prior admissions - Reason for Previous Treatment Reason for Previous Treatment: Major Depression - Current Medications Current Medications: Active Medications Chlorhexidine Gluconate (Hibiclens For Decolonization -) 1 applic TP HS [facility] Last Admin: 07/15/18 21:34 Dose: 1 applic Clonazepam (Klonopin -) 0.5 mg PO Q12H PRN PRN Reason: ANXIETY Last Admin: 07/15/18 23:42 Dose: 0.5 mg Desipramine HCl (Norpramin -) 150 mg PO BID [facility] Dexamethasone Sodium Phosphate (Decadron Injection -) 4 mg IVPUSH BID [facility] Heparin Sodium (Porcine) (Heparin -) 5,000 unit SQ TID [facility] Last Admin: 07/16/18 14:08 Dose: 5,000 unit Sodium Chloride (Normal Saline -) 1,000 mls @ 50 mls/hr IV ASDIR [facility] Last Admin: 07/15/18 18:10 Dose: 50 mls/hr Olanzapine 5 mg/ Olanzapine 10 (mg) 15 mg PO HS [facility] Pantoprazole Sodium (Protonix Iv) 40 mg IVPUSH DAILY [facility] Last Admin: 07/16/18 09:37 Dose: 40 mg Polyethylene Glycol (Miralax (For Daily Use) -) 17 gm PO DAILY [facility] Last Admin: 07/16/18 09:38 Dose: 17 gm Propranolol HCl (Inderal La -) 80 mg PO DAILY [facility] Thiamine HCl (Vitamin B1 Injection -) 300 mg IVPB TID [facility] Last Admin: 07/16/18 14:08 Dose: 300 mg - Allergies Allergies: Allergies Allergy/AdvReac Type Severity Reaction Status Date / Time No Known Allergies Allergy Verified 07/06/18 11:40 - Current Living Status Usual Living Arrangement: With Spouse - Current Mental Status Evaluation Appearance: Disheveled Attitude: Cooperative - Affect Affect: Flat Appropriateness: Appropriate to Content - Mood Mood: Depressed - Speech/Language Expressive: Coherent Receptive: Age Appropriate Comprehension of Spoken Words - Psychomotor Activity Psychomotor Activity: Slowed - Thought Process Thought Process: Intact - Thought Content Hallucinations: Absent Delusions: Absent - Self Perception Self Perception: No Impairment - Cognition Attention: Alert Orientation: Time Memory, Immediate Recall: Intact Memory, Short Term: 1/3 Memory, Remote with Promptin/3 - Concentration Serial Sevens Intact: No Simple Calculations Intact: No - Abstraction Proverb Interpretation: Impaired Judgement: Severely Impaired - Insight Insight: Impaired - Impulse Control Impulse Control: Severly Impaired - Suicidal Ideation Suicidal Ideation: Yes (massive overdosde of psych meds) - Homicidal Ideation Homicidal Ideation: No Assessment/Plan 1) Continue with 1:1 2) TRansfer to In Patient Psych unit at [facility] when stable. 3) Maintain 1:1 until trancfer to In Patient Psych unit. 4) will follow.
[2018-07-16] MEDS ORDERED: PT OWN MED DRAWER 7, Y5N ONE ×2 (21:56→22:24)
[2018-07-16] MEDS ORDERED: PATIENT'S OWN MEDICATION (NON-FORMULARY) (Olanzapine [Olanzapine] 15 MG) PO SCH (22:00)
[2018-07-16] MEDS: OLANZAPINE PO SCH (22:03)
[2018-07-16] MEDS: DESIPRAMINE HCL 50 MG TABLET PO SCH (22:04)
[2018-07-16] MEDS: CHLORHEXIDINE GLUCONATE 4% CLEANSER FOR DECOLONIZATION TP SCH (22:04)
[2018-07-17] MEDS: SODIUM CHLORIDE 1,000 ML IV SCH ×2 (01:00→18:50)
[2018-07-17] MEDS: clonazePAM 0.5 MG TABLET PO PRN ×2 (02:20→20:18)
--- NOTE | 2018-07-17 02:39 | PN ---
Progress Note (short form) - Note Progress Note: Patient desaturated to the 70's and placed on ventimask with some improvement to the high 80's. Patient also became tachy in the 150's with a blood pressure of 170's/110 BIPAP ordered at bedside. Patient has difficulty swallowing and coughing and therefore has thick secretions when suctioning CHEST PT done Continuous suctioning Proponalol ordered Labetolol ordered Patient's saturation in the mid 90's after suctioning, PT, and ventimask placement Patient also had urinary retention >500 and Basiilo was placed. Transfer to med/surg cancelled and will monitor in ICU overnight Will need re-evaluation for speech and swallow
[2018-07-17] MEDS ORDERED: PT OWN MED DRAWER 7, Y5N ONE ×2 (02:53→09:29)
[2018-07-17] MEDS: HEPARIN NA (PORCINE) 5,000 UNITS/ML 1ML VIAL SQ SCH ×3 (06:05→21:17)
[2018-07-17] MEDS: THIAMINE HCL 200 MG/2 ML VIAL IVPB SCH ×3 (06:05→21:19)
[2018-07-17 06:16] LABS: BASO % 0.1 % (0-2.0); HEMATOCRIT 33.5 % (32.4-45.2); HEMOGLOBIN 11.3 GM/dL (10.7-15.3); LYMPH % 6.3 % (8-40); MCH 30.8 pg (25.7-33.7); MCHC 33.8 g/dl (32.0-36.0); MEAN CELL VOLUME 91.1 fl (80-96); MEAN PLT VOLUME 6.8 fl (7.5-11.1); MONO % 5.8 % (3.8-10.2); NEUT % 87.8 % (42.8-82.8); PLATELET COUNT 474 K/MM3 (134-434); RBC 3.68 M/mm3 (3.60-5.2); RDW 12.8 % (11.6-15.6); WHITE BLOOD COUNT 20.1 K/mm3 (4.0-10.0)
[2018-07-17 07:33] LABS: ALBUMIN 2.6 g/dl (3.4-5.0); ALK PHOS 118 U/L (45-117); ANION GAP 7 MMOL/L (8-16); BILIRUBIN,TOTAL 0.4 mg/dL (0.2-1); BLOOD UREA NITROGEN 30 mg/dL (7-18); CALCIUM 8.6 mg/dL (8.5-10.1); CHLORIDE 103 mmol/L (98-107); CO2 29 mmol/L (21-32); CREATININE 0.4 mg/dL (0.55-1.3); GLUCOSE,RANDOM 99 mg/dL (74-106); MAGNESIUM 1.9 mg/dL (1.8-2.4); PHOSPHOROUS 3.7 mg/dL (2.5-4.9); POTASSIUM 3.7 mmol/L (3.5-5.1); SGOT/AST 36 U/L (15-37); SGPT/ALT 96 U/L (13-61); SODIUM 139 mmol/L (136-145)
[2018-07-17] MEDS: DEXAMETHASONE SOD PHOSPHATE 4 MG/1 ML VIAL IVPUSH SCH ×2 (09:32→21:18)
[2018-07-17] MEDS: DESIPRAMINE HCL 50 MG TABLET PO SCH ×3 (09:34→21:12)
[2018-07-17] MEDS: PANTOPRAZOLE SODIUM 40 MG VIAL IVPUSH SCH (09:34)
[2018-07-17 10:32] LABS: URINE APPEARANCE SLCLOUDY; URINE BILIRUBIN NEGATIVE (<2.0 mg/dL); URINE COLOR YELLOW; URINE GLUCOSE (UA) NEGATIVE (NEGATIVE); URINE KETONE NEGATIVE (NEGATIVE); URINE LEUK ESTERASE TRACE (NEGATIVE); URINE NITRITE POSITIVE (NEGATIVE); URINE PROTEIN NEGATIVE (NEGATIVE); URINE UROBILINOGEN 4.0 E.U/dl mg/dL (0.2-1.0)
[2018-07-17 10:37] LABS: URINE BACTERIA MANY /hpf (NONE SEEN); URINE HYALINE CAST 1 /lpf; URINE MUCUS FEW
[2018-07-17] MEDS: POLYETHYLENE GLYCOL 3350 119 GM BTL PO SCH (10:38)
--- NOTE | 2018-07-17 12:04 | PN ---
Physical Exam: SUBJECTIVE: Patient seen and examined at the bedside. OBJECTIVE: family present patient had episode of shortness of breath today, oxygen went to the 70s and was placed on venti mask. Now on nasal cannula, and oxygen stable She is currently npo for possible aspiration, swallow eval to be done chest xray 07/17: with developing new atelaectasis with some fluid on the right base. left base slightly better aerated with some residual atelectasis. WBC increased to 20 today. she has been restarted on antibiotics per ID remains on 1:1 for suicide ideation Vital Signs Period Temp Pulse Resp BP Sys/Smith Pulse Ox Last 24 Hr 98.2 F-100.4 F 90-143 16-23 135-201/76-114 96-100 GENERAL: Eyes open today,speaking in a whisper, appears more stable - on nasal cannula. HEAD: Normal with no signs of trauma. EYES: PERRLA, +corneal light reflex, sclera anicteric, conjunctiva clear. ENT: nares patent NECK: Trachea midline, full range of motion, supple. LUNGS: Breath sounds equal, mild scattered rhonchi on anterior lobes HEART: tachycardia on lunchroom monitor ABDOMEN: Soft, nontender, nondistended, normoactive bowel sounds, no guarding, no rebound, no hepatosplenomegaly, no masses. EXTREMITIES: edema to b/l hands, r>l NEUROLOGICAL: eyes open, facial symmetry. attempts to talk, still intubated SKIN: Warm, dry, normal turgor, no rashes or lesions noted Laboratory Results - last 24 hr 07/15/18 07/16/18 07/16/18 21:49 05:52 11:46 WBC RBC Hgb Hct MCV MCH MCHC RDW Plt Count MPV Absolute Neuts (auto) Neutrophils % Lymphocytes % Monocytes % Eosinophils % Basophils % Nucleated RBC % Sodium Potassium Chloride Carbon Dioxide Anion Gap BUN Creatinine Creat Clearance w eGFR POC Glucometer [phone] [phone] Random Glucose Calcium Phosphorus Magnesium Total Bilirubin AST ALT Alkaline Phosphatase Total Protein Albumin Urine Color Urine Appearance Urine pH Ur Specific Thorpe Urine Protein Urine Glucose (UA) Urine Ketones Urine Blood Urine Nitrite Urine Bilirubin Urine Urobilinogen Ur Leukocyte Esterase Urine WBC (Auto) Urine RBC (Auto) Urine Bacteria Hyaline Casts Urine Mucus 07/17/18 07/17/18 07/17/18 05:30 05:30 08:50 WBC 20.1 H RBC 3.68 Hgb 11.3 Hct 33.5 MCV 91.1 MCH 30.8 MCHC 33.8 RDW 12.8 Plt Count 474 H MPV 6.8 L Absolute Neuts (auto) 17.7 H Neutrophils % 87.8 H Lymphocytes % 6.3 L D Monocytes % 5.8 Eosinophils % 0.0 Basophils % 0.1 Nucleated RBC % 0 Sodium 139 Potassium 3.7 Chloride 103 Carbon Dioxide 29 Anion Gap 7 L BUN 30 H Creatinine 0.4 L Creat Clearance w eGFR > 60 POC Glucometer Random Glucose 99 Calcium 8.6 Phosphorus 3.7 Magnesium 1.9 Total Bilirubin 0.4 AST 36 ALT 96 H Alkaline Phosphatase 118 H Total Protein 6.0 L Albumin 2.6 L Urine Color Yellow Urine Appearance Slcloudy Urine pH 6.0 Ur Specific Thorpe 1.021 Urine Protein Negative Urine Glucose (UA) Negative Urine Ketones Negative Urine Blood Negative Urine Nitrite Positive Urine Bilirubin Negative Urine Urobilinogen 4.0 e.u/dl H Ur Leukocyte Esterase Trace Urine WBC (Auto) 26 Urine RBC (Auto) 2 Urine Bacteria Many Hyaline Casts 1 Urine Mucus Few Active Medications Generic Name Dose Route Start Last Admin Trade Name Freq PRN Reason Stop Dose Admin Chlorhexidine Gluconate 1 applic 07/06/18 22:00 07/16/18 22:04 Hibiclens For Decolonization - TP Not Given HS [facility] Clonazepam 0.5 mg 07/14/18 15:24 07/17/18 02:20 Klonopin - PO 0.5 mg Q12H PRN Administration ANXIETY Desipramine HCl 150 mg 07/16/18 22:00 07/17/18 09:34 Norpramin - PO 150 mg BID [facility] Administration Dexamethasone Sodium Phosphate 2 mg 07/17/18 11:27 Decadron Injection - IVPUSH BID [facility] Heparin Sodium (Porcine) 5,000 unit 07/10/18 14:00 07/17/18 06:05 Heparin - SQ 5,000 unit TID [facility] Administration Sodium Chloride 1,000 mls @ 50 mls/hr 07/15/18 17:56 07/17/18 01:00 Normal Saline - IV 50 mls/hr ASDIR [facility] Administration Olanzapine 5 mg/ Olanzapine 10 15 mg 07/16/18 22:00 07/16/18 22:03 mg PO 15 mg HS [facility] Administration Pantoprazole Sodium 40 mg 07/09/18 12:00 07/17/18 09:34 Protonix Iv IVPUSH 40 mg DAILY [facility] Administration Polyethylene Glycol 17 gm 07/12/18 10:00 07/17/18 10:38 Miralax (For Daily Use) - PO Not Given DAILY [facility] Propranolol HCl 80 mg 07/16/18 22:00 07/17/18 10:15 Inderal La - PO 80 mg DAILY [facility] Administration Thiamine HCl 300 mg 07/07/18 14:00 07/17/18 06:05 Vitamin B1 Injection - IVPB 300 mg TID [facility] Administration ASSESSMENT/PLAN: Patient is a 67 year old female with a reported past medical history of severe depression with prior admission to [facility]. Patient brought in to the ED 07/06/2018 via ambulance after she was found unresponsive in her bed. Her son lives downstairs and last saw her at her baseline around 4pm on 07/05/18. He went to see her in the morning at 10:30a.m. and found her to be unresponsive, in bed. Patient intubated on admission for possible serotonin syndrome. Acute metabolic encephalopathy Severe sepsis Acute toxic metabolic encephalopathy Seratonin overdose Possible suicide attempt Severe depression Rule out stroke aspiration pneumonia Pulm: Acute Respiratory Failure, secondary to drug overdose. resolved. extubated on 07/15/2018. Maintained on supplemental oxygen (nasal cannula) to maintain oxygen sats above 90%. patient had episode of shortness of breath today, oxygen went to the 70s and was placed on venti mask. Now back on nasal cannula, and oxygen stable. she has been kept npo for possible aspiration episode. speech and swallow follow up. On Duonebs prn On Dexamethasone 4mg iv push q4. Neuro: Acute toxic metabolic encephalopathy due to polysubstance overdose. resolved. Mentation close to baseline, however, does not recall events that led her to the hospital Neurology following. On a 1:1 Psyche Possible suicide attempt Benzo overdose per toxicology report, treated with activated charcoal on admission, intubated on admission, extubated 07/15/18. Psyche consulted Psychiatrist Dr. Deo Li ([phone]) may accept her inpatient ([facility] ) once medically cleared. GI: Transaminitis. resolved. monitor cmp daily fen on IVF hydration, started on soft diet. monitor electrolytes soft diet, seen by swallow/speech therapist proph SCD Protonix 40mg IVP BID heparin tid Disposition. full code. Visit type - Emergency Visit Emergency Visit: Yes ED Registration Date: 07/06/18 Care time: The patient presented to the Emergency Department on the above date and was hospitalized for further evaluation of their emergent condition. - New Patient This patient is new to me today: No - Critical Care Critical Care patient: Yes Total Critical Care Time (in minutes): 60 Critical Care Statement: The care of this patient involved high complexity decision making to prevent further life threatening deterioration of the patient 's condition and/or to evaluate & treat vital organ system(s) failure or risk of failure. - Discharge Referral Referred to [facility] No
--- NOTE | 2018-07-17 13:18 | PN ---
Teaching Attending Note Name of Resident: Bernard Elizondo ATTENDING PHYSICIAN STATEMENT I saw and evaluated the patient. I reviewed the resident's note and discussed the case with the resident. I agree with the resident's findings and plan as documented. SUBJECTIVE: Pt seen and examined in the ICU. Had choking episode overnight with low grade temp, now with bibasilar infiltrates. OBJECTIVE: Vital Signs Period Temp Pulse Resp BP Sys/Smith Pulse Ox Last 24 Hr 98.2 F-100.4 F 90-143 16-23 135-201/76-114 96-100 Intake & Output 07/14/18 07/15/18 07/16/18 07/17/18 23:59 23:59 23:59 23:59 Intake Total 3097.6 2183.2 1753 860 Output Total 1550 4300 2530 Balance 1547.6 -2116.8 -777 860 Weight 51.6 kg 49.8 kg 44.6 kg 44.1 kg Gen: NAD, voice stronger Heart: RRR Lung: decreased breath sounds at the bases Abd: soft, nontender Ext: no edema CBC, BMP 07/17/18 05:30 07/17/18 05:30 Active Medications Chlorhexidine Gluconate (Hibiclens For Decolonization -) 1 applic TP HS [facility] Last Admin: 07/16/18 22:04 Dose: Not Given Clonazepam (Klonopin -) 0.5 mg PO Q12H PRN PRN Reason: ANXIETY Last Admin: 07/17/18 02:20 Dose: 0.5 mg Desipramine HCl (Norpramin -) 150 mg PO BID [facility] Last Admin: 07/17/18 09:34 Dose: 150 mg Dexamethasone Sodium Phosphate (Decadron Injection -) 2 mg IVPUSH BID [facility] Heparin Sodium (Porcine) (Heparin -) 5,000 unit SQ TID [facility] Last Admin: 07/17/18 06:05 Dose: 5,000 unit Sodium Chloride (Normal Saline -) 1,000 mls @ 50 mls/hr IV ASDIR [facility] Last Admin: 07/17/18 01:00 Dose: 50 mls/hr Olanzapine 5 mg/ Olanzapine 10 (mg) 15 mg PO HS [facility] Last Admin: 07/16/18 22:03 Dose: 15 mg Pantoprazole Sodium (Protonix Iv) 40 mg IVPUSH DAILY [facility] Last Admin: 07/17/18 09:34 Dose: 40 mg Polyethylene Glycol (Miralax (For Daily Use) -) 17 gm PO DAILY [facility] Last Admin: 07/17/18 10:38 Dose: Not Given Propranolol HCl (Inderal La -) 80 mg PO DAILY [facility] Last Admin: 07/17/18 10:15 Dose: 80 mg Thiamine HCl (Vitamin B1 Injection -) 300 mg IVPB TID [facility] Last Admin: 07/17/18 06:05 Dose: 300 mg ASSESSMENT AND PLAN: s/p Acute Respiratory Failure Drug Overdose Suicide Attempt r/o Serotonin Syndrome Depression Laryngeal Edema Pneumonia likely Aspiration - taper off decadron - antihistamines as needed - start antibiotics to cover aspiration - reculture if febrile - monitor urine output, creatinine - PO as tolerated - aspiration precautions - rehab/PT - DVT/GI prophylaxis - can monitor on floor
[2018-07-17 14:36] LABS: ACANTHOCYTES 0; ANISOCYTOSIS 0; HELMET CELLS 0; HOWELL-JOLLY BODIES 0; MACROCYTOSIS 0; OVALOCYTE 0; PLATELET ESTIMATE NORMAL; ROULEAU 0; SICKELED CELLS 0; TARGET CELLS 0; TEAR DROP CELLS 0; TOXIC GRANULATION 0
--- NOTE | 2018-07-17 14:58 | PN ---
Progress Note, Physician History of Present Illness: patient stable hoarse voice wbc has jumped u still 1 to 1 - Current Medication List Current Medications: Active Medications Chlorhexidine Gluconate (Hibiclens For Decolonization -) 1 applic TP HS [facility] Last Admin: 07/16/18 22:04 Dose: Not Given Clonazepam (Klonopin -) 0.5 mg PO Q12H PRN PRN Reason: ANXIETY Last Admin: 07/17/18 02:20 Dose: 0.5 mg Desipramine HCl (Norpramin -) 150 mg PO BID [facility] Last Admin: 07/17/18 09:34 Dose: 150 mg Dexamethasone Sodium Phosphate (Decadron Injection -) 2 mg IVPUSH BID [facility] Heparin Sodium (Porcine) (Heparin -) 5,000 unit SQ TID [facility] Last Admin: 07/17/18 13:31 Dose: 5,000 unit Sodium Chloride (Normal Saline -) 1,000 mls @ 50 mls/hr IV ASDIR [facility] Last Admin: 07/17/18 01:00 Dose: 50 mls/hr Piperacillin Sod/Tazobactam (Sod 3.375 gm/ Dextrose) 50 mls @ 100 mls/hr IVPB Q8H-IV [facility]; Protocol Olanzapine 5 mg/ Olanzapine 10 (mg) 15 mg PO HS [facility] Last Admin: 07/16/18 22:03 Dose: 15 mg Pantoprazole Sodium (Protonix Iv) 40 mg IVPUSH DAILY [facility] Last Admin: 07/17/18 09:34 Dose: 40 mg Polyethylene Glycol (Miralax (For Daily Use) -) 17 gm PO DAILY [facility] Last Admin: 07/17/18 10:38 Dose: Not Given Propranolol HCl (Inderal La -) 80 mg PO DAILY [facility] Last Admin: 07/17/18 10:15 Dose: 80 mg Thiamine HCl (Vitamin B1 Injection -) 300 mg IVPB TID [facility] Last Admin: 07/17/18 13:31 Dose: 300 mg - Objective Vital Signs: Vital Signs Temperature 99.1 F 07/17/18 10:00 Pulse Rate 99 H 07/17/18 12:00 Respiratory Rate 18 07/17/18 12:00 Blood Pressure 135/84 07/17/18 12:00 O2 Sat by Pulse Oximetry (%) 98 07/17/18 11:21 Constitutional: Yes: No Distress, Calm HENT: Yes: Other (hoarse voice) Cardiovascular: Yes: Regular Rate and Rhythm Respiratory: Yes: Regular, Poor Air Entry, Rhonchi Gastrointestinal: Yes: Normal Bowel Sounds, Soft Genitourinary: Yes: WNL Musculoskeletal: Yes: WNL Extremities: Yes: WNL Neurological: Yes: Alert, Oriented Psychiatric: Yes: Alert, Oriented Labs: CBC, BMP 07/17/18 05:30 07/17/18 05:30 INR, PTT INR 1.32 (0.83-1.09) H 07/07/18 12:35 - ....Imaging X-ray: Report Reviewed, Image Reviewed Assessment/Plan Acute metabolic encephalopathy Severe sepsis Acute toxic metabolic encephalopathy Seratonin overdose Possible suicide attempt Severe depression pneumonia patient has developed pneumonia will restart patient on abx plan hydration support rest as per icu steroids resp support continue abx cc 40 min
--- NOTE | 2018-07-17 15:11 | PN ---
Progress Note, PRODUCT INFO SPECIALIST - Note Progress Note: Pt seen at chairside on unit for follow up to swallow eval with recommendations for dysphagia puree and thin liquids. Chart review indicated that pt did consume 25% of lunch yesterday. cartoonist special effects reports that pt demonstrated aspiration-like behaviors at dinner and is now NPO. Pt given po trials of pureed at chairside with total assistance revealed good acceptance, adequate bolus formation and transport. Pharyngeal swallow slightly delayed with no cough after the swallow. O2 sat remained stable at 98% Pt given po po trials of honey thick and thin liquids via cup with total assistance revealed good acceptance, adequate bolus formation and transport. Pharyngeal swallow slightly delayed with positive cough after the swallow with thin liquids. No cough observe with thicken liquids. Pt did report pain with swallowing liquids and described it "like a burning sensation". This sensation is consistent with the effects of extubation. O2 sat remained stable at 98% Recommendations: continue dysphagia pureed and offer NECTAR thicken liquids as tolerated. Observe standard aspiration precautions Preferably OOB for meals. Offer liquids in small volumes 2 or 3oz. Slow pace. Consider MBS to determine if pt is silently aspirating liquids and possibly upgrade diet. PRODUCT INFO SPECIALIST to follow up for MBS. Results given verbally to glass lined tank repairer and to pcp via chart.
--- NOTE | 2018-07-17 15:23 | PN ---
Physical Exam: SUBJECTIVE: Patient seen and examined at bedside. She states she is comfortable and has no complaints. She experienced a choking episode overnight and her SpO2 desaturated into the 70s, and her HR elevated to the 150s. She was made NPO overnight due to difficulty swallowing. A speech and swallow ordered for today. She was also experiencing urinary retention overnight. When she was catheterized 900 cc came out. Her BP instantly dropped after her bladder was cathed. Afterwards she had a bladder scan which revealed 500 residual cc left in the bladder. UA was performed which suggested she has a UTI. CXR: Atelectasis w/ fluid at the R base. Left base has a possible infiltrate. OBJECTIVE: Vital Signs Period Temp Pulse Resp BP Sys/Smith Pulse Ox Last 24 Hr 98.2 F-100.4 F 90-143 16-23 135-201/76-114 96-100 GENERAL: The patient is awake, lethargic and drowsy, alert, and fully oriented, in no acute distress. HEAD: Normal with no signs of trauma. EYES: PERRL, extraocular movements intact, sclera anicteric, conjunctiva clear. No ptosis. ENT: Significant oral secretions. Ears normal, nares patent, oropharynx clear without exudates, moist mucous membranes. NECK: Trachea midline, full range of motion, supple. LUNGS: Decreased breath sounds bilaterally, no wheezes, no crackles, no accessory muscle use. HEART: Regular rate and rhythm, S1, S2 without murmur, rub or gallop. ABDOMEN: Soft, nontender, nondistended, normoactive bowel sounds, no guarding, no rebound, no hepatosplenomegaly, no masses. EXTREMITIES: 2+ pulses, warm, well-perfused, no edema. NEUROLOGICAL: Cranial nerves II through XII grossly intact. Normal speech, gait not observed. PSYCH: Suicidal ideation, depressed affect. SKIN: Warm, dry, normal turgor, no rashes or lesions noted Laboratory Results - last 24 hr 07/15/18 07/16/18 07/16/18 21:49 05:52 11:46 WBC RBC Hgb Hct MCV MCH MCHC RDW Plt Count MPV Absolute Neuts (auto) Neutrophils % Neutrophils % (Manual) Band Neutrophils % Lymphocytes % Lymphocytes % (Manual) Monocytes % Monocytes % (Manual) Eosinophils % Eosinophils % (Manual) Basophils % Basophils % (Manual) Myelocytes % (Man) Promyelocytes % (Man) Blast Cells % (Manual) Nucleated RBC % Metamyelocytes Hypochromia Toxic Granulation Dohle Bodies Platelet Estimate Polychromasia Poikilocytosis Basophilic Stippling Anisocytosis Microcytosis Macrocytosis Spherocytes Sickle Cells Target Cells Tear Drop Cells Ovalocytes Stomatocytes Helmet Cells Velasco-Steward Bodies Avery Rings [place] Cells Acanthocytes (Spur) Rouleaux Fragmented RBCs Schistocytes Sodium Potassium Chloride Carbon Dioxide Anion Gap BUN Creatinine Creat Clearance w eGFR POC Glucometer 112.09888 131.10033 111.68349 Random Glucose Calcium Phosphorus Magnesium Total Bilirubin AST ALT Alkaline Phosphatase Total Protein Albumin Urine Color Urine Appearance Urine pH Ur Specific Faulkner Urine Protein Urine Glucose (UA) Urine Ketones Urine Blood Urine Nitrite Urine Bilirubin Urine Urobilinogen Ur Leukocyte Esterase Urine WBC (Auto) Urine RBC (Auto) Urine Bacteria Hyaline Casts Urine Mucus 07/17/18 07/17/18 07/17/18 05:30 05:30 08:50 WBC 20.1 H RBC 3.68 Hgb 11.3 Hct 33.5 MCV 91.1 MCH 30.8 MCHC 33.8 RDW 12.8 Plt Count 474 H MPV 6.8 L Absolute Neuts (auto) 17.7 H Neutrophils % 87.8 H Neutrophils % (Manual) 87.9 H Band Neutrophils % 0.0 Lymphocytes % 6.3 L D Lymphocytes % (Manual) 6.1 L D Monocytes % 5.8 Monocytes % (Manual) 5 Eosinophils % 0.0 Eosinophils % (Manual) 0.0 Basophils % 0.1 Basophils % (Manual) 0.0 Myelocytes % (Man) 0 Promyelocytes % (Man) 0 Blast Cells % (Manual) 0 D Nucleated RBC % 0 Metamyelocytes 0 D Hypochromia 0 Toxic Granulation 0 Dohle Bodies 0 Platelet Estimate Normal Polychromasia 0 Poikilocytosis 0 Basophilic Stippling 0 Anisocytosis 0 Microcytosis 0 Macrocytosis 0 Spherocytes 0 Sickle Cells 0 Target Cells 0 Tear Drop Cells 0 Ovalocytes 0 Stomatocytes 0 Helmet Cells 0 Velasco-Steward Bodies 0 Avery Rings 0 Shahid Cells 0 Acanthocytes (Spur) 0 Rouleaux 0 Fragmented RBCs 0 Schistocytes 0 Sodium 139 Potassium 3.7 Chloride 103 Carbon Dioxide 29 Anion Gap 7 L BUN 30 H Creatinine 0.4 L Creat Clearance w eGFR > 60 POC Glucometer Random Glucose 99 Calcium 8.6 Phosphorus 3.7 Magnesium 1.9 Total Bilirubin 0.4 AST 36 ALT 96 H Alkaline Phosphatase 118 H Total Protein 6.0 L Albumin 2.6 L Urine Color Yellow Urine Appearance Slcloudy Urine pH 6.0 Ur Specific Faulkner 1.021 Urine Protein Negative Urine Glucose (UA) Negative Urine Ketones Negative Urine Blood Negative Urine Nitrite Positive Urine Bilirubin Negative Urine Urobilinogen 4.0 e.u/dl H Ur Leukocyte Esterase Trace Urine WBC (Auto) 26 Urine RBC (Auto) 2 Urine Bacteria Many Hyaline Casts 1 Urine Mucus Few Active Medications Generic Name Dose Route Start Last Admin Trade Name Freq PRN Reason Stop Dose Admin Chlorhexidine Gluconate 1 applic 07/06/18 22:00 07/16/18 22:04 Hibiclens For Decolonization - TP Not Given HS RUBENS Clonazepam 0.5 mg 07/14/18 15:24 07/17/18 02:20 Klonopin - PO 0.5 mg Q12H PRN Administration ANXIETY Desipramine HCl 150 mg 07/16/18 22:00 07/17/18 09:34 Norpramin - PO 150 mg BID RUBENS Administration Dexamethasone Sodium Phosphate 2 mg 07/17/18 11:27 Decadron Injection - IVPUSH BID [facility] Heparin Sodium (Porcine) 5,000 unit 07/10/18 14:00 07/17/18 13:31 Heparin - SQ 5,000 unit TID RUBENS Administration Sodium Chloride 1,000 mls @ 50 mls/hr 07/15/18 17:56 07/17/18 01:00 Normal Saline - IV 50 mls/hr ASDIR RUBENS Administration Piperacillin Sod/Tazobactam 50 mls @ 100 mls/hr 07/17/18 15:00 Sod 3.375 gm/ Dextrose IVPB Q8H-IV RUBENS Protocol Olanzapine 5 mg/ Olanzapine 10 15 mg 07/16/18 22:00 07/16/18 22:03 mg PO 15 mg HS RUBENS Administration Pantoprazole Sodium 40 mg 07/09/18 12:00 07/17/18 09:34 Protonix Iv IVPUSH 40 mg DAILY RUBENS Administration Polyethylene Glycol 17 gm 07/12/18 10:00 07/17/18 10:38 Miralax (For Daily Use) - PO Not Given DAILY RUBENS Propranolol HCl 80 mg 07/16/18 22:00 07/17/18 10:15 Inderal La - PO 80 mg DAILY RUBENS Administration Thiamine HCl 300 mg 07/07/18 14:00 07/17/18 13:31 Vitamin B1 Injection - IVPB 300 mg TID RUBENS Administration ASSESSMENT/PLAN: Patient had a choking episode overnight with SpO2 desaturation into the 70s, HR escalation to 150s. She also has an infiltrate on CXR this AM. This adds up to probable aspiration and a pneumonitis type of picture. We ordered a repeat swallow evaluation today. Swallow evaluation said to start the patient on a pureed nectar thickened diet for today and then to order a modified barium swallow for tomorrow. Plan: Abx, PT, OOB, tapering decadron to 2 BID. [facility] Poison control knows about patient and is following: Call [phone] Dr[address] Escalante or Dr. Paz. Dr. Paz said we can reach him on his cell phone at: [phone] - Serotonin syndrome likely resolved - Cyproheptadine stopped - benadryl started - Klonipin started Assessment: 67 year old female with a PMHx of Depression and suicidal ideations with recent admission to [facility] (06/19/18-) was BIBEMS after being found by her son unresponsive, warm to touch with thick mucous coming out of her mouth and "barely breathing." There was a suicide note and empty bottles of Olanzapine and Clonazepam. -Patient no longer requires venti mask and had her NG tube removed. She is eating pureed food today and is stable for transfer to Med/Surg. As soon as she leaves the ICU she should be transfered to [facility] to be an inpatient in Dr. Deo Li's psychiatric service. Pertinent numbers: Dr. Deo Li office number: [phone] Number to call for transfer center access: [phone] Fax number to send paper work to: [phone] (Write Attention - Dr. Li referral) NEURO #Acute Toxic Metabolic Encephalopathy/ likely serotonin syndrome + Benzo OD. - Acute syndrome resolved. - No ocular clonus, rigidity, or hyperthermia - on home meds - Currently extubated - Repeat Head CT did not appear to show consistent brain bleed. Likely calcification. - Will get another head CT when patient is more stable. CARDIO #Tachycardia - Tachycardia resolved after administration of home propranolol dosage. PULM: - No acute problems. - Extubated, off ventimask - No laryngeal edema or stridor. - Tapering steroids, no 2 BID, and still getting benadryl. PSYCH #Severe Depression with Attempted Suicide - Psych consulted - Continue to monitor with 1:1 - [facility] Psychiatry was spoken to about the patient. - Dr. Deo Li will accept the patient as an inpatient if she leaves the ICU. Number: [phone] INFECTIOUS DISEASE - infiltrate seen on CXR at bilateral bases. - WBC elevated to 20 - ID consulted - UA/UC suggests UTI - Patient restarted on Zosyn F/E/N - Patient is receiving NS at 50 mls/hr - Continue to replete lites PRN - Pureed nectar thickened diet - Will get patient modified barium swallow tomorrow PROPHYLAXIS -SCD's + Heparin -Protonix 40mg IVP BID Disposition -Full code -Patient is transfered to Med/Surg to ultimately be transfered to [facility] Visit type - Emergency Visit Emergency Visit: Yes ED Registration Date: 07/06/18 Care time: The patient presented to the Emergency Department on the above date and was hospitalized for further evaluation of their emergent condition. - New Patient This patient is new to me today: No - Critical Care Critical Care patient: Yes Total Critical Care Time (in minutes): 36 Critical Care Statement: The care of this patient involved high complexity decision making to prevent further life threatening deterioration of the patient 's condition and/or to evaluate & treat vital organ system(s) failure or risk of failure.
[2018-07-17] MEDS ORDERED: PIPERACILLIN/TAZOBACTAM 3.375 GM VIAL IVPB ONE ×2 (15:25→18:38)
[2018-07-17] MEDS ORDERED: DEXTROSE 5%-WATER - 50 ML IVPB ONE ×2 (15:26→18:39)
[2018-07-17] MEDS: PIPERACILLIN/TAZOB 3.375 GM 3.375 GM in DEXTROSE 5%-WATER - 50 ML IVPB SCH ×2 (15:30→18:49)
--- NOTE | 2018-07-17 18:54 | CONS ---
DATE OF CONSULTATION: 07/17/2018 PHYSICAL MEDICINE REHABILITATION CONSULTATION HISTORY OF PRESENT ILLNESS: The patient is a 67-year-old woman with a past medical history of depression who was admitted after she was found unresponsive on July 06, 2018, apparently after a possible suicide attempt. The patient took multiple medications and left a suicide note. She was admitted and developed acute respiratory distress thought secondary to drug overdose. The patient was diagnosed with acute toxic metabolic encephalopathy due to polysubstance abuse and sepsis due to aspiration pneumonia. She was intubated until July 15, 2018. She has been extubated and did receive physical therapy. She was able to sit up with assistance and to march in place but was unable to really ambulate. Blood work on July 12 showed her white blood count of 4.4, hemoglobin 9.3, platelet count 273, albumin 1.9. On July 17, white blood count was elevated at 20.1, hemoglobin 11.3, platelet count 474, sodium 139, potassium 3.7, chloride 103, BUN 30, creatinine 0.4. The patient is on subcutaneous heparin. She was also evaluated by Speech Pathology and is on a pureed diet with thickened liquids. However, she continues to have signs of aspiration and is scheduled for a modified barium swallow tomorrow. Her last chest x-ray on July 16 showed removal of her endotracheal tube without any infiltrates. The patient herself reports that she feels fatigued and tired but has no complaints of any pain other than a little difficulty with swallowing. She was seen at the bedside with her son, who lives in a multi-family home in a different unit than his mother. PAST MEDICAL AND SURGICAL HISTORY: Significant for depression. SOCIAL HISTORY: The patient had lived in a multi-family home. She only has one step to enter. In her unit, she resides with her . Her son lives upstairs in a separate unit. Premorbidly, she was completely independent and ambulatory without assistive device. CURRENT FUNCTION: She was seen by Physical Therapy. She is min assist of two for sit to stand and marched in place, limited by fatigue. REVIEW OF SYSTEMS: She has no headache, no lightheadedness, no dizziness, no blurry vision or double vision that is new. Again, she has no nausea or vomiting but has some difficulty swallowing, cough, fatigue but no numbness or tingling in the upper or lower extremities, no joint arthralgias, no fever or chills, no bowel or bladder complaints, no joint arthralgias, back pain or neck pain. No myalgias but diffuse weakness. No swelling. No skin rash or discoloration. PHYSICAL EXAMINATION: GENERAL: The patient is a thin, cachectic woman seen sitting up in bed. She is in no acute distress. She is awake and cooperative. Again, her son is available and helps answer some of the questions but for the most part, the patient is able to answer all the questions on her own. HEENT: Normocephalic, atraumatic. Her extraocular muscles appear intact. She has no obvious facial weakness. NECK: She keeps her head tilted slightly to the right with some tenderness and spasm. EXTREMITIES: No pitting edema or calf tenderness. SKIN: No rash or breakdown of the heels. NEUROMUSCULAR: She is awake, alert, oriented x3. Cranial nerves are grossly intact. She has fairly good natural sciences department chair strength in both upper limbs but has 2 to 3 out of 5 weakness in the shoulder girdle and elbow extensors although flexor is 3+ to 4- out of 5. She has normal sensation to pinprick and symmetric reflexes in the upper extremities. In the lower extremities, she has 1 to 2 out of 5 hip girdle strength, 3 out of 5 knee extensor strength. Her dorsiflexors are at least 4 out of 5. Normal sensation to pinprick, symmetric reflexes. Toes are downgoing. OVERALL IMPRESSION: 1. Significant deficits in mobility and activities of daily living. 2. Deconditioning. 3. Respiratory failure status post intubation. 4. Sepsis, possibly due to aspiration pneumonia. 5. Status post toxic metabolic encephalopathy due to drug overdose. 6. Elevated risk for DVT due to immobility. 7. Elevated risk for skin breakdown. 8. Possible suicide attempt. 9. History of depression. 10. Anemia. 11. Leukocytosis. 12. Rule out dysphagia. PLANS/SUGGESTIONS: 1. Continue physical therapy at the bedside. 2. Instructed son on range of motion and strengthening exercises. 3. Continue skin care. Avoid heel and sacral pressure, turning patient. 4. Subcutaneous heparin for deep vein thrombosis prophylaxis. 5. Sequential compression devices for deep vein thrombosis prophylaxis. 6. Discharge planning: To psychiatric inpatient stay when medically stable and if physically able. 7. Out of bed to chair when appropriate. 8. Proceed with modified barium swallow. 9. Consider keeping her n.p.o. until the modified barium swallow is complete. Thank you for this referral. DAVINA STEVEN M.D. JOHNNIE/[id number]
[2018-07-17] MEDS: OLANZAPINE PO SCH ×2 (20:19→21:10)
[2018-07-17] MEDS ORDERED: ALBUTEROL SO4 0.083% IH SOL 2.5 MG/3 ML VIAL.NEB. NEB PRN (20:40)
[2018-07-17] MEDS: CHLORHEXIDINE GLUCONATE 4% CLEANSER FOR DECOLONIZATION TP SCH (21:17)
--- NOTE | 2018-07-17 22:58 | PN ---
Progress Note (short form) - Note Progress Note: Patient's son mentioned that since this evening, she has been confused, delirious. Patient says " I want to make you eggs for breakfast, let me get up and brush my teeth, I don't know ". When asked, patient is not oriented to time and place but oriented to person. Doesn't recall the suicidal attempt incident. Vitals: BP 107/65 mmHg, P-94 bpm, RR-16 ; Spo2-98 % @ 4L Physical exam: General: Patient sitting comfortably in bed, nasal canula in place Chest: B/L coarse breath sounds +, no wheeze CVS: Tachycardic, S1, S2, no murmur. Abdomen: Soft, non tender Ext: No peripheral edema. Plan: Will order MRI brain with and without leon for mental status change (Also recommended by Dr. Simon).
[2018-07-18] MEDS ORDERED: PT OWN MED DRAWER 7, Y5N ONE ×3 (01:54→20:28)
[2018-07-18] MEDS: PIPERACILLIN/TAZOB 3.375 GM 3.375 GM in DEXTROSE 5%-WATER - 50 ML IVPB SCH ×3 (03:00→17:31)
[2018-07-18 06:29] LABS: ALBUMIN 2.5 g/dl (3.4-5.0); ALK PHOS 104 U/L (45-117); ANION GAP 7 MMOL/L (8-16); BILIRUBIN,TOTAL 0.5 mg/dL (0.2-1); BLOOD UREA NITROGEN 27 mg/dL (7-18); CALCIUM 8.5 mg/dL (8.5-10.1); CHLORIDE 103 mmol/L (98-107); CO2 29 mmol/L (21-32); CREATININE 0.4 mg/dL (0.55-1.3); GLUCOSE,RANDOM 107 mg/dL (74-106); PHOSPHOROUS 3.4 mg/dL (2.5-4.9); POTASSIUM 3.7 mmol/L (3.5-5.1); SGOT/AST 22 U/L (15-37); SGPT/ALT 68 U/L (13-61); SODIUM 138 mmol/L (136-145); TOT PROT 5.5 g/dl (6.4-8.2)
[2018-07-18 06:35] LABS: BASO % 0.1 % (0-2.0); HEMATOCRIT 30.5 % (32.4-45.2); HEMOGLOBIN 10.2 GM/dL (10.7-15.3); LYMPH % 7.6 % (8-40); MCH 30.6 pg (25.7-33.7); MCHC 33.3 g/dl (32.0-36.0); MEAN CELL VOLUME 91.9 fl (80-96); MEAN PLT VOLUME 7.1 fl (7.5-11.1); MONO % 5.4 % (3.8-10.2); NEUT % 86.9 % (42.8-82.8); PLATELET COUNT 412 K/MM3 (134-434); RBC 3.32 M/mm3 (3.60-5.2); RDW 12.7 % (11.6-15.6); WHITE BLOOD COUNT 14.3 K/mm3 (4.0-10.0)
[2018-07-18] MEDS: HEPARIN NA (PORCINE) 5,000 UNITS/ML 1ML VIAL SQ SCH ×3 (06:40→21:14)
[2018-07-18] MEDS: THIAMINE HCL 200 MG/2 ML VIAL IVPB SCH ×3 (06:40→21:15)
--- NOTE | 2018-07-18 10:12 | PN ---
Progress Note (short form) - Note Progress Note: Patient seen for Psych Follow up: Still very feeble and unable to ambulate, Still has amnesia about what she did. PLan> Continue with 1:1 2) will follow. 3) Transfer to In Patient when medically stable.
[2018-07-18] MEDS ORDERED: PIPERACILLIN/TAZOBACTAM 3.375 GM VIAL IVPB ONE ×3 (10:20→20:27)
[2018-07-18] MEDS ORDERED: DEXTROSE 5%-WATER - 50 ML IVPB ONE ×3 (10:21→20:28)
[2018-07-18] MEDS: DEXAMETHASONE SOD PHOSPHATE 4 MG/1 ML VIAL IVPUSH SCH ×2 (10:30→21:14)
[2018-07-18] MEDS: DESIPRAMINE HCL 50 MG TABLET PO SCH ×2 (10:30→21:14)
[2018-07-18] MEDS: PANTOPRAZOLE SODIUM 40 MG VIAL IVPUSH SCH (11:05)
[2018-07-18] MEDS: POLYETHYLENE GLYCOL 3350 119 GM BTL PO SCH (11:07)
--- NOTE | 2018-07-18 12:22 | PN ---
Progress Note, Physician History of Present Illness: stable improving off of abx doing well confusion episode last night - Current Medication List Current Medications: Active Medications Albuterol Sulfate (Ventolin 0.083% Nebulizer Soln -) 1 amp NEB Q4H PRN PRN Reason: SHORT OF BREATH/WHEEZING Chlorhexidine Gluconate (Hibiclens For Decolonization -) 1 applic TP HS [facility] Last Admin: 07/17/18 21:17 Dose: Not Given Clonazepam (Klonopin -) 0.5 mg PO Q12H PRN PRN Reason: ANXIETY Last Admin: 07/17/18 20:18 Dose: 0.5 mg Desipramine HCl (Norpramin -) 150 mg PO BID [facility] Last Admin: 07/18/18 10:30 Dose: 150 mg Dexamethasone Sodium Phosphate (Decadron Injection -) 2 mg IVPUSH BID [facility] Last Admin: 07/18/18 10:30 Dose: 2 mg Heparin Sodium (Porcine) (Heparin -) 5,000 unit SQ TID [facility] Last Admin: 07/18/18 06:40 Dose: 5,000 unit Sodium Chloride (Normal Saline -) 1,000 mls @ 50 mls/hr IV ASDIR RUBENS Last Admin: 07/17/18 18:50 Dose: 50 mls/hr Piperacillin Sod/Tazobactam (Sod 3.375 gm/ Dextrose) 50 mls @ 100 mls/hr IVPB Q8H-IV RUBENS; Protocol Last Admin: 07/18/18 10:30 Dose: 100 mls/hr Olanzapine 5 mg/ Olanzapine 10 (mg) 15 mg PO HS [facility] Last Admin: 07/17/18 21:10 Dose: Not Given Pantoprazole Sodium (Protonix Iv) 40 mg IVPUSH DAILY [facility] Last Admin: 07/18/18 11:05 Dose: 40 mg Polyethylene Glycol (Miralax (For Daily Use) -) 17 gm PO DAILY [facility] Last Admin: 07/18/18 11:07 Dose: Not Given Propranolol HCl (Inderal La -) 80 mg PO DAILY [facility] Last Admin: 07/18/18 10:00 Dose: 80 mg Thiamine HCl (Vitamin B1 Injection -) 300 mg IVPB TID [facility] Last Admin: 07/18/18 06:40 Dose: 300 mg - Objective Vital Signs: Vital Signs Temperature 99.1 F 07/18/18 10:00 Pulse Rate 90 07/18/18 11:58 Respiratory Rate 19 07/18/18 11:58 Blood Pressure 135/81 07/18/18 11:58 O2 Sat by Pulse Oximetry (%) 98 07/18/18 09:59 Constitutional: Yes: No Distress, Calm Cardiovascular: Yes: Regular Rate and Rhythm Respiratory: Yes: On Nasal O2, Poor Air Entry Gastrointestinal: Yes: Normal Bowel Sounds, Soft Musculoskeletal: Yes: WNL Extremities: Yes: WNL Neurological: Yes: Alert, Other Psychiatric: Yes: Alert Labs: CBC, BMP 07/18/18 05:30 07/18/18 05:30 INR, PTT INR 1.32 (0.83-1.09) H 07/07/18 12:35 - ....Imaging Chest X-ray: Report Reviewed, Image Reviewed Assessment/Plan Acute metabolic encephalopathy Severe sepsis Acute toxic metabolic encephalopathy Seratonin overdose Possible suicide attempt Severe depression pneumonia uti plan continue mgmt as per icu neuro on showcase trimmer fever monitor secretions rest as per the team and icu plan for psych eval 1 to 1 cc 40 min
[2018-07-18] MEDS ORDERED: HEMOQUE TEST 1 EACH EACH ONE (13:43)
--- NOTE | 2018-07-18 13:59 | PN ---
Progress Note, [employer] - Note Progress Note: 67 yo seen for MBS to determine if pt is at risk for aspiration. Pt given po trials of pureed, soft solids, thicken and thin liquids. Pt demonstrates positive signs of silent aspiration with all consistencies. Chin tuck maneuver revealed slightly less bolus penetration and aspiration. Pt is a risk of aspiration at this time. Continue NPO status and consider alternative methods for providing nutrition, hydration and medication at this time. Consider repeat MBS when health status improves. Results observed by battery recharger Grace and given to pcp via chart.
--- NOTE | 2018-07-18 14:23 | PN ---
Physical Exam: SUBJECTIVE: Patient seen and examined at bedside. She states she is comfortable and has no complaints. afebrile overnight. overnight confused, delirious. barium swallow today. MRI brain with and without leon ordered for mental status change (Also recommended by Dr. Simon). Still very feeble and unable to ambulate, Still has amnesia about what she did. OBJECTIVE: Vital Signs Period Temp Pulse Resp BP Sys/Smith Pulse Ox Last 24 Hr 97.9 F-99.1 F 74-95 14-23 101-153/60-95 98-100 GENERAL: AOX3, NAD HEAD: NCAT EYES: PERRL, extraocular movements intact, sclera anicteric, conjunctiva clear. No ptosis. ENT: MMM NECK: Trachea midline, full range of motion, supple. LUNGS: B/L coarse breath sounds +, no wheeze HEART: RRR, S1, S2 without m/r/g ABDOMEN: Soft, NTND, normoactive bowel sounds, no guarding, no rebound EXTREMITIES: 2+ pulses, warm, well-perfused, no edema. NEUROLOGICAL: Cranial nerves II through XII grossly intact. Normal speech, gait not observed. PSYCH: Suicidal ideation, depressed affect. SKIN: Warm, dry, normal turgor, no rashes or lesions noted Laboratory Results - last 24 hr 07/15/18 07/16/18 07/17/18 05:30 17:08 00:57 WBC RBC Hgb Hct MCV MCH MCHC RDW Plt Count MPV Absolute Neuts (auto) Neutrophils % Neutrophils % (Manual) Band Neutrophils % Lymphocytes % Lymphocytes % (Manual) Monocytes % Monocytes % (Manual) Eosinophils % Eosinophils % (Manual) Basophils % Basophils % (Manual) Myelocytes % (Man) Promyelocytes % (Man) Blast Cells % (Manual) Nucleated RBC % Metamyelocytes Hypochromia Toxic Granulation Dohle Bodies Platelet Estimate Polychromasia Poikilocytosis Basophilic Stippling Anisocytosis Microcytosis Macrocytosis Spherocytes Sickle Cells Target Cells Tear Drop Cells Ovalocytes Stomatocytes Helmet Cells [place] Bodies [place] Rings Donahue Cells Acanthocytes (Spur) Rouleaux Fragmented RBCs Schistocytes Sodium Potassium Chloride Carbon Dioxide Anion Gap BUN Creatinine Creat Clearance w eGFR POC Glucometer 111.48048 109.93490 Random Glucose Calcium Phosphorus Magnesium Total Bilirubin AST ALT Alkaline Phosphatase Total Protein Albumin Latex (K82) IgE Ab < 0.10 RAST Comment 07/17/18 07/17/18 07/17/18 05:30 06:12 08:00 WBC RBC Hgb Hct MCV MCH MCHC RDW Plt Count MPV Absolute Neuts (auto) Neutrophils % Neutrophils % (Manual) 87.9 H Band Neutrophils % 0.0 Lymphocytes % Lymphocytes % (Manual) 6.1 L D Monocytes % Monocytes % (Manual) 5 Eosinophils % Eosinophils % (Manual) 0.0 Basophils % Basophils % (Manual) 0.0 Myelocytes % (Man) 0 Promyelocytes % (Man) 0 Blast Cells % (Manual) 0 D Nucleated RBC % Metamyelocytes 0 D Hypochromia 0 Toxic Granulation 0 Dohle Bodies 0 Platelet Estimate Normal Polychromasia 0 Poikilocytosis 0 Basophilic Stippling 0 Anisocytosis 0 Microcytosis 0 Macrocytosis 0 Spherocytes 0 Sickle Cells 0 Target Cells 0 Tear Drop Cells 0 Ovalocytes 0 Stomatocytes 0 Helmet Cells 0 [place] Bodies 0 [place] Rings 0 Shahid Cells 0 Acanthocytes (Spur) 0 Rouleaux 0 Fragmented RBCs 0 Schistocytes 0 Sodium Potassium Chloride Carbon Dioxide Anion Gap BUN Creatinine Creat Clearance w eGFR POC Glucometer 107.82052 103.83277 Random Glucose Calcium Phosphorus Magnesium Total Bilirubin AST ALT Alkaline Phosphatase Total Protein Albumin Latex (K82) IgE Ab RAST Comment 07/17/18 07/17/18 07/18/18 11:33 16:56 05:30 WBC 14.3 H RBC 3.32 L Hgb 10.2 L Hct 30.5 L MCV 91.9 MCH 30.6 MCHC 33.3 RDW 12.7 Plt Count 412 MPV 7.1 L Absolute Neuts (auto) 12.4 H Neutrophils % 86.9 H Neutrophils % (Manual) Band Neutrophils % Lymphocytes % 7.6 L D Lymphocytes % (Manual) Monocytes % 5.4 Monocytes % (Manual) Eosinophils % 0.0 Eosinophils % (Manual) Basophils % 0.1 Basophils % (Manual) Myelocytes % (Man) Promyelocytes % (Man) Blast Cells % (Manual) Nucleated RBC % 0 Metamyelocytes Hypochromia Toxic Granulation Dohle Bodies Platelet Estimate Polychromasia Poikilocytosis Basophilic Stippling Anisocytosis Microcytosis Macrocytosis Spherocytes Sickle Cells Target Cells Tear Drop Cells Ovalocytes Stomatocytes Helmet Cells [place] Bodies [place] Rings Shahid Cells Acanthocytes (Spur) Rouleaux Fragmented RBCs Schistocytes Sodium Potassium Chloride Carbon Dioxide Anion Gap BUN Creatinine Creat Clearance w eGFR POC Glucometer 112.06703 144.99139 Random Glucose Calcium Phosphorus Magnesium Total Bilirubin AST ALT Alkaline Phosphatase Total Protein Albumin Latex (K82) IgE Ab RAST Comment 07/18/18 05:30 WBC RBC Hgb Hct MCV MCH MCHC RDW Plt Count MPV Absolute Neuts (auto) Neutrophils % Neutrophils % (Manual) Band Neutrophils % Lymphocytes % Lymphocytes % (Manual) Monocytes % Monocytes % (Manual) Eosinophils % Eosinophils % (Manual) Basophils % Basophils % (Manual) Myelocytes % (Man) Promyelocytes % (Man) Blast Cells % (Manual) Nucleated RBC % Metamyelocytes Hypochromia Toxic Granulation Dohle Bodies Platelet Estimate Polychromasia Poikilocytosis Basophilic Stippling Anisocytosis Microcytosis Macrocytosis Spherocytes Sickle Cells Target Cells Tear Drop Cells Ovalocytes Stomatocytes Helmet Cells [place] Bodies [place] Rings Shahid Cells Acanthocytes (Spur) Rouleaux Fragmented RBCs Schistocytes Sodium 138 Potassium 3.7 Chloride 103 Carbon Dioxide 29 Anion Gap 7 L BUN 27 H Creatinine 0.4 L Creat Clearance w eGFR > 60 POC Glucometer Random Glucose 107 H Calcium 8.5 Phosphorus 3.4 Magnesium 2.0 Total Bilirubin 0.5 AST 22 ALT 68 H Alkaline Phosphatase 104 Total Protein 5.5 L Albumin 2.5 L Latex (K82) IgE Ab RAST Comment Active Medications Generic Name Dose Route Start Last Admin Trade Name Freq PRN Reason Stop Dose Admin Albuterol Sulfate 1 amp 07/17/18 20:40 Ventolin 0.083% Nebulizer Soln - NEB Q4H PRN SHORT OF BREATH/WHEEZING Chlorhexidine Gluconate 1 applic 07/06/18 22:00 07/17/18 21:17 Hibiclens For Decolonization - TP Not Given HS RUBENS Clonazepam 0.5 mg 07/14/18 15:24 07/17/18 20:18 Klonopin - PO 0.5 mg Q12H PRN Administration ANXIETY Desipramine HCl 150 mg 07/16/18 22:00 07/18/18 10:30 Norpramin - PO 150 mg BID RUBENS Administration Dexamethasone Sodium Phosphate 2 mg 07/17/18 11:27 07/18/18 10:30 Decadron Injection - IVPUSH 2 mg BID RUBENS Administration Heparin Sodium (Porcine) 5,000 unit 07/10/18 14:00 07/18/18 06:40 Heparin - SQ 5,000 unit TID RUBENS Administration Sodium Chloride 1,000 mls @ 50 mls/hr 07/15/18 17:56 07/17/18 18:50 Normal Saline - IV 50 mls/hr ASDIR RUBENS Administration Piperacillin Sod/Tazobactam 50 mls @ 100 mls/hr 07/17/18 15:00 07/18/18 10:30 Sod 3.375 gm/ Dextrose IVPB 100 mls/hr Q8H-IV RUBENS Administration Protocol Olanzapine 5 mg/ Olanzapine 10 15 mg 07/16/18 22:00 07/17/18 21:10 mg PO Not Given HS RUBENS Pantoprazole Sodium 40 mg 07/09/18 12:00 07/18/18 11:05 Protonix Iv IVPUSH 40 mg DAILY RUBENS Administration Polyethylene Glycol 17 gm 07/12/18 10:00 07/18/18 11:07 Miralax (For Daily Use) - PO Not Given DAILY RUBENS Propranolol HCl 80 mg 07/16/18 22:00 07/18/18 10:00 Inderal La - PO 80 mg DAILY RUBENS Administration Thiamine HCl 300 mg 07/07/18 14:00 07/18/18 06:40 Vitamin B1 Injection - IVPB 300 mg TID RUBENS Administration ASSESSMENT/PLAN: [facility] Poison control knows about patient and is following: Call [phone] either Dr[address] Escalante or Dr. Paz. Dr. Paz said we can reach him on his cell phone at: [phone] - Serotonin syndrome likely resolved - Cyproheptadine stopped - benadryl started - Klonipin started Assessment: 67 yo F with a PMHx of Depression and SI with recent admission to [facility] for Psychiatric Hospitalization (06/19/18-07/03/18) was BIBEMS after being found by her son unresponsive, warm to touch with thick mucous coming out of her mouth and "barely breathing." There was a suicide note and empty bottles of Olanzapine and Clonazepam. -Patient no longer requires venti mask. Went for MBS today and determined to be at risk for aspiration. will resume NPO and tube feeds. Will repeat MBS when health status improves. As soon as she leaves the ICU she should be transfered to [facility] to be an inpatient in Dr. Deo Li's psychiatric service. Pertinent numbers: Dr. Deo Li office number: [phone] Number to call for transfer center access: [phone] Fax number to send paper work to: [phone] (Write Attention - Dr. Li referral) NEURO #Acute Toxic Metabolic Encephalopathy/ likely serotonin syndrome + Benzo OD. - Acute S syndrome resolved. overnight confused, delirious. Still has amnesia about what she did. - No ocular clonus, rigidity, or hyperthermia - on home meds - Currently extubated - Repeat Head CT did not appear to show consistent brain bleed. Likely calcification. -MRI brain with and without leon ordered for mental status change (Also recommended by Dr. Simon). CARDIO #Tachycardia - Tachycardia resolved after administration of home propranolol dosage. PULM: - No acute problems. - Extubated, off ventimask - No laryngeal edema or stridor. - Tapering steroids, no 2 BID, and still getting benadryl. PSYCH #Severe Depression with Attempted Suicide - Psych consulted - Continue to monitor with 1:1 - [facility] was spoken to about the patient. - Dr. Deo Li will accept the patient as an inpatient if she leaves the ICU. Number: [phone] INFECTIOUS DISEASE - infiltrate seen on CXR at bilateral bases. - WBC elevated to 20 - ID consulted - Ucx growing lactose fem neg bacili - c/w Zosyn per ID to cover UTI and possible PNA F/E/N - Patient is receiving NS at 50 mls/hr - Continue to replete lites PRN - Went for MBS today and determined to be at risk for aspiration. will resume NPO and tube feeds. Will repeat MBS when health status improves. PROPHYLAXIS -SCD's + SQH -Protonix 40mg IVP BID Disposition -Full code -Patient is transfered to Med/Surg to ultimately be transfered to [facility] Visit type - Emergency Visit Emergency Visit: Yes ED Registration Date: 07/06/18 Care time: The patient presented to the Emergency Department on the above date and was hospitalized for further evaluation of their emergent condition. - New Patient This patient is new to me today: Yes Date on this admission: 07/18/18 - Critical Care Critical Care patient: Yes Total Critical Care Time (in minutes): 40 Critical Care Statement: The care of this patient involved high complexity decision making to prevent further life threatening deterioration of the patient 's condition and/or to evaluate & treat vital organ system(s) failure or risk of failure.
--- NOTE | 2018-07-18 15:00 | PN ---
Teaching Attending Note Name of Resident: Philip Cool ATTENDING PHYSICIAN STATEMENT I saw and evaluated the patient. I reviewed the resident's note and discussed the case with the resident. I agree with the resident's findings and plan as documented. SUBJECTIVE: Patient seen and examined in the ICU. Awake and alert and responsive. No CP or SOB. Mild, non-productive cough. OBJECTIVE: Gen: NAD, voice stronger Heart: RRR Lung: decreased breath sounds at the bases, scattered rhonchi Abd: soft, nontender Ext: no edema Laboratory Results - last 24 hr 07/15/18 07/16/18 07/17/18 05:30 17:08 00:57 WBC RBC Hgb Hct MCV MCH MCHC RDW Plt Count MPV Absolute Neuts (auto) Neutrophils % Lymphocytes % Monocytes % Eosinophils % Basophils % Nucleated RBC % Sodium Potassium Chloride Carbon Dioxide Anion Gap BUN Creatinine Creat Clearance w eGFR POC Glucometer 111.28337 109.67235 Random Glucose Calcium Phosphorus Magnesium Total Bilirubin AST ALT Alkaline Phosphatase Total Protein Albumin Latex (K82) IgE Ab < 0.10 RAST Comment 07/17/18 07/17/18 07/17/18 06:12 08:00 11:33 WBC RBC Hgb Hct MCV MCH MCHC RDW Plt Count MPV Absolute Neuts (auto) Neutrophils % Lymphocytes % Monocytes % Eosinophils % Basophils % Nucleated RBC % Sodium Potassium Chloride Carbon Dioxide Anion Gap BUN Creatinine Creat Clearance w eGFR POC Glucometer 107.45163 103.77335 112.53927 Random Glucose Calcium Phosphorus Magnesium Total Bilirubin AST ALT Alkaline Phosphatase Total Protein Albumin Latex (K82) IgE Ab RAST Comment 07/17/18 07/18/18 07/18/18 16:56 05:30 05:30 WBC 14.3 H RBC 3.32 L Hgb 10.2 L Hct 30.5 L MCV 91.9 MCH 30.6 MCHC 33.3 RDW 12.7 Plt Count 412 MPV 7.1 L Absolute Neuts (auto) 12.4 H Neutrophils % 86.9 H Lymphocytes % 7.6 L D Monocytes % 5.4 Eosinophils % 0.0 Basophils % 0.1 Nucleated RBC % 0 Sodium 138 Potassium 3.7 Chloride 103 Carbon Dioxide 29 Anion Gap 7 L BUN 27 H Creatinine 0.4 L Creat Clearance w eGFR > 60 POC Glucometer 144.94117 Random Glucose 107 H Calcium 8.5 Phosphorus 3.4 Magnesium 2.0 Total Bilirubin 0.5 AST 22 ALT 68 H Alkaline Phosphatase 104 Total Protein 5.5 L Albumin 2.5 L Latex (K82) IgE Ab RAST Comment ASSESSMENT AND PLAN: s/p Acute Respiratory Failure Drug Overdose Suicide Attempt r/o Serotonin Syndrome Depression Laryngeal Edema Pneumonia likely Aspiration - taper off decadron - antihistamines as needed - Empiric ABX as aspiration was suspected - monitor urine output, creatinine - PO as tolerated - aspiration precautions - rehab/PT - DVT/GI prophylaxis - can monitor on floor - 1:[address] Pruett
[2018-07-18] MEDS: clonazePAM 0.5 MG TABLET PO PRN (17:51)
--- NOTE | 2018-07-18 18:04 | PN ---
Physical Exam: SUBJECTIVE: Patient seen and examined at the bedside. OBJECTIVE: ngt placed for feeds Vital Signs Period Temp Pulse Resp BP Sys/Smith Pulse Ox Last 24 Hr 98.3 F-99.1 F 74-95 14-23 114-153/60-95 98-100 GENERAL: awake, alert, oriented HEAD: Normal with no signs of trauma. EYES: PERRLA, +corneal light reflex, sclera anicteric, conjunctiva clear. ENT: nares patent HEART: nsr NEUROLOGICAL: eyes open, facial symmetry, speaking on phone to her family. 07/15/18 07/16/18 07/17/18 05:30 17:08 00:57 WBC RBC Hgb Hct MCV MCH MCHC RDW Plt Count MPV Absolute Neuts (auto) Neutrophils % Lymphocytes % Monocytes % Eosinophils % Basophils % Nucleated RBC % Sodium Potassium Chloride Carbon Dioxide Anion Gap BUN Creatinine Creat Clearance w eGFR POC Glucometer 111.40672 109.64491 Random Glucose Calcium Phosphorus Magnesium Total Bilirubin AST ALT Alkaline Phosphatase Total Protein Albumin Latex (K82) IgE Ab < 0.10 RAST Comment 07/17/18 07/17/18 07/17/18 06:12 08:00 11:33 WBC RBC Hgb Hct MCV MCH MCHC RDW Plt Count MPV Absolute Neuts (auto) Neutrophils % Lymphocytes % Monocytes % Eosinophils % Basophils % Nucleated RBC % Sodium Potassium Chloride Carbon Dioxide Anion Gap BUN Creatinine Creat Clearance w eGFR POC Glucometer 107.50470 103.01355 112.06541 Random Glucose Calcium Phosphorus Magnesium Total Bilirubin AST ALT Alkaline Phosphatase Total Protein Albumin Latex (K82) IgE Ab RAST Comment 07/17/18 07/18/18 07/18/18 16:56 05:30 05:30 WBC 14.3 H RBC 3.32 L Hgb 10.2 L Hct 30.5 L MCV 91.9 MCH 30.6 MCHC 33.3 RDW 12.7 Plt Count 412 MPV 7.1 L Absolute Neuts (auto) 12.4 H Neutrophils % 86.9 H Lymphocytes % 7.6 L D Monocytes % 5.4 Eosinophils % 0.0 Basophils % 0.1 Nucleated RBC % 0 Sodium 138 Potassium 3.7 Chloride 103 Carbon Dioxide 29 Anion Gap 7 L BUN 27 H Creatinine 0.4 L Creat Clearance w eGFR > 60 POC Glucometer 144.03745 Random Glucose 107 H Calcium 8.5 Phosphorus 3.4 Magnesium 2.0 Total Bilirubin 0.5 AST 22 ALT 68 H Alkaline Phosphatase 104 Total Protein 5.5 L Albumin 2.5 L Latex (K82) IgE Ab RAST Comment Active Medications Generic Name Dose Route Start Last Admin Trade Name Freq PRN Reason Stop Dose Admin Albuterol Sulfate 1 amp 07/17/18 20:40 Ventolin 0.083% Nebulizer Soln - NEB Q4H PRN SHORT OF BREATH/WHEEZING Chlorhexidine Gluconate 1 applic 07/06/18 22:00 07/17/18 21:17 Hibiclens For Decolonization - TP Not Given HS RUBENS Clonazepam 0.5 mg 07/14/18 15:24 07/18/18 17:51 Klonopin - PO 0.5 mg Q12H PRN Administration ANXIETY Desipramine HCl 150 mg 07/16/18 22:00 07/18/18 10:30 Norpramin - PO 150 mg BID RUBENS Administration Dexamethasone Sodium Phosphate 2 mg 07/17/18 11:27 07/18/18 10:30 Decadron Injection - IVPUSH 2 mg BID RUBENS Administration Heparin Sodium (Porcine) 5,000 unit 07/10/18 14:00 07/18/18 14:36 Heparin - SQ 5,000 unit TID RUBENS Administration Sodium Chloride 1,000 mls @ 50 mls/hr 07/15/18 17:56 07/17/18 18:50 Normal Saline - IV 50 mls/hr ASDIR RUBENS Administration Piperacillin Sod/Tazobactam 50 mls @ 100 mls/hr 07/17/18 15:00 07/18/18 17:31 Sod 3.375 gm/ Dextrose IVPB 100 mls/hr Q8H-IV RUBENS Administration Protocol Olanzapine 5 mg/ Olanzapine 10 15 mg 07/16/18 22:00 07/17/18 21:10 mg PO Not Given HS RUBENS Pantoprazole Sodium 40 mg 07/09/18 12:00 07/18/18 11:05 Protonix Iv IVPUSH 40 mg DAILY RUBENS Administration Polyethylene Glycol 17 gm 07/12/18 10:00 07/18/18 11:07 Miralax (For Daily Use) - PO Not Given DAILY RUBENS Propranolol HCl 80 mg 07/16/18 22:00 07/18/18 10:00 Inderal La - PO 80 mg DAILY RUBENS Administration Thiamine HCl 300 mg 07/07/18 14:00 07/18/18 14:41 Vitamin B1 Injection - IVPB 300 mg TID RUBENS Administration ASSESSMENT/PLAN: Patient is a 67 year old female with a reported past medical history of severe depression with prior admission to [facility]. Patient brought in to the ED 07/06/2018 via ambulance after she was found unresponsive in her bed. Her son lives downstairs and last saw her at her baseline around 4pm on 07/05/18. He went to see her in the morning at 10:30a.m. and found her to be unresponsive, in bed. Patient intubated on admission for possible serotonin syndrome. Acute metabolic encephalopathy Severe sepsis Acute toxic metabolic encephalopathy Seratonin overdose Possible suicide attempt Severe depression Rule out stroke aspiration pneumonia Pulm: Acute Respiratory Failure, secondary to drug overdose. resolved. extubated on 07/15/2018. Maintained on supplemental oxygen (nasal cannula) to maintain oxygen sats above 90%. NGT placed for possible aspiration, started back on antibiotics. On Duonebs prn On Dexamethasone 4mg iv push q4. Neuro: Acute toxic metabolic encephalopathy due to polysubstance overdose. resolved. Psyche Possible suicide attempt On a 1:1 Benzo overdose per toxicology report, treated with activated charcoal on admission, intubated on admission, extubated 07/15/18. Psyche consulted and following. Psychiatrist Dr. Deo Li ([phone]) may accept her inpatient ([facility] ) once medically cleared. GI: Transaminitis. resolved. monitor cmp daily fen npo, on tube feeds now after seen by speech and swallow monitor electrolytes proph SCD Protonix 40mg heparin tid Disposition. full code. Visit type - Emergency Visit Emergency Visit: Yes ED Registration Date: 07/06/18 Care time: The patient presented to the Emergency Department on the above date and was hospitalized for further evaluation of their emergent condition. - New Patient This patient is new to me today: No - Critical Care Critical Care patient: Yes Total Critical Care Time (in minutes): 30 Critical Care Statement: The care of this patient involved high complexity decision making to prevent further life threatening deterioration of the patient 's condition and/or to evaluate & treat vital organ system(s) failure or risk of failure. - Discharge Referral Referred to [facility] No
[2018-07-18] MEDS ORDERED: clonazePAM 0.5 MG TABLET PO ONE (20:34)
[2018-07-18] MEDS: SODIUM CHLORIDE 1,000 ML IV SCH (20:39)
[2018-07-18] MEDS: CHLORHEXIDINE GLUCONATE 4% CLEANSER FOR DECOLONIZATION TP SCH (21:14)
[2018-07-18] MEDS: OLANZAPINE PO SCH (21:15)
[2018-07-19] MEDS: PIPERACILLIN/TAZOB 3.375 GM 3.375 GM in DEXTROSE 5%-WATER - 50 ML IVPB SCH ×3 (01:32→17:21)
[2018-07-19 06:16] LABS: BASO % 0.2 % (0-2.0); HEMATOCRIT 32.5 % (32.4-45.2); HEMOGLOBIN 10.9 GM/dL (10.7-15.3); MCH 30.7 pg (25.7-33.7); MCHC 33.5 g/dl (32.0-36.0); MEAN CELL VOLUME 91.9 fl (80-96); MONO % 9.3 % (3.8-10.2); NEUT % 83.5 % (42.8-82.8); PLATELET COUNT 545 K/MM3 (134-434); RBC 3.54 M/mm3 (3.60-5.2); RDW 12.5 % (11.6-15.6); WHITE BLOOD COUNT 12.8 K/mm3 (4.0-10.0)
[2018-07-19 06:33] LABS: ALBUMIN 2.8 g/dl (3.4-5.0); ALK PHOS 119 U/L (45-117); ANION GAP 9 MMOL/L (8-16); BILIRUBIN,TOTAL 0.6 mg/dL (0.2-1); BLOOD UREA NITROGEN 20 mg/dL (7-18); CALCIUM 8.8 mg/dL (8.5-10.1); CHLORIDE 98 mmol/L (98-107); CO2 29 mmol/L (21-32); CREATININE 0.4 mg/dL (0.55-1.3); GLUCOSE,RANDOM 102 mg/dL (74-106); PHOSPHOROUS 3.1 mg/dL (2.5-4.9); POTASSIUM 3.5 mmol/L (3.5-5.1); SGOT/AST 18 U/L (15-37); SGPT/ALT 55 U/L (13-61); SODIUM 137 mmol/L (136-145); TOT PROT 6.2 g/dl (6.4-8.2)
[2018-07-19] MEDS: HEPARIN NA (PORCINE) 5,000 UNITS/ML 1ML VIAL SQ SCH ×3 (06:59→21:55)
[2018-07-19] MEDS: THIAMINE HCL 200 MG/2 ML VIAL IVPB SCH ×3 (06:59→21:58)
--- NOTE | 2018-07-19 08:02 | PN ---
Physical Exam: SUBJECTIVE: Patient seen and examined in the ICU. awaiting transfer to med surg. OBJECTIVE: confused, restless, maybe steriod induced? bennett and mittens added for safety as pt pulling at cain cath and attempting to get OOB unassisted. 1:1 at the bedside. Vital Signs Period Temp Pulse Resp BP Sys/Smith Pulse Ox Last 24 Hr 98.0 F-99.1 F 82-102 17-24 124-177/74-102 98-99 GENERAL: awake, alert, having episode of restlesness, confusion. was pulling at cain cath. will maintain safety: mittens and bennett vest. on 1:1 HEAD: Normal with no signs of trauma. EYES: PERRLA, +corneal light reflex, sclera anicteric, conjunctiva clear. ENT: nares patent NECK: Trachea midline, full range of motion, supple. LUNGS: Breath sounds equal, mild scattered rhonchi on anterior lobes HEART: tachycardia on residential monitor ABDOMEN: Soft, nontender, nondistended, normoactive bowel sounds, no guarding, no rebound, no hepatosplenomegaly, no masses. EXTREMITIES: no edema NEUROLOGICAL: eyes open, facial symmetry. confused SKIN: Warm, dry, normal turgor, no rashes or lesions noted Laboratory Results - last 24 hr 07/19/18 07/19/18 05:30 05:30 WBC 12.8 H RBC 3.54 L Hgb 10.9 Hct 32.5 MCV 91.9 MCH 30.7 MCHC 33.5 RDW 12.5 Plt Count 545 H D MPV 7.0 L Absolute Neuts (auto) 10.7 H Neutrophils % 83.5 H Lymphocytes % 7.0 L Monocytes % 9.3 Eosinophils % 0.0 Basophils % 0.2 Nucleated RBC % 0 Sodium 137 Potassium 3.5 Chloride 98 Carbon Dioxide 29 Anion Gap 9 BUN 20 H Creatinine 0.4 L Creat Clearance w eGFR > 60 Random Glucose 102 Calcium 8.8 Phosphorus 3.1 Magnesium 2.0 Total Bilirubin 0.6 AST 18 ALT 55 Alkaline Phosphatase 119 H Total Protein 6.2 L Albumin 2.8 L Active Medications Generic Name Dose Route Start Last Admin Trade Name Freq PRN Reason Stop Dose Admin Albuterol Sulfate 1 amp 07/17/18 20:40 07/18/18 21:15 Ventolin 0.083% Nebulizer Soln - NEB 1 amp Q4H PRN Administration SHORT OF BREATH/WHEEZING Chlorhexidine Gluconate 1 applic 07/06/18 22:00 07/18/18 21:14 Hibiclens For Decolonization - TP Not Given HS RUBENS Clonazepam 0.5 mg 07/14/18 15:24 07/18/18 17:51 Klonopin - PO 0.5 mg Q12H PRN Administration ANXIETY Desipramine HCl 150 mg 07/16/18 22:00 07/18/18 21:14 Norpramin - PO 150 mg BID RUBENS Administration Dexamethasone Sodium Phosphate 2 mg 07/17/18 11:27 07/18/18 21:14 Decadron Injection - IVPUSH 2 mg BID RUBENS Administration Heparin Sodium (Porcine) 5,000 unit 07/10/18 14:00 07/19/18 06:59 Heparin - SQ 5,000 unit TID URBENS Administration Sodium Chloride 1,000 mls @ 50 mls/hr 07/15/18 17:56 07/18/18 20:39 Normal Saline - IV 50 mls/hr ASDIR RUBENS Administration Piperacillin Sod/Tazobactam 50 mls @ 100 mls/hr 07/17/18 15:00 07/19/18 01:32 Sod 3.375 gm/ Dextrose IVPB 100 mls/hr Q8H-IV RUBENS Administration Protocol Olanzapine 5 mg/ Olanzapine 10 15 mg 07/16/18 22:00 07/18/18 21:15 mg PO 15 mg HS RUBENS Administration Pantoprazole Sodium 40 mg 07/09/18 12:00 07/18/18 11:05 Protonix Iv IVPUSH 40 mg DAILY RUBENS Administration Polyethylene Glycol 17 gm 07/12/18 10:00 07/18/18 11:07 Miralax (For Daily Use) - PO Not Given DAILY RUBENS Propranolol HCl 80 mg 07/16/18 22:00 07/18/18 10:00 Inderal La - PO 80 mg DAILY RUBENS Administration Thiamine HCl 300 mg 07/07/18 14:00 07/19/18 06:59 Vitamin B1 Injection - IVPB 300 mg TID RUBENS Administration ASSESSMENT/PLAN: Patient is a 67 year old female with a reported past medical history of severe depression with prior admission to [facility]. Patient brought in to the ED 07/06/2018 via ambulance after she was found unresponsive in her bed. Her son lives downstairs and last saw her at her baseline around 4pm on 07/05/18. He went to see her in the morning at 10:30a.m. and found her to be unresponsive, in bed. Patient intubated on admission for possible serotonin syndrome. Acute metabolic encephalopathy Severe sepsis Acute toxic metabolic encephalopathy Seratonin overdose Possible suicide attempt Severe depression Rule out stroke aspiration pneumonia Pulm: Acute Respiratory Failure, secondary to drug overdose. resolved. extubated on 07/15/2018. Maintained on supplemental oxygen (nasal cannula) to maintain oxygen sats above 90%. NGT placed for possible aspiration, started back on antibiotics. On Dexamethasone 2mg taper Neuro: Acute toxic metabolic encephalopathy due to polysubstance overdose. resolved Psyche Possible suicide attempt On a 1:1 Psyche consulted and following. GI: Transaminitis. resolved. monitor cmp daily Card: On Inderal 40mg bid. fen npo, on tube feeds now after seen by speech and swallow monitor electrolytes proph SCD Protonix 40mg heparin tid Disposition. full code. Visit type - Emergency Visit Emergency Visit: Yes ED Registration Date: 07/06/18 Care time: The patient presented to the Emergency Department on the above date and was hospitalized for further evaluation of their emergent condition. - New Patient This patient is new to me today: No - Critical Care Critical Care patient: No - Discharge Referral Referred to [facility] No
[2018-07-19] MEDS ORDERED: ALBUTEROL SO4 0.083% IH SOL 2.5 MG/3 ML VIAL.NEB. NEB PRN (09:13)
[2018-07-19] MEDS: SODIUM CHLORIDE 1,000 ML IV SCH ×2 (10:21→21:58)
[2018-07-19] MEDS ORDERED: PT OWN MED DRAWER 7, Y5N ONE ×2 (10:24→15:20)
[2018-07-19] MEDS ORDERED: DEXTROSE 5%-WATER - 50 ML IVPB ONE ×2 (10:25→17:13)
[2018-07-19] MEDS ORDERED: PIPERACILLIN/TAZOBACTAM 3.375 GM VIAL IVPB ONE ×2 (10:25→17:12)
[2018-07-19] MEDS: DEXAMETHASONE SOD PHOSPHATE 4 MG/1 ML VIAL IVPUSH SCH ×2 (10:26→21:55)
[2018-07-19] MEDS: PANTOPRAZOLE SODIUM 40 MG VIAL IVPUSH SCH (10:27)
[2018-07-19] MEDS: DESIPRAMINE HCL 50 MG TABLET PO SCH ×2 (10:28→21:57)
[2018-07-19] MEDS: POLYETHYLENE GLYCOL 3350 119 GM BTL PO SCH (10:51)
--- NOTE | 2018-07-19 13:45 | PN ---
Progress Note (short form) - Note Progress Note: Pulm/CCM SUBJECTIVE: Patient seen and examined in the ICU. -no events overnight, awaiting floor bed -weaning off decadron today -more directable per RN OBJECTIVE: Gen: NAD, non toxic appearing Heart: RRR Lung: clear anterior Abd: soft, nontender Ext: no edema Laboratory Results - last 24 hr 07/19/18 07/19/18 05:30 05:30 WBC 12.8 H RBC 3.54 L Hgb 10.9 Hct 32.5 MCV 91.9 MCH 30.7 MCHC 33.5 RDW 12.5 Plt Count 545 H D MPV 7.0 L Absolute Neuts (auto) 10.7 H Neutrophils % 83.5 H Lymphocytes % 7.0 L Monocytes % 9.3 Eosinophils % 0.0 Basophils % 0.2 Nucleated RBC % 0 Sodium 137 Potassium 3.5 Chloride 98 Carbon Dioxide 29 Anion Gap 9 BUN 20 H Creatinine 0.4 L Creat Clearance w eGFR > 60 Random Glucose 102 Calcium 8.8 Phosphorus 3.1 Magnesium 2.0 Total Bilirubin 0.6 AST 18 ALT 55 Alkaline Phosphatase 119 H Total Protein 6.2 L Albumin 2.8 L ASSESSMENT AND PLAN: s/p Acute Respiratory Failure Drug Overdose Suicide Attempt r/o Serotonin Syndrome Depression Laryngeal Edema Pneumonia likely Aspiration - taper off decadron today - antihistamines as needed - Empiric ABX as aspiration was suspected - monitor urine output, creatinine - PO as tolerated - aspiration precautions - rehab/PT - DVT/GI prophylaxis - 1:1 observation [place] ACNP [id number]
--- NOTE | 2018-07-19 14:09 | PN ---
Progress Note, Physician History of Present Illness: stable urine cx positive comfortable still 1 to 1 breathing better voice improving - Current Medication List Current Medications: Active Medications Albuterol Sulfate (Ventolin 0.083% Nebulizer Soln -) 1 amp NEB Q4H PRN PRN Reason: SHORT OF BREATH/WHEEZING Chlorhexidine Gluconate (Hibiclens For Decolonization -) 1 applic TP HS [facility] Clonazepam (Klonopin -) 0.5 mg PO Q12H PRN PRN Reason: ANXIETY Desipramine HCl (Norpramin -) 150 mg PO BID [facility] Last Admin: 07/19/18 10:28 Dose: 150 mg Dexamethasone Sodium Phosphate (Decadron Injection -) 2 mg IVPUSH BID [facility] Last Admin: 07/19/18 10:26 Dose: 2 mg Heparin Sodium (Porcine) (Heparin -) 5,000 unit SQ TID [facility] Sodium Chloride (Normal Saline -) 1,000 mls @ 50 mls/hr IV ASDIR [facility] Last Admin: 07/19/18 10:21 Dose: 50 mls/hr Piperacillin Sod/Tazobactam (Sod 3.375 gm/ Dextrose) 50 mls @ 100 mls/hr IVPB Q8H-IV [facility]; Protocol Last Admin: 07/19/18 10:28 Dose: 100 mls/hr Olanzapine 5 mg/ Olanzapine 10 (mg) 15 mg PO HS [facility] Pantoprazole Sodium (Protonix Iv) 40 mg IVPUSH DAILY [facility] Last Admin: 07/19/18 10:27 Dose: 40 mg Polyethylene Glycol (Miralax (For Daily Use) -) 17 gm PO DAILY [facility] Last Admin: 07/19/18 10:51 Dose: 17 grams Propranolol HCl (Inderal La -) 80 mg PO DAILY [facility] Last Admin: 07/19/18 10:41 Dose: Not Given Thiamine HCl (Vitamin B1 Injection -) 300 mg IVPB TID [facility] - Objective Vital Signs: Vital Signs Temperature 98.3 F 07/19/18 10:00 Pulse Rate 102 H 07/19/18 12:00 Respiratory Rate 17 07/19/18 12:00 Blood Pressure 168/80 07/19/18 12:00 O2 Sat by Pulse Oximetry (%) 97 07/19/18 09:00 Constitutional: Yes: No Distress, Calm Cardiovascular: Yes: Regular Rate and Rhythm Respiratory: Yes: Regular, On Nasal O2, Poor Air Entry Gastrointestinal: Yes: Normal Bowel Sounds, Soft Musculoskeletal: Yes: WNL Extremities: Yes: WNL Neurological: Yes: Alert Psychiatric: Yes: Alert Labs: CBC, BMP 07/19/18 05:30 07/19/18 05:30 INR, PTT INR 1.32 (0.83-1.09) H 07/07/18 12:35 Assessment/Plan Acute metabolic encephalopathy Severe sepsis Acute toxic metabolic encephalopathy Seratonin overdose Possible suicide attempt Severe depression pneumonia uti patient with positive urine cx noted plan hydration support rest as per icu steroids resp support continue abx cc 40 min
[2018-07-19] MEDS: OLANZAPINE PO SCH (21:56)
[2018-07-19] MEDS: CHLORHEXIDINE GLUCONATE 4% CLEANSER FOR DECOLONIZATION TP SCH (22:50)
[2018-07-20] MEDS ORDERED: PIPERACILLIN/TAZOBACTAM 3.375 GM VIAL IVPB ONE ×3 (00:32→16:52)
[2018-07-20] MEDS ORDERED: DEXTROSE 5%-WATER - 50 ML IVPB ONE ×3 (00:32→16:52)
[2018-07-20] MEDS: PIPERACILLIN/TAZOB 3.375 GM 3.375 GM in DEXTROSE 5%-WATER - 50 ML IVPB SCH ×3 (01:53→17:05)
[2018-07-20] MEDS: HEPARIN NA (PORCINE) 5,000 UNITS/ML 1ML VIAL SQ SCH ×3 (05:43→21:40)
[2018-07-20] MEDS: THIAMINE HCL 200 MG/2 ML VIAL IVPB SCH ×3 (05:55→21:45)
[2018-07-20 09:34] LABS: BASO % 0.2 % (0-2.0); EOS % 0.1 % (0-4.5); HEMATOCRIT 29.3 % (32.4-45.2); HEMOGLOBIN 9.9 GM/dL (10.7-15.3); LYMPH % 12.3 % (8-40); MCH 30.8 pg (25.7-33.7); MCHC 33.7 g/dl (32.0-36.0); MEAN CELL VOLUME 91.4 fl (80-96); MEAN PLT VOLUME 6.9 fl (7.5-11.1); MONO % 12.1 % (3.8-10.2); NEUT % 75.3 % (42.8-82.8); PLATELET COUNT 570 K/MM3 (134-434); WHITE BLOOD COUNT 9.2 K/mm3 (4.0-10.0)
[2018-07-20 09:58] LABS: ALBUMIN 2.5 g/dl (3.4-5.0); ALK PHOS 123 U/L (45-117); ANION GAP 9 MMOL/L (8-16); BILIRUBIN,TOTAL 0.3 mg/dL (0.2-1); BLOOD UREA NITROGEN 23 mg/dL (7-18); CHLORIDE 101 mmol/L (98-107); CO2 28 mmol/L (21-32); CREATININE 0.4 mg/dL (0.55-1.3); GLUCOSE,RANDOM 118 mg/dL (74-106); POTASSIUM 3.5 mmol/L (3.5-5.1); SGOT/AST 14 U/L (15-37); SGPT/ALT 45 U/L (13-61); SODIUM 138 mmol/L (136-145); TOT PROT 5.6 g/dl (6.4-8.2)
[2018-07-20] MEDS ORDERED: PT OWN MED DRAWER 7, Y5N ONE (10:57)
[2018-07-20] MEDS: DEXAMETHASONE SOD PHOSPHATE 4 MG/1 ML VIAL IVPUSH SCH (11:10)
[2018-07-20] MEDS: PANTOPRAZOLE SODIUM 40 MG VIAL IVPUSH SCH (11:10)
[2018-07-20] MEDS: POLYETHYLENE GLYCOL 3350 119 GM BTL PO SCH (11:12)
[2018-07-20] MEDS: DESIPRAMINE HCL 50 MG TABLET PO SCH ×2 (11:14→21:42)
--- NOTE | 2018-07-20 12:08 | PN ---
Progress Note, Physician History of Present Illness: pulmonary alert,no distress,-sob,+ occ cough - Current Medication List Current Medications: Active Medications Albuterol Sulfate (Ventolin 0.083% Nebulizer Soln -) 1 amp NEB Q4H PRN PRN Reason: SHORT OF BREATH/WHEEZING Chlorhexidine Gluconate (Hibiclens For Decolonization -) 1 applic TP HS [facility] 234 BEDS AT THE [facility] Last Admin: 07/19/18 22:50 Dose: Not Given Clonazepam (Klonopin -) 0.5 mg PO Q12H PRN PRN Reason: ANXIETY Desipramine HCl (Norpramin -) 150 mg PO BID [facility]CLUDE 234 BEDS AT THE [facility] Last Admin: 07/20/18 11:14 Dose: 150 mg Dexamethasone Sodium Phosphate (Decadron Injection -) 2 mg IVPUSH BID COUNTS INCLUDE 234 BEDS AT THE [facility] Last Admin: 07/20/18 11:10 Dose: 2 mg Heparin Sodium (Porcine) (Heparin -) 5,000 unit SQ TID COUNTS INCLUDE 234 BEDS AT THE [facility] Last Admin: 07/20/18 05:43 Dose: 5,000 unit Sodium Chloride (Normal Saline -) 1,000 mls @ 50 mls/hr IV ASDIR COUNTS INCLUDE 234 BEDS AT THE [facility] Last Admin: 07/19/18 21:58 Dose: 50 mls/hr Piperacillin Sod/Tazobactam (Sod 3.375 gm/ Dextrose) 50 mls @ 100 mls/hr IVPB Q8H-IV [facility]; Protocol Last Admin: 07/20/18 11:15 Dose: 100 mls/hr Olanzapine 5 mg/ Olanzapine 10 (mg) 15 mg PO HS [facility]S [facility]CLUDE 234 BEDS AT THE [facility] Last Admin: 07/19/18 21:56 Dose: 15 mg Pantoprazole Sodium (Protonix Iv) 40 mg IVPUSH DAILY [facility]S INCLUDE 234 BEDS AT THE [facility] Last Admin: 07/20/18 11:10 Dose: 40 mg Polyethylene Glycol (Miralax (For Daily Use) -) 17 gm PO DAILY [facility]CLUDE 234 BEDS AT THE [facility] Last Admin: 07/20/18 11:12 Dose: 17 grams Propranolol HCl (Inderal -) 40 mg PO BID [facility]CLUDE 234 BEDS AT THE [facility] Last Admin: 07/20/18 11:15 Dose: 40 mg Thiamine HCl (Vitamin B1 Injection -) 300 mg IVPB TID COUNTS INCLUDE 234 BEDS AT THE [facility] Last Admin: 07/20/18 05:55 Dose: 300 mg - Objective Vital Signs: Vital Signs Temperature 97.4 F L 07/20/18 08:00 Pulse Rate 84 07/20/18 08:00 Respiratory Rate 19 07/20/18 08:00 Blood Pressure 148/77 07/20/18 08:00 O2 Sat by Pulse Oximetry (%) 96 07/19/18 22:00 Constitutional: Yes: Well Nourished, Calm Eyes: Yes: WNL HENT: Yes: WNL Neck: Yes: WNL Cardiovascular: Yes: Regular Rate and Rhythm, S1, S2 Respiratory: Yes: CTA Bilaterally Gastrointestinal: Yes: Normal Bowel Sounds, Soft Extremities: Yes: WNL Edema: No Labs: CBC, BMP 07/20/18 08:55 07/20/18 08:55 INR, PTT INR 1.32 (0.83-1.09) H 07/07/18 12:35 Problem List - Problems (1) Pneumonia Code(s): J18.9 - PNEUMONIA, UNSPECIFIED ORGANISM (2) Acute respiratory failure Code(s): J96.00 - ACUTE RESPIRATORY FAILURE, UNSP W HYPOXIA OR HYPERCAPNIA (3) Altered mental status Code(s): R41.82 - ALTERED MENTAL STATUS, UNSPECIFIED (4) Overdose Code(s): T50.901A - POISONING BY UNSP DRUG/MEDS/BIOL SUBST, ACCIDENTAL, INIT (5) Sepsis Code(s): A41.9 - SEPSIS, UNSPECIFIED ORGANISM (6) Suicide and self-inflicted injury Code(s): X83.8XXA - INTENTIONAL SELF-HARM BY OTHER SPECIFIED MEANS, INIT ENCNTR Assessment/Plan ASSESSMENT AND PLAN: s/p Acute Respiratory Failure Drug Overdose Suicide Attempt r/o Serotonin Syndrome Depression Laryngeal Edema Pneumonia likely Aspiration - taper off decadron today - antihistamines as needed - ABX as per ID - monitor urine output, creatinine - PO as tolerated - aspiration precautions - rehab/PT - DVT/GI prophylaxis DR KELLY
--- NOTE | 2018-07-20 13:26 | PN ---
Progress Note, Physician History of Present Illness: stable no distress little anxious - Current Medication List Current Medications: Active Medications Albuterol Sulfate (Ventolin 0.083% Nebulizer Soln -) 1 amp NEB Q4H PRN PRN Reason: SHORT OF BREATH/WHEEZING Chlorhexidine Gluconate (Hibiclens For Decolonization -) 1 applic TP HS [facility] Last Admin: 07/19/18 22:50 Dose: Not Given Clonazepam (Klonopin -) 0.5 mg PO Q12H PRN PRN Reason: ANXIETY Desipramine HCl (Norpramin -) 150 mg PO BID [facility] Last Admin: 07/20/18 11:14 Dose: 150 mg Dexamethasone Sodium Phosphate (Decadron Injection -) 2 mg IVPUSH BID [facility] Last Admin: 07/20/18 11:10 Dose: 2 mg Heparin Sodium (Porcine) (Heparin -) 5,000 unit SQ TID [facility] Last Admin: 07/20/18 05:43 Dose: 5,000 unit Sodium Chloride (Normal Saline -) 1,000 mls @ 50 mls/hr IV ASDIR [facility] Last Admin: 07/19/18 21:58 Dose: 50 mls/hr Piperacillin Sod/Tazobactam (Sod 3.375 gm/ Dextrose) 50 mls @ 100 mls/hr IVPB Q8H-IV [facility]; Protocol Last Admin: 07/20/18 11:15 Dose: 100 mls/hr Olanzapine 5 mg/ Olanzapine 10 (mg) 15 mg PO HS [facility] Last Admin: 07/19/18 21:56 Dose: 15 mg Pantoprazole Sodium (Protonix Iv) 40 mg IVPUSH DAILY [facility] Last Admin: 07/20/18 11:10 Dose: 40 mg Polyethylene Glycol (Miralax (For Daily Use) -) 17 gm PO DAILY [facility] Last Admin: 07/20/18 11:12 Dose: 17 grams Propranolol HCl (Inderal -) 40 mg PO BID [facility] Last Admin: 07/20/18 11:15 Dose: 40 mg Thiamine HCl (Vitamin B1 Injection -) 300 mg IVPB TID [facility] Last Admin: 07/20/18 05:55 Dose: 300 mg - Objective Vital Signs: Vital Signs Temperature 97.4 F L 07/20/18 08:00 Pulse Rate 84 07/20/18 08:00 Respiratory Rate 19 07/20/18 08:00 Blood Pressure 148/77 07/20/18 08:00 O2 Sat by Pulse Oximetry (%) 96 07/19/18 22:00 Constitutional: Yes: Calm, Anxious HENT: Yes: Other (sore throat) Cardiovascular: Yes: Regular Rate and Rhythm Respiratory: Yes: Regular, CTA Bilaterally Gastrointestinal: Yes: Normal Bowel Sounds, Soft Musculoskeletal: Yes: WNL Extremities: Yes: WNL Neurological: Yes: Alert, Oriented Psychiatric: Yes: Alert, Oriented Labs: CBC, BMP 07/20/18 08:55 07/20/18 08:55 INR, PTT INR 1.32 (0.83-1.09) H 07/07/18 12:35 Assessment/Plan Acute metabolic encephalopathy Severe sepsis Acute toxic metabolic encephalopathy Seratonin overdose Possible suicide attempt Severe depression pneumonia uti plan hydration support steroids resp support continue abx
--- NOTE | 2018-07-20 15:22 | PN ---
Physical Exam: SUBJECTIVE: Patient seen and examined at the bedside. on a 1:1, denies any distress or pain. on tube feeds answering questions appropriately. OBJECTIVE: alert and oriented taper down decadron to daily to taper off on 1:1 for suicide ideation still on antibiotics for aspiration pna, wbc improved swallow eval follow up PT follow up as still unable to ambulate, still has amnesia about what she did, states she is here for depression. does not recall suicide attempt. Dr. Deo Li ([facility]) will accept the patient as an inpatient when she is discharged. Number: [phone] Vital Signs Period Temp Pulse Resp BP Sys/Smith Pulse Ox Last 24 Hr 97.4 F-99 F 79-96 18-20 115-148/52-85 96-96 GENERAL: awake, alert, oriented to person, place. will maintain safety: mittens and bennett vest. on 1:1 HEAD: Normal with no signs of trauma. EYES: PERRLA, +corneal light reflex, sclera anicteric, conjunctiva clear. ENT: nares patent NECK: Trachea midline, full range of motion, supple. LUNGS: Breath sounds equal, mild scattered rhonchi on anterior lobes HEART: tachycardia on cardiac technician ABDOMEN: Soft, nontender, nondistended, normoactive bowel sounds, no guarding, no rebound, no hepatosplenomegaly, no masses. EXTREMITIES: no edema NEUROLOGICAL: eyes open, facial symmetry. confused SKIN: Warm, dry, normal turgor, no rashes or lesions noted Laboratory Results - last 24 hr 07/19/18 07/20/18 07/20/18 18:02 05:39 08:55 WBC 9.2 RBC 3.20 L Hgb 9.9 L Hct 29.3 L MCV 91.4 MCH 30.8 MCHC 33.7 RDW 13.0 Plt Count 570 H MPV 6.9 L Absolute Neuts (auto) 6.9 Neutrophils % 75.3 Lymphocytes % 12.3 D Monocytes % 12.1 H Eosinophils % 0.1 D Basophils % 0.2 Nucleated RBC % 0 Sodium Potassium Chloride Carbon Dioxide Anion Gap BUN Creatinine Creat Clearance w eGFR POC Glucometer 136 149 Random Glucose Calcium Magnesium Total Bilirubin AST ALT Alkaline Phosphatase Total Protein Albumin 07/20/18 07/20/18 08:55 12:14 WBC RBC Hgb Hct MCV MCH MCHC RDW Plt Count MPV Absolute Neuts (auto) Neutrophils % Lymphocytes % Monocytes % Eosinophils % Basophils % Nucleated RBC % Sodium 138 Potassium 3.5 Chloride 101 Carbon Dioxide 28 Anion Gap 9 BUN 23 H Creatinine 0.4 L Creat Clearance w eGFR > 60 POC Glucometer 122 Random Glucose 118 H Calcium 8.0 L Magnesium 2.0 Total Bilirubin 0.3 AST 14 L ALT 45 Alkaline Phosphatase 123 H Total Protein 5.6 L Albumin 2.5 L Active Medications Generic Name Dose Route Start Last Admin Trade Name Freq PRN Reason Stop Dose Admin Albuterol Sulfate 1 amp 07/19/18 09:13 Ventolin 0.083% Nebulizer Soln - NEB Q4H PRN SHORT OF BREATH/WHEEZING Chlorhexidine Gluconate 1 applic 07/19/18 22:00 07/19/18 22:50 Hibiclens For Decolonization - TP Not Given HS [facility] Clonazepam 0.5 mg 07/19/18 09:13 Klonopin - PO Q12H PRN ANXIETY Desipramine HCl 150 mg 07/19/18 10:00 07/20/18 11:14 Norpramin - PO 150 mg BID [facility] Administration Dexamethasone Sodium Phosphate 2 mg 07/19/18 10:00 07/20/18 11:10 Decadron Injection - IVPUSH 2 mg BID [facility] Administration Heparin Sodium (Porcine) 5,000 unit 07/19/18 14:00 07/20/18 14:50 Heparin - SQ 5,000 unit TID [facility] Administration Sodium Chloride 1,000 mls @ 50 mls/hr 07/19/18 09:13 07/19/18 21:58 Normal Saline - IV 50 mls/hr ASDIR [facility] Administration Piperacillin Sod/Tazobactam 50 mls @ 100 mls/hr 07/19/18 10:00 07/20/18 11:15 Sod 3.375 gm/ Dextrose IVPB 100 mls/hr Q8H-IV [facility] Administration Protocol Olanzapine 5 mg/ Olanzapine 10 15 mg 07/19/18 22:00 07/19/18 21:56 mg PO 15 mg HS [facility] Administration Pantoprazole Sodium 40 mg 07/19/18 10:00 07/20/18 11:10 Protonix Iv IVPUSH 40 mg DAILY [facility] Administration Polyethylene Glycol 17 gm 07/19/18 10:00 07/20/18 11:12 Miralax (For Daily Use) - PO 17 grams DAILY [facility] Administration Propranolol HCl 40 mg 07/19/18 14:18 07/20/18 11:15 Inderal - PO 40 mg BID [facility] Administration Thiamine HCl 300 mg 07/19/18 14:00 07/20/18 14:50 Vitamin B1 Injection - IVPB 300 mg TID [facility] Administration ASSESSMENT/PLAN: Patient is a 67 year old female with a reported past medical history of severe depression with prior admission to [facility]. Patient brought in to the ED 07/06/2018 via ambulance after she was found unresponsive in her bed. Her son lives downstairs and last saw her at her baseline around 4pm on 07/05/18. He went to see her in the morning of 07/06/2018 at 10:30a.m. and found her to be unresponsive, in bed. Patient intubated on admission for suicide attempt with zyprexa and klonopin overdose. Acute metabolic encephalopathy Severe sepsis Acute toxic metabolic encephalopathy Seratonin overdose Possible suicide attempt Severe depression aspiration pneumonia Laryngeal Edema Pulm: Acute Respiratory Failure, secondary to drug overdose. resolved. intubated on admission 07/06/2018, extubated on 07/15/2018 (previous attempted extubations unsuccessful) Maintained on supplemental oxygen (nasal cannula) to maintain oxygen sats above 90%. NGT placed after patient failed swallow evaluation. Had evidence of food aspiration and desated. Started back on Zosyn for possible aspiration. On Dexamethasone 2mg taper for laryngeal edema. Chest xray Neuro: Acute toxic metabolic encephalopathy due to polysubstance overdose. AMS due to polysubstance overdose Repeat head Ct negative. followed by neurology Seen by Dr. Dalal. 1:1 to continue Once acute medical issues stable, patient to be transferred to [facility] (inpatient psych) Suspected Serotonin Syndrome s/p Cyproheptadine. activate charcoal on admission. Poison controlled contacted during hospitalization. Patient on klonopin q 12 prn Suspected extracranial hemorrhage Seen on repeat CT to be 2/[address] stable. followed by neuro. Psyche: Suicidal Ideation Patient of Dr. Dalal. Psychiatrist Dr. Deo Li ([phone]) will accept her inpatient ([facility]). Inpatient psyche on d/c to [facility] Hypoalbuminemia On Osmalite feeds. Nutrition following. patient failed swallow evaluation and NGT placed. will need repeat MBS when health status improves Card: Tachycardia/hypertension. controlled On Propranolol 40mg bid fen npo, on tube feeds now after seen by speech and swallow monitor electrolytes proph SCD Protonix 40mg heparin tid Disposition. full code. Visit type - Emergency Visit Emergency Visit: Yes ED Registration Date: 07/06/18 Care time: The patient presented to the Emergency Department on the above date and was hospitalized for further evaluation of their emergent condition. - New Patient This patient is new to me today: No - Critical Care Critical Care patient: No - Discharge Referral Referred to [facility] No
[2018-07-20] MEDS: SODIUM CHLORIDE 1,000 ML IV SCH ×2 (17:06→21:51)
[2018-07-20] MEDS: clonazePAM 0.5 MG TABLET PO PRN (19:11)
[2018-07-20] MEDS: CHLORHEXIDINE GLUCONATE 4% CLEANSER FOR DECOLONIZATION TP SCH (21:39)
[2018-07-20] MEDS: OLANZAPINE PO SCH (21:43)
[2018-07-21] MEDS ORDERED: DEXTROSE 5%-WATER - 50 ML IVPB ONE ×3 (01:16→17:27)
[2018-07-21] MEDS ORDERED: PIPERACILLIN/TAZOBACTAM 3.375 GM VIAL IVPB ONE ×3 (01:16→17:27)
[2018-07-21] MEDS: PIPERACILLIN/TAZOB 3.375 GM 3.375 GM in DEXTROSE 5%-WATER - 50 ML IVPB SCH ×3 (02:00→18:37)
[2018-07-21] MEDS: HEPARIN NA (PORCINE) 5,000 UNITS/ML 1ML VIAL SQ SCH ×3 (06:00→21:02)
[2018-07-21] MEDS: THIAMINE HCL 200 MG/2 ML VIAL IVPB SCH ×3 (06:00→21:01)
[2018-07-21 06:16] LABS: BASO % 0.1 % (0-2.0); HEMATOCRIT 28.3 % (32.4-45.2); HEMOGLOBIN 9.6 GM/dL (10.7-15.3); LYMPH % 20.3 % (8-40); MCH 31.1 pg (25.7-33.7); MCHC 33.9 g/dl (32.0-36.0); MEAN CELL VOLUME 91.9 fl (80-96); MEAN PLT VOLUME 6.9 fl (7.5-11.1); MONO % 15.5 % (3.8-10.2); NEUT % 64.1 % (42.8-82.8); PLATELET COUNT 515 K/MM3 (134-434); RBC 3.09 M/mm3 (3.60-5.2); RDW 13.3 % (11.6-15.6); WHITE BLOOD COUNT 7.6 K/mm3 (4.0-10.0)
[2018-07-21 07:03] LABS: ALBUMIN 2.4 g/dl (3.4-5.0); ALK PHOS 110 U/L (45-117); ANION GAP 8 MMOL/L (8-16); BILIRUBIN,TOTAL 0.3 mg/dL (0.2-1); BLOOD UREA NITROGEN 22 mg/dL (7-18); CALCIUM 8.4 mg/dL (8.5-10.1); CHLORIDE 102 mmol/L (98-107); CO2 28 mmol/L (21-32); CREATININE 0.4 mg/dL (0.55-1.3); GLUCOSE,RANDOM 108 mg/dL (74-106); MAGNESIUM 2.2 mg/dL (1.8-2.4); POTASSIUM 3.8 mmol/L (3.5-5.1); SGOT/AST 16 U/L (15-37); SGPT/ALT 40 U/L (13-61); SODIUM 139 mmol/L (136-145); TOT PROT 5.5 g/dl (6.4-8.2)
[2018-07-21] MEDS ORDERED: DEXAMETHASONE SOD PHOSPHATE 4 MG/1 ML VIAL IVPUSH SCH (10:00)
[2018-07-21] MEDS ORDERED: PT OWN MED DRAWER 7, Y5N ONE ×3 (10:44→20:42)
[2018-07-21] MEDS: DESIPRAMINE HCL 50 MG TABLET PO SCH ×2 (10:55→21:02)
[2018-07-21] MEDS: POLYETHYLENE GLYCOL 3350 119 GM BTL PO SCH (10:55)
[2018-07-21] MEDS: SODIUM CHLORIDE 1,000 ML IV SCH (11:06)
[2018-07-21] MEDS: PANTOPRAZOLE SODIUM 40 MG VIAL IVPUSH SCH (11:07)
--- NOTE | 2018-07-21 11:17 | PN ---
Progress Note (short form) - Note Progress Note: PULMONARY Denies shortness of breath, cough. No fevers recorded. Vital Signs Period Temp Pulse Resp BP Sys/Smith Pulse Ox Last 24 Hr 97.2 F-98.8 F 75-95 18-20 121-144/67-89 100-100 Gen: NAD at rest Heart: RRR Lung: decreased breath sounds at the bases Abd: soft, nontender Ext: no edema CBC, BMP 07/21/18 05:45 07/21/18 05:45 Active Medications Albuterol Sulfate (Ventolin 0.083% Nebulizer Soln -) 1 amp NEB Q4H PRN PRN Reason: SHORT OF BREATH/WHEEZING Clonazepam (Klonopin -) 0.5 mg PO Q12H PRN PRN Reason: ANXIETY Last Admin: 07/20/18 19:11 Dose: 0.5 mg Desipramine HCl (Norpramin -) 150 mg PO BID [facility] Last Admin: 07/21/18 10:55 Dose: 150 mg Dexamethasone Sodium Phosphate (Decadron Injection -) 2 mg IVPUSH DAILY [facility] Last Admin: 07/21/18 11:07 Dose: 2 mg Heparin Sodium (Porcine) (Heparin -) 5,000 unit SQ TID [facility] Last Admin: 07/21/18 06:00 Dose: 5,000 unit Sodium Chloride (Normal Saline -) 1,000 mls @ 50 mls/hr IV ASDIR [facility] Last Admin: 07/21/18 11:06 Dose: 50 mls/hr Piperacillin Sod/Tazobactam (Sod 3.375 gm/ Dextrose) 50 mls @ 100 mls/hr IVPB Q8H-IV [facility]; Protocol Last Admin: 07/21/18 10:55 Dose: 100 mls/hr Olanzapine 5 mg/ Olanzapine 10 (mg) 15 mg PO HS [facility] Last Admin: 07/20/18 21:43 Dose: 15 mg Pantoprazole Sodium (Protonix Iv) 40 mg IVPUSH DAILY [facility] Last Admin: 07/21/18 11:07 Dose: 40 mg Polyethylene Glycol (Miralax (For Daily Use) -) 17 gm PO DAILY [facility] Last Admin: 07/21/18 10:55 Dose: Not Given Propranolol HCl (Inderal -) 40 mg PO BID [facility] Last Admin: 07/21/18 10:53 Dose: 40 mg Thiamine HCl (Vitamin B1 Injection -) 300 mg IVPB TID [facility] Last Admin: 07/21/18 06:00 Dose: 300 mg A/P s/p Acute Respiratory Failure Drug Overdose Suicide Attempt Depression Laryngeal Edema Pneumonia likely Aspiration - will d/c decadron - continue antibiotics - monitor urine output, creatinine - PO as tolerated - aspiration precautions - rehab/PT - DVT/GI prophylaxis
--- NOTE | 2018-07-21 11:24 | PN ---
Progress Note, Physician History of Present Illness: stable no distress - Current Medication List Current Medications: Active Medications Albuterol Sulfate (Ventolin 0.083% Nebulizer Soln -) 1 amp NEB Q4H PRN PRN Reason: SHORT OF BREATH/WHEEZING Clonazepam (Klonopin -) 0.5 mg PO Q12H PRN PRN Reason: ANXIETY Last Admin: 07/20/18 19:11 Dose: 0.5 mg Desipramine HCl (Norpramin -) 150 mg PO BID [facility] Last Admin: 07/21/18 10:55 Dose: 150 mg Heparin Sodium (Porcine) (Heparin -) 5,000 unit SQ TID [facility] Last Admin: 07/21/18 06:00 Dose: 5,000 unit Sodium Chloride (Normal Saline -) 1,000 mls @ 50 mls/hr IV ASDIR [facility] Last Admin: 07/21/18 11:06 Dose: 50 mls/hr Piperacillin Sod/Tazobactam (Sod 3.375 gm/ Dextrose) 50 mls @ 100 mls/hr IVPB Q8H-IV [facility]; Protocol Last Admin: 07/21/18 10:55 Dose: 100 mls/hr Olanzapine 5 mg/ Olanzapine 10 (mg) 15 mg PO HS [facility] Last Admin: 07/20/18 21:43 Dose: 15 mg Pantoprazole Sodium (Protonix Iv) 40 mg IVPUSH DAILY [facility] Last Admin: 07/21/18 11:07 Dose: 40 mg Polyethylene Glycol (Miralax (For Daily Use) -) 17 gm PO DAILY [facility] Last Admin: 07/21/18 10:55 Dose: Not Given Propranolol HCl (Inderal -) 40 mg PO BID [facility] Last Admin: 07/21/18 10:53 Dose: 40 mg Thiamine HCl (Vitamin B1 Injection -) 300 mg IVPB TID [facility] Last Admin: 07/21/18 06:00 Dose: 300 mg - Objective Vital Signs: Vital Signs Temperature 98.0 F 07/21/18 06:00 Pulse Rate 79 07/21/18 06:00 Respiratory Rate 18 07/21/18 06:00 Blood Pressure 138/74 07/21/18 06:00 O2 Sat by Pulse Oximetry (%) 100 07/20/18 22:00 Constitutional: Yes: No Distress, Calm Cardiovascular: Yes: Regular Rate and Rhythm Respiratory: Yes: Regular, Rhonchi Gastrointestinal: Yes: Normal Bowel Sounds, Soft Musculoskeletal: Yes: WNL Extremities: Yes: WNL Labs: CBC, BMP 07/21/18 05:45 07/21/18 05:45 INR, PTT INR 1.32 (0.83-1.09) H 07/07/18 12:35 Assessment/Plan Acute metabolic encephalopathy Severe sepsis Acute toxic metabolic encephalopathy Seratonin overdose Possible suicide attempt Severe depression pneumonia uti plan hydration support steroids as per pul resp support continue abx
--- NOTE | 2018-07-21 13:47 | PN ---
Progress Note (short form) - Note Progress Note: Psych follow up: Still frail, has a NG tube, not feeding orally, unable to walk. Alert and able to comprehend. [id number] suicidal but has shown some agitation. Plan: Decrease Zyprexa 7.5mg po hs. Continue with 1:1.
--- NOTE | 2018-07-21 14:53 | PN ---
Physical Exam: SUBJECTIVE: Patient seen and examined at the bedside. ambulated with PT, but only 20 feet. denies any discomfort. on a 1:1 family at bedside. OBJECTIVE: alert and oriented tapered off decadron on 1:1 for suicide ideation still on antibiotics (zosyn) for aspiration pna, wbc improved swallow eval completed, started on dysphagia pureed with honey thick consistency. remove ngt. MBS tomorrow. only walked 20 feet with PT today. Dr. Deo Li ([facility]) will accept the patient as an inpatient when she is discharged. Number: [phone] Vital Signs Period Temp Pulse Resp BP Sys/Smith Pulse Ox Last 24 Hr 97.2 F-98.0 F 75-95 18-20 121-144/67-89 100-100 GENERAL: awake, alert, oriented to person, place. will maintain safety: mittens and bennett vest. on 1:1 HEAD: Normal with no signs of trauma. EYES: PERRLA, +corneal light reflex, sclera anicteric, conjunctiva clear. ENT: nares patent NECK: Trachea midline, full range of motion, supple. LUNGS: Breath sounds equal, mild scattered rhonchi on anterior lobes HEART: tachycardia on potline monitor ABDOMEN: Soft, nontender, nondistended, normoactive bowel sounds, no guarding, no rebound, no hepatosplenomegaly, no masses. EXTREMITIES: no edema NEUROLOGICAL: eyes open, facial symmetry. confused SKIN: Warm, dry, normal turgor, no rashes or lesions noted Laboratory Results - last 24 hr 07/18/18 07/18/18 07/18/18 05:35 13:48 18:12 WBC RBC Hgb Hct MCV MCH MCHC RDW Plt Count MPV Absolute Neuts (auto) Neutrophils % Lymphocytes % Monocytes % Eosinophils % Basophils % Nucleated RBC % Sodium Potassium Chloride Carbon Dioxide Anion Gap BUN Creatinine Creat Clearance w eGFR POC Glucometer 113.96057 109.91055 100.48311 Random Glucose Calcium Magnesium Total Bilirubin AST ALT Alkaline Phosphatase Total Protein Albumin 07/19/18 07/20/18 07/21/18 12:10 17:04 05:45 WBC 7.6 RBC 3.09 L Hgb 9.6 L Hct 28.3 L MCV 91.9 MCH 31.1 MCHC 33.9 RDW 13.3 Plt Count 515 H MPV 6.9 L Absolute Neuts (auto) 4.8 Neutrophils % 64.1 Lymphocytes % 20.3 D Monocytes % 15.5 H Eosinophils % 0.0 D Basophils % 0.1 Nucleated RBC % 0 Sodium Potassium Chloride Carbon Dioxide Anion Gap BUN Creatinine Creat Clearance w eGFR POC Glucometer 151.41222 171 Random Glucose Calcium Magnesium Total Bilirubin AST ALT Alkaline Phosphatase Total Protein Albumin 07/21/18 07/21/18 07/21/18 05:45 06:22 12:18 WBC RBC Hgb Hct MCV MCH MCHC RDW Plt Count MPV Absolute Neuts (auto) Neutrophils % Lymphocytes % Monocytes % Eosinophils % Basophils % Nucleated RBC % Sodium 139 Potassium 3.8 Chloride 102 Carbon Dioxide 28 Anion Gap 8 BUN 22 H Creatinine 0.4 L Creat Clearance w eGFR > 60 POC Glucometer 139 145 Random Glucose 108 H Calcium 8.4 L Magnesium 2.2 Total Bilirubin 0.3 AST 16 ALT 40 Alkaline Phosphatase 110 Total Protein 5.5 L Albumin 2.4 L Active Medications Generic Name Dose Route Start Last Admin Trade Name Freq PRN Reason Stop Dose Admin Albuterol Sulfate 1 amp 07/19/18 09:13 Ventolin 0.083% Nebulizer Soln - NEB Q4H PRN SHORT OF BREATH/WHEEZING Clonazepam 0.5 mg 07/19/18 09:13 07/20/18 19:11 Klonopin - PO 0.5 mg Q12H PRN Administration ANXIETY Desipramine HCl 150 mg 07/19/18 10:00 07/21/18 10:55 Norpramin - PO 150 mg BID RUBENS Administration Heparin Sodium (Porcine) 5,000 unit 07/19/18 14:00 07/21/18 06:00 Heparin - SQ 5,000 unit TID RUBENS Administration Sodium Chloride 1,000 mls @ 50 mls/hr 07/19/18 09:13 07/21/18 11:06 Normal Saline - IV 50 mls/hr ASDIR RUBENS Administration Piperacillin Sod/Tazobactam 50 mls @ 100 mls/hr 07/19/18 10:00 07/21/18 10:55 Sod 3.375 gm/ Dextrose IVPB 100 mls/hr Q8H-IV RUBENS Administration Protocol Olanzapine 7.5 mg 07/21/18 22:00 Zyprexa - PO HS RUBENS Pantoprazole Sodium 40 mg 07/19/18 10:00 07/21/18 11:07 Protonix Iv IVPUSH 40 mg DAILY RUBENS Administration Polyethylene Glycol 17 gm 07/19/18 10:00 07/21/18 10:55 Miralax (For Daily Use) - PO Not Given DAILY RUBENS Propranolol HCl 40 mg 07/19/18 14:18 07/21/18 10:53 Inderal - PO 40 mg BID RUBENS Administration Thiamine HCl 300 mg 07/19/18 14:00 07/21/18 06:00 Vitamin B1 Injection - IVPB 300 mg TID RUBENS Administration ASSESSMENT/PLAN: Patient is a 67 year old female with a reported past medical history of severe depression with prior admission to [facility]. Patient brought in to the ED 07/06/2018 via ambulance after she was found unresponsive in her bed. Her son lives downstairs and last saw her at her baseline around 4pm on 07/05/18. He went to see her in the morning of 07/06/2018 at 10:30a.m. and found her to be unresponsive, in bed. Patient intubated on admission for suicide attempt with zyprexa and klonopin overdose. Acute metabolic encephalopathy Severe sepsis Acute toxic metabolic encephalopathy Seratonin overdose Possible suicide attempt Severe depression aspiration pneumonia Laryngeal Edema Pulm: Acute Respiratory Failure, secondary to drug overdose. resolved. intubated on admission 07/06/2018, extubated on 07/15/2018 (previous attempted extubations unsuccessful) Maintained on supplemental oxygen (nasal cannula) to maintain oxygen sats above 90%. swallow eval completed, started on dysphagia pureed with honey thick consistency. remove ngt. MBS tomorrow. Started back on Zosyn for possible aspiration per ID. tapered of Dexamethasone for laryngeal edema. Neuro: Acute toxic metabolic encephalopathy due to polysubstance overdose. AMS due to polysubstance overdose Mental status improved. Repeat head Ct negative. followed by neurology (family requesting a 2nd opinion from neurology - Dr. Pennington consulted) Seen by Dr. Dalal. 1:1 to continue, zypexa decreased. Once acute medical issues stable, patient to be transferred to [facility] (inpatient psych). Suspected Serotonin Syndrome s/p Cyproheptadine. activate charcoal on admission. Poison controlled contacted during hospitalization. Patient on klonopin q 12 prn Suspected extracranial hemorrhage Seen on repeat CT to be 2/[address] stable. followed by neuro. Psyche: Suicidal Ideation Patient of Dr. Dalal. Psychiatrist Dr. Deo Li ([phone]) will accept her inpatient ([facility]). Inpatient psyche on d/c to [facility] Hypoalbuminemia On Osmalite feeds. Nutrition following. patient failed swallow evaluation and NGT placed. will need repeat MBS when health status improves. will order. Card: Tachycardia/hypertension. controlled On Propranolol 40mg bid fen npo, on tube feeds now after seen by speech and swallow monitor electrolytes proph SCD Protonix 40mg heparin tid Disposition. full code. Visit type - Emergency Visit Emergency Visit: Yes ED Registration Date: 07/06/18 Care time: The patient presented to the Emergency Department on the above date and was hospitalized for further evaluation of their emergent condition. - New Patient This patient is new to me today: No - Critical Care Critical Care patient: No - Discharge Referral Referred to [facility] No
[2018-07-21 15:10] VITALS: BMI 16.6
--- NOTE | 2018-07-21 15:20 | PN ---
Progress Note, HALL MANAGER - Note Progress Note: Pt seen at chairside on unit for follow up to MBS with NPO recommendations. Pt is very alert today responding to questions, given biographical information etc. Current diet NPO with NGT in place. Family members present for this session. Pt given po trial of 2oz puree revealed good acceptance, bolus formation and transport. Pharyngeal swallow appears timely. One subtle cough observed during trials. Pt instructed to use a chin tuck maneuver and "swallow Hard" for assist with clearing bolus. Pt given po trials of thin and thicken liquids with assistance revealed good acceptance, adequate bolus control transport and timely pharyngeal swallows. Occasional cough with thin liquids. Recommendations: Remove NGT and Trial puree with honey thicken liquids as tolerated. Observed standard aspiration precautions. Repeat MBS to determine improved swallow function and possible upgrade. Results given to chargeback analyst and pcp via chart. HALL MANAGER to follow up for diet tolerance.
[2018-07-21] MEDS ORDERED: OLANZapine 2.5 MG TABLET PO SCH (22:00)
[2018-07-22] MEDS ORDERED: PIPERACILLIN/TAZOBACTAM 3.375 GM VIAL IVPB ONE ×3 (01:11→17:15)
[2018-07-22] MEDS ORDERED: DEXTROSE 5%-WATER - 50 ML IVPB ONE ×3 (01:11→17:16)
[2018-07-22] MEDS: PIPERACILLIN/TAZOB 3.375 GM 3.375 GM in DEXTROSE 5%-WATER - 50 ML IVPB SCH ×3 (01:46→17:23)
[2018-07-22] MEDS: SODIUM CHLORIDE 1,000 ML IV SCH ×2 (02:48→10:04)
[2018-07-22] MEDS: HEPARIN NA (PORCINE) 5,000 UNITS/ML 1ML VIAL SQ SCH ×3 (06:48→21:53)
[2018-07-22] MEDS: THIAMINE HCL 200 MG/2 ML VIAL IVPB SCH ×3 (06:49→21:53)
--- NOTE | 2018-07-22 09:01 | PN ---
Progress Note (short form) - Note Progress Note: Patient is able to tolerate the dysphagia diet, going for repeat the MBS. Feels better. Vital Signs Temperature 98.6 F 07/22/18 05:49 Pulse Rate 80 07/22/18 05:49 Respiratory Rate 20 07/22/18 05:49 Blood Pressure 135/70 07/22/18 05:49 O2 Sat by Pulse Oximetry (%) 97 07/21/18 22:00 GENERAL: awake, alert, oriented to person, place. on observation 1:1 HEAD: Normal with no signs of trauma. EYES: PERRLA, EOMI , sclera anicteric, conjunctiva clear. NECK: Trachea midline, full range of motion, supple. 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 EXTREMITIES: no edema, pulses are positive NEUROLOGICAL: eyes open, facial symmetry. confused SKIN: Warm, dry, normal turgor, no rashes or lesions noted CBCD WBC 7.6 K/mm3 (4.0-10.0) 07/21/18 05:45 RBC 3.09 M/mm3 (3.60-5.2) L 07/21/18 05:45 Hgb 9.6 GM/dL (10.7-15.3) L 07/21/18 05:45 Hct 28.3 % (32.4-45.2) L 07/21/18 05:45 MCV 91.9 fl (80-96) 07/21/18 05:45 MCHC 33.9 g/dl (32.0-36.0) 07/21/18 05:45 RDW 13.3 % (11.6-15.6) 07/21/18 05:45 Plt Count 515 K/MM3 (134-434) H 07/21/18 05:45 MPV 6.9 fl (7.5-11.1) L 07/21/18 05:45 CMP Sodium 139 mmol/L (136-145) 07/21/18 05:45 Potassium 3.8 mmol/L (3.5-5.1) 07/21/18 05:45 Chloride 102 mmol/L (98-107) 07/21/18 05:45 Carbon Dioxide 28 mmol/L (21-32) 07/21/18 05:45 Anion Gap 8 MMOL/L (8-16) 07/21/18 05:45 BUN 22 mg/dL (7-18) H 07/21/18 05:45 Creatinine 0.4 mg/dL (0.55-1.3) L 07/21/18 05:45 Creat Clearance w eGFR > 60 (>60) 07/21/18 05:45 Random Glucose 108 mg/dL (74-106) H 07/21/18 05:45 Calcium 8.4 mg/dL (8.5-10.1) L 07/21/18 05:45 Total Bilirubin 0.3 mg/dL (0.2-1) 07/21/18 05:45 AST 16 U/L (15-37) 07/21/18 05:45 ALT 40 U/L (13-61) 07/21/18 05:45 Alkaline Phosphatase 110 U/L (45-117) 07/21/18 05:45 Total Protein 5.5 g/dl (6.4-8.2) L 07/21/18 05:45 Albumin 2.4 g/dl (3.4-5.0) L 07/21/18 05:45 CARDIAC ENZYMES Creatine Kinase 60 IU/L (26-192) 07/13/18 05:30 Troponin I < 0.02 ng/ml (0.00-0.05) 07/07/18 17:00 Current Medications Generic Name Dose Route Start Last Admin Trade Name Freq PRN Reason Stop Dose Admin Albuterol Sulfate 1 amp 07/19/18 09:13 Ventolin 0.083% Nebulizer Soln - NEB Q4H PRN SHORT OF BREATH/WHEEZING Clonazepam 0.5 mg 07/19/18 09:13 07/20/18 19:11 Klonopin - PO 0.5 mg Q12H PRN Administration ANXIETY Desipramine HCl 150 mg 07/19/18 10:00 07/21/18 21:02 Norpramin - PO 150 mg BID RUBENS Administration Heparin Sodium (Porcine) 5,000 unit 07/19/18 14:00 07/22/18 06:48 Heparin - SQ Not Given TID RUBENS Sodium Chloride 1,000 mls @ 50 mls/hr 07/19/18 09:13 07/22/18 02:48 Normal Saline - IV 50 mls/hr ASDIR RUBENS Administration Piperacillin Sod/Tazobactam 50 mls @ 100 mls/hr 07/19/18 10:00 07/22/18 01:46 Sod 3.375 gm/ Dextrose IVPB 100 mls/hr Q8H-IV RUBENS Administration Protocol Olanzapine 7.5 mg 07/21/18 22:00 07/21/18 21:03 Zyprexa - PO 7.5 mg HS RUBENS Administration Pantoprazole Sodium 40 mg 07/19/18 10:00 07/21/18 11:07 Protonix Iv IVPUSH 40 mg DAILY RUBENS Administration Polyethylene Glycol 17 gm 07/19/18 10:00 07/21/18 10:55 Miralax (For Daily Use) - PO Not Given DAILY RUBENS Propranolol HCl 40 mg 07/19/18 14:18 07/21/18 21:02 Inderal - PO 40 mg BID RUBENS Administration Thiamine HCl 300 mg 07/19/18 14:00 07/22/18 06:49 Vitamin B1 Injection - IVPB 300 mg TID RUBENS Administration Home Medications Medication Instructions Recorded Clonazepam 0.5 mg PO BID PRN 07/12/18 Desipramine HCl [Norpramin -] 150 mg PO BID 07/12/18 Duloxetine HCl 60 mg PO DAILY 07/12/18 Olanzapine 15 mg PO HS 07/12/18 Propranolol HCl [Propranolol HCl 80 mg PO DAILY 07/12/18 ER] CLINICAL INFORMATION: monitor possible bleed no definite interval change is seen in comparison to a CT study performed 07/06/2018 allowing for partial volume averaging. Note is again made of an approximately 6 x 3 mm moderately hyperdense focus along the right lateral border of the frontal cerebral falx which may represent a very small interhemispheric subdural hematoma versus a partially calcified dural plaque. There is no associated mass effect or edema. Correlate with follow-up CT. No discrete infarct is identified within the limitations of CT. There is no obvious mass lesion on noncontrast imaging. Involutional changes are noted with minimal to mild ventricular dilatation. The calvarium appears intact. Endotracheal and nasogastric tubes are seen as on the prior study. There is mildly increased fluid accumulation within the maxillary, ethmoid and sphenoid sinuses possibly on the basis of intubation. IMPRESSION: The intracranial structures demonstrate no definite interval change as noted above. Reported By: Addi Delgado MD 07/07/18 1434 A/P: Patient is a 67 year old female with a reported PMHx of severe depression with prior admission to [facility]. Patient brought in to the ED 07/06/2018 via ambulance since was found unresponsive in her bed by her son who lives downstairs ,on the morning of 07/06/2018 at 10:30a.m. Patient was intubated on admission for suicide attempt with zyprexa and klonopin overdose. # Acute Respiratory Failure s/p extubated on 07/15/2018 secondary to drug overdose. on 2L NC keep 02sat above above 90%. Seen by Dr. Dalal. 1:1 to continue, zypexa decreased. Once medically cleared , patient can be transferred to [facility] (inpatient psych). Patient of Dr. Dalal. Psychiatrist Dr. Deo Li ([phone]) will accept her inpatient ([facility]). Inpatient psyche on d/c to [facility] # Suspected extracranial hemorrhage: Seen on repeat CT to be 2/2 calcifications : Repeat head CT stable. followed by neuro. as per repeat CT; approximately 6 x 3 mm moderately hyperdense focus along the right lateral border of the frontal cerebral falx which may represent a very small interhemispheric subdural hematoma versus a partially calcified dural plaque. will get neurosurgery to evaluate the patient. Dr.Tom skinner #Suicidal Ideation : on observation 1:1 # Possible aspiration : On zosyn at this time as per ID. patient is going for repeat MBS. ABle to have the dysphagia puree and honey consistency. on Dexamethasone tapered for laryngeal edema. # Acute toxic metabolic encephalopathy due to polysubstance overdose. improved. Repeat head Ct: No change , followed by neurology (family requesting a 2nd opinion from neurology - Dr. Pennington consulted) # Possible Serotonin Syndrome s/p Cyproheptadine. Given charcoal on admission. # Hypoalbuminemia: On Osmalite feeds. Nutrition on the case. #Tachycardia/hypertension. controlled on Propranolol 40mg bid DVT PX: SCD. GI Px: Protonix 40mg will get Dr.Tom Skinner to evaluate the patient. Visit type - Emergency Visit Emergency Visit: Yes ED Registration Date: 07/06/18 Care time: The patient presented to the Emergency Department on the above date and was hospitalized for further evaluation of their emergent condition. - New Patient This patient is new to me today: Yes Date on this admission: 07/22/18 - Critical Care Critical Care patient: No - Discharge Referral Referred to [facility] No
[2018-07-22] MEDS ORDERED: PT OWN MED DRAWER 7, Y5N ONE ×2 (10:00→15:00)
[2018-07-22] MEDS: POLYETHYLENE GLYCOL 3350 119 GM BTL PO SCH (10:08)
[2018-07-22] MEDS: DESIPRAMINE HCL 50 MG TABLET PO SCH ×2 (10:09→21:54)
[2018-07-22] MEDS: PANTOPRAZOLE SODIUM 40 MG VIAL IVPUSH SCH (10:09)
--- NOTE | 2018-07-22 11:19 | PN ---
Progress Note (short form) - Note Progress Note: PULMONARY Denies shortness of breath, cough. No fevers recorded. Tolerating PO. Voice stronger today. Vital Signs Period Temp Pulse Resp BP Sys/Smith Pulse Ox Last 24 Hr 97.6 F-98.6 F 80-89 18-20 135-158/70-94 97-98 Gen: NAD at rest Heart: RRR Lung: decreased breath sounds at the bases Abd: soft, nontender Ext: no edema CBC, BMP 07/21/18 05:45 07/21/18 05:45 Active Medications Albuterol Sulfate (Ventolin 0.083% Nebulizer Soln -) 1 amp NEB Q4H PRN PRN Reason: SHORT OF BREATH/WHEEZING Clonazepam (Klonopin -) 0.5 mg PO Q12H PRN PRN Reason: ANXIETY Last Admin: 07/20/18 19:11 Dose: 0.5 mg Desipramine HCl (Norpramin -) 150 mg PO BID [facility] Last Admin: 07/22/18 10:09 Dose: 150 mg Heparin Sodium (Porcine) (Heparin -) 5,000 unit SQ TID [facility] Last Admin: 07/22/18 06:48 Dose: Not Given Sodium Chloride (Normal Saline -) 1,000 mls @ 50 mls/hr IV ASDIR [facility] Last Admin: 07/22/18 10:04 Dose: Not Given Piperacillin Sod/Tazobactam (Sod 3.375 gm/ Dextrose) 50 mls @ 100 mls/hr IVPB Q8H-IV RUBENS; Protocol Last Admin: 07/22/18 10:07 Dose: 100 mls/hr Olanzapine (Zyprexa -) 7.5 mg PO HS [facility] Last Admin: 07/21/18 21:03 Dose: 7.5 mg Pantoprazole Sodium (Protonix Iv) 40 mg IVPUSH DAILY [facility] Last Admin: 07/22/18 10:09 Dose: 40 mg Polyethylene Glycol (Miralax (For Daily Use) -) 17 gm PO DAILY [facility] Last Admin: 07/22/18 10:08 Dose: Not Given Propranolol HCl (Inderal -) 40 mg PO BID [facility] Last Admin: 07/22/18 10:08 Dose: 40 mg Thiamine HCl (Vitamin B1 Injection -) 300 mg IVPB TID [facility] Last Admin: 07/22/18 06:49 Dose: 300 mg A/P s/p Acute Respiratory Failure Drug Overdose Suicide Attempt Depression Laryngeal Edema Pneumonia likely Aspiration - continue antibiotics - monitor urine output, creatinine - PO as tolerated - aspiration precautions - rehab/PT - DVT/GI prophylaxis
--- NOTE | 2018-07-22 13:01 | PN ---
Progress Note, Physician History of Present Illness: stable improving speech - Current Medication List Current Medications: Active Medications Albuterol Sulfate (Ventolin 0.083% Nebulizer Soln -) 1 amp NEB Q4H PRN PRN Reason: SHORT OF BREATH/WHEEZING Clonazepam (Klonopin -) 0.5 mg PO Q12H PRN PRN Reason: ANXIETY Last Admin: 07/20/18 19:11 Dose: 0.5 mg Desipramine HCl (Norpramin -) 150 mg PO BID [facility] Last Admin: 07/22/18 10:09 Dose: 150 mg Heparin Sodium (Porcine) (Heparin -) 5,000 unit SQ TID RUBENS Last Admin: 07/22/18 06:48 Dose: Not Given Sodium Chloride (Normal Saline -) 1,000 mls @ 50 mls/hr IV ASDIR RUBENS Last Admin: 07/22/18 10:04 Dose: Not Given Piperacillin Sod/Tazobactam (Sod 3.375 gm/ Dextrose) 50 mls @ 100 mls/hr IVPB Q8H-IV RUBENS; Protocol Last Admin: 07/22/18 10:07 Dose: 100 mls/hr Olanzapine (Zyprexa -) 7.5 mg PO HS [facility] Last Admin: 07/21/18 21:03 Dose: 7.5 mg Pantoprazole Sodium (Protonix Iv) 40 mg IVPUSH DAILY [facility] Last Admin: 07/22/18 10:09 Dose: 40 mg Polyethylene Glycol (Miralax (For Daily Use) -) 17 gm PO DAILY [facility] Last Admin: 07/22/18 10:08 Dose: Not Given Propranolol HCl (Inderal -) 40 mg PO BID [facility] Last Admin: 07/22/18 10:08 Dose: 40 mg Thiamine HCl (Vitamin B1 Injection -) 300 mg IVPB TID RUBENS Last Admin: 07/22/18 06:49 Dose: 300 mg - Objective Vital Signs: Vital Signs Temperature 97.6 F 07/22/18 09:00 Pulse Rate 89 07/22/18 09:00 Respiratory Rate 18 07/22/18 09:00 Blood Pressure 152/94 07/22/18 09:00 O2 Sat by Pulse Oximetry (%) 98 07/22/18 09:00 Constitutional: Yes: No Distress, Calm HENT: Yes: Atraumatic, Other (voice improving) Neck: Yes: Trachea Midline Cardiovascular: Yes: Regular Rate and Rhythm Respiratory: Yes: Regular, CTA Bilaterally Gastrointestinal: Yes: Normal Bowel Sounds, Soft Musculoskeletal: Yes: WNL Extremities: Yes: WNL Neurological: Yes: Alert Psychiatric: Yes: Alert Labs: CBC, BMP 07/21/18 05:45 07/21/18 05:45 INR, PTT INR 1.32 (0.83-1.09) H 07/07/18 12:35 Assessment/Plan Acute metabolic encephalopathy Severe sepsis Acute toxic metabolic encephalopathy Seratonin overdose Possible suicide attempt Severe depression pneumonia uti plan hydration support steroids as per pul resp support continue abx will deescalate in day or two
--- NOTE | 2018-07-22 13:34 | PN ---
Progress Note, LENS GRINDER ROUGH - Note Progress Note: Selected Entries 07/21/18 07/21/18 07/21/18 02:00 06:00 09:00 Breakfast Lunch Supper Temperature 97.9 F 98.0 F 97.3 F L 07/21/18 07/21/18 07/21/18 14:24 18:00 18:10 Breakfast Lunch NPO Supper 50% Temperature 98.2 F 98.3 F 07/21/18 07/22/18 07/22/18 21:07 05:49 09:00 Breakfast Lunch Supper Temperature 98.1 F 98.6 F 97.6 F 07/22/18 09:43 Breakfast 50% Lunch Supper Temperature Laboratory Tests 07/21/18 05:45 WBC 7.6 Puree/honey thick liquid ordered. For repeat MBS today.
--- NOTE | 2018-07-22 15:48 | PN ---
Progress Note (short form) - Note Progress Note: NEUROSURGERY CONSULT DICTATED Chart reviewed Son at bedside Pt examined H/o severe depression and found responsive at home. Supposedly OD'd on meds with suicide note. PE: HEENT- NC/AT; Neck- trach in place; Cor- RR; Lungs- decreased BS at bases; Abd- benign; Ext- diffuse edema B UE/LE CN- PERRL, face symmetric; Motor- occ purposeful movement but limited; Sensation - difficult to assess; DTR- hyporeflexia, toes upgoing B Head CT -4: hyperdensity R anterior falx not close to OSMANY; Head CT -: stable appearance Labs and cultures reviewed Most likely calcified anterior falx vs small SDH/SAH Probable anoxic brain injury Could repeat head CT to see if the lesion has evolved to isodense (which would be consistent with evolving hematoma rather than calcification) Regardless the small size of lesion (without associated mass effect or edema) is unlikely contribute to her current neurological state No neurosurgical intervention indicated nor recommended
--- NOTE | 2018-07-22 18:09 | CON.PSY ---
Psychiatry Consult Chief Complaint: Psych follow up: Continues to get better, cognition improving. able to walk wqith assistance. More relatable. Plan : wqill rteduce Zyprexa dose., Continue with 1:1 - Current Medications Current Medications: Active Medications Albuterol Sulfate (Ventolin 0.083% Nebulizer Soln -) 1 amp NEB Q4H PRN PRN Reason: SHORT OF BREATH/WHEEZING Last Admin: 07/22/18 14:23 Dose: 1 amp Clonazepam (Klonopin -) 0.5 mg PO Q12H PRN PRN Reason: ANXIETY Last Admin: 07/20/18 19:11 Dose: 0.5 mg Desipramine HCl (Norpramin -) 150 mg PO BID [facility] Last Admin: 07/22/18 10:09 Dose: 150 mg Heparin Sodium (Porcine) (Heparin -) 5,000 unit SQ TID [facility]UBENS Last Admin: 07/22/18 15:02 Dose: 5,000 unit Sodium Chloride (Normal Saline -) 1,000 mls @ 50 mls/hr IV ASDIR RUBENS Last Admin: 07/22/18 10:04 Dose: Not Given Piperacillin Sod/Tazobactam (Sod 3.375 gm/ Dextrose) 50 mls @ 100 mls/hr IVPB Q8H-IV RUBENS; Protocol Last Admin: 07/22/18 17:23 Dose: 100 mls/hr Olanzapine (Zyprexa -) 7.5 mg PO HS RUBENS Last Admin: 07/21/18 21:03 Dose: 7.5 mg Pantoprazole Sodium (Protonix Iv) 40 mg IVPUSH DAILY [facility] Last Admin: 07/22/18 10:09 Dose: 40 mg Polyethylene Glycol (Miralax (For Daily Use) -) 17 gm PO DAILY [facility] Last Admin: 07/22/18 10:08 Dose: Not Given Propranolol HCl (Inderal -) 40 mg PO BID [facility] Last Admin: 07/22/18 10:08 Dose: 40 mg Thiamine HCl (Vitamin B1 Injection -) 300 mg IVPB TID [facility] Last Admin: 07/22/18 15:03 Dose: 300 mg - Allergies Allergies: Allergies Allergy/AdvReac Type Severity Reaction Status Date / Time No Known Allergies Allergy Verified 07/06/18 11:40
[2018-07-22] MEDS: OLANZapine 2.5 MG TABLET PO SCH (21:52)
[2018-07-23] MEDS ORDERED: PIPERACILLIN/TAZOBACTAM 3.375 GM VIAL IVPB ONE ×3 (01:33→18:30)
[2018-07-23] MEDS ORDERED: DEXTROSE 5%-WATER - 50 ML IVPB ONE ×3 (01:33→18:30)
[2018-07-23] MEDS: PIPERACILLIN/TAZOB 3.375 GM 3.375 GM in DEXTROSE 5%-WATER - 50 ML IVPB SCH ×3 (01:57→18:37)
[2018-07-23] MEDS: SODIUM CHLORIDE 1,000 ML IV SCH ×2 (06:23→11:09)
[2018-07-23] MEDS: THIAMINE HCL 200 MG/2 ML VIAL IVPB SCH ×3 (06:24→22:01)
[2018-07-23] MEDS: HEPARIN NA (PORCINE) 5,000 UNITS/ML 1ML VIAL SQ SCH ×3 (06:24→21:57)
--- NOTE | 2018-07-23 06:36 | CONS ---
DATE OF CONSULTATION: 07/22/2018 REQUESTING PHYSICIAN: Dejan Antonio MD CANARY RAISER: Shay Hall MD, Neurosurgery CHIEF COMPLAINT: Respiratory distress and CT scan finding of right anterior falcine hyperdensity. HISTORY OF PRESENT ILLNESS: The patient is a 67-year-old, right-handed female with a history of severe depression on multiple medications, who was found to have possibly overdosed on her antidepressant and sedatives 2+ weeks ago. She was at home and had picked up a new prescription at the beginning of this month. She was found with an empty bottle and left with a note. She was found to be in respiratory distress by paramedics and was intubated. She subsequently remained in respiratory failure. Presently, she has a tracheostomy in place. She has been afebrile today. CT scan had demonstrated a focal anterior falcine hyperdensity from 2 weeks ago. PAST MEDICAL HISTORY: Significant for severe depression, urinary tract infection with E. coli, respiratory infection. CURRENT MEDICATIONS: Include Zosyn, subcutaneous heparin, Zyprexa, Klonopin, Ventolin inhaler, propranolol, MiraLAX, Protonix, Zyprexa, and Norpramin. ALLERGIES: There are no known drug allergies. FAMILY HISTORY: Noncontributory. SOCIAL HISTORY: She is retired and lived at home. She does not smoke and does not drink much alcohol by report. REVIEW OF SYSTEMS: Otherwise negative for other major constitutional, head and neck, cardiovascular, pulmonary, gastrointestinal, genitourinary, endocrinological, neurological, and psychological problems except for the above. PHYSICAL EXAMINATION: Vital Signs: Temperature is 97.3. She has been afebrile for at least 72 hours. Her T-max prior to that was 99.5 for the 2 prior days. HEENT: Exam shows her to be normocephalic, atraumatic. Neck: Shows tracheostomy in place. Coronary: Examination demonstrated regular rhythm. Lungs: Decreased breath sounds at the bases. Abdomen: Benign. Extremities: Exam shows diffuse edema in the upper and lower extremities. Neurologic: She appears to nod and shake her head to simple questions. She does not follow commands consistently. Cranial nerves examination shows her pupils to be equal and reactive to light. Face appears to be symmetric. Motor examination shows some occasional spontaneous movement of 2/5 strength in the upper and lower extremities. Sensory examination is difficult to test. Deep tendon reflexes are hyporeflexic throughout. Bilateral toes are upgoing. LABORATORY: Examination shows a white blood cell count of 7.6. Previously, her white count was up to 20.1. Hemoglobin currently is 9.6, and platelet count is 515,000. INR previously was 2.32, and PTT was 30.2. Serum sodium was 139, potassium is 3.8. BUN is 22 and creatinine 0.4. Glucose was 108. Calcium is 8.4. Albumin is 2.4. Prior blood cultures were negative. Prior urine culture was positive for E. coli, enterococcus. CT scan of the head from July 06, 2018, shows a small right anterior falcine hyperdensity which could either be a small subdural/subarachnoid hemorrhage versus calcified falx. There is fluid in the ethmoid air cells. A followup CT scan on July 07, did not demonstrate any change in anterior falcine hyperdensity. IMPRESSION: 1. Right anterior falcine hyperdensity, subdural hematoma/subarachnoid hemorrhage versus partially calcified falx. 2. Respiratory insufficiency. 3. History of severe depression. 4. Probable anoxic brain injury. RECOMMENDATIONS: The patient presents with altered mental status and respiratory distress about 2-1/2 weeks ago. She likely has sustained anoxic brain injury as a result of her respiratory difficulties initially and possible drug overdose. CT scan initially only demonstrated hyperdensity of the falx and no other significant lesions. If this were indeed a small subdural hematoma from 2 weeks earlier, CT scan at this time should show isodense finding of this lesion. If this were a partially calcified falx, it would remain hyperdense. A CT scan could be considered to ascertain the nature of the hyperdense lesion in the anterior falx outlined above, but the lesion unlikely to contribute to her current symptoms. No neurosurgical intervention is indicated nor recommended at this time. SHAY HALL M.D. [id number] MTDD
--- NOTE | 2018-07-23 08:54 | PN ---
Progress Note (short form) - Note Progress Note: NEUROSURGERY No reported changes PE: Tmax 98.5 HEENT- NC/AT; Neck- trach in place; Cor- RR; Lungs- decreased BS at bases; Abd- benign; Ext- diffuse edema B UE/LE Arousable CN- PERRL; Motor- occ purposeful movement but limited; Sensation- difficult to assess; DTR- hyporeflexia, toes upgoing B Head CT 07-06: hyperdensity R anterior falx; Head CT 07-07: stable appearance Most likely calcified anterior falx vs small SDH/SAH Probable anoxic brain injury Could repeat head CT to see if the lesion has evolved to isodense (which would be consistent with evolving hematoma rather than calcification) Regardless the small size of the lesion and location (without associated mass effect or edema) is unlikely contribute to her current neurological state Care d/w son yesterday
--- NOTE | 2018-07-23 09:30 | PN ---
Progress Note, LARD MAKER - Note Progress Note: 67 yo female seen at bedside for swallow eval. Pt is very alert today, smiling and talkative. Current diet is dysphagia pureed with honey thicken liquids. Chart review reveals much improved nutritional intake 50-75% for lunch and dinner. Pt and CONTINUOUS IMPROVEMENT DIRECTOR reports good intake at breakfast with no s/s of aspiration during or after the meal. Recommendations: continue current diet pureed with thicken liquids as tolerated. Observe standard aspiration precautions. LARD MAKER to follow up for possible diet upgrade if warranted.
--- NOTE | 2018-07-23 10:03 | CONSULT ---
Consult - text type - Consultation Consultation Note: NEUROLOGY CONSULTATION (second opinion) is greatly appreciated: Events reviewed, patient examined with , mother, and son st the bedside, yesterday morning (07/22) at 8:30 AM This 67 yo RH m, woman has chronic depression > 30 years, on multiple medications over many years. Slowly progressive gait deterioration over 2-3 years with poor posture and shuffling. Increasing depression over 2 years with prolonged Psyche admission at [facility] last Jul-Aug with ECT x 24 treatment. Memory improved by the spring. Restarted on Desipramine after many years hiatus at that time Admiited [facility] 5 weeks ago for increased depression. Attempted suidice at home after D/C with pills. Found unresponsive by son. Prolonged [facility] ICU stay on Propofol. Now awake, extubated. CT of head (reviewed): Mild atrophy. Falcine calcification c/w small en plaque meningioma. EXAM: Thin. No bruits. NEURO: Awake, alert, hypophonic speech, fluent. Ox [facility]. 2017. Trump. Some difficulty with reversals and recall (1 of 3 at 5 mins) + Glabella. Masked facies. Gag OK (Very dry oropharynx). Bradykinesia. Min Tremor. ++ Cogwheel rigidity. Normal strength and reflexes. Normal sensory. No FTN Dystaxia. Stands with assist. +retropulsive. Shuffling, festinating gait. IMP: 1. Mild B/L cerebral dysfunction. Clearly improving after prolonged induced coma. Cannot exclude some degree of hypoxemic injury. 2. Parkinsonism/ probably Parkinson's disease as suggested by 3 year h/o gait decline (off neuroleptics). 3. Development of PD would help explain the worsening of depression during the same time course. Suggest: Observe during Zyprexa taper as per Dr. Talbot. Check B12, TSH, RPR. MRI of Brain (C-). Aggressive PT for gait with walker. Will reexamine off Zyprexa as patient will likely benefit from L- Dopa Rx. Thank you very much, Eric Pennington MD
[2018-07-23] MEDS ORDERED: PT OWN MED DRAWER 7, Y5N ONE (10:51)
[2018-07-23] MEDS: PANTOPRAZOLE SODIUM 40 MG VIAL IVPUSH SCH (11:08)
[2018-07-23] MEDS: POLYETHYLENE GLYCOL 3350 119 GM BTL PO SCH (11:13)
[2018-07-23] MEDS: DESIPRAMINE HCL 50 MG TABLET PO SCH ×2 (11:17→21:59)
--- NOTE | 2018-07-23 11:42 | PN ---
Progress Note, Physician History of Present Illness: stable no issues voice much better - Current Medication List Current Medications: Active Medications Albuterol Sulfate (Ventolin 0.083% Nebulizer Soln -) 1 amp NEB Q4H PRN PRN Reason: SHORT OF BREATH/WHEEZING Last Admin: 07/22/18 14:23 Dose: 1 amp Clonazepam (Klonopin -) 0.5 mg PO Q12H PRN PRN Reason: ANXIETY Last Admin: 07/20/18 19:11 Dose: 0.5 mg Desipramine HCl (Norpramin -) 150 mg PO BID [facility] Last Admin: 07/23/18 11:17 Dose: 150 mg Heparin Sodium (Porcine) (Heparin -) 5,000 unit SQ TID [facility] Last Admin: 07/23/18 06:24 Dose: 5,000 unit Sodium Chloride (Normal Saline -) 1,000 mls @ 50 mls/hr IV ASDIR [facility] Last Admin: 07/23/18 11:09 Dose: Not Given Piperacillin Sod/Tazobactam (Sod 3.375 gm/ Dextrose) 50 mls @ 100 mls/hr IVPB Q8H-IV [facility]; Protocol Last Admin: 07/23/18 11:08 Dose: 100 mls/hr Olanzapine (Zyprexa -) 2.5 mg PO HS [facility] Last Admin: 07/22/18 21:52 Dose: 2.5 mg Pantoprazole Sodium (Protonix Iv) 40 mg IVPUSH DAILY [facility] Last Admin: 07/23/18 11:08 Dose: 40 mg Polyethylene Glycol (Miralax (For Daily Use) -) 17 gm PO DAILY [facility] Last Admin: 07/23/18 11:13 Dose: Not Given Propranolol HCl (Inderal -) 40 mg PO BID [facility] Last Admin: 07/23/18 11:13 Dose: 40 mg Thiamine HCl (Vitamin B1 Injection -) 300 mg IVPB TID [facility] Last Admin: 07/23/18 06:24 Dose: 300 mg - Objective Vital Signs: Vital Signs Temperature 98.2 F 07/23/18 06:00 Pulse Rate 77 07/23/18 06:00 Respiratory Rate 18 07/23/18 06:00 Blood Pressure 156/89 07/23/18 06:00 O2 Sat by Pulse Oximetry (%) 98 07/23/18 10:00 Constitutional: Yes: No Distress, Calm Cardiovascular: Yes: Regular Rate and Rhythm Respiratory: Yes: Regular, CTA Bilaterally Gastrointestinal: Yes: Normal Bowel Sounds, Soft Musculoskeletal: Yes: WNL Extremities: Yes: WNL Neurological: Yes: Alert, Oriented Psychiatric: Yes: Alert, Oriented Labs: CBC, BMP 07/21/18 05:45 07/21/18 05:45 INR, PTT INR 1.32 (0.83-1.09) H 07/07/18 12:35 Assessment/Plan Acute metabolic encephalopathy Severe sepsis Acute toxic metabolic encephalopathy Seratonin overdose Possible suicide attempt Severe depression pneumonia uti plan hydration support steroids as per pul resp support continue abx can stop abx after completing todays dose
--- NOTE | 2018-07-23 17:32 | PN ---
Progress Note (short form) - Note Progress Note: Psych follow up; Physical condition continues to get better. Sleeping well and is coperating with staff. eating better. Plan Continue with 1:1 will plan to transfer next week to Psych Unit.
--- NOTE | 2018-07-23 18:20 | PN ---
Physical Exam: SUBJECTIVE: Patient seen and examined. She reports she is feeling well and she would like to return home and be treated for outpatient psych rather than return to [facility]. OBJECTIVE: alert and oriented on 1:1 for suicide ideation Still on Zosyn for aspiration pna, wbc improved On dysphagia pureed with honey thick consistency Walked 60 feet with PT today. Vital Signs Period Temp Pulse Resp BP Sys/Smith Pulse Ox Last 24 Hr 97.5 F-98.5 F 70-86 18-20 131-156/78-89 98-98 GENERAL: The patient is awake, alert, and fully oriented, in no acute distress, on 1:1 HEAD: Normal with no signs of trauma. EYES: PERRL, extraocular movements intact, sclera anicteric, conjunctiva clear. No ptosis. ENT: Ears normal, nares patent, oropharynx clear without exudates, moist mucous membranes. NECK: Trachea midline, full range of motion, supple. LUNGS: Breath sounds equal, clear to auscultation bilaterally, no wheezes, no crackles, no accessory muscle use. HEART: Regular rate and rhythm, S1, S2 without murmur, rub or gallop. ABDOMEN: Soft, nontender, nondistended, normoactive bowel sounds, no guarding, no rebound, no hepatosplenomegaly, no masses. EXTREMITIES: 2+ pulses, warm, well-perfused, no edema. NEUROLOGICAL: Cranial nerves II through XII grossly intact. Normal speech, gait not observed. PSYCH: Normal mood, normal affect. SKIN: Warm, dry, normal turgor, no rashes or lesions noted Laboratory Results - last 24 hr 07/22/18 22:05 POC Glucometer 103 Active Medications Generic Name Dose Route Start Last Admin Trade Name Freq PRN Reason Stop Dose Admin Albuterol Sulfate 1 amp 07/19/18 09:13 07/22/18 14:23 Ventolin 0.083% Nebulizer Soln - NEB 1 amp Q4H PRN Administration SHORT OF BREATH/WHEEZING Clonazepam 0.5 mg 07/19/18 09:13 07/20/18 19:11 Klonopin - PO 0.5 mg Q12H PRN Administration ANXIETY Desipramine HCl 150 mg 07/19/18 10:00 07/23/18 11:17 Norpramin - PO 150 mg BID [facility] Administration Heparin Sodium (Porcine) 5,000 unit 07/19/18 14:00 07/23/18 15:33 Heparin - SQ Not Given TID [facility] Sodium Chloride 1,000 mls @ 50 mls/hr 07/19/18 09:13 07/23/18 11:09 Normal Saline - IV Not Given ASDIR [facility] Piperacillin Sod/Tazobactam 50 mls @ 100 mls/hr 07/19/18 10:00 07/23/18 11:08 Sod 3.375 gm/ Dextrose IVPB 100 mls/hr Q8H-IV [facility] Administration Protocol Olanzapine 2.5 mg 07/22/18 22:00 07/22/18 21:52 Zyprexa - PO 2.5 mg HS [facility] Administration Pantoprazole Sodium 40 mg 07/19/18 10:00 07/23/18 11:08 Protonix Iv IVPUSH 40 mg DAILY [facility] Administration Polyethylene Glycol 17 gm 07/19/18 10:00 07/23/18 11:13 Miralax (For Daily Use) - PO Not Given DAILY [facility] Propranolol HCl 40 mg 07/19/18 14:18 07/23/18 11:13 Inderal - PO 40 mg BID [facility] Administration Thiamine HCl 300 mg 07/19/18 14:00 07/23/18 06:24 Vitamin B1 Injection - IVPB 300 mg TID [facility] Administration ASSESSMENT/PLAN: 67 year old female with a PMH significant for severe depression with prior admission to [facility]. Patient brought in to the ED 07/06 via ambulance after she was found unresponsive in her bed. Patient intubated on admission for suicide attempt with zyprexa and klonopin overdose. Acute Respiratory Failure - Resolved; secondary to drug overdose - Intubated on admission 07/06/2018, extubated on 07/15/2018 (previous attempted extubations unsuccessful) - Maintained on supplemental oxygen (nasal cannula) to maintain oxygen sats above 90%. - swallow eval completed, started on dysphagia pureed with honey thick consistency - Last dose of Zosyn today for possible aspiration per ID - Tapered of Dexamethasone for laryngeal edema. Acute toxic metabolic encephalopathy - Due to polysubstance overdose - Mental status improved - Repeat head Ct negative. Suspected Serotonin Syndrome - s/p Cyproheptadine. - Activated charcoal on admission. - Poison controlled contacted during hospitalization Suspected extracranial hemorrhage - Seen on repeat CT to be 2/2 calcifications - Repeat head CT stable - Followed by neurology Depression - Followed by psychiatrist Dr. Dalal - Continue 1:1 - Zypexa 2.5 mg QHS -Desipramine 150 mg PO BID - Klonopin q 12 prn - Patient's Dr. Deo Li ([phone]) contacted today about transfer now that patient is medically stable. Currently no beds at [facility], but there are beds at [facility]. Hypertension - Propranolol 40mg bid FEN - PO intake adequate - Monitor BMP - Puree HTL diet Prophylaxis DVT: SCDs, Heparin SQ GI: Protonix 40mg Disposition: Patient medically stable to be transferred to in-patient psych facility as soon as there is an availability, most likely next week after the . FULL CODE Visit type - Emergency Visit Emergency Visit: No - New Patient This patient is new to me today: No - Critical Care Critical Care patient: No
--- NOTE | 2018-07-23 21:28 | PN ---
Progress Note (short form) - Note Progress Note: NEUROLOGY FOLLOW-UP: Events reviewed. Patient examined. Now on Zyprexa 2.5 mg PO q HS Dr. Talbot's f/u note is read and appreciated. Exam: Much more expresive. Speech is stronger. Fluent. Ox 3. Trouble with reversals but recalls 3 of 3 objects. + glabella. Snout. Moves all fours well. No rest tremor. + Cogwheel rigidity. Decreased ELBERT's. Pt. defers walking. IMP: Mild OMS. Continues to improve. Parkinsonism/Parkinson's Disease. Better on reduced doses of Zyprexa. SUGGEST: Psyche Rx as per Dr. Talbot. Taper off Zyprexa, if possible. Neuro f/u as out patient. Thank you very much, Eric Pennington MD
[2018-07-23] MEDS: OLANZapine 2.5 MG TABLET PO SCH (22:01)
[2018-07-24] MEDS ORDERED: PIPERACILLIN/TAZOBACTAM 3.375 GM VIAL IVPB ONE ×3 (01:26→17:42)
[2018-07-24] MEDS ORDERED: DEXTROSE 5%-WATER - 50 ML IVPB ONE ×3 (01:26→17:42)
[2018-07-24] MEDS: PIPERACILLIN/TAZOB 3.375 GM 3.375 GM in DEXTROSE 5%-WATER - 50 ML IVPB SCH ×3 (01:47→18:21)
[2018-07-24] MEDS: HEPARIN NA (PORCINE) 5,000 UNITS/ML 1ML VIAL SQ SCH ×3 (05:58→21:15)
[2018-07-24] MEDS: THIAMINE HCL 200 MG/2 ML VIAL IVPB SCH ×3 (05:59→21:17)
[2018-07-24] MEDS: SODIUM CHLORIDE 1,000 ML IV SCH ×2 (06:00→11:20)
[2018-07-24] MEDS: clonazePAM 0.5 MG TABLET PO PRN (06:31)
[2018-07-24 08:26] LABS: HEMATOCRIT 36.9 % (32.4-45.2); HEMOGLOBIN 12.2 GM/dL (10.7-15.3); MCH 30.3 pg (25.7-33.7); MEAN CELL VOLUME 91.9 fl (80-96); MEAN PLT VOLUME 7.2 fl (7.5-11.1); PLATELET COUNT 620 K/MM3 (134-434); RBC 4.02 M/mm3 (3.60-5.2); RDW 13.7 % (11.6-15.6); WHITE BLOOD COUNT 8.6 K/mm3 (4.0-10.0)
[2018-07-24 09:12] LABS: ANION GAP 12 MMOL/L (8-16); BLOOD UREA NITROGEN 13 mg/dL (7-18); CALCIUM 8.9 mg/dL (8.5-10.1); CHLORIDE 101 mmol/L (98-107); CO2 27 mmol/L (21-32); CREATININE 0.6 mg/dL (0.55-1.3); GLUCOSE,RANDOM 97 mg/dL (74-106); POTASSIUM 4.2 mmol/L (3.5-5.1); SODIUM 140 mmol/L (136-145)
--- NOTE | 2018-07-24 09:54 | PN ---
Progress Note (short form) - Note Progress Note: NEUROSURGERY No new complaint Sitting up in chair PE: AF,VSS Fluent speech HEENT- NC/AT; Neck- supple; Cor- RR; Lungs- CTA; Abd- benign; Ext- stable, no sign of DVT CN- PERRL, face symmetric; Motor- occ purposeful movement but limited; Sensation - intact to LT; DTR- hyporeflexia, toes upgoing B Head CT 07-06: hyperdensity R anterior falx; Head CT 07-07: stable appearance Most likely calcified anterior falx vs small SDH/SAH Nonfocal neurologically
[2018-07-24] MEDS: PANTOPRAZOLE SODIUM 40 MG VIAL IVPUSH SCH (11:23)
[2018-07-24] MEDS: DESIPRAMINE HCL 50 MG TABLET PO SCH ×2 (11:23→21:17)
[2018-07-24] MEDS: POLYETHYLENE GLYCOL 3350 119 GM BTL PO SCH (11:23)
--- NOTE | 2018-07-24 12:47 | PN ---
Physical Exam: SUBJECTIVE: Patient seen and examined. Patient reports she is feeling well. Plan is for patient to be transferred to inpatient psych, most likely will occur early next week. OBJECTIVE: Vital Signs Period Temp Pulse Resp BP Sys/Smith Pulse Ox Last 24 Hr 97.5 F-98.3 F 70-109 20-20 131-160/78-105 98-98 GENERAL: The patient is awake, alert, and fully oriented, in no acute distress, on 1:1 HEAD: Normal with no signs of trauma. EYES: PERRL, extraocular movements intact, sclera anicteric, conjunctiva clear. No ptosis. ENT: Ears normal, nares patent, oropharynx clear without exudates, moist mucous membranes. NECK: Trachea midline, full range of motion, supple. LUNGS: Breath sounds equal, clear to auscultation bilaterally, no wheezes, no crackles, no accessory muscle use. HEART: Regular rate and rhythm, S1, S2 without murmur, rub or gallop. ABDOMEN: Soft, nontender, nondistended, normoactive bowel sounds, no guarding, no rebound, no hepatosplenomegaly, no masses. EXTREMITIES: 2+ pulses, warm, well-perfused, no edema. NEUROLOGICAL: No facial droop, normal speech, gait not observed. PSYCH: Normal mood, normal affect. SKIN: Warm, dry, normal turgor, no rashes or lesions noted Laboratory Results - last 24 hr 07/24/18 07/24/18 06:00 06:00 WBC 8.6 RBC 4.02 Hgb 12.2 Hct 36.9 D MCV 91.9 MCH 30.3 MCHC 33.0 RDW 13.7 Plt Count 620 H D MPV 7.2 L Sodium 140 Potassium 4.2 Chloride 101 Carbon Dioxide 27 Anion Gap 12 BUN 13 Creatinine 0.6 Creat Clearance w eGFR > 60 Random Glucose 97 Calcium 8.9 Magnesium 2.0 Active Medications Generic Name Dose Route Start Last Admin Trade Name Freq PRN Reason Stop Dose Admin Clonazepam 0.5 mg 07/19/18 09:13 07/24/18 06:31 Klonopin - PO 0.5 mg Q12H PRN Administration ANXIETY Desipramine HCl 150 mg 07/19/18 10:00 07/24/18 11:23 Norpramin - PO 150 mg BID [facility] Administration Heparin Sodium (Porcine) 5,000 unit 07/19/18 14:00 07/24/18 05:58 Heparin - SQ Not Given TID [facility] Sodium Chloride 1,000 mls @ 50 mls/hr 07/19/18 09:13 07/24/18 11:20 Normal Saline - IV Not Given ASDIR [facility] Piperacillin Sod/Tazobactam 50 mls @ 100 mls/hr 07/19/18 10:00 07/24/18 11:18 Sod 3.375 gm/ Dextrose IVPB 100 mls/hr Q8H-IV [facility] Administration Protocol Olanzapine 2.5 mg 07/22/18 22:00 07/23/18 22:01 Zyprexa - PO 2.5 mg HS [facility] Administration Pantoprazole Sodium 40 mg 07/19/18 10:00 07/24/18 11:23 Protonix Iv IVPUSH 40 mg DAILY [facility] Administration Polyethylene Glycol 17 gm 07/19/18 10:00 07/24/18 11:23 Miralax (For Daily Use) - PO Not Given DAILY [facility] Propranolol HCl 40 mg 07/19/18 14:18 07/24/18 11:22 Inderal - PO 40 mg BID [facility] Administration Thiamine HCl 300 mg 07/19/18 14:00 07/24/18 05:59 Vitamin B1 Injection - IVPB 300 mg TID [facility] Administration ASSESSMENT/PLAN: 67 year old female with a PMH significant for severe depression with prior admission to [facility]. Patient brought in to the ED 07/06 via ambulance after she was found unresponsive in her bed. Patient intubated on admission for suicide attempt with zyprexa and klonopin overdose. Acute Respiratory Failure - Resolved; secondary to drug overdose - Intubated on admission 07/06/2018, extubated on 07/15/2018 (previous attempted extubations unsuccessful) - Maintained on supplemental oxygen (nasal cannula) to maintain oxygen sats above 90%. - swallow eval completed, started on dysphagia pureed with honey thick consistency - Last dose of Zosyn today for possible aspiration per ID - Tapered of Dexamethasone for laryngeal edema. Acute toxic metabolic encephalopathy - Due to polysubstance overdose - Mental status improved - Repeat head Ct negative - Seen by neurologist Dr. Dooley - Parkinsonism/ Parkinson's Disease + Cogwheel rigidity, decreased ELBERT's. - Better on reduced dose of Zyprexa, taper off if possible - OP neuro f/u Suspected Serotonin Syndrome - s/p Cyproheptadine. - Activated charcoal on admission. - Poison controlled contacted during hospitalization Suspected extracranial hemorrhage - Seen on repeat CT to be 2/2 calcifications - Repeat head CT stable - Followed by neurology Depression - Followed by psychiatrist Dr. Dalal - Continue 1:1 - Zypexa 2.5 mg QHS - Desipramine 150 mg PO BID - Klonopin q 12 prn - Patient's Dr. Deo Li ([phone]) contacted today about transfer now that patient is medically stable. Currently no beds at [facility], but there are beds at [facility]. Will likely occur next week. Hypertension - Propranolol 40mg bid FEN - PO intake adequate - Monitor BMP - Puree HTL diet Prophylaxis DVT: SCDs, Heparin SQ GI: Protonix 40mg Disposition: Patient medically stable to be transferred to in-patient psych facility as soon as there is an availability, most likely next week after the . FULL CODE Visit type - Emergency Visit Emergency Visit: No - New Patient This patient is new to me today: No - Critical Care Critical Care patient: No
[2018-07-24] MEDS ORDERED: clonazePAM 0.5 MG TABLET PO ONE (14:40)
--- NOTE | 2018-07-24 14:56 | PN ---
Progress Note, Physician History of Present Illness: continues to be very stable family in room - Current Medication List Current Medications: Active Medications Clonazepam (Klonopin -) 0.5 mg PO BID PRN PRN Reason: ANXIETY Desipramine HCl (Norpramin -) 150 mg PO BID [facility] Last Admin: 07/24/18 11:23 Dose: 150 mg Heparin Sodium (Porcine) (Heparin -) 5,000 unit SQ TID [facility] Last Admin: 07/24/18 05:58 Dose: Not Given Sodium Chloride (Normal Saline -) 1,000 mls @ 50 mls/hr IV ASDIR [facility] Last Admin: 07/24/18 11:20 Dose: Not Given Piperacillin Sod/Tazobactam (Sod 3.375 gm/ Dextrose) 50 mls @ 100 mls/hr IVPB Q8H-IV [facility]; Protocol Last Admin: 07/24/18 11:18 Dose: 100 mls/hr Olanzapine (Zyprexa -) 2.5 mg PO HS [facility] Last Admin: 07/23/18 22:01 Dose: 2.5 mg Pantoprazole Sodium (Protonix Iv) 40 mg IVPUSH DAILY [facility] Last Admin: 07/24/18 11:23 Dose: 40 mg Polyethylene Glycol (Miralax (For Daily Use) -) 17 gm PO DAILY [facility] Last Admin: 07/24/18 11:23 Dose: Not Given Propranolol HCl (Inderal -) 40 mg PO BID [facility] Last Admin: 07/24/18 11:22 Dose: 40 mg Thiamine HCl (Vitamin B1 Injection -) 300 mg IVPB TID [facility] Last Admin: 07/24/18 05:59 Dose: 300 mg - Objective Vital Signs: Vital Signs Temperature 98 F 07/24/18 11:31 Pulse Rate 109 H 07/24/18 11:31 Respiratory Rate 20 07/24/18 11:31 Blood Pressure 139/105 H 07/24/18 11:31 O2 Sat by Pulse Oximetry (%) 98 07/23/18 22:00 Constitutional: Yes: No Distress, Calm Cardiovascular: Yes: Regular Rate and Rhythm Respiratory: Yes: Regular, CTA Bilaterally Gastrointestinal: Yes: Normal Bowel Sounds, Soft Musculoskeletal: Yes: WNL Extremities: Yes: WNL Neurological: Yes: Alert, Oriented Psychiatric: Yes: Alert, Oriented Labs: CBC, BMP 07/24/18 06:00 07/24/18 06:00 INR, PTT INR 1.32 (0.83-1.09) H 07/07/18 12:35 Assessment/Plan Acute metabolic encephalopathy Severe sepsis Acute toxic metabolic encephalopathy Seratonin overdose Possible suicide attempt Severe depression pneumonia uti plan hydration support steroids as per pul resp support stop abx tomorrow
[2018-07-24] MEDS: OLANZapine 2.5 MG TABLET PO SCH (21:18)
[2018-07-25] MEDS ORDERED: DEXTROSE 5%-WATER - 50 ML IVPB ONE ×2 (01:49→09:48)
[2018-07-25] MEDS ORDERED: PIPERACILLIN/TAZOBACTAM 3.375 GM VIAL IVPB ONE ×2 (01:49→09:47)
[2018-07-25] MEDS: PIPERACILLIN/TAZOB 3.375 GM 3.375 GM in DEXTROSE 5%-WATER - 50 ML IVPB SCH ×2 (02:14→10:09)
[2018-07-25] MEDS: SODIUM CHLORIDE 1,000 ML IV SCH (06:33)
[2018-07-25] MEDS: THIAMINE HCL 200 MG/2 ML VIAL IVPB SCH ×3 (06:33→23:11)
[2018-07-25] MEDS: HEPARIN NA (PORCINE) 5,000 UNITS/ML 1ML VIAL SQ SCH ×3 (06:40→23:12)
[2018-07-25] MEDS ORDERED: PT OWN MED DRAWER 7, Y5N ONE ×6 (06:57→22:20)
--- NOTE | 2018-07-25 08:39 | PN ---
Progress Note (short form) - Note Progress Note: NEUROSURGERY No new complaint PE: AF,VSS Fluent speech HEENT- NC/AT; Neck- supple; Cor- RR; Lungs- CTA; Abd- benign; Ext- stable, no sign of DVT CN- PERRL, face symmetric, tongue midline; Motor- TONG's; Sensation- intact to LT ; DTR- hyporeflexia Head CT 07-06: hyperdensity R anterior falx; Head CT 07-07: stable appearance Most likely calcified anterior falx vs small SDH/SAH Nonfocal neurologically For inpatient psych transfer per medical team
[2018-07-25] MEDS: DESIPRAMINE HCL 50 MG TABLET PO SCH (10:05)
[2018-07-25] MEDS: POLYETHYLENE GLYCOL 3350 119 GM BTL PO SCH (10:08)
[2018-07-25] MEDS: PANTOPRAZOLE SODIUM 40 MG VIAL IVPUSH SCH (10:09)
--- NOTE | 2018-07-25 10:30 | PN ---
Progress Note, Physician History of Present Illness: stable no complaints voice stronger - Current Medication List Current Medications: Active Medications Clonazepam (Klonopin -) 0.5 mg PO BID PRN PRN Reason: ANXIETY Desipramine HCl (Norpramin -) 150 mg PO BID [facility] Last Admin: 07/25/18 10:05 Dose: 150 mg Heparin Sodium (Porcine) (Heparin -) 5,000 unit SQ TID [facility] Last Admin: 07/25/18 06:40 Dose: Not Given Sodium Chloride (Normal Saline -) 1,000 mls @ 50 mls/hr IV ASDIR [facility] Last Admin: 07/25/18 06:33 Dose: 50 mls/hr Piperacillin Sod/Tazobactam (Sod 3.375 gm/ Dextrose) 50 mls @ 100 mls/hr IVPB Q8H-IV [facility]; Protocol Last Admin: 07/25/18 10:09 Dose: 100 mls/hr Olanzapine (Zyprexa -) 2.5 mg PO HS [facility] Last Admin: 07/24/18 21:18 Dose: 2.5 mg Pantoprazole Sodium (Protonix Iv) 40 mg IVPUSH DAILY [facility] Last Admin: 07/25/18 10:09 Dose: 40 mg Polyethylene Glycol (Miralax (For Daily Use) -) 17 gm PO DAILY [facility] Last Admin: 07/25/18 10:08 Dose: Not Given Propranolol HCl (Inderal -) 40 mg PO BID [facility] Last Admin: 07/25/18 10:05 Dose: 40 mg Thiamine HCl (Vitamin B1 Injection -) 300 mg IVPB TID [facility] Last Admin: 07/25/18 06:33 Dose: 300 mg - Objective Vital Signs: Vital Signs Temperature 98.1 F 07/25/18 09:59 Pulse Rate 116 H 07/25/18 09:59 Respiratory Rate 28 H 07/25/18 09:59 Blood Pressure 150/105 H 07/25/18 09:59 O2 Sat by Pulse Oximetry (%) 97 07/24/18 21:00 Constitutional: Yes: No Distress, Calm Cardiovascular: Yes: Regular Rate and Rhythm Respiratory: Yes: Regular, CTA Bilaterally Gastrointestinal: Yes: Normal Bowel Sounds, Soft Musculoskeletal: Yes: WNL Extremities: Yes: WNL Neurological: Yes: Alert, Oriented Psychiatric: Yes: Alert, Oriented Labs: CBC, BMP 07/24/18 06:00 07/24/18 06:00 INR, PTT INR 1.32 (0.83-1.09) H 07/07/18 12:35 Assessment/Plan Acute metabolic encephalopathy Severe sepsis Acute toxic metabolic encephalopathy Seratonin overdose Possible suicide attempt Severe depression pneumonia uti plan hydration support steroids as per pul resp support stop abx
--- NOTE | 2018-07-25 12:37 | PN ---
Physical Exam: SUBJECTIVE: Patient seen and examined. Still with some cough, appears more sedated today with mouth open. She thought her was going to bring her home today. OBJECTIVE: Vital Signs Period Temp Pulse Resp BP Sys/Smith Pulse Ox Last 24 Hr 97.5 F-98.2 F 82-116 20-28 123-158/76-105 97-99 GENERAL: Lying in bed, awake, appears more sedated with mouth open. in no acute distress, on 1:1 HEAD: Normal with no signs of trauma. EYES: PERRL, extraocular movements intact, sclera anicteric, conjunctiva clear. No ptosis. ENT: Ears normal, nares patent, oropharynx clear without exudates, moist mucous membranes. NECK: Trachea midline, full range of motion, supple. LUNGS: Breath sounds equal, clear to auscultation bilaterally, no wheezes, no crackles, no accessory muscle use. HEART: Regular rate and rhythm, S1, S2 without murmur, rub or gallop. ABDOMEN: Soft, nontender, nondistended, normoactive bowel sounds, no guarding, no rebound, no hepatosplenomegaly, no masses. EXTREMITIES: 2+ pulses, warm, well-perfused, no edema. NEUROLOGICAL: No facial droop, normal speech, gait not observed. PSYCH: Flat affect, somnilent SKIN: Warm, dry, normal turgor, no rashes or lesions noted Active Medications Generic Name Dose Route Start Last Admin Trade Name Freq PRN Reason Stop Dose Admin Clonazepam 0.5 mg 07/24/18 14:39 Klonopin - PO BID PRN ANXIETY Desipramine HCl 150 mg 07/19/18 10:00 07/25/18 10:05 Norpramin - PO 150 mg BID [facility] Administration Heparin Sodium (Porcine) 5,000 unit 07/19/18 14:00 07/25/18 06:40 Heparin - SQ Not Given TID [facility] Olanzapine 2.5 mg 07/22/18 22:00 07/24/18 21:18 Zyprexa - PO 2.5 mg HS [facility] Administration Pantoprazole Sodium 40 mg 07/19/18 10:00 07/25/18 10:09 Protonix Iv IVPUSH 40 mg DAILY [facility] Administration Polyethylene Glycol 17 gm 07/19/18 10:00 07/25/18 10:08 Miralax (For Daily Use) - PO Not Given DAILY [facility] Propranolol HCl 40 mg 07/19/18 14:18 07/25/18 10:05 Inderal - PO 40 mg BID [facility] Administration Thiamine HCl 300 mg 07/19/18 14:00 07/25/18 06:33 Vitamin B1 Injection - IVPB 300 mg TID [facility] Administration ASSESSMENT/PLAN: 67 year old female with a PMH significant for severe depression with prior admission to [facility]. Patient brought in to the ED 07/06 via ambulance after she was found unresponsive in her bed. Patient intubated on admission for suicide attempt with zyprexa and klonopin overdose. Acute Respiratory Failure - Resolved; secondary to drug overdose - Intubated on admission 07/06/2018, extubated on 07/15/2018 (previous attempted extubations unsuccessful) - Maintained on supplemental oxygen (nasal cannula) to maintain oxygen sats above 90%. - swallow eval completed, started on dysphagia pureed with honey thick consistency - Completed course of Zosyn today for possible aspiration per ID - Tapered off Dexamethasone for laryngeal edema. Acute toxic metabolic encephalopathy - Due to polysubstance overdose - Mental status improved - Repeat head Ct negative - Seen by neurologist Dr. Dooley - Parkinsonism/ Parkinson's Disease + Cogwheel rigidity, decreased ELBERT's. - Better on reduced dose of Zyprexa, taper off if possible - OP neuro f/u Suspected Serotonin Syndrome - s/p Cyproheptadine. - Activated charcoal on admission. - Poison controlled contacted during hospitalization Suspected extracranial hemorrhage - Seen on repeat CT to be 2/2 calcifications - Repeat head CT stable - Followed by neurology Depression - Spoke with psychiatrist Dr. Talbot, who reduced Despiramine 150 mg from BID to qday, and continue to taper down. - EKG ordered - Continue 1:1 - Zypexa 2.5 mg QHS - Klonopin q 12 prn - Patient's Dr. Deo Li ([phone]) contacted today about transfer now that patient is medically stable. Currently no beds at [facility], but there are beds at [facility]. Will likely occur next week. Hypertension - Propranolol 40mg bid FEN - PO intake adequate - Monitor BMP - Puree HTL diet Prophylaxis DVT: SCDs, Heparin SQ GI: Protonix 40mg Disposition: Patient medically stable to be transferred to in-patient psych facility. FULL CODE Visit type - Emergency Visit Emergency Visit: No - New Patient This patient is new to me today: No - Critical Care Critical Care patient: No
--- NOTE | 2018-07-25 16:57 | PN ---
Progress Note (short form) - Note Progress Note: NEUROLOGY FOLLOW-UP Events reviewed and discussed with Patient and her son. Off Zyprexa. On desipramine 150 BID Still on 1 to 1 obs. Ox 3 Hypophonic speech stooped posture episodic rest tremor +Cogwheel rigidity Flexed, shuffling gait IMP: Parkinsonism, probably Parkinson's Disease Suggest: Observe off Neuroleptics Try L-Dopa beginning with Sinemet CR 25/100. 1/2 PO TID with meals x 1 week then 1 PO TID with meals. Thank you very much, Eric Pennington MD
--- NOTE | 2018-07-25 17:04 | PN ---
Progress Note (short form) - Note Progress Note: NEURO ADDENDUM Pt IS still on Zyprexa 2.5 QHS and is on Desipramine 150 qd NOT BID. Starting L-Dopa while here for evaluation. D/C Zyprexa if possible. Check orthostatic BP's. PT for gait with walker. Thanks, Eric Pennington MD
[2018-07-25] MEDS: OLANZapine 2.5 MG TABLET PO SCH (23:12)
[2018-07-26] MEDS: HEPARIN NA (PORCINE) 5,000 UNITS/ML 1ML VIAL SQ SCH (06:56)
[2018-07-26] MEDS: THIAMINE HCL 200 MG/2 ML VIAL IVPB SCH ×3 (06:57→21:05)
[2018-07-26] MEDS ORDERED: PT OWN MED DRAWER 7, Y5N ONE ×2 (08:44→20:43)
--- NOTE | 2018-07-26 10:36 | PN ---
Progress Note (short form) - Note Progress Note: NEUROSURGERY F/u and tx by Dr Pennington noted Resting in bedside Aide at bedside PE: AF,VSS Fluent speech HEENT- NC/AT; Neck- supple; Cor- RR; Lungs- CTA; Abd- benign; Ext- stable, no sign of DVT CN- PERRL, face symmetric, tongue midline; Motor- TONG's; Sensation- intact to LT ; DTR- hyporeflexia Most likely asymtomatic calcified anterior falx vs small SDH/SAH Nonfocal neurologically For inpatient psych transfer per medical team
[2018-07-26] MEDS: PANTOPRAZOLE SODIUM 40 MG VIAL IVPUSH SCH (10:46)
[2018-07-26] MEDS: DESIPRAMINE HCL 50 MG TABLET PO SCH (10:48)
[2018-07-26] MEDS: POLYETHYLENE GLYCOL 3350 119 GM BTL PO SCH (11:01)
--- NOTE | 2018-07-26 11:43 | PN ---
Progress Note, Physician History of Present Illness: Pt seen and examine, events noted. She states she feels well and has no specific complaints. Denies cough/shortness of breath or dysuria. Remains afebrile. - Current Medication List Current Medications: Active Medications Carbidopa/Levodopa (Sinemet *Cr* 25/100 -) 0.5 combo PO TIDCM [facility] Stop: 07/28/18 17:29 Last Admin: 07/26/18 08:46 Dose: 0.5 combo Carbidopa/Levodopa (Sinemet *Cr* 25/100 -) 1 combo PO TIDCM [facility] Clonazepam (Klonopin -) 0.5 mg PO BID PRN PRN Reason: ANXIETY Desipramine HCl (Norpramin -) 150 mg PO DAILY [facility] Last Admin: 07/26/18 10:48 Dose: 150 mg Heparin Sodium (Porcine) (Heparin -) 5,000 unit SQ TID [facility] Last Admin: 07/26/18 06:56 Dose: 5,000 unit Olanzapine (Zyprexa -) 2.5 mg PO HS [facility] Last Admin: 07/25/18 23:12 Dose: 2.5 mg Pantoprazole Sodium (Protonix Iv) 40 mg IVPUSH DAILY [facility] Last Admin: 07/26/18 10:46 Dose: 40 mg Polyethylene Glycol (Miralax (For Daily Use) -) 17 gm PO DAILY [facility] Last Admin: 07/26/18 11:01 Dose: Not Given Propranolol HCl (Inderal -) 40 mg PO BID [facility] Last Admin: 07/26/18 10:47 Dose: 40 mg Thiamine HCl (Vitamin B1 Injection -) 300 mg IVPB TID [facility] Last Admin: 07/26/18 06:57 Dose: 300 mg - Objective Vital Signs: Vital Signs Temperature 97.2 F L 07/26/18 10:00 Pulse Rate 84 07/26/18 10:00 Respiratory Rate 18 07/26/18 10:00 Blood Pressure 120/69 07/26/18 10:00 O2 Sat by Pulse Oximetry (%) 99 07/25/18 22:00 Constitutional: Yes: No Distress, Calm Cardiovascular: Yes: Regular Rate and Rhythm Respiratory: Yes: CTA Bilaterally Gastrointestinal: Yes: Normal Bowel Sounds, Soft Genitourinary: Yes: WNL Edema: No Integumentary: Yes: WNL Neurological: Yes: Alert Labs: CBC, BMP 07/24/18 06:00 07/24/18 06:00 INR, PTT INR 1.32 (0.83-1.09) H 07/07/18 12:35 Microbiology 07/17/18 10:45 Blood - Peripheral Venous Blood Culture - Final NO GROWTH AFTER 5 DAYS INCUBATION 07/17/18 10:50 Blood - Peripheral Venous Blood Culture - Final NO GROWTH AFTER 5 DAYS INCUBATION 07/17/18 08:50 Urine - Urine Basilio Urine Culture - Final Escherichia Coli Enterococcus Faecalis 07/06/18 11:42 Blood - Peripheral Venous Blood Culture - Final NO GROWTH AFTER 5 DAYS INCUBATION 07/06/18 11:42 Blood - Peripheral Venous Blood Culture - Final NO GROWTH AFTER 5 DAYS INCUBATION 07/06/18 13:55 Nasopharyngeal Swab Influenza Types A,B Antigen - Final 07/06/18 13:55 Nasopharyngeal Swab - Final Problem List - Problems (1) Altered mental status Code(s): R41.82 - ALTERED MENTAL STATUS, UNSPECIFIED (2) Overdose Code(s): T50.901A - POISONING BY UNSP DRUG/MEDS/BIOL SUBST, ACCIDENTAL, INIT (3) Pneumonia Code(s): J18.9 - PNEUMONIA, UNSPECIFIED ORGANISM (4) Sepsis Code(s): A41.9 - SEPSIS, UNSPECIFIED ORGANISM (5) Suicide and self-inflicted injury Code(s): X83.8XXA - INTENTIONAL SELF-HARM BY OTHER SPECIFIED MEANS, INIT ENCNTR Assessment/Plan PNA E. coli/ Enterococcus UTI Acute metabolic encephalitis Possible Suicide Attempt -- s/p course of antibiotic -- leukocytosis resolved, afebrile -- psychiatry f/u
--- NOTE | 2018-07-26 12:04 | EKG ---
Test Reason : Blood Pressure : / mmHG Vent. Rate : 080 BPM Atrial Rate : 080 BPM P-R Int : 166 ms QRS Dur : 084 ms QT Int : 368 ms P-R-T Axes : 076 078 080 degrees QTc Int : 424 ms NORMAL SINUS RHYTHM MODERATE VOLTAGE CRITERIA FOR LVH, MAY BE NORMAL VARIANT BORDERLINE ECG WHEN COMPARED WITH ECG OF 08-JUL-2018 10:03, T WAVE INVERSION NO LONGER EVIDENT IN INFERIOR LEADS T WAVE INVERSION NO LONGER EVIDENT IN ANTEROLATERAL LEADS Confirmed by KRISH MCINTYRE MD ([id number]) on 07/26/2018 12:04:03 PM Referred By: Confirmed By:KRISH MCINTYRE MD
--- NOTE | 2018-07-26 12:37 | PN ---
Progress Note (short form) - Note Progress Note: PULMONARY Denies shortness of breath, cough. No fevers recorded. Tolerating PO. Voice continues to improve. Vital Signs Period Temp Pulse Resp BP Sys/Smith Pulse Ox Last 24 Hr 97.2 F-98.4 F 81-95 18-18 120-147/69-82 99-99 Gen: NAD at rest Heart: RRR Lung: decreased breath sounds at the bases Abd: soft, nontender Ext: no edema CBC, BMP 07/24/18 06:00 07/24/18 06:00 Active Medications Carbidopa/Levodopa (Sinemet *Cr* 25/100 -) 0.5 combo PO TIDCM [facility] Stop: 07/28/18 17:29 Last Admin: 07/26/18 12:31 Dose: 0.5 combo Carbidopa/Levodopa (Sinemet *Cr* 25/100 -) 1 combo PO TIDCM [facility] Clonazepam (Klonopin -) 0.5 mg PO BID PRN PRN Reason: ANXIETY Desipramine HCl (Norpramin -) 150 mg PO DAILY [facility] Last Admin: 07/26/18 10:48 Dose: 150 mg Heparin Sodium (Porcine) (Heparin -) 5,000 unit SQ TID [facility] Last Admin: 07/26/18 06:56 Dose: 5,000 unit Olanzapine (Zyprexa -) 2.5 mg PO HS [facility] Last Admin: 07/25/18 23:12 Dose: 2.5 mg Pantoprazole Sodium (Protonix Iv) 40 mg IVPUSH DAILY [facility] Last Admin: 07/26/18 10:46 Dose: 40 mg Polyethylene Glycol (Miralax (For Daily Use) -) 17 gm PO DAILY [facility] Last Admin: 07/26/18 11:01 Dose: Not Given Propranolol HCl (Inderal -) 40 mg PO BID [facility] Last Admin: 07/26/18 10:47 Dose: 40 mg Thiamine HCl (Vitamin B1 Injection -) 300 mg IVPB TID [facility] Last Admin: 07/26/18 06:57 Dose: 300 mg A/P s/p Acute Respiratory Failure Drug Overdose Suicide Attempt Depression Laryngeal Edema Pneumonia likely Aspiration - completed antibiotics - PO as tolerated - aspiration precautions - rehab/PT - DVT/GI prophylaxis
--- NOTE | 2018-07-26 13:29 | PN ---
Progress Note (short form) - Note Progress Note: Psych : Patient continues to progress slowly. Psych meds are being adjusted to allopw patient to become more Physically stable to facilitate transfer to In Patient psych unit.
--- NOTE | 2018-07-26 20:02 | PN ---
Physical Exam: SUBJECTIVE: Patient seen and examined. Appears slightly more alert than yesterday. Denies pain. OBJECTIVE: Vital Signs Period Temp Pulse Resp BP Sys/Smith Pulse Ox Last 24 Hr 97.2 F-98.4 F 76-95 18-22 120-144/67-82 99-100 GENERAL: Awake, mouth open, less sedated than yesterday, in no acute distress, on 1:1 HEAD: Normal with no signs of trauma. EYES: PERRL, extraocular movements intact, sclera anicteric, conjunctiva clear. No ptosis. ENT: Ears normal, nares patent, oropharynx clear without exudates, moist mucous membranes. NECK: Trachea midline, full range of motion, supple. LUNGS: Breath sounds equal, clear to auscultation bilaterally, no wheezes, no crackles, no accessory muscle use. HEART: Regular rate and rhythm, S1, S2 without murmur, rub or gallop. ABDOMEN: Soft, nontender, nondistended, normoactive bowel sounds, no guarding, no rebound, no hepatosplenomegaly, no masses. EXTREMITIES: 2+ pulses, warm, well-perfused, no edema. NEUROLOGICAL: No facial droop, normal speech, gait not observed. PSYCH: Flat affect, somnilent SKIN: Warm, dry, normal turgor, no rashes or lesions noted Active Medications Generic Name Dose Route Start Last Admin Trade Name Freq PRN Reason Stop Dose Admin Carbidopa/Levodopa 0.5 combo 07/25/18 17:30 07/26/18 17:35 Sinemet *Cr* 25/100 - PO 07/28/18 17:29 0.5 combo TIDCM [facility] Administration Carbidopa/Levodopa 1 combo 07/29/18 08:00 Sinemet *Cr* 25/100 - PO TIDCM [facility] Clonazepam 0.5 mg 07/24/18 14:39 Klonopin - PO BID PRN ANXIETY Desipramine HCl 150 mg 07/26/18 10:00 07/26/18 10:48 Norpramin - PO 150 mg DAILY [facility] Administration Docusate Sodium 300 mg 07/26/18 22:00 Colace - PO HS [facility] Olanzapine 2.5 mg 07/22/18 22:00 07/25/18 23:12 Zyprexa - PO 2.5 mg HS [facility] Administration Pantoprazole Sodium 40 mg 07/19/18 10:00 07/26/18 10:46 Protonix Iv IVPUSH 40 mg DAILY [facility] Administration Propranolol HCl 40 mg 07/19/18 14:18 07/26/18 10:47 Inderal - PO 40 mg BID [facility] Administration Thiamine HCl 300 mg 07/19/18 14:00 07/26/18 14:09 Vitamin B1 Injection - IVPB 300 mg TID [facility] Administration ASSESSMENT/PLAN: 67 year old female with a PMH significant for severe depression with prior admission to [facility]. Patient brought in to the ED 07/06 via ambulance after she was found unresponsive in her bed. Patient intubated on admission for suicide attempt with zyprexa and klonopin overdose. Acute Respiratory Failure - Resolved; secondary to drug overdose - Intubated on admission 07/06/2018, extubated on 07/15/2018 (previous attempted extubations unsuccessful) - Maintained on supplemental oxygen (nasal cannula) to maintain oxygen sats above 90%. - swallow eval completed, started on dysphagia pureed with honey thick consistency - Completed course of Zosyn today for possible aspiration per ID - Tapered off Dexamethasone for laryngeal edema. Acute toxic metabolic encephalopathy - Due to polysubstance overdose - Mental status improved - Repeat head Ct negative - Seen by neurologist Dr. Dooley - Parkinsonism/ Parkinson's Disease + Cogwheel rigidity, decreased ELBERT's. - Better on reduced dose of Zyprexa, taper off if possible - OP neuro f/u Suspected Serotonin Syndrome - s/p Cyproheptadine. - Activated charcoal on admission. - Poison controlled contacted during hospitalization Suspected extracranial hemorrhage - Seen on repeat CT to be 2/2 calcifications - Repeat head CT stable - Followed by neurology Parkinsonian Symptoms - Seen by neurologist Dr. Pennington - Started on Carbidopa/Levodopa 25/100 TOD Depression - Despiramine 150 mg qday, and continue to taper down. - EKG ordered - Continue 1:1 - Zypexa 2.5 mg QHS - Klonopin q 12 prn - Patient's Dr. Deo Li ([phone]) contacted today about transfer now that patient is medically stable. Currently no beds at [facility], but there are beds at [facility]. Will likely occur next week. Hypertension - Propranolol 40mg bid FEN - PO intake adequate - Monitor BMP - Puree HTL diet Prophylaxis DVT: SCDs, Heparin SQ GI: Protonix 40mg Disposition: Patient medically stable to be transferred to in-patient psych facility. FULL CODE Visit type - Emergency Visit Emergency Visit: No - New Patient This patient is new to me today: No - Critical Care Critical Care patient: No
[2018-07-26] MEDS: DOCUSATE SODIUM 100 MG CAPSULE (FP) PO SCH (21:03)
[2018-07-26] MEDS: OLANZapine 2.5 MG TABLET PO SCH (21:04)
[2018-07-26] MEDS: clonazePAM 0.5 MG TABLET PO PRN (21:12)
[2018-07-27] MEDS: THIAMINE HCL 200 MG/2 ML VIAL IVPB SCH ×2 (06:05→14:13)
[2018-07-27] MEDS ORDERED: PT OWN MED DRAWER 7, Y5N ONE ×5 (08:58→21:50)
[2018-07-27] MEDS: DESIPRAMINE HCL 50 MG TABLET PO SCH (09:07)
[2018-07-27] MEDS: PANTOPRAZOLE SODIUM 40 MG VIAL IVPUSH SCH (09:07)
--- NOTE | 2018-07-27 10:51 | PN ---
Progress Note (short form) - Note Progress Note: NEUROSURGERY No new complaint Sitting up in bed Aide at bedside PE: AF,VSS Fluent speech;flat affect; oriented x3 HEENT- NC/AT; Neck- supple; Cor- RR; Lungs- CTA; Abd- benign; Ext- stable, no sign of DVT CN- PERRL, face symmetric, tongue midline; Motor- TONG's at least 4/5; Sensation - intact to LT; DTR- hyporeflexia Most likely asymtomatic calcified anterior falx vs small SDH/SAH Nonfocal neurologically Will sign off, reconsult prn
--- NOTE | 2018-07-27 11:08 | PN ---
Physical Exam: SUBJECTIVE: Patient seen and examined. Appears brighter today. Had a bowel movement today. Eating well. Denies pain. No SOB/Chest pain. Plan is to transfer to inpatient psych this coming week. OBJECTIVE: Vital Signs Period Temp Pulse Resp BP Sys/Smith Pulse Ox Last 24 Hr 97.2 F-98.5 F 74-96 20-22 124-141/67-79 100-100 GENERAL: Awake, mouth open, less sedated than yesterday, in no acute distress, on 1:1 HEAD: Normal with no signs of trauma. EYES: PERRL, extraocular movements intact, sclera anicteric, conjunctiva clear. No ptosis. ENT: Ears normal, nares patent, oropharynx clear without exudates, moist mucous membranes. NECK: Trachea midline, full range of motion, supple. LUNGS: Breath sounds equal, clear to auscultation bilaterally, no wheezes, no crackles, no accessory muscle use. HEART: Regular rate and rhythm, S1, S2 without murmur, rub or gallop. ABDOMEN: Soft, nontender, nondistended, normoactive bowel sounds, no guarding, no rebound, no hepatosplenomegaly, no masses. EXTREMITIES: 2+ pulses, warm, well-perfused, no edema. NEUROLOGICAL: No facial droop, normal speech, slow, stooped-over posture walking with a walker in PT PSYCH: Flat affect, somnilent SKIN: Warm, dry, normal turgor, no rashes or lesions noted Active Medications Generic Name Dose Route Start Last Admin Trade Name Freq PRN Reason Stop Dose Admin Carbidopa/Levodopa 0.5 combo 07/25/18 17:30 07/27/18 09:07 Sinemet *Cr* 25/100 - PO 07/28/18 17:29 0.5 combo TIDCM [facility] Administration Carbidopa/Levodopa 1 combo 07/29/18 08:00 Sinemet *Cr* 25/100 - PO TIDCM [facility] Clonazepam 0.5 mg 07/24/18 14:39 07/26/18 21:12 Klonopin - PO 0.5 mg BID PRN Administration ANXIETY Desipramine HCl 150 mg 07/26/18 10:00 07/27/18 09:07 Norpramin - PO 150 mg DAILY [facility] Administration Docusate Sodium 300 mg 07/26/18 22:00 07/26/18 21:03 Colace - PO 300 mg HS [facility] Administration Olanzapine 2.5 mg 07/22/18 22:00 07/26/18 21:04 Zyprexa - PO 2.5 mg HS [facility] Administration Pantoprazole Sodium 40 mg 07/19/18 10:00 07/27/18 09:07 Protonix Iv IVPUSH 40 mg DAILY [facility] Administration Propranolol HCl 40 mg 07/19/18 14:18 07/27/18 09:07 Inderal - PO 40 mg BID [facility] Administration Thiamine HCl 300 mg 07/19/18 14:00 07/27/18 06:05 Vitamin B1 Injection - IVPB 300 mg TID [facility] Administration ASSESSMENT/PLAN: 67 year old female with a PMH significant for severe depression with prior admission to [facility]. Patient brought in to the ED 07/06 via ambulance after she was found unresponsive in her bed. Patient intubated on admission for suicide attempt with zyprexa and klonopin overdose. Acute Respiratory Failure - Resolved; secondary to drug overdose - Intubated on admission 07/06/2018, extubated on 07/15/2018 (previous attempted extubations unsuccessful) - Maintained on supplemental oxygen (nasal cannula) to maintain oxygen sats above 90%. - swallow eval completed, started on dysphagia pureed with honey thick consistency - Completed course of Zosyn today for possible aspiration per ID - Tapered off Dexamethasone for laryngeal edema. Acute toxic metabolic encephalopathy - Due to polysubstance overdose - Mental status improved - Repeat head Ct negative - Seen by neurologist Dr. Dooley - Parkinsonism/ Parkinson's Disease + Cogwheel rigidity, decreased ELBERT's. - Better on reduced dose of Zyprexa, taper off if possible - OP neuro f/u Suspected Serotonin Syndrome - s/p Cyproheptadine. - Activated charcoal on admission. - Poison controlled contacted during hospitalization Suspected extracranial hemorrhage - Seen on repeat CT to be 2/2 calcifications - Repeat head CT stable - Followed by neurology Parkinsonian Symptoms - Seen by neurologist Dr. Pennington - Started on Carbidopa/Levodopa 25/100 TOD Urinary Retention - Staff noticed low urine output - Bladder scan showed 600 cc retention - Straight cath PRN - Monitor urinary output Depression - Despiramine 150 mg qday, and continue to taper down. - EKG ordered - Continue 1:1 - Zypexa 2.5 mg QHS - Klonopin q 12 prn - Patient's Dr. Deo Li ([phone]) contacted today about transfer now that patient is medically stable. Currently no beds at [facility], but there are beds at [facility]. Will likely occur next week. Hypertension - Propranolol 40mg bid FEN - PO intake adequate - Monitor BMP - Puree HTL diet Prophylaxis DVT: SCDs, Heparin SQ GI: Protonix 40mg Disposition: Patient medically stable to be transferred to in-patient psych facility. FULL CODE Visit type - Emergency Visit Emergency Visit: No - New Patient This patient is new to me today: No - Critical Care Critical Care patient: No
--- NOTE | 2018-07-27 13:07 | PN ---
Progress Note (short form) - Note Progress Note: PULMONARY Denies shortness of breath, cough. Voice continues to improve. Vital Signs Period Temp Pulse Resp BP Sys/Smith Pulse Ox Last 24 Hr 97.2 F-98.5 F 74-96 20-22 124-141/67-79 100-100 Gen: NAD at rest Heart: RRR Lung: decreased breath sounds at the bases Abd: soft, nontender Ext: no edema CBC, BMP 07/24/18 06:00 07/24/18 06:00 Active Medications Carbidopa/Levodopa (Sinemet *Cr* 25/100 -) 0.5 combo PO TIDCM [facility] Stop: 07/28/18 17:29 Last Admin: 07/27/18 12:15 Dose: 0.5 combo Carbidopa/Levodopa (Sinemet *Cr* 25/100 -) 1 combo PO TIDCM [facility] Clonazepam (Klonopin -) 0.5 mg PO BID PRN PRN Reason: ANXIETY Last Admin: 07/26/18 21:12 Dose: 0.5 mg Desipramine HCl (Norpramin -) 150 mg PO DAILY [facility] Last Admin: 07/27/18 09:07 Dose: 150 mg Docusate Sodium (Colace -) 300 mg PO HS [facility] Last Admin: 07/26/18 21:03 Dose: 300 mg Olanzapine (Zyprexa -) 2.5 mg PO HS [facility] Last Admin: 07/26/18 21:04 Dose: 2.5 mg Pantoprazole Sodium (Protonix Iv) 40 mg IVPUSH DAILY [facility] Last Admin: 07/27/18 09:07 Dose: 40 mg Propranolol HCl (Inderal -) 40 mg PO BID [facility] Last Admin: 07/27/18 09:07 Dose: 40 mg Thiamine HCl (Vitamin B1 Injection -) 300 mg IVPB TID [facility] Last Admin: 07/27/18 06:05 Dose: 300 mg A/P s/p Acute Respiratory Failure Drug Overdose Suicide Attempt Depression Laryngeal Edema Pneumonia likely Aspiration - completed antibiotics - PO as tolerated - aspiration precautions - rehab/PT - DVT/GI prophylaxis
--- NOTE | 2018-07-27 13:16 | PN ---
Progress Note, Physician History of Present Illness: stable improving off of abx doing well - Current Medication List Current Medications: Active Medications Carbidopa/Levodopa (Sinemet *Cr* /100 -) 0.5 combo PO TIDCM [facility] Stop: 07/28/18 17:29 Last Admin: 07/27/18 12:15 Dose: 0.5 combo Carbidopa/Levodopa (Sinemet *Cr* 25/100 -) 1 combo PO TIDCM [facility] Clonazepam (Klonopin -) 0.5 mg PO BID PRN PRN Reason: ANXIETY Last Admin: 07/26/18 21:12 Dose: 0.5 mg Desipramine HCl (Norpramin -) 150 mg PO DAILY [facility] Last Admin: 07/27/18 09:07 Dose: 150 mg Docusate Sodium (Colace -) 300 mg PO HS [facility] Last Admin: 07/26/18 21:03 Dose: 300 mg Olanzapine (Zyprexa -) 2.5 mg PO HS [facility] Last Admin: 07/26/18 21:04 Dose: 2.5 mg Pantoprazole Sodium (Protonix Iv) 40 mg IVPUSH DAILY [facility] Last Admin: 07/27/18 09:07 Dose: 40 mg Propranolol HCl (Inderal -) 40 mg PO BID [facility] Last Admin: 07/27/18 09:07 Dose: 40 mg Thiamine HCl (Vitamin B1 Injection -) 300 mg IVPB TID [facility] Last Admin: 07/27/18 06:05 Dose: 300 mg - Objective Vital Signs: Vital Signs Temperature 98.5 F 07/27/18 06:00 Pulse Rate 74 07/27/18 06:00 Respiratory Rate 20 07/27/18 06:00 Blood Pressure 133/71 07/27/18 06:00 O2 Sat by Pulse Oximetry (%) 100 07/26/18 22:00 Constitutional: Yes: No Distress, Calm Cardiovascular: Yes: Regular Rate and Rhythm Respiratory: Yes: Regular, CTA Bilaterally Gastrointestinal: Yes: Normal Bowel Sounds, Soft Musculoskeletal: Yes: WNL Extremities: Yes: WNL Neurological: Yes: Alert, Oriented Psychiatric: Yes: Alert, Oriented Labs: CBC, BMP 07/24/18 06:00 07/24/18 06:00 INR, PTT INR 1.32 (0.83-1.09) H 07/07/18 12:35 Assessment/Plan Acute metabolic encephalopathy Severe sepsis Acute toxic metabolic encephalopathy Seratonin overdose Possible suicide attempt Severe depression pneumonia uti plan hydration support off of abx continue to monitor as per psych still 1 to 1
[2018-07-27] MEDS: DOCUSATE SODIUM 100 MG CAPSULE (FP) PO SCH (22:00)
[2018-07-27] MEDS: clonazePAM 0.5 MG TABLET PO PRN (22:00)
[2018-07-27] MEDS: OLANZapine 2.5 MG TABLET PO SCH (22:00)
[2018-07-28 07:45] LABS: HEMATOCRIT 34.7 % (32.4-45.2); HEMOGLOBIN 11.8 GM/dL (10.7-15.3); MCHC 33.9 g/dl (32.0-36.0); MEAN CELL VOLUME 91.5 fl (80-96); MEAN PLT VOLUME 6.7 fl (7.5-11.1); PLATELET COUNT 409 K/MM3 (134-434); RBC 3.79 M/mm3 (3.60-5.2); RDW 13.3 % (11.6-15.6); WHITE BLOOD COUNT 7.5 K/mm3 (4.0-10.0)
[2018-07-28] MEDS ORDERED: PT OWN MED DRAWER 7, Y5N ONE ×3 (08:24→21:23)
[2018-07-28 08:31] LABS: ANION GAP 9 MMOL/L (8-16); BLOOD UREA NITROGEN 14 mg/dL (7-18); CALCIUM 8.8 mg/dL (8.5-10.1); CHLORIDE 102 mmol/L (98-107); CO2 26 mmol/L (21-32); CREATININE 0.5 mg/dL (0.55-1.3); GLUCOSE,RANDOM 95 mg/dL (74-106); POTASSIUM 3.8 mmol/L (3.5-5.1); SODIUM 137 mmol/L (136-145)
[2018-07-28] MEDS: DESIPRAMINE HCL 50 MG TABLET PO SCH (09:07)
[2018-07-28] MEDS: PANTOPRAZOLE SODIUM 40 MG VIAL IVPUSH SCH (09:07)
[2018-07-28] MEDS: THIAMINE HCL 100 MG TABLET (FP) PO SCH (09:07)
--- NOTE | 2018-07-28 10:23 | PN ---
Progress Note, Physician History of Present Illness: patient stable feels weak physio - Current Medication List Current Medications: Active Medications Carbidopa/Levodopa (Sinemet *Cr* 25/100 -) 0.5 combo PO TIDCM [facility] Stop: 07/28/18 17:29 Last Admin: 07/28/18 09:07 Dose: 0.5 combo Carbidopa/Levodopa (Sinemet *Cr* 25/100 -) 1 combo PO TIDCM [facility] Clonazepam (Klonopin -) 0.5 mg PO BID PRN PRN Reason: ANXIETY Last Admin: 07/27/18 22:00 Dose: 0.5 mg Desipramine HCl (Norpramin -) 150 mg PO DAILY [facility] Last Admin: 07/28/18 09:07 Dose: 150 mg Docusate Sodium (Colace -) 300 mg PO HS [facility] Last Admin: 07/27/18 22:00 Dose: 300 mg Olanzapine (Zyprexa -) 2.5 mg PO HS [facility] Last Admin: 07/27/18 22:00 Dose: 2.5 mg Pantoprazole Sodium (Protonix Iv) 40 mg IVPUSH DAILY [facility] Last Admin: 07/28/18 09:07 Dose: 40 mg Propranolol HCl (Inderal -) 40 mg PO BID [facility] Last Admin: 07/28/18 09:18 Dose: 40 mg Thiamine HCl (Vitamin B1 -) 100 mg PO DAILY [facility] Last Admin: 07/28/18 09:07 Dose: 100 mg - Objective Vital Signs: Vital Signs Temperature 98.2 F 07/27/18 21:58 Pulse Rate 96 H 07/27/18 21:58 Respiratory Rate 18 07/27/18 21:58 Blood Pressure 139/71 07/27/18 21:58 O2 Sat by Pulse Oximetry (%) 99 07/27/18 22:00 Constitutional: Yes: No Distress, Calm Cardiovascular: Yes: Regular Rate and Rhythm Respiratory: Yes: Regular, CTA Bilaterally Gastrointestinal: Yes: Normal Bowel Sounds, Soft Musculoskeletal: Yes: WNL Extremities: Yes: WNL Neurological: Yes: Alert Psychiatric: Yes: Alert Labs: CBC, BMP 07/28/18 07:15 07/28/18 07:15 INR, PTT INR 1.32 (0.83-1.09) H 07/07/18 12:35 Assessment/Plan Acute metabolic encephalopathy Severe sepsis Acute toxic metabolic encephalopathy Seratonin overdose Possible suicide attempt Severe depression pneumonia uti plan stable \doing well awaiting for final plan continue physio
--- NOTE | 2018-07-28 11:45 | PN ---
Progress Note (short form) - Note Progress Note: Overall improved. No shortness of breath or CP. Voice continues to improve. Intake & Output 07/25/18 07/26/18 07/27/18 07/28/18 23:59 23:59 23:59 23:59 Intake Total 1250 920 905 400 Balance 1250 920 905 400 Last Vital Signs Temp Pulse Resp BP Pulse Ox 98.2 F 100 H 18 134/98 99 07/28/18 09:00 07/28/18 09:00 07/28/18 09:00 07/28/18 09:00 07/28/18 10:00 Active Medications Carbidopa/Levodopa (Sinemet *Cr* 25/100 -) 0.5 combo PO TIDCM [facility] Stop: 07/28/18 17:29 Last Admin: 07/28/18 09:07 Dose: 0.5 combo Carbidopa/Levodopa (Sinemet *Cr* 25/100 -) 1 combo PO TIDCM [facility] Clonazepam (Klonopin -) 0.5 mg PO BID PRN PRN Reason: ANXIETY Last Admin: 07/27/18 22:00 Dose: 0.5 mg Desipramine HCl (Norpramin -) 150 mg PO DAILY [facility] Last Admin: 07/28/18 09:07 Dose: 150 mg Docusate Sodium (Colace -) 300 mg PO HS [facility] Last Admin: 07/27/18 22:00 Dose: 300 mg Olanzapine (Zyprexa -) 2.5 mg PO HS [facility] Last Admin: 07/27/18 22:00 Dose: 2.5 mg Pantoprazole Sodium (Protonix Iv) 40 mg IVPUSH DAILY [facility] Last Admin: 07/28/18 09:07 Dose: 40 mg Propranolol HCl (Inderal -) 40 mg PO BID [facility] Last Admin: 07/28/18 09:18 Dose: 40 mg Thiamine HCl (Vitamin B1 -) 100 mg PO DAILY [facility] Last Admin: 07/28/18 09:07 Dose: 100 mg Gen: NAD at rest Heart: RRR Lung: decreased breath sounds at the bases Abd: soft, nontender Ext: no edema Laboratory Results - last 24 hr 07/28/18 07/28/18 07:15 07:15 WBC 7.5 RBC 3.79 Hgb 11.8 Hct 34.7 MCV 91.5 MCH 31.0 MCHC 33.9 RDW 13.3 Plt Count 409 D MPV 6.7 L Sodium 137 Potassium 3.8 Chloride 102 Carbon Dioxide 26 Anion Gap 9 BUN 14 Creatinine 0.5 L Creat Clearance w eGFR > 60 Random Glucose 95 Calcium 8.8 A/P s/p Acute Respiratory Failure Drug Overdose Suicide Attempt Depression Laryngeal Edema Pneumonia likely Aspiration - completed antibiotics - PO as tolerated - aspiration precautions - rehab/PT - DVT/GI prophylaxis - No Pulmonary contraindication for D/C Dr Pruett
--- NOTE | 2018-07-28 13:13 | PN ---
Progress Note, CONVEYANCER - Note Progress Note: MBS performed 07/23 with initiation of PO diet. Pt looks much better. Receiving puree/honey thick without difficulty but dislikes it and not eating. She says she is eating food that her has brought her. Swallow brisk. Good voicing. (-) 3 oz water test. Selected Entries 07/27/18 07/27/18 07/27/18 05:38 06:00 09:00 Breakfast 50% Diet Tolerated Lunch Supper Temperature 98.5 F 98.5 F 07/27/18 07/27/18 07/27/18 14:21 18:00 18:15 Breakfast Diet Tolerated Lunch 50% Supper 50% Temperature 98.0 F 98.1 F 07/27/18 07/28/18 07/28/18 21:58 09:00 11:40 Breakfast 50% Diet Tolerated Well Lunch Supper Temperature 98.2 F 98.2 F Laboratory Tests 07/28/18 07:15 WBC 7.5 Rec: trial of Soft diet with chopped meat with gravy Thin liquids Ensure Monitor tolerance
[2018-07-28] MEDS: clonazePAM 0.5 MG TABLET PO PRN (15:46)
--- NOTE | 2018-07-28 15:54 | PN ---
Progress Note (short form) - Note Progress Note: pt anxious to be discharged from hospital. Her goal is to be home by Aug 17 for her grandchild's christening. Diet advanced to soft with chopped meat and thin liquids. Start Ensure for supplementation due to poor appetite. REmains on 1:1 IV protonix switched to oral dose. Visit type - Emergency Visit Emergency Visit: Yes ED Registration Date: 07/06/18 Care time: The patient presented to the Emergency Department on the above date and was hospitalized for further evaluation of their emergent condition. - New Patient This patient is new to me today: Yes Date on this admission: 07/06/18 - Critical Care Critical Care patient: No - Discharge Referral Referred to [facility] Med P.C.: No
--- NOTE | 2018-07-28 16:01 | PN ---
Progress Note, Physician Chief Complaint: Pt anxious to go home. She would like to be home by aug 17 for grandchild's pavithra. Plan is to d/c to inpt psych prior to going home. Diet changed to soft with chopped meat, Thin liquids and Ensure. Pt remains in on 1:1 IV protonix switched to oral dose. - Current Medication List Current Medications: Active Medications Carbidopa/Levodopa (Sinemet *Cr* 25/100 -) 0.5 combo PO TIDCM [facility] Stop: 07/28/18 17:29 Last Admin: 07/28/18 12:42 Dose: 0.5 combo Carbidopa/Levodopa (Sinemet *Cr* 25/100 -) 1 combo PO TIDCM [facility] Clonazepam (Klonopin -) 0.5 mg PO BID PRN PRN Reason: ANXIETY Last Admin: 07/28/18 15:46 Dose: 0.5 mg Desipramine HCl (Norpramin -) 150 mg PO DAILY [facility] Last Admin: 07/28/18 09:07 Dose: 150 mg Docusate Sodium (Colace -) 300 mg PO [facility] Last Admin: 07/27/18 22:00 Dose: 300 mg Olanzapine (Zyprexa -) 2.5 mg PO [facility] Last Admin: 07/27/18 22:00 Dose: 2.5 mg Pantoprazole Sodium (Protonix -) 40 mg PO DAILY [facility] Propranolol HCl (Inderal -) 40 mg PO BID [facility] Last Admin: 07/28/18 09:18 Dose: 40 mg Thiamine HCl (Vitamin B1 -) 100 mg PO DAILY [facility] Last Admin: 07/28/18 09:07 Dose: 100 mg - Objective Vital Signs: Vital Signs Temperature 97.5 F L 07/28/18 15:36 Pulse Rate 83 07/28/18 15:36 Respiratory Rate 18 07/28/18 15:36 Blood Pressure 130/55 L 07/28/18 15:36 O2 Sat by Pulse Oximetry (%) 99 07/28/18 10:00 Constitutional: Yes: No Distress, Calm Eyes: Yes: Conjunctiva Clear HENT: Yes: Atraumatic, Normocephalic Neck: Yes: Supple Cardiovascular: Yes: Regular Rate and Rhythm Respiratory: Yes: Regular, CTA Bilaterally Gastrointestinal: Yes: Normal Bowel Sounds, Soft ...Rectal Exam: Yes: Deferred Musculoskeletal: Yes: Muscle Weakness Extremities: Yes: WNL Edema: No Peripheral Pulses WNL: Yes Peripheral Pulses: Left Radial: 2+, Right Radial: 2+, Left Doralis Pedis: 2+, Right Dorsalis Pedis: 2+ Integumentary: Yes: WNL Neurological: Yes: Alert, Oriented ...Motor Strength: WNL Psychiatric: Yes: Alert, Oriented Labs: CBC, BMP 07/28/18 07:15 07/28/18 07:15 INR, PTT INR 1.32 (0.83-1.09) H 07/07/18 12:35 Problem List - Problems (1) Dysphagia Assessment/Plan: advance diet to soft with chopped meat and thin liquids Ensure TID as recommended by nutrition d/c IV protonix Start po protonix 40mg Code(s): R13.10 - DYSPHAGIA, UNSPECIFIED (2) Parkinsonian syndrome Assessment/Plan: followed by neuro continue carbidopa/levodopa Head CT demonstrates calcifications, no acute pathologies Code(s): G20 - PARKINSON'S DISEASE (3) Urinary retention with incomplete bladder emptying Assessment/Plan: improved-pt with good urine output Code(s): R33.9 - RETENTION OF URINE, UNSPECIFIED (4) Depression Assessment/Plan: 1:1 observation Zyprexa 2.5mg 2qhs klonopin 0.5mg BID Norpramin 150mg daily, will taper to 100mg in the AM plan is to transfer to inpt psych Code(s): F32.9 - MAJOR DEPRESSIVE DISORDER, SINGLE EPISODE, UNSPECIFIED (5) Hypertension Assessment/Plan: BP controlled on propranolol 40mg BID Code(s): I10 - ESSENTIAL (PRIMARY) HYPERTENSION (6) Prophylactic measure Assessment/Plan: SC heparin OOB to chair Fall precautions Bowel regimen- start senna and continue colace Code(s): Z29.9 - ENCOUNTER FOR PROPHYLACTIC MEASURES, UNSPECIFIED (7) Suicide and self-inflicted injury Code(s): X83.8XXA - INTENTIONAL SELF-HARM BY OTHER SPECIFIED MEANS, INIT ENCNTR Impression/Plan Impression/Plan: DISPO: Full code transfer to inpt psych once bed becomes available Visit type - Emergency Visit Emergency Visit: Yes ED Registration Date: 07/06/18 Care time: The patient presented to the Emergency Department on the above date and was hospitalized for further evaluation of their emergent condition. - New Patient This patient is new to me today: Yes Date on this admission: 07/28/18 - Critical Care Critical Care patient: No - Discharge Referral Referred to [facility] Med P.C.: No
[2018-07-28] MEDS: DOCUSATE SODIUM 100 MG CAPSULE (FP) PO SCH (21:51)
[2018-07-28] MEDS: SENNOSIDES 8.6MG TABLET (FP) PO SCH (21:51)
[2018-07-28] MEDS: OLANZapine 2.5 MG TABLET PO SCH (21:51)
[2018-07-29] MEDS ORDERED: PT OWN MED DRAWER 7, Y5N ONE ×3 (08:40→20:51)
[2018-07-29] MEDS: PANTOPRAZOLE 40 MG TABLET (FP) PO SCH (10:20)
[2018-07-29] MEDS: THIAMINE HCL 100 MG TABLET (FP) PO SCH (10:20)
[2018-07-29] MEDS: DESIPRAMINE HCL 50 MG TABLET PO SCH (10:20)
--- NOTE | 2018-07-29 11:31 | PN ---
Progress Note (short form) - Note Progress Note: Psych follow up: Patients physical condition has improverd signigicantly. Ambulationg and eatintg well. Cognition is intact. MS: Alert, orienterd, good eye contact. Still depressed and unsure of her massive overdose. Insight and judgement is severly [id number]. PLAN: Transfer to In Patient psych unit for further stabilization of mental status.
--- NOTE | 2018-07-29 12:30 | PN ---
Progress Note, Physician History of Present Illness: doing well no complaints working with physio family present d/w family no fevers - Current Medication List Current Medications: Active Medications Carbidopa/Levodopa (Sinemet *Cr* 25/100 -) 1 combo PO TIDCM [facility] Last Admin: 07/29/18 08:46 Dose: 1 combo Clonazepam (Klonopin -) 0.5 mg PO BID PRN PRN Reason: ANXIETY Last Admin: 07/28/18 15:46 Dose: 0.5 mg Desipramine HCl (Norpramin -) 100 mg PO DAILY [facility] Last Admin: 07/29/18 10:20 Dose: 100 mg Docusate Sodium (Colace -) 300 mg PO [facility] Last Admin: 07/28/18 21:51 Dose: 300 mg Olanzapine (Zyprexa -) 2.5 mg PO [facility] Last Admin: 07/28/18 21:51 Dose: 2.5 mg Pantoprazole Sodium (Protonix -) 40 mg PO DAILY [facility] Last Admin: 07/29/18 10:20 Dose: 40 mg Propranolol HCl (Inderal -) 40 mg PO BID [facility] Last Admin: 07/29/18 10:20 Dose: 40 mg Senna (Senna -) 1 tab PO HS [facility] Last Admin: 07/28/18 21:51 Dose: 1 tab Thiamine HCl (Vitamin B1 -) 100 mg PO DAILY [facility] Last Admin: 07/29/18 10:20 Dose: 100 mg - Objective Vital Signs: Vital Signs Temperature 98.2 F 07/29/18 09:00 Pulse Rate 104 H 07/29/18 09:00 Respiratory Rate 18 07/29/18 09:00 Blood Pressure 139/69 07/29/18 09:00 O2 Sat by Pulse Oximetry (%) 98 07/29/18 10:00 Constitutional: Yes: No Distress, Calm Cardiovascular: Yes: Regular Rate and Rhythm Respiratory: Yes: Regular, CTA Bilaterally Gastrointestinal: Yes: Normal Bowel Sounds, Soft Musculoskeletal: Yes: WNL Extremities: Yes: WNL Neurological: Yes: Alert, Oriented Psychiatric: Yes: Alert, Oriented Labs: CBC, BMP 07/28/18 07:15 07/28/18 07:15 INR, PTT INR 1.32 (0.83-1.09) H 07/07/18 12:35 Assessment/Plan Acute metabolic encephalopathy Severe sepsis Acute toxic metabolic encephalopathy Seratonin overdose Possible suicide attempt Severe depression pneumonia uti plan continue physio off of abx patient stable patient feels better rest as per the team
--- NOTE | 2018-07-29 12:33 | EKG ---
Test Reason : Blood Pressure : / mmHG Vent. Rate : 093 BPM Atrial Rate : 093 BPM P-R Int : 152 ms QRS Dur : 080 ms QT Int : 356 ms P-R-T Axes : 074 072 072 degrees QTc Int : 442 ms NORMAL SINUS RHYTHM POSSIBLE LEFT ATRIAL ENLARGEMENT LEFT VENTRICULAR HYPERTROPHY ABNORMAL ECG Confirmed by MD REJI, MARIA DOLORES ([id number]) on 07/29/2018 12:32:41 PM Referred By: Confirmed By:MARIA DOLORES MENDOZA MD
--- NOTE | 2018-07-29 13:12 | PN ---
Physical Exam: SUBJECTIVE: Patient seen and examined at the bedside. feels well today, states she is eating better. denies any urinary symptoms, denies burning or frequency. OBJECTIVE: patient cooperative, in no acute distress Patient [facility] - slow and steady gait. No assistive devices used patient is awaiting transfer to inpatient psyche facility. labs and vitals are stable no active medical issues continues to need a 1:1 for suicide attempt (admitting diagnosis) Vital Signs Period Temp Pulse Resp BP Sys/Smith Pulse Ox Last 24 Hr 97.5 F-98.5 F 72-104 16-18 130-139/55-90 98-99 GENERAL: The patient is awake, alert, and fully oriented, in no acute distress. HEAD: Normal with no signs of trauma. EYES: PERRL, extraocular movements intact, sclera anicteric, conjunctiva clear. No ptosis. ENT: Ears normal, nares patent, oropharynx clear without exudates, moist mucous membranes. NECK: Trachea midline, full range of motion, supple. LUNGS: Breath sounds equal, clear to auscultation bilaterally, no wheezes HEART: Regular rate and rhythm ABDOMEN: Soft, nontender, nondistended, normoactive bowel sounds EXTREMITIES: no edema. NEUROLOGICAL: Normal speech, slow steady gait PSYCH: Normal mood, normal affect. SKIN: Warm, dry, normal turgor, no rashes or lesions noted Active Medications Generic Name Dose Route Start Last Admin Trade Name Freq PRN Reason Stop Dose Admin Carbidopa/Levodopa 1 combo 07/29/18 08:00 07/29/18 08:46 Sinemet *Cr* 25/100 - PO 1 combo TIDCM [facility] Administration Clonazepam 0.5 mg 07/24/18 14:39 07/28/18 15:46 Klonopin - PO 0.5 mg BID PRN Administration ANXIETY Desipramine HCl 100 mg 07/29/18 10:00 07/29/18 10:20 Norpramin - PO 100 mg DAILY [facility] Administration Docusate Sodium 300 mg 07/26/18 22:00 07/28/18 21:51 Colace - PO 300 mg HS [facility] Administration Olanzapine 2.5 mg 07/22/18 22:00 07/28/18 21:51 Zyprexa - PO 2.5 mg HS [facility] Administration Pantoprazole Sodium 40 mg 07/29/18 10:00 07/29/18 10:20 Protonix - PO 40 mg DAILY [facility] Administration Propranolol HCl 40 mg 07/19/18 14:18 07/29/18 10:20 Inderal - PO 40 mg BID [facility] Administration Senna 1 tab 07/28/18 22:00 07/28/18 21:51 Senna - PO 1 tab HS [facility] Administration Thiamine HCl 100 mg 07/28/18 10:00 07/29/18 10:20 Vitamin B1 - PO 100 mg DAILY [facility] Administration ASSESSMENT/PLAN: Patient is a 67 year old female with a reported past medical history of severe depression with prior admission to [facility]. Patient brought in to the ED 07/06/2018 via ambulance after she was found unresponsive in her bed. Patient intubated on admission for suicide attempt with zyprexa and klonopin overdose. Acute metabolic encephalopathy Severe sepsis Acute toxic metabolic encephalopathy Seratonin overdose Possible suicide attempt Severe depression aspiration pneumonia Laryngeal Edema Pulm: Acute Respiratory Failure, secondary to drug overdose. resolved. intubated on admission 07/06/2018, extubated on 07/15/2018 tapered of Dexamethasone for laryngeal edema. tolerating room air, oxygen sats stable. Neuro: Acute toxic metabolic encephalopathy due to polysubstance overdose, resolved AMS due to polysubstance overdose, resolved Mental status, back to baseline head Ct negative. Patient followed by neurology and psychiatry. Suspected Serotonin Syndrome, resolved s/p Cyproheptadine. activate charcoal given on admission. Poison controlled contacted during hospitalization. Patient on klonopin q 12 prn Suspected extracranial hemorrhage Repeat head CT stable. followed by neuro. Parkinsonian syndrome. followed by neuro. started on carbdiopa/levodopa Head CT demonstrates calcifications, no acute pathologies Psyche: Suicidal Ideation, remains on a 1:1 Zyprexa 2.5mg qhs klonopin 0.5mg BID Norpramin 100mg daily plan is to transfer to inpt psych, awaiting bed offer. Plan to transfer to inpatient psyche Hypoalbuminemia On Osmalite feeds. Nutrition following. patient tolerating her diet Card: Tachycardia/hypertension. controlled On Propranolol 40mg bid prophylaxis colace ambulation protonix full code Visit type - Emergency Visit Emergency Visit: Yes ED Registration Date: 07/06/18 Care time: The patient presented to the Emergency Department on the above date and was hospitalized for further evaluation of their emergent condition. - New Patient This patient is new to me today: No - Critical Care Critical Care patient: No - Discharge Referral Referred to [facility] Med P.C.: No
--- NOTE | 2018-07-29 15:14 | PN ---
Progress Note, FOOD AND BEVERAGE ASSISTANT - Note Progress Note: Selected Entries 07/28/18 07/28/18 07/28/18 09:00 11:40 15:36 Breakfast 50% Lunch 50% Temperature 98.2 F 97.5 F L 07/28/18 07/28/18 07/29/18 19:00 21:00 02:00 Breakfast Lunch Temperature 98.2 F 98.0 F 98.5 F 07/29/18 07/29/18 07/29/18 06:00 09:00 12:05 Breakfast 50% Lunch Temperature 98.3 F 98.2 F Laboratory Tests 07/28/18 07:15 WBC 7.5 Pt receiving cups of chopped food with good tolerance. Please upgrade to regular, soft and thin liquid. Supplements b/n meals to increase nutritional intake.
[2018-07-29] MEDS: clonazePAM 0.5 MG TABLET PO PRN (18:24)
[2018-07-29] MEDS: OLANZapine 2.5 MG TABLET PO SCH (22:19)
[2018-07-29] MEDS: SENNOSIDES 8.6MG TABLET (FP) PO SCH (22:19)
[2018-07-29] MEDS: DOCUSATE SODIUM 100 MG CAPSULE (FP) PO SCH (22:19)
[2018-07-30 07:23] VITALS: TEMP 97.6
--- NOTE | 2018-07-30 07:50 | DS ---
Physical Exam: SUBJECTIVE: Patient seen and examined at the bedside. patient for transfer to [facility] inpatient psyche for suicide attempt. OBJECTIVE: Vital Signs Period Temp Pulse Resp BP Sys/Smith Pulse Ox Last 24 Hr 97.6 F-98.2 F 96-105 18-22 115-139/69-92 97-98 PHYSICAL EXAM GENERAL: The patient is awake, alert, and fully oriented, in no acute distress. HEAD: Normal with no signs of trauma. EYES: PERRL, extraocular movements intact, sclera anicteric, conjunctiva clear. No ptosis. ENT: Ears normal, nares patent, oropharynx clear without exudates, moist mucous membranes. NECK: Trachea midline, full range of motion, supple. LUNGS: Breath sounds equal, clear to auscultation bilaterally, no wheezes HEART: Regular rate and rhythm ABDOMEN: Soft, nontender, nondistended, normoactive bowel sounds EXTREMITIES: no edema. NEUROLOGICAL: Normal speech, slow steady gait PSYCH: Normal mood, normal affect. SKIN: Warm, dry, normal turgor, no rashes or lesions noted HOSPITAL COURSE: Patient is a 67 year old female with a reported past medical history of severe depression with prior admission to [facility]. Patient brought in to the ED 07/06/2018 via ambulance after she was found unresponsive in her bed. Patient intubated on admission for suicide attempt with zyprexa and klonopin overdose. Acute metabolic encephalopathy Severe sepsis Acute toxic metabolic encephalopathy Seratonin overdose Possible suicide attempt Severe depression aspiration pneumonia Laryngeal Edema Pulm: Acute Respiratory Failure, secondary to drug overdose. resolved. intubated on admission 07/06/2018, extubated on 07/15/2018 tapered of Dexamethasone for laryngeal edema. tolerating room air, oxygen sats stable. Neuro: Acute toxic metabolic encephalopathy due to polysubstance overdose, resolved AMS due to polysubstance overdose, resolved Mental status, back to baseline head Ct negative. Patient followed by neurology and psychiatry. Suspected Serotonin Syndrome, resolved s/p Cyproheptadine. activate charcoal given on admission. Poison controlled contacted during hospitalization. Patient on klonopin q 12 prn Suspected extracranial hemorrhage Repeat head CT stable. followed by neuro. Parkinsonian syndrome. followed by neuro. started on carbdiopa/levodopa Head CT demonstrates calcifications, no acute pathologies Psyche: Suicidal Ideation, remains on a 1:1 Zyprexa 2.5mg qhs klonopin 0.5mg BID Norpramin 100mg daily plan is to transfer to in psych, awaiting bed offer. Plan to transfer to inpatient psyche at [facility] today Hypoalbuminemia On Osmalite feeds. Nutrition following. patient tolerating her diet Card: Tachycardia/hypertension. controlled On Propranolol 40mg bid proph full code Date of Admission:07/06/18 Date of Discharge: 07/30/18 Minutes to complete discharge: 60 Discharge Summary Reason For Visit: ACUTE RESP FAILURE Current Active Problems Acute respiratory failure (Acute) Altered mental status (Acute) Depression (Acute) Dysphagia (Acute) Hypertension (Acute) Overdose (Acute) Overdose on Tylenol (Acute) Parkinsonian syndrome (Acute) Pneumonia (Acute) Prophylactic measure (Acute) Sepsis (Acute) Suicide and self-inflicted injury (Acute) Urinary retention with incomplete bladder emptying (Acute) Condition: Stable - Instructions Diet, Activity, Other Instructions: transfer to inpatient psyche at [facility] Referrals: Yamel Talbot MD [Staff Physician] - Disposition: TRANSFER ACUTE CARE/OTHER HOSP - Home Medications Comprehensive Discharge Medication List: Ambulatory Orders Desipramine HCl [Norpramin -] 150 mg PO BID 07/12/18 Carbidopa/Levodopa *Cr* 25/100 [Sinemet *Cr* 25/100 -] 1 combo PO TIDCM tablet.er 07/29/18 Docusate Sodium [Colace -] 300 mg PO HS capsule 07/29/18 Olanzapine [Zyprexa -] 2.5 mg PO HS tablet 07/29/18 Pantoprazole Sodium [Protonix -] 40 mg PO DAILY tablet.ec 07/29/18 Thiamine HCl [Vitamin B1 -] 100 mg PO DAILY tablet 07/29/18 clonazePAM [Klonopin -] 0.5 mg PO BID PRN #60 tablet MDD 2 07/29/18 propRANOLol HCL [Inderal -] 40 mg PO BID tablet 07/29/18 This patient is new to me today: No Emergency Visit: Yes ED Registration Date: 07/06/18 Care time: The patient presented to the Emergency Department on the above date and was hospitalized for further evaluation of their emergent condition. Critical Care patient: No - Discharge Referral Referred to [facility] No
[2018-07-30] MEDS ORDERED: PT OWN MED DRAWER 7, Y5N ONE ×2 (09:16→12:22)
[2018-07-30] MEDS: DESIPRAMINE HCL 50 MG TABLET PO SCH (09:18)
[2018-07-30] MEDS: THIAMINE HCL 100 MG TABLET (FP) PO SCH (09:18)
[2018-07-30] MEDS: PANTOPRAZOLE 40 MG TABLET (FP) PO SCH (09:18)
[2018-07-30 10:14] VITALS: BP 128/84; PULSE 103
--- NOTE | 2018-07-30 11:28 | PN ---
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 Selected Entries 07/30/18 07/30/18 07/30/18 06:00 09:45 10:00 Breakfast 100% Temperature 97.6 F 97.6 F Laboratory Tests 07/28/18 07:15 WBC 7.5 Pending transfer today.
[2018-07-30] MEDS: clonazePAM 0.5 MG TABLET PO PRN (12:29)
== END 2018-07-30 14:46 | DRG 917 ==
LOC: JER 11:01 → JERBED 13:19 → JICU 19:10 → J5S 07-19 16:11
PROVIDERS: ADMIT Internal Medicine; ATTEND Nurse Practitioner Family
PROC: 5A1955Z Respiratory Ventilation, Greater than 96 Consecutive Hours (ICD-10-PCS; principal; 2018-07-06)
PROC: 0BH17EZ Insertion of Endotracheal Airway into Trachea, Via Natural or Artificial Opening (ICD-10-PCS; 2018-07-06)
PROC: 02HV33Z Insertion of Infusion Device into Superior Vena Cava, Percutaneous Approach (ICD-10-PCS; 2018-07-06)
PROC: B548ZZA Ultrasonography of Superior Vena Cava, Guidance (ICD-10-PCS; 2018-07-06)
PROC: 0DH67UZ Insertion of Feeding Device into Stomach, Via Natural or Artificial Opening (ICD-10-PCS; 2018-07-06)
PROC: 3E0G76Z Introduction of Nutritional Substance into Upper GI, Via Natural or Artificial Opening (ICD-10-PCS; 2018-07-06)
PROC: 5A1945Z Respiratory Ventilation, 24-96 Consecutive Hours (ICD-10-PCS; 2018-07-13)
PROC: 0BH17EZ Insertion of Endotracheal Airway into Trachea, Via Natural or Artificial Opening (ICD-10-PCS; 2018-07-13)
PROC: 0DP6XUZ Removal of Feeding Device from Stomach, External Approach (ICD-10-PCS; 2018-07-16)
DX: T43.592A Poisoning by other antipsychotics and neuroleptics, intentional self-harm, initial encounter (principal); J96.00 Acute respiratory failure, unspecified whether with hypoxia or hypercapnia; G92 Toxic encephalopathy; J69.0 Pneumonitis due to inhalation of food and vomit; I62.00 Nontraumatic subdural hemorrhage, unspecified; A41.9 Sepsis, unspecified organism; R65.20 Severe sepsis without septic shock; N39.0 Urinary tract infection, site not specified; J98.11 Atelectasis; T39.1X2A Poisoning by 4-Aminophenol derivatives, intentional self-harm, initial encounter; F32.9 Major depressive disorder, single episode, unspecified; E88.09 Other disorders of plasma-protein metabolism, not elsewhere classified; R74.0 Nonspecific elevation of levels of transaminase and lactic acid dehydrogenase [LDH]; J38.4 Edema of larynx; D64.9 Anemia, unspecified; G20 Parkinson's disease; B96.20 Unspecified Escherichia coli [E. coli] as the cause of diseases classified elsewhere; B95.2 Enterococcus as the cause of diseases classified elsewhere; R33.9 Retention of urine, unspecified; R13.10 Dysphagia, unspecified
CPT/HCPCS: 31500; 36415; 36600; 70450-TC; 71045-TC-FY; 74230-TC-FY; 80048; 80053; 80307; 81003; 81015; 82140; 82375; 82550; 82803; 82962; 83036; 83050; 83605; 83735; 84100; 84484; 85025; 85027; 85610; 85651; 85730; 86003; 86140; 87040; 87086; 87186; 87804; 92611-GN; 93005; 93010; 93306-TC; 94002; 94640; 94660; 95816; 97116-GP; 99285-25; J0131; J1100; J1644; J7030

== ENCOUNTER 2022-07-22 07:11 | Emergency (ER) | payer OTHER, BC ==
[2022-07-22 07:39] VITALS: BP 125/74; PULSE 88; RESP 18; TEMP 99.2; BMI 22.1
== END 2022-07-22 08:30 | disposition home or self-care (01) ==
LOC: JER 07:11
DX: B34.9 Viral infection, unspecified (principal)
CPT/HCPCS: 0241U-QW; 71046-TC-FY; 99283-25